=== PATIENT | male | born 1970 | race Caucasian/White ===

== ENCOUNTER 2021-04-25 09:15 | Inpatient (IN) | payer BC ==
--- NOTE | 2021-04-25 09:44 | ED ---
General Adult HPI - General Chief complaint: Shortness of Breath Stated complaint: MONICA Time Seen by Provider: 04/25/21 09:17 Source: patient, EMS, RN notes reviewed Mode of arrival: EMS Limitations: no limitations - History of Present Illness Initial comments: Patient is a pleasant 51-year-old male presenting to the emergency Department with difficulty in breathing. Onset of symptoms was this morning. Symptoms are similar to symptoms patient had prior to needing dialysis. Patient does do home dialysis. Patient states usually misses dialysis around once per week. Last dialysis was yesterday. Patient has had some leg swelling over the past day or 2. No calf pain. Patient does admit to having lower back surgery just around 5 or 6 weeks ago. No cough. No fever. - Related Data Allergies Allergy/AdvReac Type Severity Reaction Status Date / Time No Known Allergies Allergy Verified 04/25/21 09:32 Review of Systems ROS Statement: Those systems with pertinent positive or pertinent negative responses have been documented in the HPI. ROS Other: All systems not noted in ROS Statement are negative. Constitutional: Denies: fever Eyes: Denies: eye pain ENT: Denies: ear pain Respiratory: Reports: as per HPI, dyspnea. Denies: cough Cardiovascular: Reports: edema. Denies: chest pain Endocrine: Denies: fatigue Gastrointestinal: Denies: abdominal pain Genitourinary: Denies: dysuria Musculoskeletal: Denies: back pain Skin: Denies: rash Neurological: Denies: weakness Past Medical History Past Medical History: Diabetes Mellitus, Dialysis, Hypertension Additional Past Medical History / Comment(s): 5x weekly dialysis at home History of Any Multi-Drug Resistant Organisms: None Reported Past Surgical History: Back Surgery Additional Past Surgical History / Comment(s): Shoulder surgery x2 Past Psychological History: No Psychological Hx Reported Smoking Status: Never smoker Past Alcohol Use History: None Reported Past Drug Use History: Marijuana General Exam Limitations: no limitations General appearance: alert, in no apparent distress Head exam: Present: normocephalic Eye exam: Present: normal appearance Neck exam: Present: normal inspection Respiratory exam: Present: rales (Bilateral bases) Cardiovascular Exam: Present: regular rate, normal rhythm GI/Abdominal exam: Present: soft. Absent: tenderness Extremities exam: Present: pedal edema. Absent: calf tenderness Neurological exam: Present: alert Psychiatric exam: Present: normal affect, normal mood Skin exam: Present: normal color Course Vital Signs 04/25/21 04/25/21 09:29 09:40 Temperature 98.4 F Pulse Rate 85 Respiratory 18 Rate Blood Pressure 169/79 O2 Sat by Pulse 90 L 93 L Oximetry EKG Findings - EKG Comments: EKG Findings:: Normal sinus rhythm with a rate of 82. IA 164. QRS 104. QT 412. QTC 41. Normal axis. Q waves V1 and V2. Nonspecific T waves. Medical Decision Making - Medical Decision Making Patient reevaluated and resting comfortably in bed. Patient and family updated on results and plan. Case was also detail with Dr. Paul, covering hospital call, who will admit. He did evaluate patient in the emergency department. - Lab Data Result diagrams: 04/25/21 09:40 04/25/21 09:40 Lab Results 04/25/21 04/25/21 04/25/21 Range/Units 09:40 09:40 09:40 WBC 14.7 H (3.8-10.6) k/uL RBC 3.42 L (4.30-5.90) m/uL Hgb 11.0 L (13.0-17.5) gm/dL Hct 33.6 L (39.0-53.0) % MCV 98.3 (80.0-100.0) fL MCH 32.3 (25.0-35.0) pg MCHC 32.9 (31.0-37.0) g/dL RDW 14.5 (11.5-15.5) % Plt Count 208 (150-450) k/uL MPV 9.8 Neutrophils % 92 % Lymphocytes % 3 % Monocytes % 4 % Eosinophils % 1 % Basophils % 0 % Neutrophils # 13.6 H (1.3-7.7) k/uL Lymphocytes # 0.4 L (1.0-4.8) k/uL Monocytes # 0.5 (0-1.0) k/uL Eosinophils # 0.1 (0-0.7) k/uL Basophils # 0.0 (0-0.2) k/uL PT 10.2 (9.0-12.0) sec INR 0.9 (<1.2) APTT 22.9 (22.0-30.0) sec D-Dimer 1.80 H (<0.60) mg/L FEU Sodium 133 L (137-145) mmol/L Potassium 4.7 (3.5-5.1) mmol/L Chloride 97 L (98-107) mmol/L Carbon Dioxide 26 (22-30) mmol/L Anion Gap 10 mmol/L BUN 54 H (9-20) mg/dL Creatinine 5.32 H (0.66-1.25) mg/dL Est GFR (CKD-EPI)AfAm 13 (>60 ml/min/1.73 sqM) Est GFR (CKD-EPI)NonAf 11 (>60 ml/min/1.73 sqM) Glucose 269 H (74-99) mg/dL Plasma Lactic Acid Caleb (0.7-2.0) mmol/L Calcium 9.7 (8.4-10.2) mg/dL Total Bilirubin 1.1 (0.2-1.3) mg/dL AST 66 H (17-59) U/L ALT 98 H (4-49) U/L Alkaline Phosphatase 554 H (38-126) U/L NT-Pro-B Natriuret Pep pg/mL Total Protein 6.7 (6.3-8.2) g/dL Albumin 3.7 (3.5-5.0) g/dL 04/25/21 04/25/21 Range/Units 09:40 09:40 WBC (3.8-10.6) k/uL RBC (4.30-5.90) m/uL Hgb (13.0-17.5) gm/dL Hct (39.0-53.0) % MCV (80.0-100.0) fL MCH (25.0-35.0) pg MCHC (31.0-37.0) g/dL RDW (11.5-15.5) % Plt Count (150-450) k/uL MPV Neutrophils % % Lymphocytes % % Monocytes % % Eosinophils % % Basophils % % Neutrophils # (1.3-7.7) k/uL Lymphocytes # (1.0-4.8) k/uL Monocytes # (0-1.0) k/uL Eosinophils # (0-0.7) k/uL Basophils # (0-0.2) k/uL PT (9.0-12.0) sec INR (<1.2) APTT (22.0-30.0) sec D-Dimer (<0.60) mg/L FEU Sodium (137-145) mmol/L Potassium (3.5-5.1) mmol/L Chloride (98-107) mmol/L Carbon Dioxide (22-30) mmol/L Anion Gap mmol/L BUN (9-20) mg/dL Creatinine (0.66-1.25) mg/dL Est GFR (CKD-EPI)AfAm (>60 ml/min/1.73 sqM) Est GFR (CKD-EPI)NonAf (>60 ml/min/1.73 sqM) Glucose (74-99) mg/dL Plasma Lactic Acid Caleb 1.3 (0.7-2.0) mmol/L Calcium (8.4-10.2) mg/dL Total Bilirubin (0.2-1.3) mg/dL AST (17-59) U/L ALT (4-49) U/L Alkaline Phosphatase (38-126) U/L NT-Pro-B Natriuret Pep 60895 pg/mL Total Protein (6.3-8.2) g/dL Albumin (3.5-5.0) g/dL - Radiology Data Radiology results: image reviewed (Chest x-ray reveals right lower lobe infiltrate. copd) Disposition Clinical Impression: Pulmonary edema Disposition: ADMITTED IP TO THIS HOSP Is patient prescribed a controlled substance at d/c from ED?: No Referrals: Darin Camara NPC [Primary Care Provider] - 1-2 days Decision Time: 11:08
[2021-04-25 09:53] LABS: Basophils % (A) 0 %; Eosinophils # (A) 0.1 k/uL (0-0.7); Eosinophils % (A) 1 %; HCT 33.6 % (39.0-53.0); Lymphocytes # (A) 0.4 k/uL (1.0-4.8); Lymphocytes % (A) 3 %; MCH 32.3 pg (25.0-35.0); MCHC 32.9 g/dL (31.0-37.0); MCV 98.3 fL (80.0-100.0); Mean Platelet Volume 9.8; Monocytes # (A) 0.5 k/uL (0-1.0); Monocytes % (A) 4 %; Neutrophils # (A) 13.6 k/uL (1.3-7.7); Neutrophils % (A) 92 %; Platelet Count 208 k/uL (150-450); RBC 3.42 m/uL (4.30-5.90); RDW 14.5 % (11.5-15.5); WBC 14.7 k/uL (3.8-10.6)
--- NOTE | 2021-04-25 09:58 | XR ---
EXAMINATION TYPE: XR chest 2V DATE OF EXAM: 04/25/2021 COMPARISON: NONE TECHNIQUE: PA and lateral views submitted. HISTORY: Difficulty in breathing FINDINGS: Patchy right lower lobe infiltrate. Heart size mildly prominent. Lesion. Diffuse osteopenia. No pneum othorax or pleural effusion. Degenerative change of the spine. IMPRESSION: 1. Patchy right lower lobe infiltrate. 2 COPD.
[2021-04-25 10:05] LABS: Calcium 9.7 mg/dL (8.4-10.2); Total Bilirubin 1.1 mg/dL (0.2-1.3)
[2021-04-25 10:11] LABS: INR 0.9 (<1.2); Partial Thromboplastin Time 22.9 sec (22.0-30.0); Prothrombin Time 10.2 sec (9.0-12.0)
[2021-04-25 10:39] LABS: Albumin 3.7 g/dL (3.5-5.0); Potassium 4.7 mmol/L (3.5-5.1); Total Protein 6.7 g/dL (6.3-8.2)
[2021-04-25] MEDS ORDERED: traMADol 50 MG TAB PO STA (11:08)
[2021-04-25] MEDS ORDERED: FUROSEMIDE 10 MG/ML 4 ML VIAL IV STA (11:10)
[2021-04-25] MEDS: CYCLOBENZAPRINE 10 MG TAB PO PRN (11:18)
--- NOTE | 2021-04-25 12:24 | P.HPIM ---
History of Present Illness Patient is presently 51-year-old male came in with compensative shortness of breath which has been going on for last couple days and the weight gain of 8 pounds and bilateral pedal edema. Patient is found to have some pulmonary edema on the chest x-ray. Patient does hemodialysis at home by himself on as-needed basis. Patient barely makes any urine. Patient removed about 2.5 L yesterday in spite of which she still gain 6 pounds patient doesn't appear to be competent with his dietary recommendations. Patient denied any fever chills cough. Patient has mildly elevated liver enzymes and mildly elevated troponins serum creatinine is 5.5. Patient had a recent back surgery because of which patient cannot stay on bed or chair for long periods of time which is limiting his hemodialysis. Patient denied any dysuria. She is presently on 4 L of oxygen doesn't use any oxygen usually at home. REVIEW OF SYSTEMS: CONSTITUTIONAL: No fever, no malaise, no fatigue. HEENT: No recent visual problems or hearing problems. Denied any sore throat. CARDIOVASCULAR: No chest pain no palpitations, no syncope. PULMONARY: no hemoptysis. GASTROINTESTINAL: No diarrhea, no nausea, no vomiting, no abdominal pain. NEUROLOGICAL: No headaches, no weakness, no numbness. HEMATOLOGICAL: Denies any bleeding or petechiae. GENITOURINARY: Denies any burning micturition, frequency, or urgency. MUSCULOSKELETAL/RHEUMATOLOGICAL: Denies any joint pain, swelling, or any muscle pain. ENDOCRINE: Denies any polyuria or polydipsia. The rest of the 14-point review of systems is negative. PHYSICAL EXAMINATION: GENERAL: The patient is alert and oriented x3, not in any acute distress. Well developed, well nourished. HEENT: Pupils are round and equally reacting to light. EOMI. No scleral icterus. No conjunctival pallor. Normocephalic, atraumatic. No pharyngeal erythema. No thyromegaly. CARDIOVASCULAR: S1 and S2 present. No murmurs, rubs, or gallops. PULMONARY: Chest is clear to auscultation, no wheezing or crackles. ABDOMEN: Soft, nontender, nondistended, normoactive bowel sounds. No palpable organomegaly. MUSCULOSKELETAL: No joint swelling or deformity. EXTREMITIES: No cyanosis, clubbing, bilateral pitting pedal edema 2+ NEUROLOGICAL: Gross neurological examination did not reveal any focal deficits. SKIN: No rashes. Assessment and plan Shortness of Breath Secondary to Pulmonary Edema from End-Stage Disease and Volume Overload from End-Stage Renal Disease. Patient does urinate a bit patient was started on high-dose Lasix and nephrology will be consulted patient may need hemodialysis today and tomorrow. -Acute hypoxic respiratory failure secondary to assessment #1 -Chronic back pain with a recent back surgery patient will be resumed on home regimen. -Diabetes mellitus unknown with whether it's type II-type I with diabetic nephropathy and end-stage renal disease hemodialysis dependent -Hypertension DVT prophylaxis: Subcutaneous heparin Past Medical History Past Medical History: Diabetes Mellitus, Dialysis, Hypertension Additional Past Medical History / Comment(s): 5x weekly dialysis at home History of Any Multi-Drug Resistant Organisms: None Reported Past Surgical History: Back Surgery Additional Past Surgical History / Comment(s): Shoulder surgery x2 Past Psychological History: No Psychological Hx Reported Smoking Status: Never smoker Past Alcohol Use History: None Reported Past Drug Use History: Marijuana Medications and Allergies Home Medications Medication Instructions Recorded Confirmed Type Ascorbic Acid [Vitamin C] 1,000 mg PO DAILY 04/25/21 04/25/21 History Aspirin EC [Ecotrin Low Dose] 81 mg PO DAILY 04/25/21 04/25/21 History Citalopram Hydrobromide [CeleXA] 20 mg PO DAILY 04/25/21 04/25/21 History Cyclobenzaprine [Flexeril] 10 mg PO TID PRN 04/25/21 04/25/21 History Furosemide [Lasix] 40 mg PO DAILY 04/25/21 04/25/21 History Insulin Aspart (For Pump) [NovoLOG 0.01 unit SQ-PUMP CONTINUOUS 04/25/21 04/25/21 History (For Pump)] Labetalol [Trandate] 200 mg PO TID 04/25/21 04/25/21 History NIFEdipine [NIFEdipine ER 30 mg PO HS 04/25/21 04/25/21 History (Osmotic)] NIFEdipine [NIFEdipine ER 60 mg PO BID 04/25/21 04/25/21 History (Osmotic)] Omeprazole 40 mg PO DAILY 04/25/21 04/25/21 History Pramipexole Di-HCl [Mirapex] 0.5 mg PO HS 04/25/21 04/25/21 History Renaplex-D 1 tab PO DAILY 04/25/21 04/25/21 History Velphoro Chew 500mg 1 tab PO QID 04/25/21 04/25/21 History calcitrioL [Rocaltrol] 0.25 mcg PO PRO 04/25/21 04/25/21 History traMADol HCL 50 mg PO Q8H PRN 04/25/21 04/25/21 History Allergies Allergy/AdvReac Type Severity Reaction Status Date / Time No Known Allergies Allergy Verified 04/25/21 11:17 Physical Exam Vitals: Vital Signs Temp Pulse Resp BP Pulse Ox 04/25/21 11:30 79 94 L 04/25/21 11:25 79 20 142/89 95 04/25/21 11:00 80 94 L 04/25/21 10:30 80 151/99 99 04/25/21 10:00 80 163/79 93 L 04/25/21 09:40 93 L 04/25/21 09:30 81 168/81 92 L 04/25/21 09:29 98.4 F 85 18 169/79 90 L 04/25/21 09:26 78 169/79 85 L Intake and Output 04/24/21 04/25/21 04/25/21 22:59 06:59 14:59 Other: Weight 84.6 kg Results CBC & Chem 7: 04/25/21 09:40 04/25/21 09:40 Labs: Abnormal Lab Results - Last 24 Hours (Table) 04/25/21 04/25/21 04/25/21 Range/Units 09:40 09:40 09:40 WBC 14.7 H (3.8-10.6) k/uL RBC 3.42 L (4.30-5.90) m/uL Hgb 11.0 L (13.0-17.5) gm/dL Hct 33.6 L (39.0-53.0) % Neutrophils # 13.6 H (1.3-7.7) k/uL Lymphocytes # 0.4 L (1.0-4.8) k/uL D-Dimer 1.80 H (<0.60) mg/L FEU Sodium 133 L (137-145) mmol/L Chloride 97 L (98-107) mmol/L BUN 54 H (9-20) mg/dL Creatinine 5.32 H (0.66-1.25) mg/dL Glucose 269 H (74-99) mg/dL AST 66 H (17-59) U/L ALT 98 H (4-49) U/L Alkaline Phosphatase 554 H (38-126) U/L Troponin I (0.000-0.034) ng/mL 04/25/21 Range/Units 09:40 WBC (3.8-10.6) k/uL RBC (4.30-5.90) m/uL Hgb (13.0-17.5) gm/dL Hct (39.0-53.0) % Neutrophils # (1.3-7.7) k/uL Lymphocytes # (1.0-4.8) k/uL D-Dimer (<0.60) mg/L FEU Sodium (137-145) mmol/L Chloride (98-107) mmol/L BUN (9-20) mg/dL Creatinine (0.66-1.25) mg/dL Glucose (74-99) mg/dL AST (17-59) U/L ALT (4-49) U/L Alkaline Phosphatase (38-126) U/L Troponin I 0.037 H* (0.000-0.034) ng/mL
[2021-04-25] MEDS ORDERED: Insulin Aspart (For Pump) 100 UNIT/ML VIAL SQ-PUMP SCH (13:00)
--- NOTE | 2021-04-25 13:01 | US ---
EXAMINATION TYPE: US venous doppler duplex LE DATE OF EXAM: 04/25/2021 12:33 PM COMPARISON: NONE CLINICAL HISTORY: swelling. Bilateral leg swelling SIDE PERFORMED: Bilateral TECHNIQUE: The lower extremity deep venous system is examined utilizing real time linear array sonog michela with graded compression, doppler sonography and color-flow sonography. VESSELS IMAGED: Common Femoral Vein Deep Femoral Vein Greater Saphenous Vein * Femoral Vein Popliteal Vein Small Saphenous Vein * Proximal Calf Veins (* superficial vessels) Right Leg: Negative for DVT, Probable Selby's Cyst right pop fossa= 5.5 x 1.2 x 2.6 cm Left Leg: Negative for DVT, Probable Selby's cyst left fossa= 5.6 x 0.8 x 1.8 cm IMPRESSION: 1. Grayscale, color doppler, spectral doppler imaging performed of the deep veins of the lower extrem ities. There is normal flow, compressibility, vascular waveforms. 2. Bilateral Selby cysts.
[2021-04-25] MEDS: HYDROcodone/APAP 7.5-325MG 1 EACH TAB PO PRN ×2 (13:45→20:01)
[2021-04-25] MEDS: SEVELAMER 800 MG TAB PO SCH ×3 (13:52→21:10)
[2021-04-25] MEDS: HYDROmorphone 0.5 MG/0.5 ML SYRINGE IVP PRN (16:16)
[2021-04-25] MEDS ORDERED: INSPUCOR MISCELLANE PRN (17:41)
[2021-04-25] MEDS: LABETALOL 200 MG TAB PO SCH ×2 (18:30→22:31)
[2021-04-25] MEDS: traMADol 50 MG TAB PO PRN (18:37)
--- NOTE | 2021-04-25 18:46 | NM ---
EXAMINATION TYPE: NM pul vent and perfuse DATE OF EXAM: 04/25/2021 COMPARISON: NONE HISTORY: TECHNIQUE: Utilizing inhalation of 59.8 mCi Tc 99m DTPA aerosol and intravenous injection of 4.8 mCi of Tc 99m MAA, ventilation and perfusion images are acquired post injection in multiple projections. FINDINGS: Perfusion and ventilation images are within normal limits. There is no evidence of segmental or any s ignificant subsegmental perfusion defect.. IMPRESSION: There is very low probability of pulmonary embolism.
[2021-04-25 20:27] LABS: Glucose,Whole Blood 105 mg/dL (75-99)
[2021-04-25] MEDS ORDERED: traMADol 50 MG TAB PO SCH (21:00)
[2021-04-25] MEDS: NIFEdipine XL 30 MG TAB.ER.24 PO SCH (21:10)
[2021-04-25] MEDS: FUROSEMIDE 10 MG/ML 10 ML VIAL IV SCH (21:10)
[2021-04-25] MEDS: PRAMIPEXOLE 0.25 MG TAB PO SCH (21:10)
[2021-04-26 01:48] LABS: Glucose,Whole Blood 155 mg/dL (75-99)
[2021-04-26] MEDS: HYDROmorphone 0.5 MG/0.5 ML SYRINGE IVP PRN ×2 (06:06→15:53)
[2021-04-26 06:41] LABS: HCT 30.7 % (39.0-53.0); HGB 9.8 gm/dL (13.0-17.5); MCH 31.3 pg (25.0-35.0); MCHC 31.9 g/dL (31.0-37.0); MCV 97.8 fL (80.0-100.0); Mean Platelet Volume 9.7; Platelet Count 233 k/uL (150-450); RBC 3.14 m/uL (4.30-5.90); RDW 14.4 % (11.5-15.5); WBC 17.1 k/uL (3.8-10.6)
[2021-04-26 07:29] LABS: Glucose,Whole Blood 105 mg/dL (75-99)
[2021-04-26] MEDS: SEVELAMER 800 MG TAB PO SCH ×4 (08:08→21:00)
[2021-04-26] MEDS: ASPIRIN 81 MG PO SCH (08:08)
[2021-04-26] MEDS: ASCORBIC ACID 500 MG TAB PO SCH (08:08)
[2021-04-26] MEDS: FOLIC ACID-VIT B COMPLEX-VIT C 1 CAP PO SCH (08:08)
[2021-04-26] MEDS: LABETALOL 200 MG TAB PO SCH ×3 (08:08→21:00)
[2021-04-26] MEDS: PANTOPRAZOLE 40 MG TABLET PO SCH (08:08)
[2021-04-26] MEDS: FUROSEMIDE 10 MG/ML 10 ML VIAL IV SCH ×2 (08:08→21:00)
[2021-04-26] MEDS: CITALOPRAM HYDROBROMIDE 20 MG TAB PO SCH (08:08)
[2021-04-26] MEDS: HYDROcodone/APAP 7.5-325MG 1 EACH TAB PO PRN (08:36)
[2021-04-26] MEDS ORDERED: VANCOMYCIN IV PER PHARMACY 1 EACH MISC MISCELLANE PRN (09:00)
--- NOTE | 2021-04-26 09:03 | P.NPCON ---
History of Present Illness - Reason for Consult end stage renal disease - History of Present Illness Reason for consultation: End-stage renal disease History of present illness: Patient is a 51-year-old male seen in renal consultation for end-stage renal disease. Patient follows with a rock singer out of town. He does home hemodialysis 5 times a week but states he's been doing it about 3-4 times a week last couple of weeks. He has a left upper extremity AV fistula. Etiology is diabetic kidney disease. States he was diagnosed with diabetes at the age of 11. Patient presented to the hospital due to worsening shortness of breath. He also complains of lower extremity edema. Patient states his last hemodialysis was on Friday. He does make urine. He is currently on IV Lasix. He is currently on 4 L is cannula. Blood pressure stable. He denies any significant cough. White count is on the higher side. No vomiting or diarrhea. VQ scan revealed low evidence of PE. No evidence of DVT on venous Doppler. Chest x-ray suggestive of right lower lobe infiltrate. Vital signs are stable. General: The patient appeared well nourished and normally developed. HEENT: Head exam is unremarkable. LUNGS: Breath sounds decreased. HEART: Rate and Rhythm are regular. ABDOMEN: Soft, no distention. EXTREMITITES: No edema. Past Medical History Past Medical History: Diabetes Mellitus, Dialysis, Hypertension Additional Past Medical History / Comment(s): 5x weekly dialysis at home History of Any Multi-Drug Resistant Organisms: None Reported Past Surgical History: Back Surgery Additional Past Surgical History / Comment(s): Shoulder surgery x2 wisdom teeth removed Past Anesthesia/Blood Transfusion Reactions: No Reported Reaction Past Psychological History: No Psychological Hx Reported Smoking Status: Never smoker Past Alcohol Use History: None Reported Past Drug Use History: Marijuana Medications and Allergies Home Medications Medication Instructions Recorded Confirmed Type Ascorbic Acid [Vitamin C] 1,000 mg PO DAILY 04/25/21 04/25/21 History Aspirin EC [Ecotrin Low Dose] 81 mg PO DAILY 04/25/21 04/25/21 History Citalopram Hydrobromide [CeleXA] 20 mg PO DAILY 04/25/21 04/25/21 History Cyclobenzaprine [Flexeril] 10 mg PO TID PRN 04/25/21 04/25/21 History Furosemide [Lasix] 40 mg PO DAILY 04/25/21 04/25/21 History Insulin Aspart (For Pump) [NovoLOG 0.01 unit SQ-PUMP CONTINUOUS 04/25/21 04/25/21 History (For Pump)] Labetalol [Trandate] 200 mg PO TID 04/25/21 04/25/21 History NIFEdipine [NIFEdipine ER 30 mg PO HS 04/25/21 04/25/21 History (Osmotic)] NIFEdipine [NIFEdipine ER 60 mg PO BID 04/25/21 04/25/21 History (Osmotic)] Omeprazole 40 mg PO DAILY 04/25/21 04/25/21 History Pramipexole Di-HCl [Mirapex] 0.5 mg PO HS 04/25/21 04/25/21 History Renaplex-D 1 tab PO DAILY 04/25/21 04/25/21 History Velphoro Chew 500mg 1 tab PO QID 04/25/21 04/25/21 History calcitrioL [Rocaltrol] 0.25 mcg PO PRO 04/25/21 04/25/21 History traMADol HCL 50 mg PO Q8H PRN 04/25/21 04/25/21 History Allergies Allergy/AdvReac Type Severity Reaction Status Date / Time No Known Allergies Allergy Verified 04/25/21 11:17 Physical Exam Vitals: Vital Signs Temp Pulse Pulse Resp BP BP Pulse Ox 04/26/21 05:22 99.5 F 84 16 144/68 92 L 04/26/21 02:08 98.3 F 04/26/21 02:06 24 04/26/21 02:01 188/69 100 04/26/21 01:58 129 H 40 H 187/91 97 04/25/21 22:31 91 169/73 04/25/21 19:57 98.7 F 83 18 162/72 92 L 04/25/21 15:14 97.6 F 78 20 139/73 96 04/25/21 14:48 85 20 155/84 96 04/25/21 13:49 84 20 158/88 95 04/25/21 12:36 95 20 155/76 93 L 04/25/21 11:30 79 94 L 04/25/21 11:25 79 20 142/89 95 04/25/21 11:00 80 94 L 04/25/21 10:30 80 151/99 99 04/25/21 10:00 80 163/79 93 L 04/25/21 09:40 93 L 04/25/21 09:30 81 168/81 92 L 04/25/21 09:29 98.4 F 85 18 169/79 90 L 04/25/21 09:26 78 169/79 85 L Intake and Output 04/25/21 04/26/21 04/26/21 22:59 06:59 14:59 Intake Total 10 Balance 10 Intake: IV 10 saline flush 10 Other: Voiding Method Toilet Weight 83 kg Results - Lab Results Most recent lab results Calcium 9.7 mg/dL (8.4-10.2) 04/25/21 09:40 04/26/21 06:27 04/25/21 09:40 Assessment and Plan Plan: Assessment: 1. End-stage renal disease maintained on home hemodialysis via left upper extremity AV fistula. 2. Dyspnea secondary to volume overload. Concern for pneumonia as well. 3. Diabetes mellitus. 4. Hypertension with chronic kidney disease. 5. Chronic kidney disease mineral bone disease. 6. Gram-positive bacteremia. Plan: Hemodialysis today and again tomorrow. Maintain IV Lasix. Add IV vancomycin. Dose to be adjusted for renal function. Defer further antibiotic therapy to primary team. Check phosphorus level. Thank you for the consultation. I will continue to follow the patient with you during his hospital stay.
[2021-04-26 10:55] LABS: African American GFR (CKD) 10.2 (60.0-200.0); Albumin 3.6 g/dL (3.80-4.90); Albumin/Globulin Ratio 1.33 (1.60-3.17); Anion Gap 13.9 mmol/L (4.00-12.00); BUN/Creat Ratio 9.7 Ratio (12.00-20.00); Calcium 9.6 mg/dL (8.7-10.3); Carbon Dioxide 26.1 mmol/L (21.6-31.8); Globulin 2.7 g/dL (1.6-3.3); Non-African American GFR(CKD) 8.8 (60.0-200.0); Potassium 4.1 mmol/L (3.5-5.5); Total Protein 6.3 g/dL (6.2-8.2)
[2021-04-26] MEDS ORDERED: VANCOMYCIN 1,500 MG in SODIUM CHLORIDE 0.9% 250 ML IVPB ONE (11:00)
[2021-04-26] MEDS ORDERED: INSULIN PUMP BASAL RATES 1 EACH MISC MISCELLANE PRN (12:02)
[2021-04-26] MEDS ORDERED: INSULIN ASPART (NovoLOG) 100 UNIT/ML VIAL SQ PRN (12:02)
[2021-04-26] MEDS ORDERED: INSULIN PUMP TARGET GLUCOSE 1 EACH MISC MISCELLANE PRN (12:02)
[2021-04-26] MEDS ORDERED: INSULIN PUMP ACTIVE INSULIN 1 EACH MISC MISCELLANE PRN (12:02)
[2021-04-26 12:06] LABS: Glucose,Whole Blood 171 mg/dL (75-99)
--- NOTE | 2021-04-26 13:28 | CT ---
EXAMINATION TYPE: CT lumbar spine w con DATE OF EXAM: 04/26/2021 COMPARISON: HISTORY: Low back pain, history of recent surgery February 2021. CT DLP: 1026 mGycm CONTRAST: CT scan of the lumbar is performed with IV Contrast, patient injected with 100ml mL of Isovue 300. Jimmie sanchez is scheduled for dialysis following CT exam. TECHNIQUE: CT of the lumbar spine is performed on a spiral scan at 3 mm thick sections. Reconstructed images are performed in the coronal and sagittal planes. FINDINGS: T12-L1: No focal disc herniation or significant disc bulge is evident. No spinal canal stenosis or neural foraminal stenosis is present. L1-L2: No focal disc herniation or significant disc bulge is evident. No spinal canal stenosis or n eural foraminal stenosis is present L2-L3: No focal disc herniation or significant disc bulge is evident. No spinal canal stenosis or n eural foraminal stenosis is present L3-L4: A based disc bulge is moderate anterior thecal sac flattening. No AP spinal canal stenosis is present. Neural foramen are patent. L4-L5: There appears to be some mild enhancement within the left paracentral canal displacing the the elmo sac towards the right at the L4-5 level. This appears to extend through the left foramen. The bor ders are indistinct. This may in some extension towards the left L5 level. This would have moderate a nterior thecal sac compression and left lateral recess stenosis. Correlate with radicular symptoms. E pidural abscess should be considered. L5-S1: No focal disc herniation or significant disc bulge is evident. No spinal canal stenosis or n eural foraminal stenosis is present Vertebral alignment appears normal. IMPRESSION: 1. Ill-defined area of increased density within the left paracentral region at the L4-5 disc level ex tending into the left foramen and to the left paracentral region posterior to L5. Epidural abscess sh ould be considered. Report was called to Shana, the patient's nurse by Dr. Pérez by telephone at the time of interpretation. Report was called to by Dr. Pérez by telephone at 1326 hours 04/26/2021
[2021-04-26 14:35] LABS: Hemoglobin A1C 7.6 % (4.0-6.0)
[2021-04-26] MEDS: INSULIN PUMP MEAL BOLUS 1 UNIT MISC MISCELLANE SCH ×3 (15:50→23:51)
--- NOTE | 2021-04-26 15:58 | P.PN ---
Progress Note - Text Progress Note Date: 04/26/21 Reviewed Images and case. Pt is 51 yo male with hx of recent back surgery of which no Op noted available to review. Pt has elevated inflammatorie markers, elevated WBC and a CT of his lumbar spine suspicious for L4-5 disc space air as well as epidural mass possible epidural abscess. Given the pts hx, multiple medical comorbid conditions and septic like picture this is a possibility. Pt needs stat MRI of C, T, L spine w/wo contrast to evaluate for surgical considerations. Cont with medical treatment, blood cultures and abx. Will evaluate pt and make further recommendations upon image completion. Appreciate ID and medicine management.
[2021-04-26 17:22] LABS: Glucose,Whole Blood 188 mg/dL (75-99)
[2021-04-26 20:49] LABS: Glucose,Whole Blood 202 mg/dL (75-99)
[2021-04-26] MEDS: NIFEdipine XL 30 MG TAB.ER.24 PO SCH (20:59)
[2021-04-26] MEDS: PRAMIPEXOLE 0.25 MG TAB PO SCH (21:00)
[2021-04-26] MEDS: traMADol 50 MG TAB PO PRN (21:05)
[2021-04-27] MEDS: HYDROmorphone 0.5 MG/0.5 ML SYRINGE IVP PRN ×2 (02:07→16:26)
--- NOTE | 2021-04-27 03:05 | P.PN ---
Subjective Progress Note Date: 04/26/21 Patient is presently 51-year-old male came in with compensative shortness of breath which has been going on for last couple days and the weight gain of 8 pounds and bilateral pedal edema. Patient is found to have some pulmonary edema on the chest x-ray. Patient does hemodialysis at home by himself on as-needed basis. Patient barely makes any urine. Patient removed about 2.5 L yesterday in spite of which she still gain 6 pounds patient doesn't appear to be competent with his dietary recommendations. Patient denied any fever chills cough. Patient has mildly elevated liver enzymes and mildly elevated troponins serum creatinine is 5.5. Patient had a recent back surgery because of which patient cannot stay on bed or chair for long periods of time which is limiting his hemodialysis. Patient denied any dysuria. She is presently on 4 L of oxygen doesn't use any oxygen usually at home. 04/26/2021 Patient is seen in follow up this morning and infectious disease along with nephrology and orthopedics following. Patient had positive blood cultures noted and was started on vancomycin. Patient continues with pain of the lower back. Recent surgical site of the lower back LS showing some minimal irritation on the bottom of the incision with no obvious drainage or redness noted. Patient does have tenderness noted in that area. CT of the LS ordered and showing increased density of the left paracentral region of the L4-5 area suggestive of epidural abscess. bilateral venous doppler of lower extremity negative of DVT likely bilateral bakers cysts. Patient continues to have shortness of breath requiring 5 L of 02 via NC. Orthopedics requesting MRI of the area to confirm abscess and will need nephrology clearance given ESRD. WBC increased today at 17.1. Review of systems: Constitutional: No reports of fatigue, fever, or chills Cardiovascular: No reports of chest pain or palpitations Respiratory: reports of shortness of breath GI: No reports of nausea, vomiting, or diarrhea : No reports of dysuria or retention Neurovascular: Reports generalized weakness, chronic lower back pain and mild tenderness at the recent LS surgical site All medications have been reviewed PHYSICAL EXAMINATION: GENERAL: The patient is alert and oriented x3, not in any acute distress. Well developed, well nourished. HEENT: Pupils are round and equally reacting to light. EOMI. No scleral icterus. No conjunctival pallor. Normocephalic, atraumatic. No pharyngeal erythema. No thyromegaly. CARDIOVASCULAR: S1 and S2 present. No murmurs, rubs, or gallops. PULMONARY: Chest is clear to auscultation, no wheezing or crackles. ABDOMEN: Soft, nontender, nondistended, normoactive bowel sounds. No palpable organomegaly. MUSCULOSKELETAL: No joint swelling or deformity. EXTREMITIES: No cyanosis, clubbing, bilateral pitting pedal edema 2+ NEUROLOGICAL: Gross neurological examination did not reveal any focal deficits. SKIN: No rashes. LS surgical site showing healing and approximation with no surrounding redness or swelling noted. tender on palpation Assessment and plan: -Shortness of Breath Secondary to Pulmonary Edema from End-Stage Disease and Volume Overload from End-Stage Renal Disease. Patient does urinate a bit patient was started on high-dose Lasix and nephrology following and continuing on daily dialysis -Acute hypoxic respiratory failure secondary to assessment #1, continues to be on 5 liters via NC -Positive blood cultures noted and will consult infectious disease. Patient started on IV vancomycin and will follow with repeat blood cultures. -Possible epidural abscess as noted on CT of the L4-5 left paracentral region, ortho consulted and requesting MRI will need nephro clearance -mild leukocytosis possibly secondary to possible epidural abscess, WBC 17.1. started on Vanco, infectious disease following -bilateral bakers cyst noted on doppler of the popliteals, negative for DVT -Chronic back pain with a recent back surgery patient will be resumed on home regimen. -Diabetes mellitus unknown with whether it's type II-type I with diabetic nephropathy and end-stage renal disease hemodialysis dependent, HgBA1c is 7.6 -Hypertension -DVT prophylaxis: Subcutaneous heparin Plan: Continue current medications and continue with IV vanco and infectious disease following. Possible epidural abscess noted on CT and ortho consulted and requesting MRI and will need nephro clearance given ESRD. Patient is receiving daily dialysis. Patient continues to be short of breath with 5L via NC and will continue with IV lasix and wean FI02 as tolerated. Family at the bedside and treatment plan discussed with infectious disease. Will repeat am labs and continue to monitor closely. Objective - Vital Signs Vital signs: Vital Signs Temp 99.5 F 04/26/21 05:22 Pulse 84 04/26/21 05:22 Resp 16 04/26/21 05:22 BP 144/68 04/26/21 05:22 Pulse Ox 92 L 04/26/21 05:22 Intake & Output 04/25/21 04/26/21 04/26/21 18:59 06:59 18:59 Intake Total 10 Balance 10 Weight 84.6 kg 83 kg Intake: IV 10 saline flush 10 Other: Voiding Method Toilet - Labs CBC & Chem 7: 04/26/21 06:27 04/26/21 06:27 Labs: Abnormal Lab Results - Last 24 Hours (Table) 04/25/21 04/25/21 04/25/21 Range/Units 09:40 09:40 09:40 WBC 14.7 H (3.8-10.6) k/uL RBC 3.42 L (4.30-5.90) m/uL Hgb 11.0 L (13.0-17.5) gm/dL Hct 33.6 L (39.0-53.0) % Neutrophils # 13.6 H (1.3-7.7) k/uL Lymphocytes # 0.4 L (1.0-4.8) k/uL D-Dimer 1.80 H (<0.60) mg/L FEU Sodium 133 L (137-145) mmol/L Chloride 97 L (98-107) mmol/L BUN 54 H (9-20) mg/dL Creatinine 5.32 H (0.66-1.25) mg/dL Glucose 269 H (74-99) mg/dL POC Glucose (mg/dL) (75-99) mg/dL AST 66 H (17-59) U/L ALT 98 H (4-49) U/L Alkaline Phosphatase 554 H (38-126) U/L Troponin I (0.000-0.034) ng/mL Procalcitonin (0.02-0.09) ng/mL 04/25/21 04/25/21 04/25/21 Range/Units 09:40 10:17 20:25 WBC (3.8-10.6) k/uL RBC (4.30-5.90) m/uL Hgb (13.0-17.5) gm/dL Hct (39.0-53.0) % Neutrophils # (1.3-7.7) k/uL Lymphocytes # (1.0-4.8) k/uL D-Dimer (<0.60) mg/L FEU Sodium (137-145) mmol/L Chloride (98-107) mmol/L BUN (9-20) mg/dL Creatinine (0.66-1.25) mg/dL Glucose (74-99) mg/dL POC Glucose (mg/dL) 105 H (75-99) mg/dL AST (17-59) U/L ALT (4-49) U/L Alkaline Phosphatase (38-126) U/L Troponin I 0.037 H* (0.000-0.034) ng/mL Procalcitonin 1.26 H (0.02-0.09) ng/mL 04/26/21 04/26/21 04/26/21 Range/Units 01:45 06:27 07:26 WBC 17.1 H (3.8-10.6) k/uL RBC 3.14 L (4.30-5.90) m/uL Hgb 9.8 L (13.0-17.5) gm/dL Hct 30.7 L (39.0-53.0) % Neutrophils # (1.3-7.7) k/uL Lymphocytes # (1.0-4.8) k/uL D-Dimer (<0.60) mg/L FEU Sodium (137-145) mmol/L Chloride (98-107) mmol/L BUN (9-20) mg/dL Creatinine (0.66-1.25) mg/dL Glucose (74-99) mg/dL POC Glucose (mg/dL) 155 H 105 H (75-99) mg/dL AST (17-59) U/L ALT (4-49) U/L Alkaline Phosphatase (38-126) U/L Troponin I (0.000-0.034) ng/mL Procalcitonin (0.02-0.09) ng/mL Microbiology - Last 24 Hours (Table) 04/25/21 10:17 Blood Culture Gram Stain - Preliminary Blood 04/25/21 10:17 Blood Culture - Final Blood
[2021-04-27 05:54] LABS: Basophils % (A) 0 %; Eosinophils % (A) 0 %; HCT 29.5 % (39.0-53.0); HGB 9.6 gm/dL (13.0-17.5); Lymphocytes # (A) 0.6 k/uL (1.0-4.8); Lymphocytes % (A) 5 %; MCH 31.9 pg (25.0-35.0); MCHC 32.6 g/dL (31.0-37.0); MCV 97.7 fL (80.0-100.0); Mean Platelet Volume 9.9; Monocytes # (A) 0.7 k/uL (0-1.0); Monocytes % (A) 6 %; Neutrophils # (A) 11.3 k/uL (1.3-7.7); Neutrophils % (A) 87 %; Platelet Count 244 k/uL (150-450); RBC 3.02 m/uL (4.30-5.90); RDW 14.8 % (11.5-15.5); WBC 12.9 k/uL (3.8-10.6)
[2021-04-27] MEDS: HYDROcodone/APAP 7.5-325MG 1 EACH TAB PO PRN (06:45)
[2021-04-27] MEDS ORDERED: VANCOMYCIN 1,500 MG in SODIUM CHLORIDE 0.9% 250 ML IVPB ONE (07:00)
--- NOTE | 2021-04-27 07:23 | P.CONS ---
History of Present Illness - Reason for Consult Consult date: 04/26/21 gram positive bacteremia Requesting physician: Melba Bhagat - Chief Complaint shortness of breath x 1 day - History of Present Illness Patient is a 51-year-old male with a past medical history significant for diabetes mellitus end-stage renal disease on hemodialysis through left arm AV fistula patient recently did have a lumbar spine surgery done for herniated disc with the patient is describing as scrabing of his disc no hardware has been installed patient presented to to the ER yesterday morning for evaluation of difficulty in breathing patient symptoms started suddenly the morning of presentation to the hospital patient home with dialysis and usually misses dialysis once per week however he did not exercise yesterday patient was complaining of shortness of breath even at rest patient denies having any chest pain did have very minimal cough no sputum production no nausea no vomiting no abdominal pain no diarrhea patient complaining of pain to the lower back area to more frequently came to throbbing intensity is about 6-7 radiation to the left leg with the symptoms the patient has been evaluated by the ER physician on arrival to the ER the patient was afebrile patient did have white count of 14 point 7 repeat is up to 17.1 with a left shift liver exams are mildly elevated blood cultures 1.26 patient did have a chest x-ray patchy right lower lobe infiltrate and COPD venous Doppler negative for DVT pulmonary perfusion imaging low probability of PE patient did have a blood culture drawn on the 4 multiple sets and this has been coming back positivegram-positive cocci that has prompted this infectious disease consultation vancomycin has been added. Review of Systems Positive point has been mentioned in HPI rest of the systems are negative Past Medical History Past Medical History: Diabetes Mellitus, Dialysis, Hypertension Additional Past Medical History / Comment(s): 5x weekly dialysis at home History of Any Multi-Drug Resistant Organisms: None Reported Past Surgical History: Back Surgery Additional Past Surgical History / Comment(s): Shoulder surgery x2 wisdom teeth removed Past Anesthesia/Blood Transfusion Reactions: No Reported Reaction Past Psychological History: No Psychological Hx Reported Smoking Status: Never smoker Past Alcohol Use History: None Reported Past Drug Use History: Marijuana Medications and Allergies Home Medications Medication Instructions Recorded Confirmed Type Ascorbic Acid [Vitamin C] 1,000 mg PO DAILY 04/25/21 04/25/21 History Aspirin EC [Ecotrin Low Dose] 81 mg PO DAILY 04/25/21 04/25/21 History Citalopram Hydrobromide [CeleXA] 20 mg PO DAILY 04/25/21 04/25/21 History Cyclobenzaprine [Flexeril] 10 mg PO TID PRN 04/25/21 04/25/21 History Furosemide [Lasix] 40 mg PO DAILY 04/25/21 04/25/21 History Insulin Aspart (For Pump) [NovoLOG 0.01 unit SQ-PUMP CONTINUOUS 04/25/21 04/25/21 History (For Pump)] Labetalol [Trandate] 200 mg PO TID 04/25/21 04/25/21 History NIFEdipine [NIFEdipine ER 30 mg PO HS 04/25/21 04/25/21 History (Osmotic)] NIFEdipine [NIFEdipine ER 60 mg PO BID 04/25/21 04/25/21 History (Osmotic)] Omeprazole 40 mg PO DAILY 04/25/21 04/25/21 History Pramipexole Di-HCl [Mirapex] 0.5 mg PO HS 04/25/21 04/25/21 History Renaplex-D 1 tab PO DAILY 04/25/21 04/25/21 History Velphoro Chew 500mg 1 tab PO QID 04/25/21 04/25/21 History calcitrioL [Rocaltrol] 0.25 mcg PO PRO 04/25/21 04/25/21 History traMADol HCL 50 mg PO Q8H PRN 04/25/21 04/25/21 History Allergies Allergy/AdvReac Type Severity Reaction Status Date / Time No Known Allergies Allergy Verified 04/25/21 11:17 Physical Exam Vitals: Vital Signs Temp Pulse Pulse Resp BP BP Pulse Ox 04/26/21 12:05 98.8 F 71 18 143/62 94 L 04/26/21 05:22 99.5 F 84 16 144/68 92 L 04/26/21 02:08 98.3 F 04/26/21 02:06 24 04/26/21 02:01 188/69 100 04/26/21 01:58 129 H 40 H 187/91 97 04/25/21 22:31 91 169/73 04/25/21 19:57 98.7 F 83 18 162/72 92 L 04/25/21 15:14 97.6 F 78 20 139/73 96 04/25/21 14:48 85 20 155/84 96 Intake and Output 04/25/21 04/26/21 04/26/21 22:59 06:59 14:59 Intake Total 10 600 Balance 10 600 Intake: IV 10 saline flush 10 Oral 600 Other: Voiding Method Toilet Toilet Urinal Weight 83 kg GENERAL DESCRIPTION: Middle-aged male lying in bed, no distress. No tachypnea or accessory muscle of respiration use. HEENT: Shows Pallor , no scleral icterus. Oral mucous membrane is dry. NECK: Trachea central, no thyromegaly. LUNGS: Unlabored breathing. Clear to auscultation anteriorly. No wheeze or crackle. HEART: S1, S2, regular rate and rhythm. ABDOMEN: Soft, no tenderness , guarding or rigidity EXTREMITIES: No edema of feet. SKIN: No rash, no masses palpable. SPINE : Lumbar incision is currently healed minimal swelling no significant redness or drainage was noticed NEUROLOGICAL: The patient is awake, alert, oriented x3, mood and affect normal. Results CBC & Chem 7: 04/27/21 05:35 04/26/21 06:27 Labs: Abnormal Lab Results - Last 24 Hours (Table) 04/25/21 04/25/21 04/26/21 Range/Units 10:17 20:25 01:45 WBC (3.8-10.6) k/uL RBC (4.30-5.90) m/uL Hgb (13.0-17.5) gm/dL Hct (39.0-53.0) % Chloride (96-109) mmol/L Anion Gap (4.00-12.00) mmol/L BUN (9.0-27.0) mg/dL Creatinine (0.6-1.5) mg/dL Est GFR (CKD-EPI)AfAm (60.0-200.0) Est GFR (CKD-EPI)NonAf (60.0-200.0) BUN/Creatinine Ratio (12.00-20.00) Ratio Glucose (70-110) mg/dL POC Glucose (mg/dL) 105 H 155 H (75-99) mg/dL AST (14-35) U/L ALT (10-49) U/L Alkaline Phosphatase (41-126) U/L Albumin (3.80-4.90) g/dL Albumin/Globulin Ratio (1.60-3.17) g/dL Procalcitonin 1.26 H (0.02-0.09) ng/mL 04/26/21 04/26/21 04/26/21 Range/Units 06:27 06:27 07:26 WBC 17.1 H (3.8-10.6) k/uL RBC 3.14 L (4.30-5.90) m/uL Hgb 9.8 L (13.0-17.5) gm/dL Hct 30.7 L (39.0-53.0) % Chloride 95 L (96-109) mmol/L Anion Gap 13.90 H (4.00-12.00) mmol/L BUN 64.0 H (9.0-27.0) mg/dL Creatinine 6.6 H (0.6-1.5) mg/dL Est GFR (CKD-EPI)AfAm 10.2 L (60.0-200.0) Est GFR (CKD-EPI)NonAf 8.8 L (60.0-200.0) BUN/Creatinine Ratio 9.70 L (12.00-20.00) Ratio Glucose 146 H (70-110) mg/dL POC Glucose (mg/dL) 105 H (75-99) mg/dL AST 37 H (14-35) U/L ALT 77 H (10-49) U/L Alkaline Phosphatase 594 H (41-126) U/L Albumin 3.60 L (3.80-4.90) g/dL Albumin/Globulin Ratio 1.33 L (1.60-3.17) g/dL Procalcitonin (0.02-0.09) ng/mL 04/26/21 Range/Units 12:04 WBC (3.8-10.6) k/uL RBC (4.30-5.90) m/uL Hgb (13.0-17.5) gm/dL Hct (39.0-53.0) % Chloride (96-109) mmol/L Anion Gap (4.00-12.00) mmol/L BUN (9.0-27.0) mg/dL Creatinine (0.6-1.5) mg/dL Est GFR (CKD-EPI)AfAm (60.0-200.0) Est GFR (CKD-EPI)NonAf (60.0-200.0) BUN/Creatinine Ratio (12.00-20.00) Ratio Glucose (70-110) mg/dL POC Glucose (mg/dL) 171 H (75-99) mg/dL AST (14-35) U/L ALT (10-49) U/L Alkaline Phosphatase (41-126) U/L Albumin (3.80-4.90) g/dL Albumin/Globulin Ratio (1.60-3.17) g/dL Procalcitonin (0.02-0.09) ng/mL Microbiology - Last 24 Hours (Table) 04/25/21 10:17 Blood Culture - Preliminary Blood No Growth after 24 hours 04/25/21 10:17 Blood Culture Gram Stain - Preliminary Blood 04/25/21 10:17 Blood Culture - Final Blood Assessment and Plan Assessment: patient with gram-positive bacteremia in this patient who recently did have a lumbar spine surgery has been complaining of pain to the lumbar spine area patient currently do not have any other obvious focus for this bacteremia with concern for possible lumbar surgical site infection as the patient occasionally behaving as pneumonia no evidence of cellulitis at the part of the body (1) Gram-positive bacteremia Current Visit: Yes Status: Acute Code(s): R78.81 - BACTEREMIA SNOMED Code(s): 776103568535 Plan: 1-we will obtain a CT of the lumbosacral spine with contrast once collected by nephrology ideally would have obtained MRI however because of his renal failure we will start with a CT of the lumbosacral spine 2-vancomycin pharmacy to dose her with a target trough of 15 3-blood cultures will be repeated to document clearance of bacteremia we will follow on clinical condition and cultures to further adjust medication if needed Thank you for this consultation we will follow the patient along with you
[2021-04-27] MEDS: FUROSEMIDE 10 MG/ML 10 ML VIAL IV SCH ×2 (07:32→20:56)
[2021-04-27 07:33] LABS: Glucose,Whole Blood 152 mg/dL (75-99)
[2021-04-27] MEDS: ASPIRIN 81 MG PO SCH (07:33)
[2021-04-27] MEDS: ASCORBIC ACID 500 MG TAB PO SCH (07:33)
[2021-04-27] MEDS: CITALOPRAM HYDROBROMIDE 20 MG TAB PO SCH (07:33)
[2021-04-27] MEDS: PANTOPRAZOLE 40 MG TABLET PO SCH (07:33)
[2021-04-27] MEDS: SEVELAMER 800 MG TAB PO SCH ×4 (07:33→20:57)
[2021-04-27] MEDS: LABETALOL 200 MG TAB PO SCH ×3 (07:33→20:57)
[2021-04-27] MEDS: INSULIN PUMP MEAL BOLUS 1 UNIT MISC MISCELLANE SCH ×4 (07:40→21:04)
[2021-04-27] MEDS: FOLIC ACID-VIT B COMPLEX-VIT C 1 CAP PO SCH (08:31)
[2021-04-27] MEDS ORDERED: LORazepam 2 MG/ML INJ IV PRN (09:20)
[2021-04-27 10:44] LABS: Hepatitis B Surface AB- Quant <3.5 mIU/mL; Hepatitis B Surface Antibody Non-Reactive (Non-Reactive); Hepatitis B Surface Antigen Non-Reactive (Non-Reactive)
--- NOTE | 2021-04-27 10:55 | P.PN ---
Subjective Patient is seen in follow-up for end-stage renal disease. He is maintained on home hemodialysis. No chest pain or shortness of breath. Concern for epidural abscess on CT findings. Scheduled for MRI with contrast today. Vital signs are stable. General: The patient appeared well nourished and normally developed. HEENT: Head exam is unremarkable. Neck is without jugular venous distension. LUNGS: Breath sounds decreased. HEART: Rate and Rhythm are regular. ABDOMEN: Soft, no distention. EXTREMITITES: 1+ edema. Objective - Vital Signs Vital signs: Vital Signs Temp 98.7 F 04/27/21 04:30 Pulse 89 04/27/21 04:30 Resp 18 04/27/21 04:30 BP 177/72 04/27/21 04:30 Pulse Ox 91 L 04/27/21 04:30 Intake & Output 04/26/21 04/27/21 04/27/21 18:59 06:59 18:59 Intake Total 1690 0 Output Total 3450 100 100 Balance -1760 -100 -100 Weight 81 kg Intake: Intake, IV Titration 250 Amount Vancomycin 1,500 mg In 250 Sodium Chloride 0.9% 250 ml @ 125 mls/hr IVPB ONCE ONE Rx#:[id number] Oral 1440 0 Output: Urine 450 100 100 Other 3000 Other: Voiding Method Toilet Toilet Toilet Urinal Urinal Urinal # Voids 1 1 - Labs CBC & Chem 7: 04/27/21 05:35 04/26/21 06:27 Labs: Abnormal Lab Results - Last 24 Hours (Table) 04/26/21 04/26/21 04/26/21 Range/Units 06:27 06:27 12:04 WBC (3.8-10.6) k/uL RBC (4.30-5.90) m/uL Hgb (13.0-17.5) gm/dL Hct (39.0-53.0) % Neutrophils # (1.3-7.7) k/uL Lymphocytes # (1.0-4.8) k/uL ESR (0-15) mm/hr Chloride 95 L (96-109) mmol/L Anion Gap 13.90 H (4.00-12.00) mmol/L BUN 64.0 H (9.0-27.0) mg/dL Creatinine 6.6 H (0.6-1.5) mg/dL Est GFR (CKD-EPI)AfAm 10.2 L (60.0-200.0) Est GFR (CKD-EPI)NonAf 8.8 L (60.0-200.0) BUN/Creatinine Ratio 9.70 L (12.00-20.00) Ratio Glucose 146 H (70-110) mg/dL POC Glucose (mg/dL) 171 H (75-99) mg/dL Hemoglobin A1c 7.6 H (4.0-6.0) % AST 37 H (14-35) U/L ALT 77 H (10-49) U/L Alkaline Phosphatase 594 H (41-126) U/L C-Reactive Protein (<1.0) mg/dL Albumin 3.60 L (3.80-4.90) g/dL Albumin/Globulin Ratio 1.33 L (1.60-3.17) g/dL 04/26/21 04/26/21 04/27/21 Range/Units 17:18 20:46 05:35 WBC 12.9 H (3.8-10.6) k/uL RBC 3.02 L (4.30-5.90) m/uL Hgb 9.6 L (13.0-17.5) gm/dL Hct 29.5 L (39.0-53.0) % Neutrophils # 11.3 H (1.3-7.7) k/uL Lymphocytes # 0.6 L (1.0-4.8) k/uL ESR (0-15) mm/hr Chloride (96-109) mmol/L Anion Gap (4.00-12.00) mmol/L BUN (9.0-27.0) mg/dL Creatinine (0.6-1.5) mg/dL Est GFR (CKD-EPI)AfAm (60.0-200.0) Est GFR (CKD-EPI)NonAf (60.0-200.0) BUN/Creatinine Ratio (12.00-20.00) Ratio Glucose (70-110) mg/dL POC Glucose (mg/dL) 188 H 202 H (75-99) mg/dL Hemoglobin A1c (4.0-6.0) % AST (14-35) U/L ALT (10-49) U/L Alkaline Phosphatase (41-126) U/L C-Reactive Protein (<1.0) mg/dL Albumin (3.80-4.90) g/dL Albumin/Globulin Ratio (1.60-3.17) g/dL 04/27/21 04/27/21 04/27/21 Range/Units 07:29 07:48 07:48 WBC (3.8-10.6) k/uL RBC (4.30-5.90) m/uL Hgb (13.0-17.5) gm/dL Hct (39.0-53.0) % Neutrophils # (1.3-7.7) k/uL Lymphocytes # (1.0-4.8) k/uL ESR 96 H (0-15) mm/hr Chloride (96-109) mmol/L Anion Gap (4.00-12.00) mmol/L BUN (9.0-27.0) mg/dL Creatinine (0.6-1.5) mg/dL Est GFR (CKD-EPI)AfAm (60.0-200.0) Est GFR (CKD-EPI)NonAf (60.0-200.0) BUN/Creatinine Ratio (12.00-20.00) Ratio Glucose (70-110) mg/dL POC Glucose (mg/dL) 152 H (75-99) mg/dL Hemoglobin A1c (4.0-6.0) % AST (14-35) U/L ALT (10-49) U/L Alkaline Phosphatase (41-126) U/L C-Reactive Protein 22.7 H (<1.0) mg/dL Albumin (3.80-4.90) g/dL Albumin/Globulin Ratio (1.60-3.17) g/dL Microbiology - Last 24 Hours (Table) 04/25/21 10:17 Blood Culture Gram Stain - Preliminary Blood 04/25/21 10:17 Blood Culture - Final Blood 04/25/21 10:17 Blood Culture Gram Stain - Preliminary Blood Blood Culture - Preliminary Staphylococcus epidermidis 04/25/21 10:17 Blood Culture - Final Blood Assessment and Plan Plan: Assessment: 1. End-stage renal disease maintained on home hemodialysis via left upper extremity AV fistula. 2. Dyspnea secondary to volume overload. Concern for pneumonia as well. 3. Diabetes mellitus. 4. Hypertension with chronic kidney disease. 5. Chronic kidney disease mineral bone disease. 6. Gram-positive bacteremia. One set of blood culture positive for staph epi. Concern for epidural abscess. Infectious disease following. 7. Anemia of chronic kidney disease. Plan: Patient will be undergoing MRI with contrast today. Discussed with the patient the risk of developing NSF which can be quite serious although chances are very low. Case was also discussed with orthopedic surgery. Contrast with MRI is necessary due to concern for epidural abscess. He will undergo hemodialysis right after the MRI and again tomorrow and the day after. Monitor vancomycin levels. Target level near 15. Dose to be adjusted for renal function. Phosphorus level normal. Add Aranesp.
[2021-04-27] MEDS ORDERED: DARBEPOETIN ALFA 40 MCG/0.4 ML SYRINGE SQ SCH (11:00)
[2021-04-27 12:43] LABS: Glucose,Whole Blood 133 mg/dL (75-99)
[2021-04-27] MEDS: traMADol 50 MG TAB PO PRN (12:59)
--- NOTE | 2021-04-27 13:18 | P.CNOR ---
History of Present Illness - [facility] Consult date: 04/27/21 Consult reason: low back pain History of present illness: 51-year-old male presented to the emergency department with complaints of shortness of breath as well as low back pain and weakness in his lower extremities. Patient states that he had a surgery out of [place] on his back about 6 weeks ago. After surgery he was doing fairly well for about a week and then he started to have some increasing symptoms in his low back and his legs. About a week ago his mother states that he complained of severe back pain and pain down his left lower extremity as well as weakness and difficulty with ambulation. He presented to the emergency Department with shortness of breath as well as fever. The patient patient was found at this time to be bacteremic as well as having low back pain. His incision healed well and there is been no drainage from the incision however he continues to have back pain and issues. He denies any perineal numbness or tingling denies any bowel or bladder issues at this time. Patient is currently end-stage renal disease on hemodialysis secondary to diabetes. Review of Systems 14 points review of systems completed and as stated in HPI, all other systems reviewed are negative. Past Medical History Past Medical History: Diabetes Mellitus, Dialysis, Hypertension Additional Past Medical History / Comment(s): 5x weekly dialysis at home History of Any Multi-Drug Resistant Organisms: None Reported Past Surgical History: Back Surgery Additional Past Surgical History / Comment(s): Shoulder surgery x2 wisdom teeth removed Past Anesthesia/Blood Transfusion Reactions: No Reported Reaction Past Psychological History: No Psychological Hx Reported Smoking Status: Never smoker Past Alcohol Use History: None Reported Past Drug Use History: Marijuana Medications and Allergies Home Medications Medication Instructions Recorded Confirmed Type Ascorbic Acid [Vitamin C] 1,000 mg PO DAILY 04/25/21 04/25/21 History Aspirin EC [Ecotrin Low Dose] 81 mg PO DAILY 04/25/21 04/25/21 History Citalopram Hydrobromide [CeleXA] 20 mg PO DAILY 04/25/21 04/25/21 History Cyclobenzaprine [Flexeril] 10 mg PO TID PRN 04/25/21 04/25/21 History Furosemide [Lasix] 40 mg PO DAILY 04/25/21 04/25/21 History Insulin Aspart (For Pump) [NovoLOG 0.01 unit SQ-PUMP CONTINUOUS 04/25/21 04/25/21 History (For Pump)] Labetalol [Trandate] 200 mg PO TID 04/25/21 04/25/21 History NIFEdipine [NIFEdipine ER 30 mg PO HS 04/25/21 04/25/21 History (Osmotic)] NIFEdipine [NIFEdipine ER 60 mg PO BID 04/25/21 04/25/21 History (Osmotic)] Omeprazole 40 mg PO DAILY 04/25/21 04/25/21 History Pramipexole Di-HCl [Mirapex] 0.5 mg PO HS 04/25/21 04/25/21 History Renaplex-D 1 tab PO DAILY 04/25/21 04/25/21 History Velphoro Chew 500mg 1 tab PO QID 04/25/21 04/25/21 History calcitrioL [Rocaltrol] 0.25 mcg PO PRO 04/25/21 04/25/21 History traMADol HCL 50 mg PO Q8H PRN 04/25/21 04/25/21 History Allergies Allergy/AdvReac Type Severity Reaction Status Date / Time No Known Allergies Allergy Verified 04/25/21 11:17 Physical Examination Osteopathic Statement: *. No significant issues noted on an osteopathic structural exam other than those noted in the History and Physical/Consult. PHYSICAL EXAMINATION: Vitals: Stable at this time General: Awake, alert, appropriate for age, in no acute distress. HEENT: No unusual neck masses around region of lateral neck triangle, thyroid, supraclavicular groove. Extremities: Skin warm and dry without no acute lesions, coloration, temperature, skin intact, no tenderness or erythema. Integument: Hairy patches: Absent Dorsal skin dimples: Absent Cafe au lait spots: Absent Surgical incisions: Posterior midline lumbar incision well-healed E Jj ecchymosis or edema Palpation: Please see Pain drawing on Intake sheet for further detail. (Tenderness = T, Nontender = NT, Swelling = S, Ecchymosis = E) Findings on Midline and paraspinal palpation and percussion: Cervical: NT Thoracic: NT Lumbar: NT Sacral: NT Special findings: No tenderness to palpation of the back no fluctuance POSTURAL and MUSCULO-SKELETAL EVALUATION: Neck ROM: [Unrestricted in six directions] Lumbar ROM: [Unrestricted in six directions] Shoulder ROM: Symmetric in abduction, ER/IR Hip ROM: Symmetric in abduction, adduction, ER/IR Knee ROM: Symmetric and intact in Flexion / extension Hands: Normal appearing structure L and R Feet: Normal appearing structure L and R VASCULAR STATUS : Wrist Pulses: [2/4 bilateral radial and ulnar] Pedal Pulses: [2/4 bilateral DP and PT] Color: [Normal] Edema: [None] NEUROLOGIC EXAMINATION: Mental Status: Awake and alert, fully oriented, with normal attention, concentration and memory, and fluent, appropriate speech. Cranial Nerves: I: Olfactory not tested. II: Visual acuity normal, no visual field deficit noted with confrontation. III,IV: Normal pupillary reflexes & intact extraocular movements without nystagmus. V,: Intact symmetrical facial sensation. VII: Intact symmetrical facial motor movement VIII: Hearing intact. IX,X: Intact gag, swallow, & normal voice. XI: Sternocleidomastoid, trapezius function intact. XII: Tongue midline with normal movements. Special Tests: L'hermitte's Sign: Absent Spurling'Sign: Absent Bilateral Cubital percussion test: Absent Bilateral Ree-Tinel sign - Carpal region: Absent Bilateral Straight Leg Raising: Absent Bilateral Motor Exam (0-5/5, N/T) STRENGTH UPPER EXTREMITY Shoulder Abd (Not part of MILLY Motor score): RIGHT [5] LEFT [5] Elbow Flexors: RIGHT [5] LEFT [5] Elbow Extensor: RIGHT [5] LEFT [5] Wrrist Dorsiflexors: RIGHT [5] LEFT [5] Finger Abductor: RIGHT [5] LEFT [5] Jack Spinner: RIGHT [5] LEFT [5] LOWER EXTREMITY Hip Flexor (Not part of MILLY Motor Score): RIGHT 3 LEFT 4 Knee Flexor: RIGHT 4 LEFT 4 Knee Extensor: RIGHT 4. LEFT 3 Ankle Dorsiflexion: RIGHT 4+ LEFT 4 Ankle Plantarflexion: RIGHT 4+ LEFT 4- EHL: RIGHT [5] LEFT 4+ FHL: RIGHT [5] LEFT [5] Patient does exhibit more weakness on the left-hand side the right-hand side I lateral legs are somewhat weak however this is limited in exam at this time secondary to the patient's hemodialysis REFLEXES Biecp: RIGHT [2] LEFT [2] Tricep: RIGHT [2] LEFT [2] Brachioradialis: RIGHT [2] LEFT [2] Patellar: RIGHT [2] LEFT [2] Achilles: RIGHT [2] LEFT [2] Pathological Reflexes Correa's: RIGHT [Absent] LEFT [Absent] Babinski: RIGHT [Absent] LEFT [Absent] Clonus: RIGHT [None] LEFT [None] SENSORY Joint Position: [Intact bilaterally] Vibration [Intact bilaterally] Pain and LT sense [Intact C5-T1 and L2-S1] Dermatomal deficit [None] Gait and Functional Evaluation: Ambulatory aids: None Hand and finger dexterity intact bilaterally[]. Disdiadochokinesis examination negative[] bilaterally. Results MRI lumbar spine is reviewed. Postsurgical changes are noted at the L4 5 level. There is suspicion for enhancing lesion within the L4 5 left-handed epidural space for epidural abscess. This query versus a continued extruded disc fragment. There is laminotomy defect on the left-hand side at L4 5 which is noted. There is grade 1 spondylolisthesis L4 and L5 noted. - Labs Labs: Abnormal Lab Results - Last 24 Hours (Table) 04/26/21 04/26/21 04/26/21 Range/Units 06:27 17:18 20:46 WBC (3.8-10.6) k/uL RBC (4.30-5.90) m/uL Hgb (13.0-17.5) gm/dL Hct (39.0-53.0) % Neutrophils # (1.3-7.7) k/uL Lymphocytes # (1.0-4.8) k/uL ESR (0-15) mm/hr POC Glucose (mg/dL) 188 H 202 H (75-99) mg/dL Hemoglobin A1c 7.6 H (4.0-6.0) % C-Reactive Protein (<1.0) mg/dL 04/27/21 04/27/21 04/27/21 Range/Units 05:35 07:29 07:48 WBC 12.9 H (3.8-10.6) k/uL RBC 3.02 L (4.30-5.90) m/uL Hgb 9.6 L (13.0-17.5) gm/dL Hct 29.5 L (39.0-53.0) % Neutrophils # 11.3 H (1.3-7.7) k/uL Lymphocytes # 0.6 L (1.0-4.8) k/uL ESR 96 H (0-15) mm/hr POC Glucose (mg/dL) 152 H (75-99) mg/dL Hemoglobin A1c (4.0-6.0) % C-Reactive Protein (<1.0) mg/dL 04/27/21 04/27/21 Range/Units 07:48 12:41 WBC (3.8-10.6) k/uL RBC (4.30-5.90) m/uL Hgb (13.0-17.5) gm/dL Hct (39.0-53.0) % Neutrophils # (1.3-7.7) k/uL Lymphocytes # (1.0-4.8) k/uL ESR (0-15) mm/hr POC Glucose (mg/dL) 133 H (75-99) mg/dL Hemoglobin A1c (4.0-6.0) % C-Reactive Protein 22.7 H (<1.0) mg/dL Microbiology - Last 24 Hours (Table) 04/25/21 10:17 Blood Culture Gram Stain - Preliminary Blood 04/25/21 10:17 Blood Culture - Final Blood 04/25/21 10:17 Blood Culture Gram Stain - Preliminary Blood Blood Culture - Preliminary Staphylococcus epidermidis H & H 04/25/21 04/26/21 04/27/21 Range/Units 09:40 06:27 05:35 Hgb 11.0 L 9.8 L 9.6 L (13.0-17.5) gm/dL Hct 33.6 L 30.7 L 29.5 L (39.0-53.0) % Coagulation 04/25/21 Range/Units 09:40 INR 0.9 (<1.2) Result Diagrams: 04/27/21 05:35 04/26/21 06:27 Assessment and Plan Assessment: 51-year-old male status post L4 5 decompression left-sided laminotomy with discectomy Possible epidural abscess osteo-discitis L4-L5 Plan: -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 -Activity: Ambulate QID, OOB all meals, up and about, limit lifting bending twisting to less than 5 lbs. Use walker or cane if needed for stability. -Daily PT/OT, increase ambulation strength and balance. -Pain control: [Adequate at this time] -Meds: [reviewed] -GI ppx: senna, Miralax -DVT PPX: Hold anticoagulation -Hygiene: Daily showers -Encourage IS 10x/hr -Dispo: [Pending] -Nothing by mouth after midnight -Consent review Spine Surgery Risk Review Victorino Palacio is a 51 yo male presenting for evaluation of low back pain, LLE pain and weakness s/p L4-5 decompression. It was my pleasure to have seen and examined Victorino Palacio. In our visit today we have had a chance to go over subjective complaints, physical examination findings and treatments including the natural course history without intervention and various interventional options. The patients imaging demonstrates post surgical changes L4-5 with possible epidural abscess, osteodiscitis. On physical exam, Victorino Palacio demonstrates weakness in LLE, low back pain s/p L4-5 decompression. I have explained to the patient that as their condition progresses it will cause further neurological deficits and eventual paralysis. Based on the patients imaging, physical exam, and the rapid progression and disabling nature of their symptoms, at this time I recommend surgery in the form or a: Decompression L4-5 with possible fusion and antibiotic cement placement. I discussed the risk and benefits of this procedure at length with [Patient Name]. The patient [significant other] agreed to considered pursuing the procedure abovementioned. Prior to surgery, she should follow up with her PCP (Cardio, ID, IM etc) for clearance. Questions were invited and answered, and the patient wishes to proceed as outlined below. Currently, I am recommendin. Decompression L4-5 decompression with possible fusion 2. Follow up with PCP for surgical clearance 3. Review of surgical risks and benefits as well as an educational packet on the proposed surgical procedure. Risks: All surgical procedures come with inherent risks, including those related to positioning, anesthesia, intraoperative findings, and postoperative complications. It is important to understand that surgery does not come with any guarantee of a successful outcome as complications and adverse events are always possible. The patient was given a handout in office today discussing the surgical procedure and risks associated with the intervention, both of which were discussed with the patient. These risks include but are not limited to the following: * Experiencing same, different or even worse symptoms in back, neck, arms, or legs compared to before surgery. * Requiring further surgery or other forms of treatment presently or at some time in the future at same or other levels of the intended spine surgery. * On an extreme but fortunately relatively rare basis severe complication such as blindness, stroke, heart attack, temporary and/or permanent nerve injury, paralysis, coma, or may occur, sometimes without known explanation. * Surgical complications may include but are not limited to risk of infection, fluid accumulation in the surgical dissection site, including a seroma or hematoma, that requires additional surgery, wound drainage, bleeding , new numbness or weakness, vision changes/loss, spinal fluid leakage, non- healing and/or infected incision, headaches, difficulty or inability to swallow, hoarseness, hemopneumothorax, pneumothorax, impotence, retrograde ejaculation, vaginal dryness; injury to nerves, spinal cord, blood vessels, ly mphatics or other vital organs (i.e., bowel injury, injury to the great vessels); heterotopic bone formation; complications related to the hardware such as screws, rods, cages including misplaced hardware, device failure, instrumentation at the wrong spine level, hardware fracture/breakage, or hardw are loosening; vertebral failure of the spinal column above or below the newly placed hardware; retained surgical instrumentations or devices and the need for further surgery. * Medical risks of the planned spine surgery include but are not limited to generalized Infections to the whole body or local areas outside of the surgical site (sepsis), heart attack, bleeding, anaphylaxis, meningitis, seizure, epilepsy, hearing loss, burn amaya, laceration of the head or other areas of the body, bruising, hypersensitivity of the skin, bladder over distension; allergic reaction; shoulder injury related to positioning; fat, blood and air clots to other areas of the body like heart, lungs, brain; failure of internal organs such as lungs, kidneys, liver and excessive bleeding. If blood transfusions are necessary, note that transfusions may cause intolerance reactions such as anaphylaxis or other complex reactions. * Despite best efforts, the results of spine surgery might not heal in terms of bone, soft tissues such as skin, fascia, ligaments, and joints. Additionally, in order to achieve best possible results, spine surgery may be carried out beyond the initially planned levels and involve decompression, fusion including insertion of hardware at levels other than the original intended area of surgical interest change some portions of the procedure in order to ensure the best possible outcomes. * With spine surgery and spinal fusion, there are different off label uses of instrumentation (devices, implants and hardware) as well as biological substances (bone morphogenic proteins, demineralized bone matrix) as well as using extra bone from allograft sources (i.e. cadaver bone) or autograft (iliac crest bone, ribs, or the spine itself). The patient has been given information about these practices and their inherent risks and benefits. * [facility] is an educational center that serves as a training facility for neurosurgical and orthopedic spine residents and fellows. Residents are physicians who are completing their surgical intensive training following medical school. They assist in the operating room with direct supervision of the attending surgeons. [place] are surgeons who have completed their training and eligible for board certification. They have opted for an elective year of more specialized training in their field. They assist in the operating room under the supervision of the attending surgeons. Physician assistants are medically trained surgical providers who function in the outpatient, inpatient, and operating room setting under the direct supervision of the attending surgeon. * [facility] has multiple operating rooms with single and overlapping rooms running daily. They currently function under the required guidelines as produced by the [facility] Finance Committee with regards to the overlapping rooms and will continue to comply with changes to this policy as they occur. The requirements include and are complied with as follows: (1) the critical portions of the overlapping rooms will not occur at the same time, (2) the attending physician will be physically present during the critical portions of the procedure and immediately available during the entire case, and (3) a back-up attending is designated should the primary attending not be immediately available. The patient has had a chance to review all the listed information, has been given print outs detailing this information, and has had all his/her questions answered to their satisfaction. It was my pleasure to have seen and examined Victorino Palacio. In our visit today we have had a chance to go over my understanding of our patient's current condition, the natural course history without intervention and various interventional options. Questions were invited and answered, and the patient wishes to proceed as outlined above. I have seen and examined the patient for 25 minutes and we have spent more than 50% of the time in repeat and detailed counseling about the patient's condition, its natural course history with out and as much as can be predicted with surgery and re-review of various surgical treatment options. In conclusion, Victorino palacio and His parents requested we proceed with the above suggested surgery and are willing to accept risks and limitations of the sugges evelin surgery as nature of the disease process and our best attempts at treatment for the condition. Thank you again for allowing us to be part of your patient's care. Please don't hesitate to contact me if you have any further questions. Signed and authenticated by: Sebas Jeong [facility] [address], [place] [address] [place] [id number] Time with Patient: Greater than 30
--- NOTE | 2021-04-27 13:36 | MR ---
EXAMINATION TYPE: MR lumbar spine wo/w con DATE OF EXAM: 04/27/2021 COMPARISON: CT 04/26/2021 HISTORY: Epidural abscess, prior surgery CONTRAST: 8 mL intravenous Gadavist. TECHNIQUE: Multiplanar, multisequence images of the lumbar spine were acquired on a 3.0 Henny magnet. FINDINGS: L5-S1: No significant disc bulge or disc herniation. No spinal canal stenosis. No foraminal stenosi s. L4-L5: There is mild disc space narrowing. There appears to be a large disc herniation extending from the disc space extending beyond the endplates of L4 and L5. The largest portion is in the posterior L5 vertebral level in the left paracentral region. Effacement and compression of the left L5 nerve ro ot is present. Correlate with radicular symptoms. The enhancement pattern appears compatible with dis c herniation with peripheral enhancement. Findings however could reflect epidural enhancement. The co mmunication with the disc space without disc level enhancement suggests this is less likely. L3-L4: No significant disc bulge or disc herniation. No spinal canal stenosis. No foraminal stenosi s. Mild facet hypertrophy is present. L2-L3: No significant disc bulge or disc herniation. No spinal canal stenosis. No foraminal stenosi s. L1-L2: No significant disc bulge or disc herniation. No spinal canal stenosis. No foraminal stenosi s. T12-L1: No significant disc bulge or disc herniation. No spinal canal stenosis. No foraminal stenos is. No abnormal enhancement. Expected enhancement at the postsurgical hemilaminectomy and surrounding the suspected disc herniation is present. IMPRESSION: 1. Findings suggestive for large disc herniation L4-5 with significant thecal sac compression and ner ve root impingement on the left. Correlate with patient's symptoms. 2. Enhancement pattern appears more suggestive for disc herniation than epidural abscess.
--- NOTE | 2021-04-27 16:36 | PN ---
PROGRESS NOTE DATE OF SERVICE: 04/27/2021 REASON FOR FOLLOW UP: Back pain and bacteremia. INTERVAL HISTORY: Patient is afebrile. The patient is breathing comfortably. Still having significant pain to the lower back area with some radiation to the left hip. No chest pain. Breathing has improved. No abdominal pain. No diarrhea. PHYSICAL EXAMINATION: Blood pressure 148/80 with a pulse of 78, temperature 98.2. He is 91% on 5 L nasal cannula. General description is a middle-aged male lying in bed in no distress. Respiratory system: Unlabored breathing, clear to auscultation anteriorly. Heart S1, S2. Regular rate and rhythm. Abdomen: Soft. No tenderness. LABS: Blood culture with Staph epi. Hemoglobin is 9.4, white count 12.9. MRI of the lumbar spine has been suggestive of large disk herniation L4-5 as well as abscess. DIAGNOSTIC IMPRESSION AND PLAN: Patient with Staph epi bacteremia significant abdominal and low back pain concerning for epidural abscess. Patient is covered with vancomycin. Spine surgery is on the case and continue supportive care. MMODL / IJN: [id number] /
[2021-04-27 17:03] LABS: Glucose,Whole Blood 123 mg/dL (75-99)
[2021-04-27 20:18] LABS: Glucose,Whole Blood 207 mg/dL (75-99)
[2021-04-27] MEDS: PRAMIPEXOLE 0.25 MG TAB PO SCH (20:57)
[2021-04-28] MEDS: HYDROmorphone 0.5 MG/0.5 ML SYRINGE IVP PRN ×3 (02:30→20:30)
--- NOTE | 2021-04-28 02:58 | P.PN ---
Subjective Progress Note Date: 04/27/21 Patient is presently 51-year-old male came in with compensative shortness of breath which has been going on for last couple days and the weight gain of 8 pounds and bilateral pedal edema. Patient is found to have some pulmonary edema on the chest x-ray. Patient does hemodialysis at home by himself on as-needed basis. Patient barely makes any urine. Patient removed about 2.5 L yesterday in spite of which she still gain 6 pounds patient doesn't appear to be competent with his dietary recommendations. Patient denied any fever chills cough. Patient has mildly elevated liver enzymes and mildly elevated troponins serum creatinine is 5.5. Patient had a recent back surgery because of which patient cannot stay on bed or chair for long periods of time which is limiting his hemodialysis. Patient denied any dysuria. She is presently on 4 L of oxygen doesn't use any oxygen usually at home. 04/26/2021 Patient is seen in follow up this morning and infectious disease along with nephrology and orthopedics following. Patient had positive blood cultures noted and was started on vancomycin. Patient continues with pain of the lower back. Recent surgical site of the lower back LS showing some minimal irritation on the bottom of the incision with no obvious drainage or redness noted. Patient does have tenderness noted in that area. CT of the LS ordered and showing increased density of the left paracentral region of the L4-5 area suggestive of epidural abscess. bilateral venous doppler of lower extremity negative of DVT likely bilateral bakers cysts. Patient continues to have shortness of breath requiring 5 L of 02 via NC. Orthopedics requesting MRI of the area to confirm abscess and will need nephrology clearance given ESRD. WBC increased today at 17.1. 04/27/2021 Patient is seen and evaluated in follow up this morning with generalized pain of the back. Orthopedics following and have ordered MRI for today to further assess for possible epidural abscess. INfectious disease also following and patient is continued on vancomycin. WBC down to 12.9 and patient is afebrile. Patient continues with shortness of breath and will continue high dose IV lasix with nephrology following and patient to receive dialysis today. Review of systems: Constitutional: reports of fatigue, no reports of fever, or chills Cardiovascular: No reports of chest pain or palpitations Respiratory: reports continued shortness of breath GI: No reports of nausea, vomiting, or diarrhea : No reports of dysuria or retention Neurovascular: Reports generalized weakness, chronic lower back pain and mild tenderness at the recent LS surgical site All medications have been reviewed PHYSICAL EXAMINATION: GENERAL: The patient is alert and oriented x3, not in any acute distress. Well developed, well nourished. HEENT: Pupils are round and equally reacting to light. EOMI. No scleral icterus. No conjunctival pallor. Normocephalic, atraumatic. No pharyngeal erythema. No thyromegaly. CARDIOVASCULAR: S1 and S2 present. No murmurs, rubs, or gallops. PULMONARY: Chest is clear to auscultation, no wheezing or crackles. ABDOMEN: Soft, nontender, nondistended, normoactive bowel sounds. No palpable organomegaly. MUSCULOSKELETAL: No joint swelling or deformity. EXTREMITIES: No cyanosis, clubbing, bilateral pitting pedal edema 2+ NEUROLOGICAL: Gross neurological examination did not reveal any focal deficits. SKIN: No rashes. LS surgical site showing healing and approximation with no surrounding redness or swelling noted. tender on palpation Assessment and plan: -Shortness of Breath Secondary to Pulmonary Edema from End-Stage Disease and Volume Overload from End-Stage Renal Disease. Continue daily dialysis and IV lasix -Acute hypoxic respiratory failure secondary to assessment #1, continues to be on 5 liters via NC, wean as tolerated. -Positive blood cultures noted staph epi which is likely contamination and awaiting repeat cultures. -Possible epidural abscess as noted on CT of the L4-5 left paracentral region, although suspicion is low, ortho following and MRI ordered -mild leukocytosis possibly secondary to possible epidural abscess, WBC 17.1. started on Vanco, infectious disease following -bilateral bakers cyst noted on doppler of the popliteals, negative for DVT -Chronic back pain with a recent back surgery patient continue on home regimen. -Diabetes mellitus unknown with whether it's type II-type I with diabetic nephropathy and end-stage renal disease hemodialysis dependent, HgBA1c is 7.6 -Hypertension -DVT prophylaxis: Subcutaneous heparin Plan: Continue current medications and initial cultures showing staph epi and vancomycin being discontinued and infectious disease following. MRI of the LS spine showed large disc herniation of the L4-5 with significant compression of the thecal sac and nerve root impingement of the left with the appearance more consistent with disc herniation rather than epidural abscess. Patient is receiving daily dialysis. Patient continues to be short of breath with 5L via NC and will continue with IV lasix and wean FI02 as tolerated. Orthopedics planning on surgical intervention in the am and will await report. Will discuss with infectious disease of treatment plan. Objective - Vital Signs Vital signs: Vital Signs Temp 99.6 F 04/27/21 19:30 Pulse 88 04/27/21 19:30 Resp 18 04/27/21 19:30 BP 164/73 04/27/21 19:30 Pulse Ox 95 04/27/21 19:30 Intake & Output 04/27/21 04/27/21 04/28/21 06:59 18:59 06:59 Intake Total 0 250 Output Total 100 5600 Balance -100 -5350 Weight 81 kg Intake: Intake, IV Titration 250 Amount Vancomycin 1,500 mg In 250 Sodium Chloride 0.9% 250 ml @ 125 mls/hr IVPB ONCE ONE Rx#:[id number] Oral 0 Output: Urine 100 100 Hemodialysis 5500 Other: Voiding Method Toilet Toilet Toilet Urinal Urinal Urinal # Voids 1 1 - Labs CBC & Chem 7: 04/27/21 05:35 04/26/21 06:27 Labs: Abnormal Lab Results - Last 24 Hours (Table) 04/27/21 04/27/21 04/27/21 Range/Units 05:35 07:29 07:48 WBC 12.9 H (3.8-10.6) k/uL RBC 3.02 L (4.30-5.90) m/uL Hgb 9.6 L (13.0-17.5) gm/dL Hct 29.5 L (39.0-53.0) % Neutrophils # 11.3 H (1.3-7.7) k/uL Lymphocytes # 0.6 L (1.0-4.8) k/uL ESR 96 H (0-15) mm/hr POC Glucose (mg/dL) 152 H (75-99) mg/dL C-Reactive Protein (<1.0) mg/dL 04/27/21 04/27/21 04/27/21 Range/Units 07:48 12:41 17:02 WBC (3.8-10.6) k/uL RBC (4.30-5.90) m/uL Hgb (13.0-17.5) gm/dL Hct (39.0-53.0) % Neutrophils # (1.3-7.7) k/uL Lymphocytes # (1.0-4.8) k/uL ESR (0-15) mm/hr POC Glucose (mg/dL) 133 H 123 H (75-99) mg/dL C-Reactive Protein 22.7 H (<1.0) mg/dL 04/27/21 Range/Units 20:17 WBC (3.8-10.6) k/uL RBC (4.30-5.90) m/uL Hgb (13.0-17.5) gm/dL Hct (39.0-53.0) % Neutrophils # (1.3-7.7) k/uL Lymphocytes # (1.0-4.8) k/uL ESR (0-15) mm/hr POC Glucose (mg/dL) 207 H (75-99) mg/dL C-Reactive Protein (<1.0) mg/dL Microbiology - Last 24 Hours (Table) 04/25/21 10:17 Blood Culture Gram Stain - Preliminary Blood Blood Culture - Preliminary Coagulase Negative Staph
[2021-04-28] MEDS: HYDROcodone/APAP 7.5-325MG 1 EACH TAB PO PRN ×2 (05:09→17:37)
[2021-04-28 07:05] LABS: Basophils # (A) 0.1 k/uL (0-0.2); Basophils % (A) 0 %; Eosinophils % (A) 0 %; HCT 28.2 % (39.0-53.0); HGB 9.2 gm/dL (13.0-17.5); Lymphocytes # (A) 0.7 k/uL (1.0-4.8); Lymphocytes % (A) 6 %; MCH 31.9 pg (25.0-35.0); MCHC 32.5 g/dL (31.0-37.0); MCV 98.2 fL (80.0-100.0); Mean Platelet Volume 9.6; Monocytes # (A) 0.7 k/uL (0-1.0); Monocytes % (A) 6 %; Neutrophils # (A) 9.5 k/uL (1.3-7.7); Neutrophils % (A) 84 %; Platelet Count 244 k/uL (150-450); RBC 2.87 m/uL (4.30-5.90); RDW 14.7 % (11.5-15.5); WBC 11.3 k/uL (3.8-10.6)
[2021-04-28 07:06] LABS: Glucose,Whole Blood 251 mg/dL (75-99)
[2021-04-28 07:19] LABS: African American GFR (CKD) 14 (>60 ml/min/1.73 sqM); Anion Gap 11 mmol/L; Blood Urea Nitrogen 44 mg/dL (9-20); Calcium 9.5 mg/dL (8.4-10.2); Carbon Dioxide 22 mmol/L (22-30); Chloride 97 mmol/L (98-107); Glucose 271 mg/dL (74-99); Non-African American GFR(CKD) 12 (>60 ml/min/1.73 sqM); Sodium 130 mmol/L (137-145)
--- NOTE | 2021-04-28 08:49 | P.PN ---
Progress Note - Text Progress Note Date: 04/28/21 Pt s/e in pre operative area he is still having pain in his legs, weakness in his RLE and now his LLE. He is c/o of some groin pain as well which is new. He states fevers overnight. Denies any bowel or bladder issues at this time but states he abdomen feels distended. Denies any other symptoms at this time. Mother and SO are at bedside. We went through risks and benefits once again and they were willing to proceed. Site was marked. Consent was confirmed and signed. Anesthesia evaluated the pt and deemed him fit for surgery.
[2021-04-28] MEDS ORDERED: ceFAZolin 1,000 MG VIAL ONE (08:58)
[2021-04-28] MEDS ORDERED: MIDAZOLAM 2 MG/2 ML VIAL ONE (08:58)
[2021-04-28] MEDS ORDERED: LACTATED RINGERS 1,000 ML IV ONE (08:58)
[2021-04-28] MEDS ORDERED: INSULIN REGULAR 100 UNIT/ML VIAL (IV) IV ONE (08:58)
[2021-04-28] MEDS ORDERED: SUCCINYLCHOLINE CHLORIDE 100 MG/5 ML SYR IV ONE (08:58)
[2021-04-28] MEDS ORDERED: ROCURONIUM 10 MG/ML (5 ML VIAL) IV ONE (08:58)
[2021-04-28] MEDS ORDERED: SODIUM CHLORIDE 0.9% 100 ML BAG ONE (08:58)
[2021-04-28] MEDS ORDERED: LIDOCAINE 1% INJ 10MG/ML (20 ML MDV) ONE (08:58)
[2021-04-28] MEDS ORDERED: fentaNYL (PF) 50 MCG/ML 2 ML AMP ONE (08:58)
[2021-04-28] MEDS ORDERED: HYDROmorphone (PF) 1 MG/ML ONE (08:58)
[2021-04-28] MEDS ORDERED: PROPOFOL 10 MG/ML 20 ML VIAL IV ONE (08:58)
[2021-04-28] MEDS ORDERED: VANCOMYCIN 1,500 MG in SODIUM CHLORIDE 0.9% 250 ML IVPB ONE ×2 (09:00→23:00)
[2021-04-28 09:54] LABS: Glucose,Whole Blood 242 mg/dL (75-99)
[2021-04-28] MEDS ORDERED: GELATIN SPONGE,ABSORB (LARGE) 1 EACH SPONGE MISCELLANE ONE (10:12)
[2021-04-28] MEDS ORDERED: THROMBIN (BOVINE) 5,000 UNIT VIAL MISCELLANE ONE (10:12)
[2021-04-28] MEDS ORDERED: ceFAZolin 3,000 MG in SODIUM CHLORIDE 0.9% IRRIGATIO 3,000 ML IRRIGATION ONE ×4 (11:30)
[2021-04-28 11:41] LABS: Glucose,Whole Blood 274 mg/dL (75-99)
[2021-04-28] MEDS ORDERED: VANCOMYCIN 1,000 MG VIAL MISCELLANE ONE ×2 (12:18→13:14)
[2021-04-28] MEDS ORDERED: TOBRAMYCIN SULFATE 1.2 GM VIAL MISCELLANE ONE (12:18)
--- NOTE | 2021-04-28 13:13 | P.PN ---
Subjective Patient is presently 51-year-old male came in with compensative shortness of breath which has been going on for last couple days and the weight gain of 8 pounds and bilateral pedal edema. Patient is found to have some pulmonary edema on the chest x-ray. Patient does hemodialysis at home by himself on as-needed basis. Patient barely makes any urine. Patient removed about 2.5 L yesterday in spite of which she still gain 6 pounds patient doesn't appear to be competent with his dietary recommendations. Patient denied any fever chills cough. Patient has mildly elevated liver enzymes and mildly elevated troponins serum creatinine is 5.5. Patient had a recent back surgery because of which patient cannot stay on bed or chair for long periods of time which is limiting his hemodialysis. Patient denied any dysuria. She is presently on 4 L of oxygen doesn't use any oxygen usually at home. 04/26/2021 Patient is seen in follow up this morning and infectious disease along with nephrology and orthopedics following. Patient had positive blood cultures noted and was started on vancomycin. Patient continues with pain of the lower back. Recent surgical site of the lower back LS showing some minimal irritation on the bottom of the incision with no obvious drainage or redness noted. Patient does have tenderness noted in that area. CT of the LS ordered and showing increased density of the left paracentral region of the L4-5 area suggestive of epidural abscess. bilateral venous doppler of lower extremity negative of DVT likely bilateral bakers cysts. Patient continues to have shortness of breath requiring 5 L of 02 via NC. Orthopedics requesting MRI of the area to confirm abscess and will need nephrology clearance given ESRD. WBC increased today at 17.1. 04/27/2021 Patient is seen and evaluated in follow up this morning with generalized pain of the back. Orthopedics following and have ordered MRI for today to further assess for possible epidural abscess. INfectious disease also following and patient is continued on vancomycin. WBC down to 12.9 and patient is afebrile. Patient continues with shortness of breath and will continue high dose IV lasix with nephrology following and patient to receive dialysis today. 04/28/2021 Patient is a underwent surgical intervention for possible discitis versus epidural abscess. Patient is being continued on antibiotics patient did undergo hemodialysis yesterday and there is some improvement in his volume overload. Constitutional: Denied any fatigue denied any fever. Cardio vascular: denied any chest pain, palpitations Gastrointestinal denied any nausea vomiting Pulmonary: Denied any shortness of breath cough Neurologic denied any new focal deficits All inpatient medications were reviewed and appropriate changes in these medications as dictated in the interval history and assessment and plan. PHYSICAL EXAMINATION: GENERAL: The patient is alert and oriented x3, not in any acute distress. Well developed, well nourished. HEENT: Pupils are round and equally reacting to light. EOMI. No scleral icterus. No conjunctival pallor. Normocephalic, atraumatic. No pharyngeal erythema. No thyromegaly. CARDIOVASCULAR: S1 and S2 present. No murmurs, rubs, or gallops. PULMONARY: Chest is clear to auscultation, no wheezing or crackles. ABDOMEN: Soft, nontender, nondistended, normoactive bowel sounds. No palpable organomegaly. MUSCULOSKELETAL: No joint swelling or deformity. EXTREMITIES: No cyanosis, clubbing, bilateral pitting pedal edema 2+ NEUROLOGICAL: Gross neurological examination did not reveal any focal deficits. SKIN: No rashes. LS surgical site showing healing and approximation with no surrounding redness or swelling noted. tender on palpation Assessment and plan: -Shortness of Breath Secondary to Pulmonary Edema from End-Stage Disease and Volume Overload from End-Stage Renal Disease. Continue daily dialysis and IV lasix -Acute hypoxic respiratory failure secondary to assessment #1, continues to be on 5 liters via NC, wean as tolerated. -Positive blood cultures noted staph epi which is likely contamination and awaiting repeat cultures. -Possible epidural abscess as noted on CT of the L4-5 left paracentral region, although suspicion is low, patient is undergoing surgical intervention -mild leukocytosis possibly secondary to possible epidural abscess, WBC 17.1. started on Vanco, infectious disease following -bilateral bakers cyst noted on doppler of the popliteals, negative for DVT -Chronic back pain with a recent back surgery patient continue on home regimen. -Diabetes mellitus unknown with whether it's type II-type I with diabetic n ephropathy and end-stage renal disease hemodialysis dependent, HgBA1c is 7.6 -Hypertension -DVT prophylaxis: Subcutaneous heparin Plan: Continue current medications and initial cultures showing staph epi and vancomycin being discontinued and infectious disease following. MRI of the LS spine showed large disc herniation of the L4-5 with significant compression of the thecal sac and nerve root impingement of the left with the appearance more consistent with disc herniation rather than epidural abscess. Patient is receiving daily dialysis. Patient continues to be short of breath with 5L via NC and will continue with IV lasix and wean FI02 as tolerated. Objective - Vital Signs Vital signs: Vital Signs Temp 98.4 F 04/28/21 04:29 Pulse 84 04/28/21 04:29 Resp 18 04/28/21 04:29 BP 166/71 04/28/21 04:29 Pulse Ox 92 L 04/28/21 04:29 Intake & Output 04/27/21 04/28/21 04/28/21 18:59 06:59 18:59 Intake Total 250 540 2 Output Total 5600 Balance -5350 540 2 Weight 76.5 kg Intake: IV 2 Intake, IV Titration 250 Amount Vancomycin 1,500 mg In 250 Sodium Chloride 0.9% 250 ml @ 125 mls/hr IVPB ONCE ONE Rx#:[id number] Oral 540 Output: Urine 100 Hemodialysis 5500 Other: Voiding Method Toilet Toilet Urinal Urinal # Voids 1 3 - Labs CBC & Chem 7: 04/28/21 06:30 04/28/21 06:30 Labs: Abnormal Lab Results - Last 24 Hours (Table) 04/27/21 04/27/21 04/28/21 Range/Units 17:02 20:17 06:30 WBC 11.3 H (3.8-10.6) k/uL RBC 2.87 L (4.30-5.90) m/uL Hgb 9.2 L (13.0-17.5) gm/dL Hct 28.2 L (39.0-53.0) % Neutrophils # 9.5 H (1.3-7.7) k/uL Lymphocytes # 0.7 L (1.0-4.8) k/uL Sodium (137-145) mmol/L Chloride (98-107) mmol/L BUN (9-20) mg/dL Creatinine (0.66-1.25) mg/dL Glucose (74-99) mg/dL POC Glucose (mg/dL) 123 H 207 H (75-99) mg/dL 04/28/21 04/28/21 04/28/21 Range/Units 06:30 07:04 09:52 WBC (3.8-10.6) k/uL RBC (4.30-5.90) m/uL Hgb (13.0-17.5) gm/dL Hct (39.0-53.0) % Neutrophils # (1.3-7.7) k/uL Lymphocytes # (1.0-4.8) k/uL Sodium 130 L (137-145) mmol/L Chloride 97 L (98-107) mmol/L BUN 44 H (9-20) mg/dL Creatinine 5.01 H (0.66-1.25) mg/dL Glucose 271 H (74-99) mg/dL POC Glucose (mg/dL) 251 H 242 H (75-99) mg/dL 04/28/21 Range/Units 11:38 WBC (3.8-10.6) k/uL RBC (4.30-5.90) m/uL Hgb (13.0-17.5) gm/dL Hct (39.0-53.0) % Neutrophils # (1.3-7.7) k/uL Lymphocytes # (1.0-4.8) k/uL Sodium (137-145) mmol/L Chloride (98-107) mmol/L BUN (9-20) mg/dL Creatinine (0.66-1.25) mg/dL Glucose (74-99) mg/dL POC Glucose (mg/dL) 274 H (75-99) mg/dL Microbiology - Last 24 Hours (Table) 04/25/21 10:17 Blood Culture Gram Stain - Final Blood Blood Culture - Final Staphylococcus epidermidis 04/25/21 10:17 Blood Culture Gram Stain - Final Blood Blood Culture - Final Staphylococcus epidermidis 04/27/21 07:48 Blood Culture - Preliminary Blood No Growth after 24 hours
[2021-04-28 13:18] LABS: Glucose,Whole Blood 288 mg/dL (75-99)
[2021-04-28 14:07] LABS: Glucose,Whole Blood 231 mg/dL (75-99)
[2021-04-28] MEDS: PANTOPRAZOLE 40 MG TABLET PO SCH (14:30)
[2021-04-28] MEDS: LABETALOL 200 MG TAB PO SCH ×3 (14:30→22:11)
[2021-04-28] MEDS ORDERED: HYDROmorphone 0.5 MG/0.5 ML SYRINGE IVP PRN (14:40)
--- NOTE | 2021-04-28 14:40 | P.PN ---
Progress Note - Text Progress Note Date: 04/28/21 Brief Post op Note Pre OP: S/p L4-5 decompression with epidural phlegmon/abscess and osteodiscitis with LE weakness Post op: Same Procedure: Decompression and evacuation of L4-5 phlegmon L4-5 fusion Anesthesia: GETA Implant: Shannon EBL: 300 Fluids: 1300 Urine: 50 Complications: None Dispo: Stable to PACU Transfer to floor when awake and stable. No brace needed for ambulation Primary medical and nephro management Record drain output Post op non contract CT scan
[2021-04-28] MEDS ORDERED: HYDROmorphone 0.5 MG/0.5 ML SYRINGE IVP ONE ×2 (14:42→15:11)
--- NOTE | 2021-04-28 15:39 | XR ---
EXAMINATION TYPE: XR lumbar spine 2 or 3V DATE OF EXAM: 04/28/2021 COMPARISON: NONE HISTORY: Lumbar surgery TECHNIQUE: 9 views FINDINGS: A series of 9 fluoroscopic images were obtained show placement of rods and screws fusing po steriorly the lumbar spine at L4-5. There is disc prosthesis at L4-5. IMPRESSION: No complicating process seen.
[2021-04-28 17:10] LABS: Glucose,Whole Blood 135 mg/dL (75-99)
--- NOTE | 2021-04-28 17:20 | PN ---
PROGRESS NOTE DATE OF SERVICE: 04/28/2021. REASON FOR FOLLOWUP: Lumbar paraspinal abscess and bacteremia. INTERVAL HISTORY: Patient is afebrile. The patient was taken to the OR this morning. This patient is status post extensive lumbar surgery. Operative report is currently pending. The patient was sleepy in postop period and could not provide any history. No vomiting or diarrhea has been reported by the nursing staff. PHYSICAL EXAMINATION: Blood pressure 134/85, pulse of 70. Temperature 97.4. He is 98% on room air. General description is a middle-aged male lying in bed in no distress. Respiratory system: Unlabored breathing, clear to auscultation anteriorly. Heart S1, S2. Regular rate and rhythm. Abdomen: Soft, no tenderness. LABS: Repeat blood culture currently positive with gram-positive cocci. DIAGNOSTIC IMPRESSION AND PLAN: Patient with Staph epidermidis bacteremia secondary to lumbar paraspinal abscess status post drainage, waiting for the official operative report as well as the OR cultures. Continue vancomycin. Pharmacy to dose thru dialysis and monitor clinical course closely. MMODL / IJN: [id number] /
[2021-04-28 20:24] LABS: Glucose,Whole Blood 155 mg/dL (75-99)
[2021-04-28] MEDS: INSULIN PUMP MEAL BOLUS 1 UNIT MISC MISCELLANE SCH ×4 (20:34→22:19)
[2021-04-28] MEDS: ASPIRIN 81 MG PO SCH (20:35)
[2021-04-28] MEDS: FUROSEMIDE 10 MG/ML 10 ML VIAL IV SCH ×2 (21:47→22:09)
[2021-04-28] MEDS: SEVELAMER 800 MG TAB PO SCH ×2 (21:47→22:10)
[2021-04-28] MEDS: ACETAMINOPHEN TAB 500 MG TAB PO SCH ×2 (21:48→22:07)
[2021-04-28] MEDS: ASCORBIC ACID 500 MG TAB PO SCH (22:06)
[2021-04-28] MEDS: FOLIC ACID-VIT B COMPLEX-VIT C 1 CAP PO SCH (22:08)
[2021-04-28] MEDS: CITALOPRAM HYDROBROMIDE 20 MG TAB PO SCH (22:08)
[2021-04-28] MEDS: NIFEdipine XL 30 MG TAB.ER.24 PO SCH (22:10)
[2021-04-28] MEDS: PRAMIPEXOLE 0.25 MG TAB PO SCH (22:11)
[2021-04-28 22:19] LABS: Glucose,Whole Blood 233 mg/dL (75-99)
[2021-04-29] MEDS: HYDROmorphone 0.5 MG/0.5 ML SYRINGE IVP PRN ×3 (00:05→14:44)
[2021-04-29] MEDS: traMADol 50 MG TAB PO PRN ×2 (02:32→10:44)
[2021-04-29] MEDS: ACETAMINOPHEN TAB 500 MG TAB PO SCH ×2 (03:42→08:32)
[2021-04-29 04:45] LABS: Basophils % (A) 0 %; Eosinophils # (A) 0.1 k/uL (0-0.7); Eosinophils % (A) 1 %; HCT 26.8 % (39.0-53.0); HGB 8.9 gm/dL (13.0-17.5); Lymphocytes # (A) 0.6 k/uL (1.0-4.8); Lymphocytes % (A) 6 %; MCH 32.9 pg (25.0-35.0); MCHC 33.3 g/dL (31.0-37.0); MCV 98.7 fL (80.0-100.0); Mean Platelet Volume 9.2; Monocytes # (A) 0.7 k/uL (0-1.0); Monocytes % (A) 7 %; Neutrophils # (A) 9.4 k/uL (1.3-7.7); Neutrophils % (A) 84 %; Platelet Count 269 k/uL (150-450); RBC 2.72 m/uL (4.30-5.90); RDW 14.8 % (11.5-15.5); WBC 11.2 k/uL (3.8-10.6)
[2021-04-29 04:51] LABS: African American GFR (CKD) 19 (>60 ml/min/1.73 sqM); Anion Gap 12 mmol/L; Blood Urea Nitrogen 38 mg/dL (9-20); Calcium 8.8 mg/dL (8.4-10.2); Carbon Dioxide 21 mmol/L (22-30); Chloride 97 mmol/L (98-107); Glucose 235 mg/dL (74-99); Non-African American GFR(CKD) 16 (>60 ml/min/1.73 sqM); Potassium 3.8 mmol/L (3.5-5.1); Sodium 130 mmol/L (137-145)
[2021-04-29 04:56] LABS: Vancomycin,Random 28.7 ug/mL
[2021-04-29 07:04] LABS: Glucose,Whole Blood 245 mg/dL (75-99)
[2021-04-29] MEDS: CITALOPRAM HYDROBROMIDE 20 MG TAB PO SCH (08:32)
[2021-04-29] MEDS: FOLIC ACID-VIT B COMPLEX-VIT C 1 CAP PO SCH (08:32)
[2021-04-29] MEDS: PANTOPRAZOLE 40 MG TABLET PO SCH (08:32)
[2021-04-29] MEDS: INSULIN PUMP MEAL BOLUS 1 UNIT MISC MISCELLANE SCH ×4 (08:33→21:12)
[2021-04-29] MEDS: SEVELAMER 800 MG TAB PO SCH ×4 (08:33→21:14)
[2021-04-29] MEDS: ASCORBIC ACID 500 MG TAB PO SCH (08:33)
[2021-04-29] MEDS: ASPIRIN 81 MG PO SCH (08:33)
--- NOTE | 2021-04-29 09:57 | FL ---
Fluoroscopy INDICATION: Pain FINDINGS: Fluoroscopy time: 1 minute 56 seconds. Images obtained: 0. IMPRESSIONS: 1. Documentation of fluoroscopy.
[2021-04-29 11:17] LABS: Glucose,Whole Blood 167 mg/dL (75-99)
--- NOTE | 2021-04-29 11:49 | PN ---
PROGRESS NOTE Patient is seen for followup for end-stage renal disease. He is currently seen on dialysis. The patient is tolerating his treatment well. He had gadolinium Gadavist and therefore he is receiving extra treatments. The patient is status post surgery for an epidural abscess yesterday. PHYSICAL EXAMINATION: On examination today, blood pressure 176/67, heart rate 83 per minute. He is afebrile. Examination of the heart S1, S2. Examination of the lungs, decreased breath sounds at bases. Abdomen is soft, nontender. Examination of lower extremities shows no significant edema. BEE BREEDER exam grossly intact. LAB: Show sodium 130, potassium 3.8, BUN 38, creatinine 4.0, hemoglobin 8.9 g/dL. ASSESSMENT: 1. End-stage renal disease, on hemodialysis currently receiving extra treatments as patient has had gadolinium given the risk of NSF. 2. Volume overload, currently improved. 3. Gram positive bacteremia with epidural abscess, status post surgery, maintained on antibiotics. Blood cultures on 04/25/2021 grew Staph epidermidis. 4. Chronic kidney disease, mineral bone disorder. 5. Anemia of chronic disease. PLAN: Can discontinue Baldwin catheter if okay with surgery. We will plan for dialysis again tomorrow. Continue antibiotics as per ID. MMODL / IJN: [id number] /
--- NOTE | 2021-04-29 11:52 | P.PN ---
Subjective Progress Note Date: 04/29/21 Principal diagnosis: L4-5 epidural abscess with osteodiscitis Patient seen and examined this morning he is doing very well is sitting up in bed right now getting dialysis. He states his legs feel much better he is able to move them he is able to stand up even today and go to the bathroom on his own. He denies any perineal numbness or tingling he denies any bowel or bladder issues other than his chronic baseline issues with kidney problems. He denies any genital numbness or tingling. No fevers chills shocks of breath or chest pain overnight states that his incision tejeda a little but feels pretty good. His current pain medications are working for him. Objective - Vital Signs Vital signs: Vital Signs Temp 99.0 F 04/29/21 11:46 Pulse 83 04/29/21 11:46 Resp 18 04/29/21 11:46 BP 176/85 04/29/21 11:46 Pulse Ox 99 04/29/21 11:46 Intake & Output 04/28/21 04/29/21 04/29/21 18:59 06:59 18:59 Intake Total 802 Output Total 350 3060 Balance 452 -3060 Weight 81 kg Intake: IV 802 Output: Drainage 160 Lower Back 160 Urine 50 400 Hemodialysis 2500 Estimated Blood Loss 300 Other: Voiding Method Indwelling Catheter Indwelling Catheter - Exam Patient is alert and oriented 3 appears well-nourished well-hydrated is in no acute distress. They does not appear septic. On exam the patient has no tenderness to palpation of her thoracic or lumbar spine. There is no edema or ballottement sign. Lower extremities with 4+ out of 5 strength in all major muscle groups and improving Upper extremities show 5/5 strength in all major muscle groups. There is FROM that is painless of the b/l UE and LE in all major joints. They are intact to light touch sensation in L2 to S1 nerve distribution. As well as C5 to T1 Patient has palpable dorsalis pedis was posterior tibial pulses. Compartments are soft and compressible. Patient shows a negative Homans, Correa's, negative Babinski's negative clonus bilaterally. negative straight leg raise bilaterally. No tensioning signs. Cranial nerves II through XII are grossly intact. Overall alignment is well-maintained in the sagittal coronal planes. Incision is clean and dry dressings are clean and dry at this time Drain is in place 160 mL out since surgery. - Labs CBC & Chem 7: 04/29/21 03:37 04/29/21 03:37 Labs: Abnormal Lab Results - Last 24 Hours (Table) 04/28/21 04/28/21 04/28/21 Range/Units 13:16 14:02 17:08 WBC (3.8-10.6) k/uL RBC (4.30-5.90) m/uL Hgb (13.0-17.5) gm/dL Hct (39.0-53.0) % Neutrophils # (1.3-7.7) k/uL Lymphocytes # (1.0-4.8) k/uL Sodium (137-145) mmol/L Chloride (98-107) mmol/L Carbon Dioxide (22-30) mmol/L BUN (9-20) mg/dL Creatinine (0.66-1.25) mg/dL Glucose (74-99) mg/dL POC Glucose (mg/dL) 288 H 231 H 135 H (75-99) mg/dL 04/28/21 04/28/21 04/29/21 Range/Units 20:23 22:17 03:37 WBC (3.8-10.6) k/uL RBC (4.30-5.90) m/uL Hgb (13.0-17.5) gm/dL Hct (39.0-53.0) % Neutrophils # (1.3-7.7) k/uL Lymphocytes # (1.0-4.8) k/uL Sodium 130 L (137-145) mmol/L Chloride 97 L (98-107) mmol/L Carbon Dioxide 21 L (22-30) mmol/L BUN 38 H (9-20) mg/dL Creatinine 4.03 H (0.66-1.25) mg/dL Glucose 235 H (74-99) mg/dL POC Glucose (mg/dL) 155 H 233 H (75-99) mg/dL 04/29/21 04/29/21 04/29/21 Range/Units 03:37 07:03 11:15 WBC 11.2 H (3.8-10.6) k/uL RBC 2.72 L (4.30-5.90) m/uL Hgb 8.9 L (13.0-17.5) gm/dL Hct 26.8 L (39.0-53.0) % Neutrophils # 9.4 H (1.3-7.7) k/uL Lymphocytes # 0.6 L (1.0-4.8) k/uL Sodium (137-145) mmol/L Chloride (98-107) mmol/L Carbon Dioxide (22-30) mmol/L BUN (9-20) mg/dL Creatinine (0.66-1.25) mg/dL Glucose (74-99) mg/dL POC Glucose (mg/dL) 245 H 167 H (75-99) mg/dL Microbiology - Last 24 Hours (Table) 04/28/21 13:20 Gram Stain - Preliminary Back Wound Culture - Preliminary 04/28/21 13:20 Gram Stain - Preliminary Back Tissue Culture - Preliminary 04/28/21 13:20 Gram Stain - Preliminary Back Wound Culture - Preliminary 04/28/21 13:20 Gram Stain - Preliminary Back Wound Culture - Preliminary 04/28/21 13:20 Gram Stain - Preliminary Back Tissue Culture - Preliminary 04/28/21 13:20 Gram Stain - Preliminary Back Wound Culture - Preliminary 04/28/21 13:20 Gram Stain - Preliminary Back Wound Culture - Preliminary 04/28/21 13:20 Fungal Culture - Preliminary Back 04/28/21 13:20 Anaerobic Culture - Preliminary Back 04/28/21 13:20 Fungal Culture - Preliminary Back 04/28/21 13:20 Anaerobic Culture - Preliminary Back 04/28/21 13:20 Anaerobic Culture - Preliminary Back 04/28/21 13:20 Fungal Culture - Preliminary Back 04/28/21 13:20 Fungal Culture - Preliminary Back 04/28/21 13:20 Fungal Culture - Preliminary Back 04/28/21 13:20 Acid Fast Bacilli Culture - Preliminary Back 04/28/21 13:20 Fungal Culture - Preliminary Back 04/28/21 13:20 Anaerobic Culture - Preliminary Back 04/28/21 13:20 Anaerobic Culture - Preliminary Back 04/28/21 13:20 Acid Fast Bacilli Culture - Preliminary Back 04/28/21 13:20 Fungal Culture - Preliminary Back 04/28/21 13:20 Anaerobic Culture - Preliminary Back 04/28/21 13:20 Anaerobic Culture - Preliminary Back 04/27/21 07:48 Blood Culture - Final Blood 04/27/21 13:13 Blood Culture Gram Stain - Preliminary Blood 04/27/21 13:13 Blood Culture - Final Blood 04/25/21 10:17 Blood Culture Gram Stain - Final Blood Blood Culture - Final Staphylococcus epidermidis 04/25/21 10:17 Blood Culture Gram Stain - Final Blood Blood Culture - Final Staphylococcus epidermidis Assessment and Plan Assessment: 51-year-old male status post L4 5 decompression left-sided laminotomy with discectomy Possible epidural abscess osteo-discitis L4-L5 Postoperative day 1 L3 to S1 decompression with L4 5 posterior lateral interbody fusion and antibiotic cement placement Plan: -Appreciate office [employer] consultant and team management. -Activity: Ambulate QID, OOB all meals, up and about, limit lifting bending twisting to less than 5 lbs. Use walker or cane if needed for stability. -Daily PT/OT, increase ambulation strength and balance. -No braces needed for up and about -Pain control: Adequate at this time -Meds: reviewed -GI ppx: senna, Miralax -DC sesay when up and about, bedside commode if needed -DVT PPX: OK to restart Heparin tonight -Hygiene: Shower today. Maintain dressing clean and dry. Meticulous cleaning after BMs away from incision site -Drains: Maintain for now. Record output -Encourage IS 10x/hr -Dispo: Pending
[2021-04-29] MEDS: FUROSEMIDE 10 MG/ML 10 ML VIAL IV SCH (12:24)
[2021-04-29] MEDS: LABETALOL 200 MG TAB PO SCH ×3 (12:31→21:14)
[2021-04-29] MEDS: HYDROcodone/APAP 10-325MG 1 EACH TAB PO PRN ×2 (12:40→17:43)
[2021-04-29] MEDS ORDERED: ACETAMINOPHEN TAB 500 MG TAB PO SCH (13:00)
--- NOTE | 2021-04-29 13:44 | P.PN ---
Subjective Progress Note Date: 04/29/21 Patient is presently 51-year-old male came in with compensative shortness of breath which has been going on for last couple days and the weight gain of 8 pounds and bilateral pedal edema. Patient is found to have some pulmonary edema on the chest x-ray. Patient does hemodialysis at home by himself on as-needed basis. Patient barely makes any urine. Patient removed about 2.5 L yesterday in spite of which she still gain 6 pounds patient doesn't appear to be competent with his dietary recommendations. Patient denied any fever chills cough. Patient has mildly elevated liver enzymes and mildly elevated troponins serum creatinine is 5.5. Patient had a recent back surgery because of which patient cannot stay on bed or chair for long periods of time which is limiting his hemodialysis. Patient denied any dysuria. She is presently on 4 L of oxygen doesn't use any oxygen usually at home. 04/26/2021 Patient is seen in follow up this morning and infectious disease along with nephrology and orthopedics following. Patient had positive blood cultures noted and was started on vancomycin. Patient continues with pain of the lower back. Recent surgical site of the lower back LS showing some minimal irritation on the bottom of the incision with no obvious drainage or redness noted. Patient does have tenderness noted in that area. CT of the LS ordered and showing increased density of the left paracentral region of the L4-5 area suggestive of epidural abscess. bilateral venous doppler of lower extremity negative of DVT likely bilateral bakers cysts. Patient continues to have shortness of breath requiring 5 L of 02 via NC. Orthopedics requesting MRI of the area to confirm abscess and will need nephrology clearance given ESRD. WBC increased today at 17.1. 04/27/2021 Patient is seen and evaluated in follow up this morning with generalized pain of the back. Orthopedics following and have ordered MRI for today to further assess for possible epidural abscess. INfectious disease also following and patient is continued on vancomycin. WBC down to 12.9 and patient is afebrile. Patient continues with shortness of breath and will continue high dose IV lasix with nephrology following and patient to receive dialysis today. 04/28/2021 Patient is a underwent surgical intervention for possible discitis versus epidural abscess. Patient is being continued on antibiotics patient did undergo hemodialysis yesterday and there is some improvement in his volume overload. 04/29/2021 Bed comfortably, swelling to his legs has improved. Complaining of some constipation, likely related to opioid analgesics he is receiving. He was started on oxycodone however he does have underlying end-stage renal disease. No fever. Constitutional: Denied any fatigue denied any fever. Cardio vascular: denied any chest pain, palpitations Gastrointestinal constipation Pulmonary: Denied any shortness of breath cough Neurologic denied any new focal deficits All inpatient medications were reviewed and appropriate changes in these medications as dictated in the interval history and assessment and plan. PHYSICAL EXAMINATION: GENERAL: The patient is alert and oriented x3, not in any acute distress. Well developed, well nourished. HEENT: Pupils are round and equally reacting to light. EOMI. No scleral icterus. No conjunctival pallor. Normocephalic, atraumatic. No pharyngeal erythema. No thyromegaly. CARDIOVASCULAR: S1 and S2 present. No murmurs, rubs, or gallops. PULMONARY: Chest is clear to auscultation, no wheezing or crackles. ABDOMEN: Soft, nontender, nondistended, normoactive bowel sounds. No palpable organomegaly. MUSCULOSKELETAL: No joint swelling or deformity. EXTREMITIES: No cyanosis, clubbing, no edema NEUROLOGICAL: Gross neurological examination did not reveal any focal deficits. SKIN: No rashes. LS surgical site showing healing and approximation with no surrounding redness or swelling noted. tender on palpation Assessment and plan: -Shortness of Breath Secondary to Pulmonary Edema from End-Stage Disease and Volume Overload from End-Stage Renal Disease. volume status improved, continue dialysis per nephrology Continue daily dialysis and IV lasix -Acute hypoxic respiratory failure secondary to assessment #1, he is improved currently in room airly contamination and awaiting repeat cultures. -Possible epidural abscess as noted on CT of the L4-5 left paracentral region, although suspicion is low, patient is undergoing surgical intervention -mild leukocytosis possibly secondary to possible epidural abscess, WBC 17.1. started on Vanco, infectious disease following -bilateral bakers cyst noted on doppler of the popliteals, negative for DVT -Chronic back pain with a recent back surgery patient continue on home regimen. -Diabetes mellitus unknown with whether it's type II-type I with diabetic nephropathy and end-stage renal disease hemodialysis dependent, HgBA1c is 7.6 -Hypertension -DVT prophylaxis: resume subcutaneous heparin this evening per orthopedics Blood cultures gram-negative negative staph species, patient is continued on e antimicrobial therapy with vancomycin. Status post antibiotic spacer placement . hemodialysis per nephrology. We'll avoid oxycodone due to his kidney function, he is on Tylenol 1000 4 times a day which we'll decrease to 650 4 times a day to avoid Tylenol overdose and restart [place]. Started on bowel regimen Senokot twice daily, MiraLAX as needed. Objective - Vital Signs Vital signs: Vital Signs Temp 98.5 F 04/29/21 12:38 Pulse 85 04/29/21 12:38 Resp 18 04/29/21 11:46 BP 171/84 04/29/21 12:38 Pulse Ox 99 04/29/21 11:46 Intake & Output 04/28/21 04/29/21 04/29/21 18:59 06:59 18:59 Intake Total 802 300 Output Total 350 3060 2420 Balance 452 -3060 -2120 Weight 81 kg Intake: IV 802 Hemodialysis 300 Output: Drainage 160 120 Lower Back 160 120 Urine 50 400 Hemodialysis 2500 2300 Estimated Blood Loss 300 Other: Voiding Method Indwelling Catheter Indwelling Catheter - Labs CBC & Chem 7: 04/29/21 03:37 04/29/21 03:37 Labs: Abnormal Lab Results - Last 24 Hours (Table) 04/28/21 04/28/21 04/28/21 Range/Units 14:02 17:08 20:23 WBC (3.8-10.6) k/uL RBC (4.30-5.90) m/uL Hgb (13.0-17.5) gm/dL Hct (39.0-53.0) % Neutrophils # (1.3-7.7) k/uL Lymphocytes # (1.0-4.8) k/uL Sodium (137-145) mmol/L Chloride (98-107) mmol/L Carbon Dioxide (22-30) mmol/L BUN (9-20) mg/dL Creatinine (0.66-1.25) mg/dL Glucose (74-99) mg/dL POC Glucose (mg/dL) 231 H 135 H 155 H (75-99) mg/dL 04/28/21 04/29/21 04/29/21 Range/Units 22:17 03:37 03:37 WBC 11.2 H (3.8-10.6) k/uL RBC 2.72 L (4.30-5.90) m/uL Hgb 8.9 L (13.0-17.5) gm/dL Hct 26.8 L (39.0-53.0) % Neutrophils # 9.4 H (1.3-7.7) k/uL Lymphocytes # 0.6 L (1.0-4.8) k/uL Sodium 130 L (137-145) mmol/L Chloride 97 L (98-107) mmol/L Carbon Dioxide 21 L (22-30) mmol/L BUN 38 H (9-20) mg/dL Creatinine 4.03 H (0.66-1.25) mg/dL Glucose 235 H (74-99) mg/dL POC Glucose (mg/dL) 233 H (75-99) mg/dL 04/29/21 04/29/21 Range/Units 07:03 11:15 WBC (3.8-10.6) k/uL RBC (4.30-5.90) m/uL Hgb (13.0-17.5) gm/dL Hct (39.0-53.0) % Neutrophils # (1.3-7.7) k/uL Lymphocytes # (1.0-4.8) k/uL Sodium (137-145) mmol/L Chloride (98-107) mmol/L Carbon Dioxide (22-30) mmol/L BUN (9-20) mg/dL Creatinine (0.66-1.25) mg/dL Glucose (74-99) mg/dL POC Glucose (mg/dL) 245 H 167 H (75-99) mg/dL Microbiology - Last 24 Hours (Table) 04/27/21 07:48 Blood Culture Gram Stain - Preliminary Blood Blood Culture - Preliminary Coagulase Negative Staph 04/27/21 13:13 Blood Culture Gram Stain - Preliminary Blood Blood Culture - Preliminary Coagulase Negative Staph 04/28/21 13:20 Gram Stain - Preliminary Back Wound Culture - Preliminary 04/28/21 13:20 Gram Stain - Preliminary Back Tissue Culture - Preliminary 04/28/21 13:20 Gram Stain - Preliminary Back Wound Culture - Preliminary 04/28/21 13:20 Gram Stain - Preliminary Back Wound Culture - Preliminary 04/28/21 13:20 Gram Stain - Preliminary Back Tissue Culture - Preliminary 04/28/21 13:20 Gram Stain - Preliminary Back Wound Culture - Preliminary 04/28/21 13:20 Gram Stain - Preliminary Back Wound Culture - Preliminary 04/28/21 13:20 Fungal Culture - Preliminary Back 04/28/21 13:20 Anaerobic Culture - Preliminary Back 04/28/21 13:20 Fungal Culture - Preliminary Back 04/28/21 13:20 Anaerobic Culture - Preliminary Back 04/28/21 13:20 Anaerobic Culture - Preliminary Back 04/28/21 13:20 Fungal Culture - Preliminary Back 04/28/21 13:20 Fungal Culture - Preliminary Back 04/28/21 13:20 Fungal Culture - Preliminary Back 04/28/21 13:20 Acid Fast Bacilli Culture - Preliminary Back 04/28/21 13:20 Fungal Culture - Preliminary Back 04/28/21 13:20 Anaerobic Culture - Preliminary Back 04/28/21 13:20 Anaerobic Culture - Preliminary Back 04/28/21 13:20 Acid Fast Bacilli Culture - Preliminary Back 04/28/21 13:20 Fungal Culture - Preliminary Back 04/28/21 13:20 Anaerobic Culture - Preliminary Back 04/28/21 13:20 Anaerobic Culture - Preliminary Back 04/27/21 07:48 Blood Culture - Final Blood 04/27/21 13:13 Blood Culture - Final Blood 04/25/21 10:17 Blood Culture Gram Stain - Final Blood Blood Culture - Final Staphylococcus epidermidis 04/25/21 10:17 Blood Culture Gram Stain - Final Blood Blood Culture - Final Staphylococcus epidermidis
[2021-04-29] MEDS: ACETAMINOPHEN TAB 325 MG TAB PO SCH ×2 (14:44→21:11)
[2021-04-29 17:27] LABS: Glucose,Whole Blood 264 mg/dL (75-99)
--- NOTE | 2021-04-29 18:25 | CT ---
EXAMINATION TYPE: CT lumbar spine wo con DATE OF EXAM: 04/29/2021 COMPARISON: 04/26/2021 HISTORY: Post Op Fusion. CT DLP: 1288 mGycm Automated exposure control for dose reduction was used. Images obtained from the level of T12-S2 vertebra with no contrast. The lumbar vertebra have normal alignment. There is disc prosthesis at L4-5. There is posterior fusio n surgery with rods and screws at L4-5. There is laminectomy at L4-5. I see no bony destructive proce ss. There is no lumbar paraspinal mass. There is no compression fracture. Disc spaces are fairly norm al. There are posterior air bubbles consistent with recent surgery. There is subcutaneous density ove r the lumbar spine related to recent surgery. There is drainage catheter noted at the posterior fusio n surgery site. IMPRESSION: Recent surgery. No complicating process seen.
[2021-04-29 20:17] LABS: Glucose,Whole Blood 297 mg/dL (75-99)
[2021-04-29] MEDS ORDERED: SENNOSIDES 8.6 MG TAB PO PRN (21:00)
[2021-04-29] MEDS: HEPARIN SODIUM,PORCINE/PF 5,000 UNIT/0.5 ML SYRINGE SQ SCH (21:12)
[2021-04-29] MEDS: NIFEdipine XL 30 MG TAB.ER.24 PO SCH (21:13)
[2021-04-29] MEDS: PRAMIPEXOLE 0.25 MG TAB PO SCH (21:14)
[2021-04-29] MEDS: CYCLOBENZAPRINE 10 MG TAB PO PRN (21:14)
[2021-04-30] MEDS: HYDROmorphone 0.5 MG/0.5 ML SYRINGE IVP PRN ×3 (00:22→12:10)
[2021-04-30] MEDS: ACETAMINOPHEN TAB 325 MG TAB PO SCH ×4 (05:44→20:44)
--- NOTE | 2021-04-30 06:37 | PN ---
PROGRESS NOTE DATE OF SERVICE: 04/29/2021 REASON FOR FOLLOWUP: Staph epi bacteremia lumbar paraspinal abscess. INTERVAL HISTORY: The patient is afebrile. The patient is breathing comfortably. The patient denies having any chest pain. No shortness of breath or cough. Pain to the lumbosacral spine region is currently controlled. No vomiting or diarrhea. PHYSICAL EXAMINATION: Blood pressure 138/71 with a pulse of 75, temperature 98. He is 96% on room air. General description is a middle-aged male lying in bed in no distress. Respiratory system: Unlabored breathing. Clear to auscultation anteriorly. Heart S1, S2. Regular rate and rhythm. Lumbosacral incision is currently dressed. No obvious drainage on the dressing. LABS: Hemoglobin is 8.9, white count 11.2, BUN of 38, creatinine 4.03. DIAGNOSTIC IMPRESSION AND PLAN: Patient with Staph epi bacteremia secondary to lumbosacral spine abscess and osteo diskitis. Blood cultures will be repeated in the a.m. to document clearance of the bacteremia. He will need vancomycin at least 6 weeks thru dialysis and afterwards prolonged oral antibiotic as the patient did have hardware placed in infected environment. Questions and concerns were answered. MMODL / IJN: [id number] /
[2021-04-30 07:07] LABS: Glucose,Whole Blood 114 mg/dL (75-99)
[2021-04-30] MEDS: ASCORBIC ACID 500 MG TAB PO SCH (07:28)
[2021-04-30] MEDS: traMADol 50 MG TAB PO PRN ×2 (07:28→21:58)
[2021-04-30] MEDS: SEVELAMER 800 MG TAB PO SCH ×4 (07:28→20:45)
[2021-04-30] MEDS: LABETALOL 200 MG TAB PO SCH ×3 (07:28→20:57)
[2021-04-30] MEDS: PANTOPRAZOLE 40 MG TABLET PO SCH (07:28)
[2021-04-30] MEDS: FOLIC ACID-VIT B COMPLEX-VIT C 1 CAP PO SCH (07:29)
[2021-04-30] MEDS: CITALOPRAM HYDROBROMIDE 20 MG TAB PO SCH (07:29)
[2021-04-30] MEDS: ASPIRIN 81 MG PO SCH (07:29)
[2021-04-30] MEDS: HEPARIN SODIUM,PORCINE/PF 5,000 UNIT/0.5 ML SYRINGE SQ SCH ×2 (07:30→20:45)
[2021-04-30] MEDS: INSULIN PUMP MEAL BOLUS 1 UNIT MISC MISCELLANE SCH ×4 (07:30→20:48)
[2021-04-30 07:35] LABS: HCT 27.8 % (39.0-53.0); MCH 31.7 pg (25.0-35.0); MCHC 32.5 g/dL (31.0-37.0); MCV 97.6 fL (80.0-100.0); Mean Platelet Volume 9.6; Platelet Count 324 k/uL (150-450); RBC 2.85 m/uL (4.30-5.90); RDW 14.3 % (11.5-15.5); WBC 13.1 k/uL (3.8-10.6)
[2021-04-30 08:10] LABS: Vancomycin,Random 17.5 ug/mL
[2021-04-30 08:23] LABS: C Reactive Protein 25.2 mg/dL (<1.0)
[2021-04-30 08:41] LABS: Erythrocyte Sedimentation Rate 110 mm/hr (0-15)
[2021-04-30] MEDS ORDERED: VANCOMYCIN 1,500 MG in SODIUM CHLORIDE 0.9% 250 ML IVPB ONE (10:00)
--- NOTE | 2021-04-30 10:42 | OP ---
OPERATIVE REPORT DATE OF SERVICE: 04/28/2021 PREOPERATIVE DIAGNOSES: 1. Status post L4-5 hemilaminotomy, decompression and diskectomy with epidural abscess formation. 2. 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 3. Lower extremity weakness. 4. Left lower extremity radiculopathy. POSTOPERATIVE DIAGNOSES: Same. PROCEDURES PERFORMED: 1. Incision and drainage of lumbar spine with irrigation and debridement of lumbar epidural abscess and osteo diskitis using the following: A skin knife used to incise the skin. Curette, archana, and rongeur is used to debride skin soft tissue and diseased bone. 2. L4-L5 intradiscal osteotomy (3 column osteotomy). 3. L4-L5 posterior lateral interbody fusion. 4. L4-L5 with placement of antibiotic cement spacer. 5. L3 to S1 bilateral laminectomy, decompression with L4-L5 complete laminectomy, facetectomy, and foraminotomy. IMPLANTS: Shannon Parkman screws with static [place] cage along with antibiotic impregnated cement spacer. Allograft for fusion, Vesuvius and BIO4. ANESTHESIA: GETA. SURGEON: Dr. Lozano. ESTIMATED BLOOD LOSS: 350. IV FLUIDS: 1200. URINE OUTPUT: 50. PATHOLOGY: Two superficial cultures, two deep cultures, two intradiscal cultures, as well as tissue sent. CONDITION: Stable. DISPOSITION: PACU. INDICATIONS FOR PROCEDURE: This is a 51-year-old male with a complex medical history including end-stage renal disease on hemodialysis, pulmonary edema, as well as diabetes type 2, which is poorly controlled. The patient about 6 weeks ago in [place] had a L4-5 decompression and diskectomy performed. He initially did very well after surgery and was feeling much better. Before surgery, he had a lot of left lower extremity pain and radiculopathy due to his large disk herniation and this was essentially relieved by the surgery. He was healing very well until about a week ago when he started noticing some severe increase in his back pain and his left lower extremity became very weak again. He presented to the hospital and then to us complaining of shortness of breath, fevers and chills, as well as lower extremity weakness. The patient was seen and evaluated by the medical team, Nephrology team as well as Infectious Disease. He was found to have Staph epidermidis bacteremia, low back pain and possible epidural abscess. The patient was evaluated by Orthopedics. He obtained MRIs on a stat basis, which showed a possible epidural abscess versus reherniation of disk in the area. He also showed increased uptake within the L4-5 disk space, concerning for possible osteomyelitis, diskitis formation. The patient also exhibited some increasing weakness and severe lower extremity pain, as well as groin pain and starting of perineal symptoms. After discussion with the patient and his family at length about the findings, we decided that it was in his best interest to revisit the surgical bed and to redecompress the patient versus decompression and fusion depending on the presence of infection or not. We discussed the risks and benefits of surgery at length, which are outlined the risk review. We discussed the risks of bleeding, infection, damage to surrounding tissue, risk of reoperation, risk of anesthesia up to including . He is willing to assume these risks and all the risks of surgery. The patient was immediately boarded for surgery. The patient was seen preoperatively and all preoperative protocols followed. The patient was seen by Department of Anesthesia, deemed fit for surgery. He did undergo hemodialysis the day before, and he will undergo it after surgery. He is on a 4-5 times a week hemodialysis regimen at this time. The patient's site was marked and consent was confirmed. The patient was willing to proceed with the procedure. He was on antibiotics from the floor and these were continued. DESCRIPTION OF THE PROCEDURE: The patient was then transferred to the operative suite by the department of anesthesia. General endotracheal intubation was performed. Once the patient was confirmed to be ventilating and stable, we were able to transfer the patient prone to a [facility] frame table. The patient's arms were placed up and out in the 90/90 position and we took special care to pad all bony prominences including the wrists, elbows, axilla, chest, genitals, hips, thighs, knees, and ankles. A Baldwin catheter was placed prior to this for I and O measurements, however the patient does not make a lot of urine secondary to his end-stage renal disease. The patient once in a prone position we confirmed of ventilatory efforts, as well as the lines and everything was appropriate at this time. We then proceeded with BIO marking the patient. X- ray was used to BIO igor the L4-5 region of the patient and plan for a midline posterior incision. Once this was completed, 10 10s were placed to outline the area and this was cleaned with alcohol. A briefing was performed. All parties in agreement and ready to proceed. The patient's lumbar spine was then prepped and draped in normal sterile fashion. Time-out was performed and all parties in agreement with the procedure to be performed. A skin incision was then made over the previously BIO marked area. The previous skin incision was starting to dehisce down distally and this was excised using a 15 blade. Dissection was then taken down with electrocautery and meticulous hemostasis was performed with this. We then took this down to the lumbar fascia, which was identified. There was a lot of scarring in this area secondary to the patient's recent surgery. We were able to identify normal fascia above and below the scarred area, which allowed us to make an incision. We then performed a fasciotomy midline over the spinous processes of L3 through S1. We then took the dissection subperiosteally down over the lamina of L4-5 and S1, as well as the bottom of L3 for visualization purposes. We then carefully and meticulously cleaned out the scar from the patient's left- sided hemilaminotomy that was performed at L4-L5. Upon doing this, a large amount of purulence was noted to be released from the scarred area in the epidural space, as well as the facet joint on the left-hand side. This was cultured. We did send some tissue from this area as well. Using a 2-0 up-biting curette, we carefully cleaned the scar off the area and inspected the area. We then inspected deep to this and there was purulence noted within the epidural space and also within the disk space at L4 and L5. It was at this point that we decided due to the epidural abscess and likely diskitis that was present to perform a fusion of this area, which was grossly unstable and the purulence coming from the essentially the evacuated disk space. We then proceeded with placement of screws. This was done under AP and lateral fluoroscopy. We placed Jamshidi's within the pedicles of L4 bilaterally followed by wires. We then placed screws over these wires in AP and lateral fluoroscopy and confirmed to be in good position. We then turned our attention to the L5 screws and placed them in a similar way. Once they were placed, AP and lateral fluoroscopy confirmed good position. We then tested the screws with neuro monitoring and all screws tested above 20 milliamps. We then proceeded with decompression. A laminectomy decompression was performed from the bottom half of L3 to the top half of S1. This allowed for effective decompression from the L3-4 disk space to the L5-S1 disk space. This provided a wide decompression of this area. There was purulence noted within the epidural space just above the L4 lamina between L3 and L4 and this is why we took a portion of L3 as well. Bilateral laminectomy with complete facetectomy and foraminotomy was performed at L4-L5, while a bilateral laminectomy, partial medial facetectomy and foraminotomy were performed at L5- S1 to maintain stability at this level. The L4-L5 region however was grossly unstable secondary to the infection and this is why we performed this here. Once this was completed, we carefully accessed the disk space at L4-L5. We performed intradiscal osteotomy bilaterally at L4-L5, which allowed for decompression in this area. A large disk osteophyte complex was removed from posteriorly, which was causing fairly severe compression of the thecal sac between L4 and L5 at the back of the body of L5. This was removed entirely. The disk was then completely removed in this area. On the right- hand side, we then accessed and shaved that to a size of a 10 shaver under lateral fluoroscopy. This gave us a good bite in this area. We then placed a static [place] cage on this side at L4-5 under lateral fluoroscopy and it was in good position. We turned our attention the left hand side where again we kept the screening scar off of this area and noted more purulence within the superior epidural space and this was cultured as well. We then shaved the left-hand side and performed intradiscal osteotomy on this side as well to allow for correction in this area and removal of large bone. We then shaved this area to remove any disk and purulent material. We then placed antibiotic cement spacer in this area for antibiotic bleaching purposes, as well as the interbody spacer. Bone graft was placed anterior to both of these cages prior to the placement and BIO4 was placed into the [place] cage before its placement. Before we placed either of these cages, we actually irrigated out the disk space as well. This was done with 6 L of antibiotic irrigation followed by a liter of normal sterile saline. This allowed for irrigation and debridement in this area as well. After the cage placement and confirmation of good position, we then placed rods at L4- L5, and these were locked down and final tightened. We then placed a crosslink in this area as well. We inspected the dura and there was no tears or leaks. We then copiously irrigated the wound with another 6 L of sterile saline solution for irrigation of the wound. We then placed Surgicel over the dura. We placed in the posterior lateral gutters a mixture of BIO4 and Vesuvius allograft after decortication of the TPs of L4 and L5 bilaterally. This was then impacted into place. We then placed Stimulan and antibiotic beads deep within the wound along with vancomycin powder within the wound. We placed a drain deep to the fascia. We then proceeded with fascial closure, lumbosacral fascia was closed first with #1 Vicryl followed by a running unidirectional Stratafix. We then placed 0 PDS in the deep subcu tissue followed by 2-0 Vicryl in the superficial subcutaneous tissue, followed by 2-0 nylon in the skin. The wound edges approximated very well. We then cleaned the wound with alcohol and dressed it sterilely with Optifoam dressing. The drain was hooked up and there was good suction noted. This case took the 100% longer than was expected secondary to the patient's previous surgery, exuberant scarring, purulence, his complicated medical history including end- stage renal disease on hemodialysis, as well as diabetes and his propensity for bleeding. The patient was then transferred back to his hospital bed very carefully. The drain continued to hold suction. He was then extubated and transferred to the postoperative care unit by the Department of Anesthesia having tolerated the procedure very well with no complications. MMJOSEL / SOHAN: [id number] / MTDD
[2021-04-30 11:33] LABS: Glucose,Whole Blood 244 mg/dL (75-99)
[2021-04-30 12:19] LABS: African American GFR (CKD) 16.6 (60.0-200.0); Anion Gap 12.9 mmol/L (4.00-12.00); BUN/Creat Ratio 8.41 Ratio (12.00-20.00); Calcium 8.8 mg/dL (8.7-10.3); Carbon Dioxide 25.1 mmol/L (21.6-31.8); Non-African American GFR(CKD) 14.4 (60.0-200.0); Potassium 3.1 mmol/L (3.5-5.5)
--- NOTE | 2021-04-30 12:55 | P.PN ---
Subjective Progress Note Date: 04/30/21 Principal diagnosis: Status post L3-S1 decompression, L4-L5 posterior lateral with interbody fusion, irrigation and debridement of epidural abscess and osteo-discitis L4-L5 Patient is examined bedside, he is resting his hospital chair. Patient is feeling a lot better he states the last day or so. He was up ambulating with a walker. Patient is having no issues urinating at this time, he is passing gas. He denies any perineal I gentleman numbness and tingling at this time. He states he feels the strength in the leg is improving daily. Objective - Vital Signs Vital signs: Vital Signs Temp 98.7 F 04/30/21 11:29 Pulse 71 04/30/21 11:29 Resp 16 04/30/21 11:29 BP 131/58 04/30/21 11:29 Pulse Ox 99 04/30/21 11:29 Intake & Output 04/29/21 04/30/21 04/30/21 18:59 06:59 18:59 Intake Total 300 10 Output Total 2420 600 Balance -2120 10 -600 Weight 80 kg Intake: IV 10 saline flush 10 Hemodialysis 300 Output: Drainage 120 200 Lower Back 120 200 Urine 400 Hemodialysis 2300 Other: Voiding Method Toilet Toilet Urinal Urinal # Voids 3 - Exam Gen: AOx3, NAD VSS stable at this time Integument: Postoperative bandages in good position and condition of the lumbar spine region, the drain site is clean and dry at this time. There is minimal drainage noted in the drain at this time, overnight there was noted 120 mL. Palpation: Mild tenderness with palpation in the midline and paraspinal region of the lumbar spine ROM: Range of motion in all major muscle groups bilateral upper and lower extremities intact Sensory Exam: Senory exam to light touch is intact C5-T1 Senosry exam to light touch is intact L2-S1 Motor: 5 out of 5 strength is appreciated in the bilateral upper extremities with shoulder abduction, forward elevation, elbow flexion, elbow extension, wrist extension, wrist flexion, finger intrinsics 4-5 strength is appreciated in the bilateral lower extremities with hip flexion, knee extension, knee flexion, plantar flexion, dorsiflexion, EHL, FHL Reflexes: 2/4 in all UE and LE Negative Grupo's bilaterally, negative Babinski bilaterally negative clonus bilaterally - Labs CBC & Chem 7: 04/30/21 07:20 04/30/21 07:20 Labs: Abnormal Lab Results - Last 24 Hours (Table) 04/29/21 04/29/21 04/30/21 Range/Units 17:26 20:16 07:06 WBC (3.8-10.6) k/uL RBC (4.30-5.90) m/uL Hgb (13.0-17.5) gm/dL Hct (39.0-53.0) % ESR (0-15) mm/hr Sodium (135-145) mmol/L Potassium (3.5-5.5) mmol/L Anion Gap (4.00-12.00) mmol/L BUN (9.0-27.0) mg/dL Creatinine (0.6-1.5) mg/dL Est GFR (CKD-EPI)AfAm (60.0-200.0) Est GFR (CKD-EPI)NonAf (60.0-200.0) BUN/Creatinine Ratio (12.00-20.00) Ratio POC Glucose (mg/dL) 264 H 297 H 114 H (75-99) mg/dL C-Reactive Protein (<1.0) mg/dL 04/30/21 04/30/21 04/30/21 Range/Units 07:20 07:20 07:20 WBC 13.1 H (3.8-10.6) k/uL RBC 2.85 L (4.30-5.90) m/uL Hgb 9.0 L (13.0-17.5) gm/dL Hct 27.8 L (39.0-53.0) % ESR 110 H (0-15) mm/hr Sodium 134 L (135-145) mmol/L Potassium 3.1 L (3.5-5.5) mmol/L Anion Gap 12.90 H (4.00-12.00) mmol/L BUN 37.0 H (9.0-27.0) mg/dL Creatinine 4.4 H (0.6-1.5) mg/dL Est GFR (CKD-EPI)AfAm 16.6 L (60.0-200.0) Est GFR (CKD-EPI)NonAf 14.4 L (60.0-200.0) BUN/Creatinine Ratio 8.41 L (12.00-20.00) Ratio POC Glucose (mg/dL) (75-99) mg/dL C-Reactive Protein 25.2 H (<1.0) mg/dL 04/30/21 Range/Units 11:32 WBC (3.8-10.6) k/uL RBC (4.30-5.90) m/uL Hgb (13.0-17.5) gm/dL Hct (39.0-53.0) % ESR (0-15) mm/hr Sodium (135-145) mmol/L Potassium (3.5-5.5) mmol/L Anion Gap (4.00-12.00) mmol/L BUN (9.0-27.0) mg/dL Creatinine (0.6-1.5) mg/dL Est GFR (CKD-EPI)AfAm (60.0-200.0) Est GFR (CKD-EPI)NonAf (60.0-200.0) BUN/Creatinine Ratio (12.00-20.00) Ratio POC Glucose (mg/dL) 244 H (75-99) mg/dL C-Reactive Protein (<1.0) mg/dL Microbiology - Last 24 Hours (Table) 04/27/21 07:48 Blood Culture Gram Stain - Final Blood Blood Culture - Final Staphylococcus epidermidis 04/27/21 13:13 Blood Culture Gram Stain - Final Blood Blood Culture - Final Staphylococcus epidermidis 04/28/21 13:20 Acid Fast Bacilli Smear - Final Back Acid Fast Bacilli Culture - Preliminary 04/28/21 13:20 Acid Fast Bacilli Smear - Final Back Acid Fast Bacilli Culture - Preliminary 04/28/21 13:20 Gram Stain - Preliminary Back Wound Culture - Preliminary Coagulase Negative Staph 04/28/21 13:20 Gram Stain - Preliminary Back Wound Culture - Preliminary Coagulase Negative Staph 04/28/21 13:20 Gram Stain - Preliminary Back Wound Culture - Preliminary Coagulase Negative Staph 04/28/21 13:20 Gram Stain - Preliminary Back Tissue Culture - Preliminary Coagulase Negative Staph 04/28/21 13:20 Gram Stain - Preliminary Back Tissue Culture - Preliminary Coagulase Negative Staph Assessment and Plan Assessment: Postop day #2 status post L3-S1 decompression, L4-L5 posterior lateral interbody fusion, irrigation and debridement L4-L5 epidural abscess and osteo- discitis Plan: Pain control, continue with current medication regimen DVT prophylaxis, continue subcu heparin as needed Continue work with physical therapy, recommend use of walker or cane with ambulation Wound care: Depending on output from drain, we'll likely remove tomorrow and change on postoperative dressings Encourage incentive spirometer Other emergency medical tech and recommendations Awaiting final culture and sensitivity, this will help with outpatient antibiotic choice Further recommendations to follow Time with Patient: Less than 30
--- NOTE | 2021-04-30 14:45 | P.PN ---
Subjective Progress Note Date: 04/30/21 Patient is presently 51-year-old male came in with compensative shortness of breath which has been going on for last couple days and the weight gain of 8 pounds and bilateral pedal edema. Patient is found to have some pulmonary edema on the chest x-ray. Patient does hemodialysis at home by himself on as-needed basis. Patient barely makes any urine. Patient removed about 2.5 L yesterday in spite of which she still gain 6 pounds patient doesn't appear to be competent with his dietary recommendations. Patient denied any fever chills cough. Patient has mildly elevated liver enzymes and mildly elevated troponins serum creatinine is 5.5. Patient had a recent back surgery because of which patient c annot stay on bed or chair for long periods of time which is limiting his hemodialysis. Patient denied any dysuria. She is presently on 4 L of oxygen doesn't use any oxygen usually at home. 04/26/2021 Patient is seen in follow up this morning and infectious disease along with nephrology and orthopedics following. Patient had positive blood cultures noted and was started on vancomycin. Patient continues with pain of the lower back. Recent surgical site of the lower back LS showing some minimal irritation on the bottom of the incision with no obvious drainage or redness noted. Patient does have tenderness noted in that area. CT of the LS ordered and showing increased density of the left paracentral region of the L4-5 area suggestive of epidural abscess. bilateral venous doppler of lower extremity negative of DVT likely bilateral bakers cysts. Patient continues to have shortness of breath requiring 5 L of 02 via NC. Orthopedics requesting MRI of the area to confirm abscess and will need nephrology clearance given ESRD. WBC increased today at 17.1. 04/27/2021 Patient is seen and evaluated in follow up this morning with generalized pain of the back. Orthopedics following and have ordered MRI for today to further assess for possible epidural abscess. INfectious disease also following and patient is continued on vancomycin. WBC down to 12.9 and patient is afebrile. Patient continues with shortness of breath and will continue high dose IV lasix with nephrology following and patient to receive dialysis today. 04/28/2021 Patient is a underwent surgical intervention for possible discitis versus epidural abscess. Patient is being continued on antibiotics patient did undergo hemodialysis yesterday and there is some improvement in his volume overload. 04/29/2021 Bed comfortably, swelling to his legs has improved. Complaining of some constipation, likely related to opioid analgesics he is receiving. He was started on oxycodone however he does have underlying end-stage renal disease. No fever. 04/30/2021 Patient is evaluated at the bedside today he is sitting up in his chair, patient denies chest pain, cough, shortness of breath. Patient is post op day #2 L3-S1 decompression, L4-L5 fusion, irrigation and debridement of epidural abscess. Plan is to remove drain tomorrow and dressing changes via orthopedic surgery. Patient states that he is having some constipation, likely related to opioid analgesics. Senna has been ordered when necessary. Patient had received [id number] hemodialysis over the weekend, patient states that today he does not wish to have HD today. He states that it causes him a lot of pain and discomfort when he is lying in the bed. Patient was ordered to have hemodialysis today from nephrology, due to the medication he had received from surgical services. Patient's laboratory reveals a white count of 13.1, hemoglobin of 9. Patient's potassium today is 3.1, will be replaced per protocol. Creatinine today is 4.4, which is increased from yesterday which was 4.03. Patient will continue on IV antibiotics in the form of IV Vanco, and will require antibiotics for 6 weeks post discharge, the finalize cultures from the debridement of epidural abscess are pending. Patient had repeat blood cultures taken today. Vital signs are stable today, patient states that he has urinated without difficulty, patient denies any further needs. ROS: Constitutional: Denied any fatigue denied any fever. Cardio vascular: denied any chest pain, palpitations Gastrointestinal constipation Pulmonary: Denied any shortness of breath cough Neurologic denied any new focal deficits All inpatient medications were reviewed and appropriate changes in these medications as dictated in the interval history and assessment and plan. PHYSICAL EXAMINATION: GENERAL: The patient is alert and oriented x3, not in any acute distress. Well developed, well nourished. HEENT: Pupils are round and equally reacting to light. EOMI. No scleral icterus. No conjunctival pallor. Normocephalic, atraumatic. No pharyngeal erythema. No thyromegaly. CARDIOVASCULAR: S1 and S2 present. No murmurs, rubs, or gallops. PULMONARY: Chest is clear to auscultation, no wheezing or crackles. ABDOMEN: Soft, nontender, nondistended, normoactive bowel sounds. No palpable organomegaly. MUSCULOSKELETAL: No joint swelling or deformity. EXTREMITIES: No cyanosis, clubbing, no edema NEUROLOGICAL: Gross neurological examination did not reveal any focal deficits. SKIN: No rashes. LS surgical site showing healing and approximation with no surrounding redness or swelling noted. tender on palpation Assessment and plan: -Shortness of Breath Secondary to Pulmonary Edema from End-Stage Disease and Volume Overload from End-Stage Renal Disease. volume status improved, continue dialysis per nephrology Continue dialysis recommendations via nephrology, patient Lasix on hold -Acute hypoxic respiratory failure secondary to assessment #1, he is improved currently in room airly contamination and awaiting repeat cultures. -Possible epidural abscess as noted on CT of the L4-5 left paracentral region, postoperative day #2 surgical intervention, drain in place, IV antibiotics, cultures pending -mild leukocytosis possibly secondary to possible epidural abscess, WBC 13.1, IV antibiotics, ID following -bilateral bakers cyst noted on doppler of the popliteals, negative for DVT -Chronic back pain with a recent back surgery patient continue on home regimen. -Diabetes mellitus unknown with whether it's type II-type I with diabetic nephropathy and end-stage renal disease hemodialysis dependent, HgBA1c is 7.6 -Hypertension, continue medications -Hypokalemia related to diuresis with IV Lasix, supplemented, will recheck in the morning, Lasix on hold -DVT prophylaxis: Subcu heparin GI prophylaxis Protonix Blood cultures gram-negative negative staph species, patient is continued on e antimicrobial therapy with vancomycin. Status post antibiotic spacer placement . hemodialysis per nephrology. We'll avoid oxycodone due to his kidney function, he is on Tylenol 1000 4 times a day which we'll decrease to 650 4 times a day to avoid Tylenol overdose and restart [place]. Patient is postop day #2 surgical intervention, plan is to possibly remove the drain tomorrow, cul tures pending. Repeat blood cultures were taken today. Started on bowel regimen Senokot twice daily, MiraLAX as needed. Potassium has been replaced today, recheck in the morning. Objective - Vital Signs Vital signs: Vital Signs Temp 98.7 F 04/30/21 11:29 Pulse 71 08/09/21 11:29 Resp 16 04/30/21 11:29 BP 131/58 04/30/21 11:29 Pulse Ox 99 04/30/21 11:29 Intake & Output 04/29/21 04/30/21 04/30/21 18:59 06:59 18:59 Intake Total 300 10 Output Total 2420 3600 Balance -2120 10 -3600 Weight 80 kg Intake: IV 10 saline flush 10 Hemodialysis 300 Output: Drainage 120 200 Lower Back 120 200 Urine 400 Hemodialysis 2300 3000 Other: Voiding Method Toilet Toilet Urinal Urinal # Voids 3 - Labs CBC & Chem 7: 04/30/21 07:20 04/30/21 07:20 Labs: Abnormal Lab Results - Last 24 Hours (Table) 04/29/21 04/29/21 04/30/21 Range/Units 17:26 20:16 07:06 WBC (3.8-10.6) k/uL RBC (4.30-5.90) m/uL Hgb (13.0-17.5) gm/dL Hct (39.0-53.0) % ESR (0-15) mm/hr Sodium (135-145) mmol/L Potassium (3.5-5.5) mmol/L Anion Gap (4.00-12.00) mmol/L BUN (9.0-27.0) mg/dL Creatinine (0.6-1.5) mg/dL Est GFR (CKD-EPI)AfAm (60.0-200.0) Est GFR (CKD-EPI)NonAf (60.0-200.0) BUN/Creatinine Ratio (12.00-20.00) Ratio POC Glucose (mg/dL) 264 H 297 H 114 H (75-99) mg/dL C-Reactive Protein (<1.0) mg/dL 04/30/21 04/30/21 04/30/21 Range/Units 07:20 07:20 07:20 WBC 13.1 H (3.8-10.6) k/uL RBC 2.85 L (4.30-5.90) m/uL Hgb 9.0 L (13.0-17.5) gm/dL Hct 27.8 L (39.0-53.0) % ESR 110 H (0-15) mm/hr Sodium 134 L (135-145) mmol/L Potassium 3.1 L (3.5-5.5) mmol/L Anion Gap 12.90 H (4.00-12.00) mmol/L BUN 37.0 H (9.0-27.0) mg/dL Creatinine 4.4 H (0.6-1.5) mg/dL Est GFR (CKD-EPI)AfAm 16.6 L (60.0-200.0) Est GFR (CKD-EPI)NonAf 14.4 L (60.0-200.0) BUN/Creatinine Ratio 8.41 L (12.00-20.00) Ratio POC Glucose (mg/dL) (75-99) mg/dL C-Reactive Protein 25.2 H (<1.0) mg/dL 04/30/21 Range/Units 11:32 WBC (3.8-10.6) k/uL RBC (4.30-5.90) m/uL Hgb (13.0-17.5) gm/dL Hct (39.0-53.0) % ESR (0-15) mm/hr Sodium (135-145) mmol/L Potassium (3.5-5.5) mmol/L Anion Gap (4.00-12.00) mmol/L BUN (9.0-27.0) mg/dL Creatinine (0.6-1.5) mg/dL Est GFR (CKD-EPI)AfAm (60.0-200.0) Est GFR (CKD-EPI)NonAf (60.0-200.0) BUN/Creatinine Ratio (12.00-20.00) Ratio POC Glucose (mg/dL) 244 H (75-99) mg/dL C-Reactive Protein (<1.0) mg/dL Microbiology - Last 24 Hours (Table) 04/27/21 07:48 Blood Culture Gram Stain - Final Blood Blood Culture - Final Staphylococcus epidermidis 04/27/21 13:13 Blood Culture Gram Stain - Final Blood Blood Culture - Final Staphylococcus epidermidis 04/28/21 13:20 Acid Fast Bacilli Smear - Final Back Acid Fast Bacilli Culture - Preliminary 04/28/21 13:20 Acid Fast Bacilli Smear - Final Back Acid Fast Bacilli Culture - Preliminary 04/28/21 13:20 Gram Stain - Preliminary Back Wound Culture - Preliminary Coagulase Negative Staph 04/28/21 13:20 Gram Stain - Preliminary Back Wound Culture - Preliminary Coagulase Negative Staph 04/28/21 13:20 Gram Stain - Preliminary Back Wound Culture - Preliminary Coagulase Negative Staph 04/28/21 13:20 Gram Stain - Preliminary Back Tissue Culture - Preliminary Coagulase Negative Staph 04/28/21 13:20 Gram Stain - Preliminary Back Tissue Culture - Preliminary Coagulase Negative Staph Assessment and Plan Time with Patient: Greater than 30
--- NOTE | 2021-04-30 15:32 | PN ---
PROGRESS NOTE Patient is seen for followup for end-stage renal disease. The patient has had almost daily treatments initially for volume overload and then over the weekend as he was post MRI with gadolinium. The patient was going to be made Friday, Friday, Friday, Friday schedule. However, he is refusing/is reluctant to have treatment today. He has been dialyzed almost daily. The patient has had 4 consecutive treatments thus far. Volume status has improved and I have advised him that we could wait till tomorrow since there is no acute indication for dialysis today, especially given the fact that he has had 3 treatments post gadolinium administration. PHYSICAL EXAMINATION: On examination today, blood pressure is 131/58, heart rate 71 per minute. He is afebrile. Examination of the heart S1, S2. Examination of the lungs, bilateral breath sounds are heard. Abdomen is soft, nontender. Examination of lower extremities shows no significant edema. OYSTER GRADER exam grossly intact. LAB: Show sodium 134, potassium 3.1, BUN of 37, creatinine 4.4. ASSESSMENT: 1. End-stage renal disease, maintained on home hemodialysis prior to admission, currently being dialyzed daily since April 27 mostly secondary to volume overload as well as gadolinium administration for MRI. The patient has had 3 treatments post gadolinium. He could skip a treatment today and we will plan for treatment tomorrow. 2. Volume overload currently improved. 3. Hypokalemia, we will replace. 4. Gram-positive bacteremia with epidural abscess, status post I and D of lumbar spine and irrigation and debridement of lumbar epidural abscess and bilateral laminectomy at L3-S1. Currently maintained on antibiotics. Blood cultures remain negative. The patient has had Staphylococcal epidermidis bacteremia on initial admission. 5. Chronic kidney disease, mineral bone disorder. PLAN: Hemodialysis in a.m. Continue antibiotics as per ID. Replace potassium. MMODL / IJN: [id number] /
[2021-04-30] MEDS: POTASSIUM CHLORIDE ER 20 MEQ TAB.ER PO SCH ×2 (15:56→17:42)
[2021-04-30 17:21] LABS: Glucose,Whole Blood 196 mg/dL (75-99)
[2021-04-30] MEDS: HYDROcodone/APAP 10-325MG 1 EACH TAB PO PRN (17:42)
[2021-04-30 19:52] LABS: Glucose,Whole Blood 241 mg/dL (75-99)
[2021-04-30] MEDS: NIFEdipine XL 30 MG TAB.ER.24 PO SCH (20:55)
[2021-04-30] MEDS: PRAMIPEXOLE 0.25 MG TAB PO SCH (20:56)
[2021-05-01] MEDS: HYDROmorphone 0.5 MG/0.5 ML SYRINGE IVP PRN ×2 (01:11→05:33)
[2021-05-01] MEDS: ACETAMINOPHEN TAB 325 MG TAB PO SCH ×3 (04:07→17:00)
[2021-05-01 06:17] VITALS: BP 159/73; PULSE 77; RESP 20; TEMP 98.7
[2021-05-01 06:38] LABS: Glucose,Whole Blood 101 mg/dL (75-99)
--- NOTE | 2021-05-01 08:31 | PN ---
PROGRESS NOTE DATE OF SERVICE: 04/30/2021 REASON FOR FOLLOWUP: Staph epi, lumbosacral spine abscess with secondary bacteremia. INTERVAL HISTORY: Patient is afebrile. The patient is breathing comfortably. Overall pain and discomfort to the back area is slightly decreased. Denies having any chest pain, shortness of breath or cough. No abdominal pain. No diarrhea. PHYSICAL EXAMINATION: Blood pressure is 116/69, pulse of 59, temperature is 99.1. He is 100% on room air. General description is a middle-aged male lying in bed in no distress. Respiratory system: Unlabored breathing clear to auscultation anteriorly. Heart: S1, S2. Regular rate and rhythm. Abdomen soft, no tenderness. LAB: Hemoglobin is 9, white count 13.9, BUN of 37, creatinine 4.4. DIAGNOSTIC IMPRESSION AND PLAN: Patient with Staph epi bacteremia, source lumbar paraspinal abscess status post drainage concerning for osteo diskitis. Patient is covered with vancomycin to continue thru the dialysis for a total of 6 weeks and followed by prolonged oral antibiotics. Questions and concerns were answered. MMODL / IJN: [id number] / KENAN
[2021-05-01] MEDS: INSULIN PUMP MEAL BOLUS 1 UNIT MISC MISCELLANE SCH ×3 (08:53→18:16)
[2021-05-01] MEDS: PANTOPRAZOLE 40 MG TABLET PO SCH (08:53)
[2021-05-01] MEDS: SEVELAMER 800 MG TAB PO SCH ×3 (08:53→18:17)
[2021-05-01] MEDS: ASCORBIC ACID 500 MG TAB PO SCH (08:54)
[2021-05-01] MEDS: CITALOPRAM HYDROBROMIDE 20 MG TAB PO SCH (08:55)
[2021-05-01] MEDS: ASPIRIN 81 MG PO SCH (08:55)
[2021-05-01] MEDS: HYDROcodone/APAP 10-325MG 1 EACH TAB PO PRN ×2 (08:56→17:03)
[2021-05-01] MEDS: FOLIC ACID-VIT B COMPLEX-VIT C 1 CAP PO SCH (08:57)
--- NOTE | 2021-05-01 09:37 | P.PN ---
Subjective Progress Note Date: 05/01/21 Principal diagnosis: Status post L3-S1 decompression, L4-L5 posterior lateral with interbody fusion, irrigation and debridement of epidural abscess and osteo-discitis L4-L5 Patient is examined bedside, he is resting his hospital chair. Patient is feeling a lot better he states the last day or so. He was up ambulating with a walker. Patient is having no issues urinating at this time, he did have a bowel movement. He states he feels the strength in the leg is improving daily. Objective - Vital Signs Vital signs: Vital Signs Temp 98.7 F 05/01/21 04:45 Pulse 77 05/01/21 04:45 Resp 20 05/01/21 04:45 BP 159/73 05/01/21 04:45 Pulse Ox 100 04/30/21 19:59 Intake & Output 04/30/21 05/01/21 05/01/21 18:59 06:59 18:59 Intake Total 0 Output Total 3600 Balance -3600 0 Weight 79.1 kg Intake: Oral 0 Output: Drainage 200 Lower Back 200 Urine 400 Hemodialysis 3000 Other: Voiding Method Toilet Toilet Urinal Urinal # Voids 3 2 # Bowel Movements 0 - Exam Gen: AOx3, NAD VSS stable at this time Integument: Postoperative bandages were removed at bedside, such as mowing position and condition Palpation: Mild tenderness with palpation in the midline and paraspinal region of the lumbar spine ROM: Range of motion in all major muscle groups bilateral upper and lower extremities intact Sensory Exam: Senory exam to light touch is intact C5-T1 Senosry exam to light touch is intact L2-S1 Motor: 5 out of 5 strength is appreciated in the bilateral upper extremities with shoulder abduction, forward elevation, elbow flexion, elbow extension, wrist extension, wrist flexion, finger intrinsics 4-5 strength is appreciated in the bilateral lower extremities with hip flexion, knee extension, knee flexion, plantar flexion, dorsiflexion, EHL, FHL Reflexes: 2/4 in all UE and LE Negative Grupo's bilaterally, negative Babinski bilaterally negative clonus bilaterally - Labs CBC & Chem 7: 04/30/21 07:20 04/30/21 07:20 Labs: Abnormal Lab Results - Last 24 Hours (Table) 04/30/21 04/30/21 04/30/21 Range/Units 07:20 11:32 17:20 Sodium 134 L (135-145) mmol/L Potassium 3.1 L (3.5-5.5) mmol/L Anion Gap 12.90 H (4.00-12.00) mmol/L BUN 37.0 H (9.0-27.0) mg/dL Creatinine 4.4 H (0.6-1.5) mg/dL Est GFR (CKD-EPI)AfAm 16.6 L (60.0-200.0) Est GFR (CKD-EPI)NonAf 14.4 L (60.0-200.0) BUN/Creatinine Ratio 8.41 L (12.00-20.00) Ratio POC Glucose (mg/dL) 244 H 196 H (75-99) mg/dL 04/30/21 05/01/21 Range/Units 19:50 06:28 Sodium (135-145) mmol/L Potassium (3.5-5.5) mmol/L Anion Gap (4.00-12.00) mmol/L BUN (9.0-27.0) mg/dL Creatinine (0.6-1.5) mg/dL Est GFR (CKD-EPI)AfAm (60.0-200.0) Est GFR (CKD-EPI)NonAf (60.0-200.0) BUN/Creatinine Ratio (12.00-20.00) Ratio POC Glucose (mg/dL) 241 H 101 H (75-99) mg/dL Microbiology - Last 24 Hours (Table) 04/30/21 07:20 Blood Culture - Preliminary Blood No Growth after 24 hours 04/28/21 13:20 Anaerobic Culture - Preliminary Back 04/28/21 13:20 Anaerobic Culture - Preliminary Back 04/28/21 13:20 Anaerobic Culture - Preliminary Back 04/28/21 13:20 Anaerobic Culture - Preliminary Back 04/28/21 13:20 Anaerobic Culture - Preliminary Back 04/28/21 13:20 Anaerobic Culture - Preliminary Back 04/28/21 13:20 Anaerobic Culture - Preliminary Back 04/28/21 13:20 Gram Stain - Final Back Wound Culture - Final Staphylococcus epidermidis 04/28/21 13:20 Gram Stain - Final Back Wound Culture - Preliminary Staphylococcus epidermidis 04/28/21 13:20 Gram Stain - Final Back Wound Culture - Final Staphylococcus epidermidis 04/28/21 13:20 Gram Stain - Final Back Wound Culture - Final Staphylococcus epidermidis 04/28/21 13:20 Gram Stain - Final Back Wound Culture - Final 04/28/21 13:20 Gram Stain - Final Back Tissue Culture - Final Staphylococcus epidermidis 04/28/21 13:20 Gram Stain - Final Back Tissue Culture - Final Staphylococcus epidermidis 04/27/21 07:48 Blood Culture Gram Stain - Final Blood Blood Culture - Final Staphylococcus epidermidis 04/27/21 13:13 Blood Culture Gram Stain - Final Blood Blood Culture - Final Staphylococcus epidermidis Assessment and Plan Assessment: Postop day #3 status post L3-S1 decompression, L4-L5 posterior lateral interbody fusion, irrigation and debridement L4-L5 epidural abscess and osteo- discitis Plan: Pain control, continue with current medication regimen DVT prophylaxis, continue subcu heparin as needed Continue work with physical therapy, recommend use of walker or cane with ambulation Drain was removed today bedside, the incision was redressed Encourage incentive spirometer Other chief medical physicist and recommendations An orthopedic standpoint patient stable for discharge to home. Awaiting final recommendations from other medical specialists with regards to IV antibiotics along with home care nursing Time with Patient: Less than 30
[2021-05-01] MEDS: LABETALOL 200 MG TAB PO SCH ×2 (11:50→17:01)
[2021-05-01 11:52] LABS: Glucose,Whole Blood 203 mg/dL (75-99)
[2021-05-01] MEDS: HEPARIN SODIUM,PORCINE/PF 5,000 UNIT/0.5 ML SYRINGE SQ SCH (12:41)
[2021-05-01 13:12] LABS: African American GFR (CKD) 11.2 (60.0-200.0); Anion Gap 14.4 mmol/L (4.00-12.00); BUN/Creat Ratio 9.34 Ratio (12.00-20.00); Calcium 9.6 mg/dL (8.7-10.3); Carbon Dioxide 24.6 mmol/L (21.6-31.8); Non-African American GFR(CKD) 9.7 (60.0-200.0); Potassium 3.3 mmol/L (3.5-5.5)
[2021-05-01 13:40] VITALS: BMI 25.0
[2021-05-01] MEDS ORDERED: Potassium Replacement Protocol 1 EACH MISC MISCELLANE PRN (15:46)
[2021-05-01] MEDS: POTASSIUM CHLORIDE ER 20 MEQ TAB.ER PO SCH ×2 (17:01→18:16)
--- NOTE | 2021-05-01 19:28 | PN ---
PROGRESS NOTE Patient is seen on hemodialysis. He is currently tolerating his treatment well. We are planning for about 2.3 L of ultrafiltration. EXAMINATION: Today blood pressure was 159/73, heart rate 77 per minute. Patient is afebrile. Examination of the heart S1, S2. Examination shows edema 1+ bilaterally in the lower extremities. WAGE CONCILIATOR exam grossly intact. LAB: Show sodium 134, potassium 3.3, BUN 57, serum creatinine 6.1. ASSESSMENT: 1. End-stage renal disease, on hemodialysis, currently maintained on a Friday, , Friday schedule. The patient was on home hemodialysis prior to admission. He will be maintained I believe on a Friday, , Friday schedule post discharge. 2. Volume overload, currently improved. 3. Gram-positive bacteremia with epidural abscess. Blood cultures growing Staph epi status post I and D of lumbar spine and irrigation and debridement of lumbar epidural abscess with bilateral laminectomy at L3 and S1. 4. Chronic kidney disease mineral bone disorder. PLAN: Goal UF 2 to 2-1/2 L as tolerated today. The patient the can receive antibiotics as outpatient on dialysis. MMODL / IJN: [id number] /
--- NOTE | 2021-05-01 21:24 | P.PN ---
Progress Note - Text Progress Note Date: 05/01/21 REASON FOR FOLLOWUP: Staph epi, lumbosacral spine abscess with secondary bacteremia. INTERVAL HISTORY: Patient remains to be afebrile. The patient is breathing comfortably. pain and discomfort to the back area has decreased. The Pt denies having any chest pain, shortness of breath or cough. No abdominal pain. No diarrhea. PHYSICAL EXAMINATION: Blood pressure is 110/60, pulse of 69, temperature is 99.1. He is 100% on room air. General description is a middle-aged male lying in bed in no distress. Respiratory system: Unlabored breathing clear to auscultation anteriorly. Heart: S1, S2. Regular rate and rhythm. Abdomen soft, no tenderness. LAB: reviewed DIAGNOSTIC IMPRESSION AND PLAN: Patient with Staph epi bacteremia, source lumbar paraspinal abscess status post drainage concerning for osteodiscitis. Patient is covered with vancomycin to continue through dialysis for a total of 6 weeks and followed by prolonged oral antibiotics. plan is to keep inpatient till follow up cultures are finalized.
== END 2021-05-01 18:42 | disposition home or self-care (01) | DRG 856 ==
LOC: EC 09:15 → 5NMEDONC 11:09
PROVIDERS: ADMIT Internal Medicine; ATTEND Internal Medicine
PROC: 5A1D70Z Performance of Urinary Filtration, Intermittent, Less than 6 Hours Per Day (ICD-10-PCS; 2021-04-26)
PROC: 0SG00K1 Fusion of Lumbar Vertebral Joint with Nonautologous Tissue Substitute, Posterior Approach, Posterior Column, Open Approach (ICD-10-PCS; principal; 2021-04-30)
PROC: 0SH008Z Insertion of Spacer into Lumbar Vertebral Joint, Open Approach (ICD-10-PCS; principal; 2021-04-30)
PROC: 0QB00ZZ Excision of Lumbar Vertebra, Open Approach (ICD-10-PCS; principal; 2021-04-30)
PROC: 0SG00AJ Fusion of Lumbar Vertebral Joint with Interbody Fusion Device, Posterior Approach, Anterior Column, Open Approach (ICD-10-PCS; principal; 2021-04-30)
PROC: 01NB0ZZ Release Lumbar Nerve, Open Approach (ICD-10-PCS; principal; 2021-04-30)
DX: T81.43XA Infection following a procedure, organ and space surgical site, initial encounter (principal); J96.01 Acute respiratory failure with hypoxia; N18.6 End stage renal disease; G06.1 Intraspinal abscess and granuloma; J18.9 Pneumonia, unspecified organism; I12.0 Hypertensive chronic kidney disease with stage 5 chronic kidney disease or end stage renal disease; M46.26 Osteomyelitis of vertebra, lumbar region; E87.1 Hypo-osmolality and hyponatremia; R78.81 Bacteremia; J44.0 Chronic obstructive pulmonary disease with (acute) lower respiratory infection; E10.22 Type 1 diabetes mellitus with diabetic chronic kidney disease; E11.69 Type 2 diabetes mellitus with other specified complication; D63.1 Anemia in chronic kidney disease; E83.9 Disorder of mineral metabolism, unspecified; Z79.4 Long term (current) use of insulin; Z99.2 Dependence on renal dialysis; Z20.822 Contact with and (suspected) exposure to COVID-19; E87.70 Fluid overload, unspecified; M46.46 Discitis, unspecified, lumbar region; B95.7 Other staphylococcus as the cause of diseases classified elsewhere; K59.03 Drug induced constipation; T40.2X5A Adverse effect of other opioids, initial encounter; M54.16 Radiculopathy, lumbar region; E87.6 Hypokalemia; M71.22 Synovial cyst of popliteal space [Baker], left knee; M71.21 Synovial cyst of popliteal space [Baker], right knee; G89.29 Other chronic pain; Z79.82 Long term (current) use of aspirin; Z79.899 Other long term (current) drug therapy; Z96.41 Presence of insulin pump (external) (internal)
CPT/HCPCS: 36415; 71046; 72100; 72131; 72132; 72158; 78582; 80048; 80053; 80202; 83036; 83605; 83880; 84100; 84145; 84484; 85025; 85027; 85379; 85610; 85652; 85730; 86140; 86706; 87040; 87070; 87075; 87077; 87102; 87116; 87186; 87205; 87206; 87340; 87449; 87635; 90935; 93005; 93970; 94760; 99285

== ENCOUNTER 2021-05-09 16:04 | Inpatient (IN) | payer BC ==
[2021-05-09 17:38] LABS: Basophils # (A) 0.1 k/uL (0-0.2); Basophils % (A) 1 %; Eosinophils % (A) 0 %; HCT 24.3 % (39.0-53.0); HGB 8.1 gm/dL (13.0-17.5); Lymphocytes # (A) 0.6 k/uL (1.0-4.8); Lymphocytes % (A) 4 %; MCH 32.5 pg (25.0-35.0); MCHC 33.3 g/dL (31.0-37.0); MCV 97.6 fL (80.0-100.0); Macrocytosis Slight; Mean Platelet Volume 9.6; Monocytes # (A) 0.7 k/uL (0-1.0); Monocytes % (A) 4 %; Neutrophils # (A) 15.2 k/uL (1.3-7.7); Neutrophils % (A) 90 %; Platelet Count 443 k/uL (150-450); RBC 2.49 m/uL (4.30-5.90); RDW 15.7 % (11.5-15.5); WBC 16.9 k/uL (3.8-10.6)
[2021-05-09 17:48] LABS: INR 1.1 (<1.2); Partial Thromboplastin Time 26.2 sec (22.0-30.0); Prothrombin Time 11.9 sec (9.0-12.0)
[2021-05-09 17:50] LABS: Albumin 3.1 g/dL (3.5-5.0); Calcium 9.3 mg/dL (8.4-10.2); Magnesium 1.9 mg/dL (1.6-2.3); Potassium 5.9 mmol/L (3.5-5.1); Total Protein 5.8 g/dL (6.3-8.2)
[2021-05-09 17:55] LABS: Lactic Acid, Venous 2.6 mmol/L (0.7-2.0)
[2021-05-09] MEDS ORDERED: IOPAMIDOL CONTRAST (ORAL USE) VIAL PO PRN (19:01)
[2021-05-09] MEDS ORDERED: VANCOMYCIN IV PER PHARMACY 1 EACH MISC MISCELLANE PRN (19:02)
--- NOTE | 2021-05-09 19:03 | ED ---
General Adult HPI - General Chief complaint: Recheck/Abnormal Lab/Rx Stated complaint: anemia Time Seen by Provider: 05/09/21 16:05 Source: patient, EMS, RN notes reviewed, old records reviewed Mode of arrival: EMS Limitations: no limitations - History of Present Illness Initial comments: This is a 51-year-old male who presents emergency department with past medical history significant for diabetes and dialysis which was done yesterday. Patient was at [facility] and transferred to us. Patient also had a laminectomy in February and then the surgery approximately 2 weeks ago because of infection and had the area cleaned out according to the the patient was somewhat altered in the hospital but was intermittently altered at home and ever since Friday his symptoms seemed to worsen she thought it was related to the Flexeril but today they followed up with the primary medical care doctor. He did some lab work and it showed that his hemoglobin was 6.7 and his LFTs were all elevated. Patient is computed tomography scan and I was told was negative patient received 1 unit of blood prior to arrival. Patient does complain of some pain occasionally going into his testicles. - Related Data Home Medications Medication Instructions Recorded Confirmed Ascorbic Acid [Vitamin C] 1,000 mg PO DAILY 04/25/21 04/25/21 Aspirin EC [Ecotrin Low Dose] 81 mg PO DAILY 04/25/21 04/25/21 Citalopram Hydrobromide [CeleXA] 20 mg PO DAILY 04/25/21 04/25/21 Cyclobenzaprine [Flexeril] 10 mg PO TID PRN 04/25/21 04/25/21 Furosemide [Lasix] 40 mg PO DAILY 04/25/21 04/25/21 Insulin Aspart (For Pump) [NovoLOG 0.01 unit SQ-PUMP CONTINUOUS 04/25/21 04/25/21 (For Pump)] Labetalol [Trandate] 200 mg PO TID 04/25/21 04/25/21 NIFEdipine [NIFEdipine ER 30 mg PO HS 04/25/21 04/25/21 (Osmotic)] NIFEdipine [NIFEdipine ER 60 mg PO BID 04/25/21 04/25/21 (Osmotic)] Omeprazole 40 mg PO DAILY 04/25/21 04/25/21 Pramipexole Di-HCl [Mirapex] 0.5 mg PO HS 04/25/21 04/25/21 Renaplex-D 1 tab PO DAILY 04/25/21 04/25/21 Velphoro Chew 500mg 1 tab PO QID 04/25/21 04/25/21 calcitrioL [Rocaltrol] 0.25 mcg PO PRO 04/25/21 04/25/21 traMADol HCL 50 mg PO Q8H PRN 04/25/21 04/25/21 Previous Rx's Medication Instructions Recorded HYDROcodone/APAP 10-325MG [[place] 1 tab PO Q6HR PRN #28 tab 05/01/21 10-325] Potassium Chloride ER [K-Dur 20] 20 meq PO BID 2 Days #4 tab 05/01/21 Sennosides/Docusate Sodium [Senna 1 each PO DAILY PRN #21 capsule 05/01/21 Plus 8.6-50 mg Softgel] Allergies Allergy/AdvReac Type Severity Reaction Status Date / Time No Known Allergies Allergy Verified 05/09/21 16:05 Review of Systems ROS Statement: Those systems with pertinent positive or pertinent negative responses have been documented in the HPI. ROS Other: All systems not noted in ROS Statement are negative. Past Medical History Past Medical History: Diabetes Mellitus, Dialysis, Hypertension Additional Past Medical History / Comment(s): 5x weekly dialysis at home History of Any Multi-Drug Resistant Organisms: None Reported Past Surgical History: Back Surgery Additional Past Surgical History / Comment(s): Shoulder surgery x2 wisdom teeth removed Past Anesthesia/Blood Transfusion Reactions: No Reported Reaction Past Psychological History: No Psychological Hx Reported Smoking Status: Never smoker Past Alcohol Use History: None Reported Past Drug Use History: Marijuana General Exam - General Exam Comments Initial Comments: GENERAL: Patient is well-developed and well-nourished. Patient is nontoxic and well- hydrated and is in mild distress. ENT: Neck is soft and supple. No significant lymphadenopathy is noted. Oropharynx is clear. Moist mucous membranes. Neck has full range of motion without eliciting any pain. EYES: The sclera were anicteric and conjunctiva were pink and moist. Extraocular movements were intact and pupils were equal round and reactive to light. Eyelids were unremarkable. PULMONARY: Unlabored respirations. Good breath sounds bilaterally. No audible rales rhonchi or wheezing was noted. CARDIOVASCULAR: There is a regular rate and rhythm without any murmurs gallops or rubs. GENITALIA: Genitalia exam there is no tenderness to the testicle shows no areas of redness or swelling is no lesions. ABDOMEN: Soft and nontender with normal bowel sounds. SKIN: Skin is clear with no lesions or rashes and otherwise unremarkable. NEUROLOGIC: Patient is alert and oriented x3 but says things that do not make sense. Cranial nerves II through XII are grossly intact. Motor and sensory are also intact. Normal speech, volume and content. Symmetrical smile. MUSCULOSKELETAL: Normal extremities with adequate strength and full range of motion. LYMPHATICS: No significant lymphadenopathy is noted PSYCHIATRIC: Difficult to assess because he is altered mentally Limitations: no limitations Course Vital Signs 05/09/21 05/09/21 05/09/21 16:05 19:03 20:07 Temperature 98.9 F Pulse Rate 60 63 62 Respiratory 16 16 20 Rate Blood Pressure 113/67 121/72 120/78 O2 Sat by Pulse 100 97 96 Oximetry Procedures - [place] Protocol (Time Out) Nurse: Claudine Camara Medical Decision Making - Lab Data Result diagrams: 05/09/21 17:24 05/09/21 17:24 Lab Results 05/09/21 05/09/21 05/09/21 Range/Units 17:24 17:24 17:24 WBC 16.9 H (3.8-10.6) k/uL RBC 2.49 L (4.30-5.90) m/uL Hgb 8.1 L (13.0-17.5) gm/dL Hct 24.3 L (39.0-53.0) % MCV 97.6 (80.0-100.0) fL MCH 32.5 (25.0-35.0) pg MCHC 33.3 (31.0-37.0) g/dL RDW 15.7 H (11.5-15.5) % Plt Count 443 (150-450) k/uL MPV 9.6 Neutrophils % 90 % Lymphocytes % 4 % Monocytes % 4 % Eosinophils % 0 % Basophils % 1 % Neutrophils # 15.2 H (1.3-7.7) k/uL Lymphocytes # 0.6 L (1.0-4.8) k/uL Monocytes # 0.7 (0-1.0) k/uL Eosinophils # 0.0 (0-0.7) k/uL Basophils # 0.1 (0-0.2) k/uL Macrocytosis Slight PT 11.9 (9.0-12.0) sec INR 1.1 (<1.2) APTT 26.2 (22.0-30.0) sec Sodium 128 L (137-145) mmol/L Potassium 5.9 H (3.5-5.1) mmol/L Chloride 91 L (98-107) mmol/L Carbon Dioxide 22 (22-30) mmol/L Anion Gap 15 mmol/L BUN 46 H (9-20) mg/dL Creatinine 5.59 H (0.66-1.25) mg/dL Est GFR (CKD-EPI)AfAm 12 (>60 ml/min/1.73 sqM) Est GFR (CKD-EPI)NonAf 11 (>60 ml/min/1.73 sqM) Glucose 141 H (74-99) mg/dL Lactic Ac Sepsis Rflx Plasma Lactic Acid Caleb (0.7-2.0) mmol/L Calcium 9.3 (8.4-10.2) mg/dL Magnesium 1.9 (1.6-2.3) mg/dL Total Bilirubin 5.0 H (0.2-1.3) mg/dL AST 737 H (17-59) U/L ALT 288 H (4-49) U/L Alkaline Phosphatase 1446 H (38-126) U/L Ammonia (<30) umol/L Total Protein 5.8 L (6.3-8.2) g/dL Albumin 3.1 L (3.5-5.0) g/dL 05/09/21 05/09/21 Range/Units 17:24 17:55 WBC (3.8-10.6) k/uL RBC (4.30-5.90) m/uL Hgb (13.0-17.5) gm/dL Hct (39.0-53.0) % MCV (80.0-100.0) fL MCH (25.0-35.0) pg MCHC (31.0-37.0) g/dL RDW (11.5-15.5) % Plt Count (150-450) k/uL MPV Neutrophils % % Lymphocytes % % Monocytes % % Eosinophils % % Basophils % % Neutrophils # (1.3-7.7) k/uL Lymphocytes # (1.0-4.8) k/uL Monocytes # (0-1.0) k/uL Eosinophils # (0-0.7) k/uL Basophils # (0-0.2) k/uL Macrocytosis PT (9.0-12.0) sec INR (<1.2) APTT (22.0-30.0) sec Sodium (137-145) mmol/L Potassium (3.5-5.1) mmol/L Chloride (98-107) mmol/L Carbon Dioxide (22-30) mmol/L Anion Gap mmol/L BUN (9-20) mg/dL Creatinine (0.66-1.25) mg/dL Est GFR (CKD-EPI)AfAm (>60 ml/min/1.73 sqM) Est GFR (CKD-EPI)NonAf (>60 ml/min/1.73 sqM) Glucose (74-99) mg/dL Lactic Ac Sepsis Rflx Y Plasma Lactic Acid Caleb 2.6 H* (0.7-2.0) mmol/L Calcium (8.4-10.2) mg/dL Magnesium (1.6-2.3) mg/dL Total Bilirubin (0.2-1.3) mg/dL AST (17-59) U/L ALT (4-49) U/L Alkaline Phosphatase (38-126) U/L Ammonia 30 H (<30) umol/L Total Protein (6.3-8.2) g/dL Albumin (3.5-5.0) g/dL Disposition Clinical Impression: Altered mental status, Hyperkalemia, Hepatic encephalopathy, Elevated liver enzymes, Anemia, Chronic kidney failure Disposition: ADMITTED IP TO THIS [facility] Referrals: Emory Jacob MD [Primary Care Provider] - 1-2 days Time of Disposition: 20:49
[2021-05-09] MEDS: PANTOPRAZOLE 40 MG/10 ML VIAL IVP SCH (19:41)
[2021-05-09] MEDS: HEPARIN SODIUM,PORCINE/PF 5,000 UNIT/0.5 ML SYRINGE SQ SCH (20:06)
--- NOTE | 2021-05-09 20:56 | US ---
EXAMINATION TYPE: US gallbladder DATE OF EXAM: 05/09/2021 COMPARISON: NONE CLINICAL HISTORY: Elevated liver enzymes. Elevated liver enzymes. EXAM MEASUREMENTS: Liver Length: 20.4 cm Gallbladder Wall: 0.4 cm CBD: 0.29 cm Right Kidney: 9.5 x 4.2 x 3.6 cm Limited due to gas and patient movement. Pancreas: Limited visibility. Liver: Appears enlarged and to have an increased echogenicity. Gallbladder: Internal echoes seen. Wall appears to be thickened. Heterogeneous, complex area seen ad jacent to the gallbladder measuring 3.5 x 2.9 x 2.5 cm. Evidence for sonographic Neville's sign: No CBD: Appears wnl. Right Kidney: No hydronephrosis or masses seen. Free fluid seen in the RUQ: 2.1 x 1.0 x 2.5 cm. IMPRESSION: There is small amount of free fluid. Thickened gallbladder wall suggestive of acute cholecystitis. Ga llbladder wall measures 4 mm. No dilated ducts. There are probably some small gallstones.
--- NOTE | 2021-05-09 21:10 | HP ---
HISTORY AND PHYSICAL DATE OF SERVICE: 05/09/2021 CHIEF COMPLAINTS: Multiple complex medical issues, including change in mental status, history of severe testicular pain, jaundice as well as back pain. HISTORY OF PRESENT ILLNESS: This 51-year-old gentleman with a past medical history of multiple medical problems, including diabetes mellitus, history of chronic renal failure, on hemodialysis, hypertension, had weekly dialysis at home. The patient was recently admitted to hospital with multiple complex medical issues. The patient had fluid overload initially, but subsequently patient was found to have an epidural abscess with Staph epi, which was treated with a surgical evacuation by Dr. Lozano. Subsequently patient also was treated with broad-spectrum IV antibiotics in the form of IV vancomycin. The patient was also found to have elevated LFTs during that time. Patient was started on vancomycin and was discharged home, but at home the patient was found to be progressively confused, weak and tired and found to be more jaundiced, and the patient's took the patient to [facility] and he was admitted for further evaluation and treatment. Currently the patient has multiple lab abnormalities, including WBC 16.3, hemoglobin is 8.1, sodium 128, potassium 5.9, creatinine 5.59. Plasma lactic acid is 2.6. Bilirubin is 5 and AST 737, ALT is 288, alkaline phosphatase 1446. The patient is being admitted for further evaluation and treatment. The patient also complains of some low back pain. The patient also had PVCs on the EKG. The patient also is complaining of some ear nodules on the right ear which is on and off at this time, according to the patient. There is no history of any fever, rigors or chills. No history of headache, loss of consciousness, seizures. PAST MEDICAL HISTORY: History of recent epidural abscess, Staph epi, as mentioned earlier, chronic renal failure, on hemodialysis, history of diabetes mellitus, type 2, history of hypertension, history of back surgery, DJD. MEDICATIONS: Home medications are reviewed and include Ultram, Rocaltrol, _Mirapex, K-Dur, omeprazole, and Trandate, insulin pump, [place] 5 to 10 mg, Lasix, Flexeril, Celexa, Ecotrin, vitamin C. ALLERGIES: NONE. FAMILY HISTORY: No history of heart disease or strokes in the family. SOCIAL HISTORY: History of smoking. History of THC. REVIEW OF SYSTEMS: ENT: No diminished hearing. No diminished vision. CARDIOVASCULAR SYSTEM: No angina, palpitations. RESPIRATORY SYSTEM: As mentioned earlier. GI: As mentioned earlier. : As mentioned earlier. NERVOUS SYSTEM: As mentioned earlier. ALLERGY/IMMUNOLOGY: No asthma or hay fever. MUSCULOSKELETAL: As mentioned earlier. HEMATOLOGY/ONCOLOGY: No history of anemia. ENDOCRINE: As mentioned earlier. CONSTITUTIONAL: As mentioned earlier. DERMATOLOGY: Negative. RHEUMATOLOGY: Negative. PSYCHIATRY: As mentioned earlier. PHYSICAL EXAMINATION: Patient alert and oriented x2. Pulse 60, blood pressure 113/60, respirations 16, temperature 98.9, pulse ox 100% on room air. HEENT: Conjunctivae icteric. Oral mucosa icteric. NECK: No jugular venous distention. No carotid bruit. No lymph node enlargement. Small nodule felt in the pinna of the right ear. CARDIOVASCULAR: S1, S2 muffled. Ejection systolic murmur. RESPIRATION: Breath sounds diminished at the bases. A few scattered rhonchi. ABDOMEN: Soft, obese. Minimal diffuse tenderness in the lower part of the abdomen. Minimal testicular tenderness also present. LEGS: Bilateral leg edema. NERVOUS SYSTEM: Higher functions as mentioned earlier. Moves all 4 limbs. Mild diffuse weakness. LYMPHATICS: No lymph node palpable in neck, axillae or groin. SKIN: No ulcer, rash, bleeding. JOINTS: No active deforming arthropathy. LABS: Labs at this time show WBC 16.2, hemoglobin 4.1, sodium 128, potassium 5.9, creatinine 5.56 and plasma lactic is 2.6. ASSESSMENT: 1. Possible acute sepsis of undetermined etiology. Rule out recurrent Staph epi sepsis. 2. History of recent Staph epidermidis sepsis secondary to spinal epidural abscess, status post drainage. 3. Chronic renal failure with chronic kidney disease, on hemodialysis. 4. Change in mental status, acute metabolic encephalopathy, multifactorial. 5. Elevated bilirubin; acute hepatitis. 6. Elevated lactic acid secondary to sepsis. 7. Increased white count. 8. Anemia, normocytic and secondary to renal disease. 9. Hyponatremia. 10.Hyperkalemia. 11.Elevated random glucose. 12.Elevated total bilirubin, AST, ALT, alkaline phosphatase. 13.Elevated ammonia. 14.History of diabetes mellitus, type 2. 15.Hypertension. 16.History of back surgery and degenerative joint disease. 17.FULL CODE. 18.History of THC. RECOMMENDATIONS AND DISCUSSION: In this 51-year-old gentleman who presented with multiple complex medical issues, we will monitor the patient closely, continue the current medications, continue symptomatic treatment. Continue with the broad-spectrum IV antibiotics. Infectious disease evaluation. I would also consult Orthopedic Surgery. Otherwise, repeat labs will be ordered. The exact etiology of hepatitis is unknown at this time. I would recommend a CT scan of the abdomen and pelvis because of the continued abdominal pain and also will consult Gastroenterology. The confusion can be multifactorial. CT brain will be ordered. The patient's ammonia is also slightly elevated. Overall prognosis is extremely guarded because of multiple complex medical problems. Avoid hepatotoxic medication at this time. Further recommendations to follow. A copy of this dictation is being forwarded to Dr. Darin Camara, who is the primary physician. STEF / DANI: [id number] / MTDD
--- NOTE | 2021-05-09 21:46 | CT ---
EXAMINATION TYPE: CT abdomen pelvis wo con DATE OF EXAM: 05/09/2021 COMPARISON: Today HISTORY: abd pain, jaundace CT DLP: 629 mGycm Automated exposure control for dose reduction was used. Images obtained from the diaphragm to the floor the pelvis with oral contrast only. There is small right pleural effusion. There is some mild atelectasis and infiltrate right posterior lung base. Heart size is normal. There is no pericardial effusion. The stomach is intact. Liver and spleen are intact. The bile ducts are not dilated. Liver is enlarged and measures 24 cm. Spleen is intact. There is no evidence of pancreatic mass. Gallbladder is intact . There is no adrenal mass. Kidneys have normal size. There is no hydronephrosis. There is no retroperi toneal adenopathy. Bladder distends smoothly. There is no inguinal hernia. There is no free fluid in the pelvis. The small bowel is not dilated. There is no sign of a bowel obstruction. There is no mese nteric edema. There is no ascites or free air. There is coronary artery calcification. There is metal artifact from posterior fusion surgery at L4-5. Lumbar vertebra have normal alignment. There is no compression fracture. The bony pelvis is intact. Hip joints are intact. Some mild subcut aneous edema around the abdomen. Appendix is not seen. There is no sign of thickened appendix. IMPRESSION: There is hepatomegaly. Small right pleural effusion with pleural reaction at the lung bases. This is increased compared to exam earlier today. No dilated ducts. Mild subcutaneous edema around the abdomen.
--- NOTE | 2021-05-09 21:50 | CT ---
EXAMINATION TYPE: CT brain wo con DATE OF EXAM: 05/09/2021 COMPARISON: HISTORY: jaundace CT DLP: 1106.4 mGycm Automated exposure control for dose reduction was used. Images of the brain obtained without contrast. Ventricles have normal size. There is no mass effect nor midline shift. There is no sign of intracran ial hemorrhage. Calvarium is intact. Skull base is intact. There is normal aeration of the mastoid si nuses. IMPRESSION: Negative unenhanced head CT scan.
[2021-05-09 21:52] LABS: Glucose,Whole Blood 172 mg/dL (75-99)
[2021-05-09] MEDS ORDERED: VANCOMYCIN 1,500 MG in SODIUM CHLORIDE 0.9% 250 ML IVPB ONE (23:00)
[2021-05-09] MEDS: SODIUM CHLORIDE 0.9% 1,000 ML IV SCH (23:24)
[2021-05-09 23:40] LABS: Allen Test Performed? Yes
[2021-05-09 23:59] LABS: HCT 31.2 % (39.0-53.0); Hypochromasia Moderate; MCH 31.7 pg (25.0-35.0); MCHC 31.4 g/dL (31.0-37.0); Macrocytosis Slight; Mean Platelet Volume 9.8; Platelet Count 389 k/uL (150-450); RBC 3.09 m/uL (4.30-5.90)
[2021-05-10 00:03] LABS: HGB 9.8 gm/dL (13.0-17.5)
[2021-05-10 00:27] LABS: Albumin 3.8 g/dL (3.5-5.0); Calcium 9.6 mg/dL (8.4-10.2); Total Bilirubin 7.1 mg/dL (0.2-1.3); Total Protein 6.9 g/dL (6.3-8.2)
[2021-05-10 00:40] LABS: Band Neutrophils % 4 %; Metamyelocytes % 3 %; Myelocytes % 2 %; Neutrophils % (M) 81 %; Nucleated Red Blood Cells 0 /100 WBC (0-0); Total Cells Counted 200
[2021-05-10 00:41] LABS: Anisocytosis (M) Present; Poikilocytosis (M) Present; Polychromasia Present; Target Cells Present; Toxic Granulation Present
[2021-05-10 00:48] LABS: Potassium 7.8 mmol/L (3.5-5.1)
[2021-05-10] MEDS: DOPamine DRIP 800 MG in WATER FOR INJECTION 1 250ML.BAG IV SCH ×2 (01:12→23:51)
[2021-05-10] MEDS ORDERED: DEXTROSE 50% SYRINGE 50 ML IVP STA (01:14)
[2021-05-10] MEDS ORDERED: INSULIN REGULAR 100 UNIT/ML VIAL (IV) IV ONE (01:18)
[2021-05-10] MEDS ORDERED: CALCIUM GLUCONATE 1 GM in SODIUM CHLORIDE 0.9% 100 ML IVPB ONE (01:21)
[2021-05-10 02:09] LABS: Glucose,Whole Blood 190 mg/dL (75-99)
[2021-05-10 02:37] LABS: Calcium 9.3 mg/dL (8.4-10.2)
[2021-05-10 03:10] LABS: Anisocytosis Slight; Basophils # (A) 0.1 k/uL (0-0.2); Basophils % (A) 0 %; Eosinophils % (A) 0 %; HCT 26.1 % (39.0-53.0); Hypochromasia Slight; Lymphocytes # (A) 1.2 k/uL (1.0-4.8); Lymphocytes % (A) 6 %; MCH 31.4 pg (25.0-35.0); MCHC 31.1 g/dL (31.0-37.0); MCV 100.8 fL (80.0-100.0); Macrocytosis Slight; Mean Platelet Volume 9.5; Monocytes # (A) 0.9 k/uL (0-1.0); Monocytes % (A) 4 %; Neutrophils # (A) 19.6 k/uL (1.3-7.7); Neutrophils % (A) 88 %; Platelet Count 460 k/uL (150-450); RBC 2.59 m/uL (4.30-5.90); RDW 16.4 % (11.5-15.5); WBC 22.2 k/uL (3.8-10.6)
[2021-05-10 03:15] LABS: HGB 8.1 gm/dL (13.0-17.5)
[2021-05-10 03:34] LABS: Albumin 3.2 g/dL (3.5-5.0); Calcium 10.2 mg/dL (8.4-10.2); Potassium 5.1 mmol/L (3.5-5.1); Total Bilirubin 6.7 mg/dL (0.2-1.3); Total Protein 5.9 g/dL (6.3-8.2)
[2021-05-10 03:43] LABS: Potassium 7.5 mmol/L (3.5-5.1)
[2021-05-10] MEDS ORDERED: NALOXONE 0.4 MG/ML 1 ML VIAL IV PRN (05:32)
[2021-05-10 05:51] LABS: Anisocytosis Slight; Basophils # (A) 0.1 k/uL (0-0.2); Basophils % (A) 0 %; Eosinophils % (A) 0 %; HCT 25.9 % (39.0-53.0); HGB 8.3 gm/dL (13.0-17.5); Hypochromasia Slight; Lymphocytes # (A) 0.9 k/uL (1.0-4.8); Lymphocytes % (A) 4 %; MCHC 32.1 g/dL (31.0-37.0); MCV 99.7 fL (80.0-100.0); Macrocytosis Slight; Mean Platelet Volume 9.7; Monocytes # (A) 0.9 k/uL (0-1.0); Monocytes % (A) 4 %; Neutrophils % (A) 90 %; Platelet Count 416 k/uL (150-450); Poikilocytosis Slight; RBC 2.59 m/uL (4.30-5.90); RDW 16.4 % (11.5-15.5)
[2021-05-10 06:15] LABS: Albumin 3.2 g/dL (3.5-5.0); Calcium 7.4 mg/dL (8.4-10.2); Magnesium 1.9 mg/dL (1.6-2.3); Potassium 3.5 mmol/L (3.5-5.1); Total Bilirubin 6.3 mg/dL (0.2-1.3); Total Protein 6.2 g/dL (6.3-8.2)
[2021-05-10 07:08] LABS: ABG HCO3 20 mmol/L (21-25); ABG PCO2 28 mmHg (35-45); ABG PH 7.46 (7.35-7.45); ABG PO2 >400 mmHg (83-108)
[2021-05-10 07:09] LABS: ABG Base Excess -4.1 mmol/L; ABG TCO2 20 mmol/L (19-24)
[2021-05-10 07:12] LABS: Glucose,Whole Blood 207 mg/dL (75-99)
--- NOTE | 2021-05-10 08:21 | XR ---
EXAMINATION TYPE: XR chest 1V portable DATE OF EXAM: 05/10/2021 COMPARISON: 04/25/2021 HISTORY: Difficulty breathing TECHNIQUE: Single frontal view of the chest is obtained. FINDINGS: There is no focal air space opacity, pleural effusion, or pneumothorax seen. The cardiac silhouette size is within normal limits. The osseous structures are intact. The heart is enlarged. Vascular stent overlying the left lung apex. No overt failure. IMPRESSION: Cardiomegaly
--- NOTE | 2021-05-10 10:10 | P.CNOR ---
History of Present Illness - [facility] Consult date: 05/10/21 Consult reason: low back pain History of present illness: 51 yo male presented to ED three days ago due to mental status change. He was found to have elevated LFTs, inflammatory markers and to be septic. 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 He had been doing well from this. He states about a week ago he pulled himself up with his arms and felt a sharp pain in his back. He has had pain in his back since, but no other symptoms. He states he is unsure when he became sick and does not remember coming to the hospital right now. He states no leg pain, no weakness, no perineal numbness/tingling at this time. He states no drainage from his wound and that it seems to be healing well. Denies any other symptoms at this time. He answers questions appropriately, however does appear ill and has some difficulty. He did roll around in bed under his own power during exam. Review of Systems 14 points review of systems completed and as stated in HPI, all other systems reviewed are negative. Past Medical History Past Medical History: Diabetes Mellitus, Dialysis, Hypertension Additional Past Medical History / Comment(s): 5x weekly dialysis at home History of Any Multi-Drug Resistant Organisms: None Reported Past Surgical History: Back Surgery Additional Past Surgical History / Comment(s): Shoulder surgery x2 wisdom teeth removed Past Anesthesia/Blood Transfusion Reactions: No Reported Reaction Past Psychological History: No Psychological Hx Reported Smoking Status: Never smoker Past Alcohol Use History: None Reported Past Drug Use History: Marijuana Medications and Allergies Home Medications Medication Instructions Recorded Confirmed Type Ascorbic Acid [Vitamin C] 1,000 mg PO DAILY 04/25/21 05/09/21 History Aspirin EC [Ecotrin Low Dose] 81 mg PO DAILY 04/25/21 05/09/21 History Citalopram Hydrobromide [CeleXA] 20 mg PO DAILY 04/25/21 05/09/21 History Cyclobenzaprine [Flexeril] 10 mg PO TID PRN 04/25/21 05/09/21 History Furosemide [Lasix] 40 mg PO DAILY 04/25/21 05/09/21 History Insulin Aspart (For Pump) [NovoLOG 0.01 unit SQ-PUMP CONTINUOUS 04/25/21 05/09/21 History (For Pump)] Labetalol [Trandate] 200 mg PO TID 04/25/21 05/09/21 History NIFEdipine [NIFEdipine ER 30 mg PO HS 04/25/21 05/09/21 History (Osmotic)] NIFEdipine [NIFEdipine ER 60 mg PO BID 04/25/21 05/09/21 History (Osmotic)] Omeprazole 40 mg PO DAILY 04/25/21 05/09/21 History Pramipexole Di-HCl [Mirapex] 0.5 mg PO HS 04/25/21 05/09/21 History Renaplex-D 1 tab PO DAILY 04/25/21 05/09/21 History Velphoro Chew 500mg 1 tab PO QID 04/25/21 05/09/21 History calcitrioL [Rocaltrol] 0.25 mcg PO PRO 04/25/21 05/09/21 History traMADol HCL 50 mg PO Q8H PRN 04/25/21 05/09/21 History HYDROcodone/APAP 10-325MG [[place] 1 tab PO Q6HR PRN #28 tab 05/01/21 05/09/21 Rx 10-325] Potassium Chloride ER [K-Dur 20] 20 meq PO BID 2 Days #4 tab 05/01/21 05/09/21 Rx Sennosides/Docusate Sodium [Senna 1 cap PO DAILY PRN 05/09/21 05/09/21 History Plus 8.6-50 mg Softgel] Allergies Allergy/AdvReac Type Severity Reaction Status Date / Time No Known Allergies Allergy Verified 05/09/21 21:57 Physical Examination Osteopathic Statement: *. No significant issues noted on an osteopathic structural exam other than those noted in the History and Physical/Consult. PHYSICAL EXAMINATION: Vitals: Stable at this time General: Awake, alert, appropriate for age, in no acute distress. HEENT: No unusual neck masses around region of lateral neck triangle, thyroid, supraclavicular groove. Extremities: Skin warm and dry without no acute lesions, coloration, temperature, skin intact, no tenderness or erythema. Integument: Hairy patches: Absent Dorsal skin dimples: Absent Cafe au lait spots: Absent Surgical incisions: Posterior midline lumbar incision well-healed E Jj ecchymosis or edema Palpation: Please see Pain drawing on Intake sheet for further detail. (Tenderness = T, Nontender = NT, Swelling = S, Ecchymosis = E) Findings on Midline and paraspinal palpation and percussion: Cervical: NT Thoracic: NT Lumbar: NT Sacral: NT Special findings: Mild TTP around incision. Incision is healing well. No EEE. No drainage or purulence. Lower portion of incision has some healing exudate, but no signs of infection at this time. POSTURAL and MUSCULO-SKELETAL EVALUATION: Neck ROM: [Unrestricted in six directions] Lumbar ROM: [Unrestricted in six directions] Shoulder ROM: Symmetric in abduction, ER/IR Hip ROM: Symmetric in abduction, adduction, ER/IR Knee ROM: Symmetric and intact in Flexion / extension Hands: Normal appearing structure L and R Feet: Normal appearing structure L and R VASCULAR STATUS : Wrist Pulses: [2/4 bilateral radial and ulnar] Pedal Pulses: [2/4 bilateral DP and PT] Color: [Normal] Edema: [None] NEUROLOGIC EXAMINATION: Mental Status: Awake and alert, fully oriented, with normal attention, concentration and memory, and fluent, appropriate speech. Cranial Nerves: I: Olfactory not tested. II: Visual acuity normal, no visual field deficit noted with confrontation. III,IV: Normal pupillary reflexes & intact extraocular movements without nystagmus. V,: Intact symmetrical facial sensation. VII: Intact symmetrical facial motor movement VIII: Hearing intact. IX,X: Intact gag, swallow, & normal voice. XI: Sternocleidomastoid, trapezius function intact. XII: Tongue midline with normal movements. Special Tests: L'hermitte's Sign: Absent Spurling'Sign: Absent Bilateral Cubital percussion test: Absent Bilateral Ree-Tinel sign - Carpal region: Absent Bilateral Straight Leg Raising: Absent Bilateral Motor Exam (0-5/5, N/T) STRENGTH UPPER EXTREMITY Shoulder Abd (Not part of MILLY Motor score): RIGHT [5] LEFT [5] Elbow Flexors: RIGHT [5] LEFT [5] Elbow Extensor: RIGHT [5] LEFT [5] Wrrist Dorsiflexors: RIGHT [5] LEFT [5] Finger Abductor: RIGHT [5] LEFT [5] Folder Seamer: RIGHT [5] LEFT [5] LOWER EXTREMITY Hip Flexor (Not part of MILLY Motor Score): RIGHT 4+ LEFT 4+ Knee Flexor: RIGHT 4+ LEFT 4+ Knee Extensor: RIGHT 4+. LEFT 4+ Ankle Dorsiflexion: RIGHT 4+ LEFT 4+ Ankle Plantarflexion: RIGHT 4+ LEFT 4+ EHL: RIGHT [5] LEFT 4+ FHL: RIGHT [5] LEFT [5] No focal deficits today. He has good movement and strength and has improved from previous exams. REFLEXES Biecp: RIGHT [2] LEFT [2] Tricep: RIGHT [2] LEFT [2] Brachioradialis: RIGHT [2] LEFT [2] Patellar: RIGHT [2] LEFT [2] Achilles: RIGHT [2] LEFT [2] Pathological Reflexes Correa's: RIGHT [Absent] LEFT [Absent] Babinski: RIGHT [Absent] LEFT [Absent] Clonus: RIGHT [None] LEFT [None] SENSORY Joint Position: [Intact bilaterally] Vibration [Intact bilaterally] Pain and LT sense [Intact C5-T1 and L2-S1] Dermatomal deficit [None] Gait and Functional Evaluation: Ambulatory aids: None Hand and finger dexterity intact bilaterally[]. Disdiadochokinesis examination negative[] bilaterally. Results awaiting imaging - Labs Labs: Abnormal Lab Results - Last 24 Hours (Table) 05/09/21 05/09/21 05/09/21 Range/Units 17:24 17:24 17:24 WBC 16.9 H (3.8-10.6) k/uL RBC 2.49 L (4.30-5.90) m/uL Hgb 8.1 L (13.0-17.5) gm/dL Hct 24.3 L (39.0-53.0) % MCV (80.0-100.0) fL RDW 15.7 H (11.5-15.5) % Plt Count (150-450) k/uL Neutrophils # 15.2 H (1.3-7.7) k/uL Neutrophils # (Manual) (1.3-7.7) k/uL Lymphocytes # 0.6 L (1.0-4.8) k/uL Metamyelocytes # (Man) (0) k/uL Myelocytes # (Manual) (0) k/uL ABG pH (7.35-7.45) ABG pCO2 (35-45) mmHg ABG pO2 (83-108) mmHg ABG HCO3 (21-25) mmol/L ABG O2 Saturation (94-97) % ABG Lactic Acid (0.5-1.6) mmol/L Sodium 128 L (137-145) mmol/L Potassium 5.9 H (3.5-5.1) mmol/L Chloride 91 L (98-107) mmol/L Carbon Dioxide (22-30) mmol/L BUN 46 H (9-20) mg/dL Creatinine 5.59 H (0.66-1.25) mg/dL Glucose 141 H (74-99) mg/dL POC Glucose (mg/dL) (75-99) mg/dL Plasma Lactic Acid Caleb 2.6 H* (0.7-2.0) mmol/L Calcium (8.4-10.2) mg/dL Total Bilirubin 5.0 H (0.2-1.3) mg/dL AST 737 H (17-59) U/L ALT 288 H (4-49) U/L Alkaline Phosphatase 1446 H (38-126) U/L Ammonia 30 H (<30) umol/L Total Protein 5.8 L (6.3-8.2) g/dL Albumin 3.1 L (3.5-5.0) g/dL 05/09/21 05/09/21 05/09/21 Range/Units 21:25 21:51 23:22 WBC 20.0 H (3.8-10.6) k/uL RBC 3.09 L (4.30-5.90) m/uL Hgb 9.8 L D (13.0-17.5) gm/dL Hct 31.2 L (39.0-53.0) % MCV 101.0 H (80.0-100.0) fL RDW 16.0 H (11.5-15.5) % Plt Count (150-450) k/uL Neutrophils # (1.3-7.7) k/uL Neutrophils # (Manual) 17.00 H (1.3-7.7) k/uL Lymphocytes # (1.0-4.8) k/uL Metamyelocytes # (Man) 0.60 H (0) k/uL Myelocytes # (Manual) 0.40 H (0) k/uL ABG pH (7.35-7.45) ABG pCO2 (35-45) mmHg ABG pO2 (83-108) mmHg ABG HCO3 (21-25) mmol/L ABG O2 Saturation (94-97) % ABG Lactic Acid (0.5-1.6) mmol/L Sodium (137-145) mmol/L Potassium (3.5-5.1) mmol/L Chloride (98-107) mmol/L Carbon Dioxide (22-30) mmol/L BUN (9-20) mg/dL Creatinine (0.66-1.25) mg/dL Glucose (74-99) mg/dL POC Glucose (mg/dL) 172 H (75-99) mg/dL Plasma Lactic Acid Caleb 4.0 H* (0.7-2.0) mmol/L Calcium (8.4-10.2) mg/dL Total Bilirubin (0.2-1.3) mg/dL AST (17-59) U/L ALT (4-49) U/L Alkaline Phosphatase (38-126) U/L Ammonia (<30) umol/L Total Protein (6.3-8.2) g/dL Albumin (3.5-5.0) g/dL 05/09/21 05/09/21 05/10/21 Range/Units 23:22 23:38 01:34 WBC (3.8-10.6) k/uL RBC (4.30-5.90) m/uL Hgb (13.0-17.5) gm/dL Hct (39.0-53.0) % MCV (80.0-100.0) fL RDW (11.5-15.5) % Plt Count (150-450) k/uL Neutrophils # (1.3-7.7) k/uL Neutrophils # (Manual) (1.3-7.7) k/uL Lymphocytes # (1.0-4.8) k/uL Metamyelocytes # (Man) (0) k/uL Myelocytes # (Manual) (0) k/uL ABG pH 7.46 H (7.35-7.45) ABG pCO2 28 L (35-45) mmHg ABG pO2 >400 H (83-108) mmHg ABG HCO3 20 L (21-25) mmol/L ABG O2 Saturation 100.0 H (94-97) % ABG Lactic Acid (0.5-1.6) mmol/L Sodium 130 L 126 L (137-145) mmol/L Potassium 7.8 H* 7.5 H* (3.5-5.1) mmol/L Chloride 89 L 88 L (98-107) mmol/L Carbon Dioxide 17 L 14 L (22-30) mmol/L BUN 51 H 52 H (9-20) mg/dL Creatinine 6.38 H 6.53 H (0.66-1.25) mg/dL Glucose 119 H 210 H (74-99) mg/dL POC Glucose (mg/dL) (75-99) mg/dL Plasma Lactic Acid Caleb (0.7-2.0) mmol/L Calcium (8.4-10.2) mg/dL Total Bilirubin 7.1 H (0.2-1.3) mg/dL AST 2452 H (17-59) U/L ALT 906 H (4-49) U/L Alkaline Phosphatase 1578 H (38-126) U/L Ammonia (<30) umol/L Total Protein (6.3-8.2) g/dL Albumin (3.5-5.0) g/dL 05/10/21 05/10/21 05/10/21 Range/Units 01:34 02:08 02:34 WBC 22.2 H (3.8-10.6) k/uL RBC 2.59 L (4.30-5.90) m/uL Hgb 8.1 L D (13.0-17.5) gm/dL Hct 26.1 L (39.0-53.0) % MCV 100.8 H (80.0-100.0) fL RDW 16.4 H (11.5-15.5) % Plt Count 460 H (150-450) k/uL Neutrophils # 19.6 H (1.3-7.7) k/uL Neutrophils # (Manual) (1.3-7.7) k/uL Lymphocytes # (1.0-4.8) k/uL Metamyelocytes # (Man) (0) k/uL Myelocytes # (Manual) (0) k/uL ABG pH (7.35-7.45) ABG pCO2 (35-45) mmHg ABG pO2 (83-108) mmHg ABG HCO3 (21-25) mmol/L ABG O2 Saturation (94-97) % ABG Lactic Acid (0.5-1.6) mmol/L Sodium (137-145) mmol/L Potassium (3.5-5.1) mmol/L Chloride (98-107) mmol/L Carbon Dioxide (22-30) mmol/L BUN (9-20) mg/dL Creatinine (0.66-1.25) mg/dL Glucose (74-99) mg/dL POC Glucose (mg/dL) 190 H (75-99) mg/dL Plasma Lactic Acid Caleb 11.2 H* (0.7-2.0) mmol/L Calcium (8.4-10.2) mg/dL Total Bilirubin (0.2-1.3) mg/dL AST (17-59) U/L ALT (4-49) U/L Alkaline Phosphatase (38-126) U/L Ammonia (<30) umol/L Total Protein (6.3-8.2) g/dL Albumin (3.5-5.0) g/dL 05/10/21 05/10/21 05/10/21 Range/Units 02:34 02:34 05:26 WBC (3.8-10.6) k/uL RBC (4.30-5.90) m/uL Hgb (13.0-17.5) gm/dL Hct (39.0-53.0) % MCV (80.0-100.0) fL RDW (11.5-15.5) % Plt Count (150-450) k/uL Neutrophils # (1.3-7.7) k/uL Neutrophils # (Manual) (1.3-7.7) k/uL Lymphocytes # (1.0-4.8) k/uL Metamyelocytes # (Man) (0) k/uL Myelocytes # (Manual) (0) k/uL ABG pH (7.35-7.45) ABG pCO2 (35-45) mmHg ABG pO2 (83-108) mmHg ABG HCO3 (21-25) mmol/L ABG O2 Saturation (94-97) % ABG Lactic Acid 8.3 H* (0.5-1.6) mmol/L Sodium 129 L 136 L (137-145) mmol/L Potassium (3.5-5.1) mmol/L Chloride 89 L 94 L (98-107) mmol/L Carbon Dioxide 19 L (22-30) mmol/L BUN 48 H 23 H (9-20) mg/dL Creatinine 5.81 H 2.72 H (0.66-1.25) mg/dL Glucose 162 H 149 H (74-99) mg/dL POC Glucose (mg/dL) (75-99) mg/dL Plasma Lactic Acid Caleb (0.7-2.0) mmol/L Calcium 7.4 L (8.4-10.2) mg/dL Total Bilirubin 6.7 H 6.3 H (0.2-1.3) mg/dL AST 2851 H 5651 H (17-59) U/L ALT 1042 H 2107 H (4-49) U/L Alkaline Phosphatase 1484 H 1550 H (38-126) U/L Ammonia (<30) umol/L Total Protein 5.9 L 6.2 L (6.3-8.2) g/dL Albumin 3.2 L 3.2 L (3.5-5.0) g/dL 05/10/21 05/10/21 05/10/21 Range/Units 05:26 05:26 06:06 WBC 21.0 H (3.8-10.6) k/uL RBC 2.59 L (4.30-5.90) m/uL Hgb 8.3 L (13.0-17.5) gm/dL Hct 25.9 L (39.0-53.0) % MCV (80.0-100.0) fL RDW 16.4 H (11.5-15.5) % Plt Count (150-450) k/uL Neutrophils # 19.0 H (1.3-7.7) k/uL Neutrophils # (Manual) (1.3-7.7) k/uL Lymphocytes # 0.9 L (1.0-4.8) k/uL Metamyelocytes # (Man) (0) k/uL Myelocytes # (Manual) (0) k/uL ABG pH (7.35-7.45) ABG pCO2 (35-45) mmHg ABG pO2 (83-108) mmHg ABG HCO3 (21-25) mmol/L ABG O2 Saturation (94-97) % ABG Lactic Acid 1.7 H (0.5-1.6) mmol/L Sodium (137-145) mmol/L Potassium (3.5-5.1) mmol/L Chloride (98-107) mmol/L Carbon Dioxide (22-30) mmol/L BUN (9-20) mg/dL Creatinine (0.66-1.25) mg/dL Glucose (74-99) mg/dL POC Glucose (mg/dL) (75-99) mg/dL Plasma Lactic Acid Caleb 2.1 H* (0.7-2.0) mmol/L Calcium (8.4-10.2) mg/dL Total Bilirubin (0.2-1.3) mg/dL AST (17-59) U/L ALT (4-49) U/L Alkaline Phosphatase (38-126) U/L Ammonia (<30) umol/L Total Protein (6.3-8.2) g/dL Albumin (3.5-5.0) g/dL 05/10/21 Range/Units 07:11 WBC (3.8-10.6) k/uL RBC (4.30-5.90) m/uL Hgb (13.0-17.5) gm/dL Hct (39.0-53.0) % MCV (80.0-100.0) fL RDW (11.5-15.5) % Plt Count (150-450) k/uL Neutrophils # (1.3-7.7) k/uL Neutrophils # (Manual) (1.3-7.7) k/uL Lymphocytes # (1.0-4.8) k/uL Metamyelocytes # (Man) (0) k/uL Myelocytes # (Manual) (0) k/uL ABG pH (7.35-7.45) ABG pCO2 (35-45) mmHg ABG pO2 (83-108) mmHg ABG HCO3 (21-25) mmol/L ABG O2 Saturation (94-97) % ABG Lactic Acid (0.5-1.6) mmol/L Sodium (137-145) mmol/L Potassium (3.5-5.1) mmol/L Chloride (98-107) mmol/L Carbon Dioxide (22-30) mmol/L BUN (9-20) mg/dL Creatinine (0.66-1.25) mg/dL Glucose (74-99) mg/dL POC Glucose (mg/dL) 207 H (75-99) mg/dL Plasma Lactic Acid Caleb (0.7-2.0) mmol/L Calcium (8.4-10.2) mg/dL Total Bilirubin (0.2-1.3) mg/dL AST (17-59) U/L ALT (4-49) U/L Alkaline Phosphatase (38-126) U/L Ammonia (<30) umol/L Total Protein (6.3-8.2) g/dL Albumin (3.5-5.0) g/dL H & H 05/09/21 05/09/21 05/10/21 Range/Units 17:24 23:22 02:34 Hgb 8.1 L 9.8 L D 8.1 L D (13.0-17.5) gm/dL Hct 24.3 L 31.2 L 26.1 L (39.0-53.0) % 05/10/21 Range/Units 05:26 Hgb 8.3 L (13.0-17.5) gm/dL Hct 25.9 L (39.0-53.0) % Coagulation 05/09/21 Range/Units 17:24 INR 1.1 (<1.2) Result Diagrams: 05/10/21 05:26 05/10/21 05:26 Assessment and Plan Assessment: 51 yo male s/p L4-5 osteodiscitis and epidural phlegmon evacuation with fusion and abx spacer placement with hx of staph epi infection SIRS with sepsis ESRD Diabetes Complex medical patient Plan: -Appreciate eligibility consultant and team management. -Activity: Ambulate QID, OOB all meals, up and about, limit lifting bending twisting to less than 5 lbs. Use walker or cane if needed for stability. -Daily PT/OT, increase ambulation strength and balance. -Pain control: [Adequate at this time] -Meds: [reviewed] -GI ppx: senna, Miralax -DC sesay when up and about, bedside commode if needed -DVT PPX: Mechanical at this time -Hygiene: Daily showers, maintain incision free of bodily fluids or fecal matter -Xrays ordered of L spine -Encourage IS 10x/hr -Dispo: [Pending] Time with Patient: Greater than 30
[2021-05-10] MEDS: MULTIVITAMINS, THERA 1 EACH TAB PO SCH (10:11)
[2021-05-10] MEDS: traMADol 50 MG TAB PO PRN ×2 (10:11→19:55)
[2021-05-10] MEDS: SODIUM CHLORIDE 0.9% 1,000 ML IV SCH ×2 (10:12→14:50)
[2021-05-10] MEDS: HEPARIN SODIUM,PORCINE/PF 5,000 UNIT/0.5 ML SYRINGE SQ SCH ×2 (10:12→19:56)
[2021-05-10] MEDS: PANTOPRAZOLE 40 MG/10 ML VIAL IVP SCH (10:12)
[2021-05-10] MEDS: FOLIC ACID 1 MG TAB PO SCH (10:13)
[2021-05-10] MEDS: THIAMINE 100 MG TAB PO SCH (10:13)
[2021-05-10] MEDS: PIPERACILLIN-TAZOBACTAM 3.375 GM in SODIUM CHLORIDE 0.9% 100 ML IVPB SCH ×2 (10:18→19:57)
--- NOTE | 2021-05-10 11:40 | P.CRDCN ---
History of Present Illness Consult date: 05/10/21 History of present illness: HISTORY OF PRESENT ILLNESS: This is a 51-year-old male with a past medical history significant for chronic kidney disease on hemodialysis, diabetes, and hypertension. Patient does not follow with a patient relations coordinator. We have been asked to see the patient in consultation for bradycardia. Patient recently underwent a lumbar laminectomy and decompression and incision and drainage of lumbar spine with irrigation of debridement of lumbar epidural abscess. Patient was brought to the hospital secondary to altered mental status. Patient was found to be hyperkalemic with potassium of 7.8. Patient was bradycardic overnight with a heart rate in the 20s and 30s. He was started on IV dopamine. Most recent potassium 3.5. Patient's heart rate is currently in the 70s. Patient examined at the bedside. Patient denies chest pain or pressure. He denies shortness breath. He denies dizziness or lightheadedness. Patient states he underwent hemodialysis earlier this morning.Laboratory data: WBC 21.0. Hemoglobin 8.3. Platelet count 416. Lactic acid 8.3. Repeat 1.7. Sodium 136. Potassium 3.5. BUN 23. Creatinine 2.72. Bilirubin 6.3. AST 5651. ALT 2107. Current home cardiac medications include nifedipine 60 mg twice a day and 30 mg at night, labetalol 200 mg 3 times a day, Lasix 40 mg daily, and aspirin 81 mg daily REVIEW OF SYSTEMS: At the time of my exam: CONSTITUTIONAL: Denies fever or chills. HEENT: Denies blurred vision, vision changes, or eye pain. Denies hemoptysis CARDIOVASCULAR: Denies chest pain. Denies orthopnea. Denies PND. Denies palpitations RESPIRATORY: Denies shortness of breath. GASTROINTESTINAL: Denies abdominal pain. Denies nausea or vomiting. HEMATOLOGIC: Denies bleeding disorders. GENITOURINARY: Denies any blood in urine. SKIN: Denies pruitis. Denies rash. PHYSICAL EXAM: VITAL SIGNS: Reviewed. GENERAL: Well-developed in no acute distress. HEENT: Head is normocephalic. Pupils are equal, round. Sclerae anicteric. Mucous membranes of the mouth are moist. Neck supple. No JVD or thyromegaly LUNGS: Respirations even and unlabored. Lungs essentially clear to auscultation bilaterally. HEART: Regular rate and rhythm. S1 and S2 heard. ABDOMEN: Soft. Nondistended. Nontender. EXTREMITIES: No clubbing or cyanosis. Peripheral pulses intact. No lower extremity edema NEUROLOGIC: Awake and alert. Oriented x 3. ASSESSMENT: Bradycardia, secondary to significant hyperkalemia Hyperkalemia Leukocytosis Lactic acidosis Chronic kidney disease, on hemodialysis Transaminitis Hypertension Diabetes mellitus Recent history of lumbar laminectomy and decompression and incision and drainage of lumbar spine with irrigation of debridement of lumbar epidural abscess PLAN: Obtain 2D echo to assess cardiac structure and function Discontinue IV dopamine Continue telemetry monitoring Further recommendations pending patient course Nurse practitioner note has been reviewed by physician. Signing provider agrees with the documented findings, assessment, and plan of care. Past Medical History Past Medical History: Diabetes Mellitus, Dialysis, Hypertension Additional Past Medical History / Comment(s): 5x weekly dialysis at home History of Any Multi-Drug Resistant Organisms: None Reported Past Surgical History: Back Surgery Additional Past Surgical History / Comment(s): Shoulder surgery x2 wisdom teeth removed Past Anesthesia/Blood Transfusion Reactions: No Reported Reaction Past Psychological History: No Psychological Hx Reported Smoking Status: Never smoker Past Alcohol Use History: None Reported Past Drug Use History: Marijuana Medications and Allergies Home Medications Medication Instructions Recorded Confirmed Type Ascorbic Acid [Vitamin C] 1,000 mg PO DAILY 04/25/21 05/09/21 History Aspirin EC [Ecotrin Low Dose] 81 mg PO DAILY 04/25/21 05/09/21 History Citalopram Hydrobromide [CeleXA] 20 mg PO DAILY 04/25/21 05/09/21 History Cyclobenzaprine [Flexeril] 10 mg PO TID PRN 04/25/21 05/09/21 History Furosemide [Lasix] 40 mg PO DAILY 04/25/21 05/09/21 History Insulin Aspart (For Pump) [NovoLOG 0.01 unit SQ-PUMP CONTINUOUS 04/25/21 05/09/21 History (For Pump)] Labetalol [Trandate] 200 mg PO TID 04/25/21 05/09/21 History NIFEdipine [NIFEdipine ER 30 mg PO HS 04/25/21 05/09/21 History (Osmotic)] NIFEdipine [NIFEdipine ER 60 mg PO BID 04/25/21 05/09/21 History (Osmotic)] Omeprazole 40 mg PO DAILY 04/25/21 05/09/21 History Pramipexole Di-HCl [Mirapex] 0.5 mg PO HS 04/25/21 05/09/21 History Renaplex-D 1 tab PO DAILY 04/25/21 05/09/21 History Velphoro Chew 500mg 1 tab PO QID 04/25/21 05/09/21 History calcitrioL [Rocaltrol] 0.25 mcg PO PRO 04/25/21 05/09/21 History traMADol HCL 50 mg PO Q8H PRN 04/25/21 05/09/21 History HYDROcodone/APAP 10-325MG [[place] 1 tab PO Q6HR PRN #28 tab 05/01/21 05/09/21 Rx 10-325] Potassium Chloride ER [K-Dur 20] 20 meq PO BID 2 Days #4 tab 05/01/21 05/09/21 Rx Sennosides/Docusate Sodium [Senna 1 cap PO DAILY PRN 05/09/21 05/09/21 History Plus 8.6-50 mg Softgel] Allergies Allergy/AdvReac Type Severity Reaction Status Date / Time No Known Allergies Allergy Verified 05/09/21 21:57 Physical Exam Vitals: Vital Signs Temp Pulse Pulse Resp BP BP Pulse Ox 05/10/21 10:00 71 18 125/55 97 05/10/21 09:00 76 10 L 111/52 98 05/10/21 08:00 98.6 F 72 14 127/58 97 05/10/21 07:32 96.9 F L 61 18 113/63 05/10/21 07:00 74 22 120/55 98 05/10/21 06:00 65 18 113/63 98 05/10/21 05:00 68 21 128/64 100 05/10/21 04:00 98.9 F 66 22 116/55 100 05/10/21 03:00 69 28 H 116/48 99 05/10/21 01:45 37 L 30 H 99/47 99 05/10/21 01:30 29 L 20 96/46 99 05/10/21 01:00 21 L 32 H 91/34 98 05/10/21 00:27 27 L 33 H 93/43 99 05/10/21 00:00 33 L 38 H 97/62 98 05/09/21 23:30 53 L 38 H 113/54 98 05/09/21 23:00 41 L 20 84 L 05/09/21 22:55 45 L 28 H 90 L 05/09/21 22:00 55 L 20 114/55 95 05/09/21 20:07 62 20 120/78 96 05/09/21 19:03 63 16 121/72 97 05/09/21 16:05 98.9 F 60 16 113/67 100 Intake and Output 05/09/21 05/10/21 05/10/21 22:59 06:59 14:59 Intake Total 39.541 Output Total 85 3010 Balance -45.459 -3010 Intake: Intake, IV Titration 39.541 Amount DOPamine DRIP 800 mg In 39.541 Water For Injection 1 250ml.bag @ 5 MCG/KG/MIN 7.442 mls/hr IV .Q24H [facility] Rx#:[id number] Output: Urine 85 10 Hemodialysis 3000 Other: Voiding Method Indwelling Catheter Weight 79.379 kg Results 05/10/21 05:26 05/10/21 05:26 Cardiac Enzymes 05/09/21 05/09/21 05/10/21 Range/Units 17:24 23:22 02:34 AST 737 H 2452 H 2851 H (17-59) U/L 05/10/21 Range/Units 05:26 AST 5651 H (17-59) U/L Coagulation 05/09/21 Range/Units 17:24 PT 11.9 (9.0-12.0) sec APTT 26.2 (22.0-30.0) sec CBC 05/09/21 05/09/21 05/10/21 Range/Units 17:24 23:22 02:34 WBC 16.9 H 20.0 H 22.2 H (3.8-10.6) k/uL RBC 2.49 L 3.09 L 2.59 L (4.30-5.90) m/uL Hgb 8.1 L 9.8 L D 8.1 L D (13.0-17.5) gm/dL Hct 24.3 L 31.2 L 26.1 L (39.0-53.0) % Plt Count 443 389 460 H (150-450) k/uL 05/10/21 Range/Units 05:26 WBC 21.0 H (3.8-10.6) k/uL RBC 2.59 L (4.30-5.90) m/uL Hgb 8.3 L (13.0-17.5) gm/dL Hct 25.9 L (39.0-53.0) % Plt Count 416 (150-450) k/uL Comprehensive Metabolic Panel 05/09/21 05/09/21 05/10/21 Range/Units 17:24 23:22 01:34 Sodium 128 L 130 L 126 L (137-145) mmol/L Potassium 5.9 H 7.8 H* 7.5 H* (3.5-5.1) mmol/L Chloride 91 L 89 L 88 L (98-107) mmol/L Carbon Dioxide 22 17 L 14 L (22-30) mmol/L BUN 46 H 51 H 52 H (9-20) mg/dL Creatinine 5.59 H 6.38 H 6.53 H (0.66-1.25) mg/dL Glucose 141 H 119 H 210 H (74-99) mg/dL Calcium 9.3 9.6 9.3 (8.4-10.2) mg/dL AST 737 H 2452 H (17-59) U/L ALT 288 H 906 H (4-49) U/L Alkaline Phosphatase 1446 H 1578 H (38-126) U/L Total Protein 5.8 L 6.9 (6.3-8.2) g/dL Albumin 3.1 L 3.8 (3.5-5.0) g/dL 05/10/21 05/10/21 Range/Units 02:34 05:26 Sodium 129 L 136 L (137-145) mmol/L Potassium 5.1 3.5 (3.5-5.1) mmol/L Chloride 89 L 94 L (98-107) mmol/L Carbon Dioxide 19 L 28 (22-30) mmol/L BUN 48 H 23 H (9-20) mg/dL Creatinine 5.81 H 2.72 H (0.66-1.25) mg/dL Glucose 162 H 149 H (74-99) mg/dL Calcium 10.2 7.4 L (8.4-10.2) mg/dL AST 2851 H 5651 H (17-59) U/L ALT 1042 H 2107 H (4-49) U/L Alkaline Phosphatase 1484 H 1550 H (38-126) U/L Total Protein 5.9 L 6.2 L (6.3-8.2) g/dL Albumin 3.2 L 3.2 L (3.5-5.0) g/dL Current Medications Generic Name Dose Route Start Last Admin Trade Name Freq PRN Reason Stop Dose Admin Folic Acid 1 mg 05/10/21 12:00 05/10/21 10:13 Folic Acid 1 Mg Tab PO 1 mg DAILY@1200 EDENILSON Administration Heparin Sodium (Porcine) 5,000 unit 05/09/21 21:00 05/10/21 10:12 Heparin Sodium,Porcine/Pf 5,000 Unit/0.5 Ml Syringe SQ 5,000 unit Q12HR EDENILSON Administration Hydromorphone HCl 0.5 mg 05/09/21 19:02 Hydromorphone 0.5 Mg/0.5 Ml Syringe IVP Q6HR PRN Severe Pain Sodium Chloride 1,000 mls @ 50 mls/hr 05/09/21 23:00 05/10/21 10:12 Saline 0.9% IV 50 mls/hr .Q20H EDENILSON Administration Dopamine HCl/Dextrose 800 mg/ 250 mls @ 7.442 mls/hr 05/10/21 01:00 05/10/21 04:37 IV Solution IV 2.5 mcg/kg/min .Q24H EDENILSON 3.721 mls/hr Titration Protocol 5 MCG/KG/MIN Piperacillin Sod/Tazobactam 100 mls @ 25 mls/hr 05/10/21 09:45 05/10/21 10:18 Sod 3.375 gm/ Sodium Chloride IVPB 25 mls/hr Q12HR EDENILSON Administration Insulin Aspart 0 unit 05/10/21 12:30 Insulin Aspart (Novolog) 100 Unit/Ml Vial SQ ACHS EDENILSON Protocol Iopamidol 30 ml 05/09/21 19:01 Iopamidol Contrast (Oral Use) Vial PO 05/10/21 19:[address] Scan Miscellaneous Information 1 each 05/09/21 19:02 Vancomycin Iv Per Pharmacy 1 Each Misc MISCELLANE DIRECTED PRN Per Protocol Protocol Multivitamins 1 each 05/10/21 12:00 05/10/21 10:11 Multivitamins, Thera 1 Each Tab PO 1 each DAILY@1200 EDENILSON Administration Naloxone HCl 0.2 mg 05/10/21 05:32 Naloxone 0.4 Mg/Ml 1 Ml Vial IV Q2M PRN Opioid Reversal Pantoprazole Sodium 40 mg 05/09/21 19:15 05/10/21 10:12 Pantoprazole 40 Mg/10 Ml Vial IVP 40 mg DAILY EDENILSON Administration Pramipexole Dihydrochloride 0.5 mg 05/10/21 09:45 Pramipexole 0.5 Mg Tab PO BID EDENILSON Thiamine HCl 100 mg 05/10/21 12:00 05/10/21 10:13 Thiamine 100 Mg Tab PO 100 mg DAILY@1200 EDENILSON Administration Tramadol HCl 50 mg 05/10/21 09:39 05/10/21 10:11 Tramadol 50 Mg Tab PO 50 mg TID PRN Administration Pain Intake and Output 05/09/21 05/10/21 05/10/21 22:59 06:59 14:59 Intake Total 39.541 Output Total 85 3010 Balance -45.459 -3010 Intake: Intake, IV Titration 39.541 Amount DOPamine DRIP 800 mg In 39.541 Water For Injection 1 250ml.bag @ 5 MCG/KG/MIN 7.442 mls/hr IV .Q24H [facility] Rx#:[id number] Output: Urine 85 10 Hemodialysis 3000 Other: Voiding Method Indwelling Catheter Weight 79.379 kg 05/10/21 05:26 05/10/21 05:26
[2021-05-10 11:47] LABS: Acetaminophen <10.0 ug/mL; Amylase 30 U/L (30-110); Lipase 27 U/L (23-300)
[2021-05-10 11:56] LABS: Glucose,Whole Blood 312 mg/dL (75-99)
--- NOTE | 2021-05-10 12:00 | ECHOF ---
Referral Reason:LV function MEASUREMENTS -------- HEIGHT: 182.9 cm WEIGHT: 79.4 kg BP: RVIDd: 3.2 cm (< 3.3) IVSd: 1.1 cm (0.6 - 1.1) LVIDd: 5.3 cm (3.9 - 5.3) LVPWd: 1.3 cm (0.6 - 1.1) IVSs: 1.5 cm LVIDs: 3.5 cm LVPWs: 1.7 cm LA Diam: 4.2 cm (2.7 - 3.8) LAESV Index (A-L): 44.10 ml/m Ao Diam: 3.1 cm (2.0 - 3.7) AV Cusp: 2.0 cm (1.5 - 2.6) LA Diam: 4.5 cm (2.7 - 3.8) MV EXCURSION: 21.518 mm (> 18.000) MV EF SLOPE: 78 mm/s (70 - 150) EPSS: 0.9 cm MV E Stef: 1.30 m/s MV DecT: 195 ms MV A Stef: 0.88 m/s MV E/A Ratio: 1.47 RAP: 5.00 mmHg RVSP: 38.19 mmHg FINDINGS -------- Sinus rhythm. This was a technically good study. LV size, wall thickness and systolic function are normal, with an EF greater than 55%. The left jerilyn tricular size is normal. The right ventricle is normal in size. LA is severely dilated >40 ml/m2 The right atrial size is normal. The aortic valve is trileaflet, and appears structurally normal. No aortic stenosis or regurgitation. The mitral valve is normal. Moderate mitral annular calcification present. Mild mitral regurgitat ion is present. Mild tricuspid regurgitation present. There is mild pulmonary hypertension. The right ventricular systolic pressure, as measured by Doppler, is 38.19mmHg. There is no pulmonic regurgitation present. The aortic root size is normal. There is no pericardial effusion. CONCLUSIONS -------- 1. LV size, wall thickness and systolic function are normal, with an EF greater than 55%. 2. The left ventricular size is normal. 3. The right ventricle is normal in size. 4. LA is severely dilated >40 ml/m2 5. The right atrial size is normal. 6. The aortic valve is trileaflet, and appears structurally normal. No aortic stenosis or regurgitati on. 7. Mild mitral regurgitation is present. 8. Mild tricuspid regurgitation present. 9. There is mild pulmonary hypertension. 10. The right ventricular systolic pressure, as measured by Doppler, is 38.19mmHg. 11. There is no pulmonic regurgitation present. 12. The aortic root size is normal. 13. There is no pericardial effusion. DROP TESTER: Rani Dozier RDCS
[2021-05-10] MEDS: INSULIN ASPART (NovoLOG) 100 UNIT/ML VIAL SQ SCH (12:41)
[2021-05-10] MEDS: PRAMIPEXOLE 0.5 MG TAB PO SCH ×2 (12:42→19:56)
[2021-05-10] MEDS: HYDROmorphone 0.5 MG/0.5 ML SYRINGE IVP PRN ×2 (12:48→22:29)
--- NOTE | 2021-05-10 14:09 | P.CNPUL ---
History of Present Illness Consult date: 05/10/21 Chief complaint: Altered mental status History of present illness: 51-year-old male patient came into the emergency department yesterday because of an altered mental status.. The patient has multiple medical problems and comorbidities. The patient type 1 diabetes mellitus and the patient has been on dialysis for the past 1 year undergoing dialysis 3 times a week Friday and Friday. Noted the patient was having complications of back pain and he has undergone previous laminectomy back in February 2021. The patient had subsequent L4-L5 posterior discitis along with an epidural abscess formation for which underwent a decompression laminectomy and antibiotic spacer placement on 05/08/2021. Surgery was done by Dr. Schmitt's an and there were no complications. Postop, the patient was maintained on vancomycin under the cultures were obtained from the abscesses were consistent with staph epidermidis. He was getting vancomycin through dialysis. The patient comes into the hospital yesterday because of an altered mental status, and the same time was found to be hyperkalemic with a potassium level of 7.8. He was bradycardic overnight with a heart rate in the mid 30s and 40s was started on dopamine. He was borderline hypotensive in addition. His lactic acid level was at 8.3. He had evidence of liver dysfunction and his AST and ALT were on the rise. His hemoglobin was 6.7 and the patient was given a unit of packed RBC. The patient had a white cell count of 21. The vancomycin level random was 13.2. As such, emergent dialysis was initiated and the patient subsequently had repeat electrodes that showed improvement in the potassium level and the potassium level dropped from 7.8 to 3.5 with subsequent improvement in his overall hemodynamics and the patient was taken off dopamine. His heart rate currently is in the mid 70s, sinus. Creatinine is down to 2.7. Lactic acid level is down to 2.6. He has developed liver dysfunction/shock liver with a AST of 5651 and ALT of 2107. Bilirubin was as high as 7.1 dropped down to 6.3. Amylase and lipase were within normal limits. Mother the patient was taking N orco and Ultram for chronic back pain and his Tylenol level came back negative. No history of any previous chronic hepatitis C and also alcoholism. Mental status completely back to normal for now. Surgical wound site was inspected by Dr. Lozano and based on his evaluation, no signs of any surgical wound infection at this point in time. . CAT scan of the abdomen and pelvis shows some slight have organomegaly and there was no evidence of any acute intra- abdominal abnormalities. There was a small right-sided pleural effusion. Ultrasound the gallbladder showed some gallbladder wall thickening. No Neville signs. No dilatation of the common bile duct. CAT scan of the head was negative for any acute abnormalities per her chest x-ray was clear. Echocardiogram was also completed and the patient is a normal ejection fraction of 55%. There was evidence of mild pulmonary hypertension with a PA pressure of 38.1. Amylase severely dilated. RV is normal size. No other significant georgie vular abnormalities. No evidence of a pericardial effusion. Review of Systems Constitutional: Reports fatigue, Reports lethargy, Reports poor appetite, Reports weakness Eyes: denies as per HPI, denies blurred vision, denies bulging eye, denies decreased vision, denies diplopia, denies discharge, denies dry eye, denies irritation, denies itching, denies pain, denies photophobia, denies loss of peripheral vision, denies loss of vision, denies tunnel vision/blind spots Ears: deny: decreased hearing, ear discharge, earache, tinnitus Ears, nose, mouth and throat: Reports as per HPI Breasts: absent: as per HPI, gynecomastia Cardiovascular: Reports decreased exercise tolerance Respiratory: Reports as per HPI Gastrointestinal: Reports as per HPI Genitourinary: Reports as per HPI (Anesthesia lesion on hemodialysis) Musculoskeletal: Reports as per HPI (Chronic back pain) Musculoskeletal: absent: ankle pain, ankle stiffness, ankle swelling Integumentary: Reports as per HPI Neurological: Reports gait dysfunction, Reports motor disturbance Psychiatric: Reports as per HPI Endocrine: Reports as per HPI Hematologic/Lymphatic: Reports as per HPI Allergic/Immunologic: Reports as per HPI Past Medical History Past Medical History: Diabetes Mellitus, Dialysis, Hypertension, Renal Disease Additional Past Medical History / Comment(s): 5x weekly dialysis at home, history of chronic back pain with previous history of posterior discitis or level of L4-L5 with epidural abscess formation with staph epidermidis and the patient is post decompression and antibiotic spacer placement, type 1 diabetes mellitus, end-stage renal disease on hemodialysis, restless leg syndrome, hypertension History of Any Multi-Drug Resistant Organisms: None Reported Past Surgical History: Back Surgery Additional Past Surgical History / Comment(s): Shoulder surgery x2 wisdom teeth removed Past Anesthesia/Blood Transfusion Reactions: No Reported Reaction Past Psychological History: No Psychological Hx Reported Smoking Status: Never smoker Past Alcohol Use History: None Reported Past Drug Use History: Marijuana Medications and Allergies Home Medications Medication Instructions Recorded Confirmed Type Ascorbic Acid [Vitamin C] 1,000 mg PO DAILY 04/25/21 05/09/21 History Aspirin EC [Ecotrin Low Dose] 81 mg PO DAILY 04/25/21 05/09/21 History Citalopram Hydrobromide [CeleXA] 20 mg PO DAILY 04/25/21 05/09/21 History Cyclobenzaprine [Flexeril] 10 mg PO TID PRN 04/25/21 05/09/21 History Furosemide [Lasix] 40 mg PO DAILY 04/25/21 05/09/21 History Insulin Aspart (For Pump) [NovoLOG 0.01 unit SQ-PUMP CONTINUOUS 04/25/21 05/09/21 History (For Pump)] Labetalol [Trandate] 200 mg PO TID 04/25/21 05/09/21 History NIFEdipine [NIFEdipine ER 30 mg PO HS 04/25/21 05/09/21 History (Osmotic)] NIFEdipine [NIFEdipine ER 60 mg PO BID 04/25/21 05/09/21 History (Osmotic)] Omeprazole 40 mg PO DAILY 04/25/21 05/09/21 History Pramipexole Di-HCl [Mirapex] 0.5 mg PO HS 04/25/21 05/09/21 History Renaplex-D 1 tab PO DAILY 04/25/21 05/09/21 History Velphoro Chew 500mg 1 tab PO QID 04/25/21 05/09/21 History calcitrioL [Rocaltrol] 0.25 mcg PO PRO 04/25/21 05/09/21 History traMADol HCL 50 mg PO Q8H PRN 04/25/21 05/09/21 History HYDROcodone/APAP 10-325MG [[place] 1 tab PO Q6HR PRN #28 tab 05/01/21 05/09/21 Rx 10-325] Potassium Chloride ER [K-Dur 20] 20 meq PO BID 2 Days #4 tab 05/01/21 05/09/21 Rx Sennosides/Docusate Sodium [Senna 1 cap PO DAILY PRN 05/09/21 05/09/21 History Plus 8.6-50 mg Softgel] Allergies Allergy/AdvReac Type Severity Reaction Status Date / Time No Known Allergies Allergy Verified 05/09/21 21:57 Physical Exam Vitals: Vital Signs Temp Pulse Pulse Resp BP BP Pulse Ox 05/10/21 10:00 71 18 125/55 97 05/10/21 09:00 76 10 L 111/52 98 05/10/21 08:00 98.6 F 72 14 127/58 97 05/10/21 07:32 96.9 F L 61 18 113/63 05/10/21 07:00 74 22 120/55 98 05/10/21 06:00 65 18 113/63 98 05/10/21 05:00 68 21 128/64 100 05/10/21 04:00 98.9 F 66 22 116/55 100 05/10/21 03:00 69 28 H 116/48 99 05/10/21 01:45 37 L 30 H 99/47 99 05/10/21 01:30 29 L 20 96/46 99 05/10/21 01:00 21 L 32 H 91/34 98 05/10/21 00:27 27 L 33 H 93/43 99 05/10/21 00:00 33 L 38 H 97/62 98 05/09/21 23:30 53 L 38 H 113/54 98 05/09/21 23:00 41 L 20 84 L 05/09/21 22:55 45 L 28 H 90 L 05/09/21 22:00 55 L 20 114/55 95 05/09/21 20:07 62 20 120/78 96 05/09/21 19:03 63 16 121/72 97 05/09/21 16:05 98.9 F 60 16 113/67 100 Intake and Output 05/09/21 05/10/21 05/10/21 22:59 06:59 14:59 Intake Total 39.541 Output Total 85 3010 Balance -45.459 -3010 Intake: Intake, IV Titration 39.541 Amount DOPamine DRIP 800 mg In 39.541 Water For Injection 1 250ml.bag @ 5 MCG/KG/MIN 7.442 mls/hr IV .Q24H [facility] Rx#:[id number] Output: Urine 85 10 Hemodialysis 3000 Other: Voiding Method Indwelling Catheter Weight 79.379 kg Gen. appearance the patient is calm and comfortable likely distress Head exam was generally normal. There was no scleral icterus or corneal arcus. Mucous membranes were moist. Neck was supple and without jugular venous distension, thyromegaly, or carotid bruits. Carotids were easily palpable bilaterally. There was no adenopathy. Lungs were clear to auscultation and percussion, and with normal diaphragmatic excursion. No wheezes or rales were noted. Cardiac exam revealed the PMI to be normally situated and sized. The rhythm was regular and no extrasystoles were noted during several minutes of auscultation. The first and second heart sounds were normal and physiologic splitting of the second heart sound was noted. There were no murmurs, rubs, clicks, or gallops. Abdominal exam revealed normal bowel sounds. The abdomen was soft, non-tender, and without masses, organomegaly, or appreciable enlargement of the abdominal aorta. Extremities revealed diminished pulses and there is no cyanosis or clubbing Skin surgical wound site over the back area dry clean and intact Neurologic and muscular skeletal examination please refer to Dr. Lozano evaluation. Results - Laboratory Findings CBC and BMP: 05/10/21 05:26 05/10/21 05:26 ABG ABG pH 7.46 (7.35-7.45) H 05/09/21 23:38 ABG pCO2 28 mmHg (35-45) L 05/09/21 23:38 ABG pO2 >400 mmHg (83-108) H 05/09/21 23:38 ABG O2 Saturation 100.0 % (94-97) H 05/09/21 23:38 PT/INR, D-dimer PT 11.9 sec (9.0-12.0) 05/09/21 17:24 INR 1.1 (<1.2) 05/09/21 17:24 Abnormal lab findings: Abnormal Labs 05/09/21 05/09/21 05/09/21 17:24 17:24 17:24 WBC 16.9 H RBC 2.49 L Hgb 8.1 L Hct 24.3 L MCV RDW 15.7 H Plt Count Neutrophils # 15.2 H Neutrophils # (Manual) Lymphocytes # 0.6 L Metamyelocytes # (Man) Myelocytes # (Manual) ABG pH ABG pCO2 ABG pO2 ABG HCO3 ABG O2 Saturation ABG Lactic Acid Sodium 128 L Potassium 5.9 H Chloride 91 L Carbon Dioxide BUN 46 H Creatinine 5.59 H Glucose 141 H POC Glucose (mg/dL) Plasma Lactic Acid Caleb 2.6 H* Calcium Total Bilirubin 5.0 H AST 737 H ALT 288 H Alkaline Phosphatase 1446 H Ammonia 30 H Total Protein 5.8 L Albumin 3.1 L 05/09/21 05/09/21 05/09/21 21:25 21:51 23:22 WBC 20.0 H RBC 3.09 L Hgb 9.8 L D Hct 31.2 L MCV 101.0 H RDW 16.0 H Plt Count Neutrophils # Neutrophils # (Manual) 17.00 H Lymphocytes # Metamyelocytes # (Man) 0.60 H Myelocytes # (Manual) 0.40 H ABG pH ABG pCO2 ABG pO2 ABG HCO3 ABG O2 Saturation ABG Lactic Acid Sodium Potassium Chloride Carbon Dioxide BUN Creatinine Glucose POC Glucose (mg/dL) 172 H Plasma Lactic Acid Caleb 4.0 H* Calcium Total Bilirubin AST ALT Alkaline Phosphatase Ammonia Total Protein Albumin 05/09/21 05/09/21 05/10/21 23:22 23:38 01:34 WBC RBC Hgb Hct MCV RDW Plt Count Neutrophils # Neutrophils # (Manual) Lymphocytes # Metamyelocytes # (Man) Myelocytes # (Manual) ABG pH 7.46 H ABG pCO2 28 L ABG pO2 >400 H ABG HCO3 20 L ABG O2 Saturation 100.0 H ABG Lactic Acid Sodium 130 L 126 L Potassium 7.8 H* 7.5 H* Chloride 89 L 88 L Carbon Dioxide 17 L 14 L BUN 51 H 52 H Creatinine 6.38 H 6.53 H Glucose 119 H 210 H POC Glucose (mg/dL) Plasma Lactic Acid Caleb Calcium Total Bilirubin 7.1 H AST 2452 H ALT 906 H Alkaline Phosphatase 1578 H Ammonia Total Protein Albumin 05/10/21 05/10/21 05/10/21 01:34 02:08 02:34 WBC 22.2 H RBC 2.59 L Hgb 8.1 L D Hct 26.1 L MCV 100.8 H RDW 16.4 H Plt Count 460 H Neutrophils # 19.6 H Neutrophils # (Manual) Lymphocytes # Metamyelocytes # (Man) Myelocytes # (Manual) ABG pH ABG pCO2 ABG pO2 ABG HCO3 ABG O2 Saturation ABG Lactic Acid Sodium Potassium Chloride Carbon Dioxide BUN Creatinine Glucose POC Glucose (mg/dL) 190 H Plasma Lactic Acid Caleb 11.2 H* Calcium Total Bilirubin AST ALT Alkaline Phosphatase Ammonia Total Protein Albumin 05/10/21 05/10/21 05/10/21 02:34 02:34 05:26 WBC RBC Hgb Hct MCV RDW Plt Count Neutrophils # Neutrophils # (Manual) Lymphocytes # Metamyelocytes # (Man) Myelocytes # (Manual) ABG pH ABG pCO2 ABG pO2 ABG HCO3 ABG O2 Saturation ABG Lactic Acid 8.3 H* Sodium 129 L 136 L Potassium Chloride 89 L 94 L Carbon Dioxide 19 L BUN 48 H 23 H Creatinine 5.81 H 2.72 H Glucose 162 H 149 H POC Glucose (mg/dL) Plasma Lactic Acid Caleb Calcium 7.4 L Total Bilirubin 6.7 H 6.3 H AST 2851 H 5651 H ALT 1042 H 2107 H Alkaline Phosphatase 1484 H 1550 H Ammonia Total Protein 5.9 L 6.2 L Albumin 3.2 L 3.2 L 05/10/21 05/10/21 05/10/21 05:26 05:26 06:06 WBC 21.0 H RBC 2.59 L Hgb 8.3 L Hct 25.9 L MCV RDW 16.4 H Plt Count Neutrophils # 19.0 H Neutrophils # (Manual) Lymphocytes # 0.9 L Metamyelocytes # (Man) Myelocytes # (Manual) ABG pH ABG pCO2 ABG pO2 ABG HCO3 ABG O2 Saturation ABG Lactic Acid 1.7 H Sodium Potassium Chloride Carbon Dioxide BUN Creatinine Glucose POC Glucose (mg/dL) Plasma Lactic Acid Caleb 2.1 H* Calcium Total Bilirubin AST ALT Alkaline Phosphatase Ammonia Total Protein Albumin 05/10/21 05/10/21 05/10/21 07:11 10:24 11:54 WBC RBC Hgb Hct MCV RDW Plt Count Neutrophils # Neutrophils # (Manual) Lymphocytes # Metamyelocytes # (Man) Myelocytes # (Manual) ABG pH ABG pCO2 ABG pO2 ABG HCO3 ABG O2 Saturation ABG Lactic Acid Sodium Potassium Chloride Carbon Dioxide BUN Creatinine Glucose POC Glucose (mg/dL) 207 H 312 H Plasma Lactic Acid Caleb 2.6 H* Calcium Total Bilirubin AST ALT Alkaline Phosphatase Ammonia Total Protein Albumin Assessment and Plan Plan: 1 altered mental status, likely secondary to metabolic derangements with a possibility of an underlying sepsis. Currently under investigation, and a CAT scan of the brain was negative and the patient underwent hemodialysis yesterday and the patient had improvement in the mental status change in the currently is back to his baseline. 2 acute hyperkalemia, recovered 3 acute lactic acidosis, improved 4 End stage renal disease and currently on hemodialysis 5 L4-L5 posterior discitis with epidural abscess status post decompression laminectomy and antibiotic spacer placement. The patient was infected with staph epidermidis and the patient was receiving vancomycin on outpatient basis with Atrovent the vancomycin level of 13 6 diabetes mellitus type 1 7 diabetic peripheral neuropathy and restless leg syndrome 8 hypertension 9 acute abnormal elevation of the liver function tests, consider shock liver. T he patient has elevation of the AST, ALT and alkaline phosphatase. Gallbladder wall is thickened. Nevertheless, there is no Neville signs 10 bradycardia secondary to hyperkalemia, recovered Plan Obtain blood cultures Obtain GI consultation regarding the gallbladder findings Cover the patient on IV Zosyn in combination with vancomycin Nephrology Consultation Spine surgery consultation to evaluate the surgical wound The patient is on insulin pump on outpatient basis. For now, the patient will be started and sized scale insulin coverage and will monitor the blood sugars Discontinue dopamine Tramadol for pain control Increase the Mirapex to 0.5 mg by mouth twice daily regarding restless leg Dilaudid for pain control We'll continue to follow.
--- NOTE | 2021-05-10 15:01 | P.PN ---
Progress Note - Text Progress Note Date: 05/10/21 Presenting complaint: Tired Interval history: I took over the care of this patient at about 10 AM today. 51-year-old patient who follows with Dr. Emory Jacob. Patient was recently discharged from the hospital on May 01. 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 Tissue cultures that showed staph epidermidis. Diagnosis epidural abscess/ostiodiscitis. Patient was discharged on 6 weeks of vancomycin to be given with hemodialysis. Patient had surgery done at [facility] about 6 weeks prior to the last admission. On April 28 patient underwent I&D of the lumbar spine epidural abscess., By Dr. Lozano, from orthopedics. Patient now presented to the hospital with altered mental status found to have increased LFTs, hemoglobin 6.7,. He was given 1 unit of blood at [facility] in and out of the unit care. May 10: Patient moved to the ICU past midnight. Potassium at 7.5. Emergent hemodialysis was carried out in the night. 3.5 L were removed. Patient also was initially bradycardic in the ER heart rate is back up in the 60s now. Patient has been on insulin pump. Blood cultures are coming back positive for gram negatives bacilli. Patient has left arm fistula. Sitting up in bed. Feeling tired. Blood cultures from yesterday growing gram-positive cocci Review of systems: Was done for constitutional, cardiovascular, GI, pulmonary. relevant finding as above Active Medications Folic Acid (Folic Acid 1 Mg Tab) 1 mg PO DAILY@1200 [facility] Last Admin: 05/10/21 10:13 Dose: 1 mg Documented by: Heparin Sodium (Porcine) (Heparin Sodium,Porcine/Pf 5,000 Unit/0.5 Ml Syringe) 5,000 unit SQ Q12HR [facility] Last Admin: 05/10/21 10:12 Dose: 5,000 unit Documented by: Hydromorphone HCl (Hydromorphone 0.5 Mg/0.5 Ml Syringe) 0.5 mg IVP Q6HR PRN PRN Reason: Severe Pain Last Admin: 05/10/21 12:48 Dose: 0.5 mg Documented by: Sodium Chloride (Saline 0.9%) 1,000 mls @ 50 mls/hr IV .Q20H [facility] Last Admin: 05/10/21 10:12 Dose: 50 mls/hr Documented by: Dopamine HCl/Dextrose 800 mg/ (IV Solution) 250 mls @ 7.442 mls/hr IV .Q24H [facility], [facility]; Protocol Last Titration: 05/10/21 04:37 Dose: 2.5 mcg/kg/min, 3.721 mls/hr Documented by: Piperacillin Sod/Tazobactam (Sod 3.375 gm/ Sodium Chloride) 100 mls @ 25 mls/hr IVPB Q12HR [facility] Last Admin: 05/10/21 10:18 Dose: 25 mls/hr Documented by: Insulin Aspart (Insulin Aspart (Novolog) 100 Unit/Ml Vial) 0 unit SQ ACHS [facility]; Protocol Last Admin: 05/10/21 12:41 Dose: 5 unit Documented by: Iopamidol (Iopamidol Contrast (Oral Use) Vial) 30 ml PO Q60M PRN PRN Reason: CT Scan Stop: 05/10/21 19:02 Miscellaneous Information (Vancomycin Iv Per Pharmacy 1 Each Misc) 1 each MISCELLANE DIRECTED PRN; Protocol PRN Reason: Per Protocol Multivitamins (Multivitamins, Thera 1 Each Tab) 1 each PO DAILY@1200 [facility] Last Admin: 05/10/21 10:11 Dose: 1 each Documented by: Naloxone HCl (Naloxone 0.4 Mg/Ml 1 Ml Vial) 0.2 mg IV Q2M PRN PRN Reason: Opioid Reversal Pantoprazole Sodium (Pantoprazole 40 Mg/10 Ml Vial) 40 mg IVP DAILY [facility] Last Admin: 05/10/21 10:12 Dose: 40 mg Documented by: Pramipexole Dihydrochloride (Pramipexole 0.5 Mg Tab) 0.5 mg PO BID [facility] Last Admin: 05/10/21 12:42 Dose: 0.5 mg Documented by: Thiamine HCl (Thiamine 100 Mg Tab) 100 mg PO DAILY@1200 [facility] Last Admin: 05/10/21 10:13 Dose: 100 mg Documented by: Tramadol HCl (Tramadol 50 Mg Tab) 50 mg PO TID PRN PRN Reason: Pain Last Admin: 05/10/21 10:11 Dose: 50 mg Documented by: On examination: VITAL SIGNS: [98.6, 76, 12, 111/52, 98% room air] GENERAL APPEARANCE: Average build. Sitting up in bed, awake. Left upper extremity fistula HEENT: Normal external appearance of nose and ear. Oral cavity normal EYES: Pupils equal. Conjunctiva normal. NECK: JVD not raised. Mass not palpable. RESPIRATORY: Respiratory effort normal. Lungs clear to auscultation. CARDIOVASCULAR: First and second sounds normal. No edema. ABDOMEN: Soft. Liver and spleen not palpable. No tenderness. No mass palpable. PSYCHIATRY: Alert and oriented x3. Mood and affect normal. INVESTIGATIONS, reviewed in the clinical context: WBC 21 hemoglobin 8.3 platelets 416 potassium 3.5 BN 23 creatinine 2.7 to AST 5651 ALT 10/23/[address] abdomen and pelvis without contrast: Hepatomegaly. Ultrasound gallbladder: Thickened gallbladder wall/4 mm Assessment and plan: -Acute metabolic encephalopathy. Decrease in sodium from underlying sepsis and from uremic encephalopathy Dong hemodialysis -Severe hyperkalemia from renal failure Better with hemodialysis -End-stage kidney disease on hemodialysis Follow with nephrology. Was hemodialyzed today. -Recent epidural abscess at L4-L5 with ostial discitis. Surgical intervention on April [address] Lozano. Cultures positive for staph epidermidis. For 6 weeks of IV vancomycin -Sepsis with blood cultures positive for gram-positive cocci, suspect source to be L4-L5 Continue with IV vancomycin. Follow with surgery and orthopedics. -Hyponatremia Follow BMP -Metabolic acidosis from renal failure Follow bicarb -Normocytic anemia multifactorial. Including contribution from renal failure Follow H&H -Acute severe ischemic hepatitis from sepsis: Worsening IV antibiotics. Follow hemodynamics. GI consulted -Abnormal gallbladder thickened wall on ultrasound with question about acute cholecystitis [employer] Gen. surgery. IV Zosyn -Hypertension with kidney disease Currently hypotension. Antihypertensives are held. -Restless leg syndrome Mirapex 0.5 mg daily at bedtime Patient's ICU. On telemetry. Been followed by consumer affairs manager, nephrology, ID, orthopedics, GI, general surgery. Care was discussed with the patient. Continue with IV Zosyn, vancomycin. Follow labs closely.
[2021-05-10 15:02] LABS: Hepatitis A Antibody IgM Non-Reactive (Non-Reactive); Hepatitis B Core IgM Non-Reactive (Non-Reactive); Hepatitis B Surface Antigen Non-Reactive (Non-Reactive); Hepatitis C IgG Antibody Non-Reactive (Non-Reactive)
--- NOTE | 2021-05-10 15:37 | P.CONS ---
History of Present Illness - Reason for Consult Consult date: 05/10/21 Hepatitis Requesting physician: Jose Clark - Chief Complaint Altered mental status, elevated LFTs, testicular pain - History of Present Illness This is a 51-year-old white male with a past medical history of type 1 diabetes mellitus, end-stage renal disease on hemodialysis, hypertension, and recent back surgery. The patient had back surgery a couple weeks ago in [place] he was then recently admitted to this hospital and was found to have an epidural abscess with staph infection treated with a surgical evacuation by Dr. Lozano. He was started on IV vancomycin and discharged home with IV vancomycin. Patient is unsure if he was on any other antibiotics. He denies any other new medications. He was noted to have elevation in his LFTs. He denies any previous history of liver disease, but does state that he recalls that one time a friend telling him he did look jaundiced. Patient admits to a history of alcohol use where he drank daily for at least 5 years, 32-40 ounces of beer a day and sometimes more. He complains of abdominal pain, denies any nausea or vomiting. Has a good appetite. On presentation he had evidence of leukocytosis, total bilirubin was 7.1, alkaline phosphatase 1578, AST 2452, ALT 906. Repeat labs today showed WBC 21, hemoglobin 8.3, hematocrit 25, platelet count 416,000, total bilirubin 6.3, alkaline phosphatase 1550, AST 5651, ALT 2107. Acute Hepatitis panel negative. Acetaminophen level was less than 10. He had an ultrasound of the abdomen that shows small amount of free fluid. Thickened gallbladder wall suggestive of acute cholecystitis. Gallbladder wall measures 4 mm. No dilated ducts. There are probably some small gallstones. He also went to CT of the abdomen that showed hepatomegaly. Small right pleural effusion with pleural reaction at the lung bases. This is increased compared to exam earlier today. No dilated ducts. Mild subcutaneous edema around the abdomen. He has been afebrile, continues to have abdominal pain and back pain. He is currently on IV Zosyn and IV vancomycin. Review of Systems REVIEW OF SYSTEMS: CARDIOPULMONARY: No chest pain or shortness of breath. Gastrointestinal: Diffuse abdominal pain. No nausea or vomiting. No he matemesis, coffee-ground emesis. No rectal bleeding, or melena. GENITOURINARY: No dysuria or hematuria. MUSCULOSKELETAL: Reports normal range of motion., Back pain. SKIN: No rashes. No jaundice. ENDOCRINE: No chills, fevers. No excessive weight gain or loss. No polydipsia or polyuria. PSYCHIATRIC: Unremarkable. NEUROLOGY: No change in mental status. Denies dizziness, headache. Back pain. ENT: Vision unremarkable. CONSTITUTIONAL: No recent weight loss. No fever, chills, night sweats. Past Medical History Past Medical History: Diabetes Mellitus, Dialysis, Hypertension Additional Past Medical History / Comment(s): 5x weekly dialysis at home History of Any Multi-Drug Resistant Organisms: None Reported Past Surgical History: Back Surgery Additional Past Surgical History / Comment(s): Shoulder surgery x2 wisdom teeth removed Past Anesthesia/Blood Transfusion Reactions: No Reported Reaction Past Psychological History: No Psychological Hx Reported Smoking Status: Never smoker Past Alcohol Use History: None Reported Past Drug Use History: Marijuana Medications and Allergies Home Medications Medication Instructions Recorded Confirmed Type Ascorbic Acid [Vitamin C] 1,000 mg PO DAILY 04/25/21 05/09/21 History Aspirin EC [Ecotrin Low Dose] 81 mg PO DAILY 04/25/21 05/09/21 History Citalopram Hydrobromide [CeleXA] 20 mg PO DAILY 04/25/21 05/09/21 History Cyclobenzaprine [Flexeril] 10 mg PO TID PRN 04/25/21 05/09/21 History Furosemide [Lasix] 40 mg PO DAILY 04/25/21 05/09/21 History Insulin Aspart (For Pump) [NovoLOG 0.01 unit SQ-PUMP CONTINUOUS 04/25/21 05/09/21 History (For Pump)] Labetalol [Trandate] 200 mg PO TID 04/25/21 05/09/21 History NIFEdipine [NIFEdipine ER 30 mg PO HS 04/25/21 05/09/21 History (Osmotic)] NIFEdipine [NIFEdipine ER 60 mg PO BID 04/25/21 05/09/21 History (Osmotic)] Omeprazole 40 mg PO DAILY 04/25/21 05/09/21 History Pramipexole Di-HCl [Mirapex] 0.5 mg PO HS 04/25/21 05/09/21 History Renaplex-D 1 tab PO DAILY 04/25/21 05/09/21 History Velphoro Chew 500mg 1 tab PO QID 04/25/21 05/09/21 History calcitrioL [Rocaltrol] 0.25 mcg PO PRO 04/25/21 05/09/21 History traMADol HCL 50 mg PO Q8H PRN 04/25/21 05/09/21 History HYDROcodone/APAP 10-325MG [[place] 1 tab PO Q6HR PRN #28 tab 05/01/21 05/09/21 Rx 10-325] Potassium Chloride ER [K-Dur 20] 20 meq PO BID 2 Days #4 tab 05/01/21 05/09/21 Rx Sennosides/Docusate Sodium [Senna 1 cap PO DAILY PRN 05/09/21 05/09/21 History Plus 8.6-50 mg Softgel] Allergies Allergy/AdvReac Type Severity Reaction Status Date / Time No Known Allergies Allergy Verified 05/09/21 21:57 Physical Exam Vitals: Vital Signs Temp Pulse Pulse Resp BP BP Pulse Ox 05/10/21 07:32 96.9 F L 61 18 113/63 05/10/21 07:00 74 22 120/55 98 05/10/21 06:00 65 18 113/63 98 05/10/21 05:00 68 21 128/64 100 05/10/21 04:00 98.9 F 66 22 116/55 100 05/10/21 03:00 69 28 H 116/48 99 05/10/21 01:45 37 L 30 H 99/47 99 05/10/21 01:30 29 L 20 96/46 99 05/10/21 01:00 21 L 32 H 91/34 98 05/10/21 00:27 27 L 33 H 93/43 99 05/10/21 00:00 33 L 38 H 97/62 98 05/09/21 23:30 53 L 38 H 113/54 98 05/09/21 23:00 41 L 20 84 L 05/09/21 22:55 45 L 28 H 90 L 05/09/21 22:00 55 L 20 114/55 95 05/09/21 20:07 62 20 120/78 96 05/09/21 19:03 63 16 121/72 97 05/09/21 16:05 98.9 F 60 16 113/67 100 Intake and Output 05/09/21 05/10/21 05/10/21 22:59 06:59 14:59 Intake Total 39.541 Output Total 85 3010 Balance -45.459 -3010 Intake: Intake, IV Titration 39.541 Amount DOPamine DRIP 800 mg In 39.541 Water For Injection 1 250ml.bag @ 5 MCG/KG/MIN 7.442 mls/hr IV .Q24H ED[facility] Rx#:[id number] Output: Urine 85 10 Hemodialysis 3000 Other: Voiding Method Indwelling Catheter Weight 79.379 kg General appearance: The patient is alert, oriented, appears in no acute distre ss. HET: Head is normocephalic and atraumatic. Conjunctiva pink. Sclera anicteric. Neck: Supple without lymphadenopathy. Trachea midline. Heart: S1 S2. Regular rate and rhythm. Lungs: Clear to auscultation. Abdomen: Soft, diffuse tenderness, nondistended with bowel sounds. No guarding or rigidity. Skin: No rashes. Jaundice. Extremities: Normal skin color and turgor. No pedal edema. Neurological: No focal deficits. Alert and oriented 3.. Results CBC & Chem 7: 05/10/21 05:26 05/10/21 05:26 Labs: Abnormal Lab Results - Last 24 Hours (Table) 05/09/21 05/09/21 05/09/21 Range/Units 17:24 17:24 17:24 WBC 16.9 H (3.8-10.6) k/uL RBC 2.49 L (4.30-5.90) m/uL Hgb 8.1 L (13.0-17.5) gm/dL Hct 24.3 L (39.0-53.0) % MCV (80.0-100.0) fL RDW 15.7 H (11.5-15.5) % Plt Count (150-450) k/uL Neutrophils # 15.2 H (1.3-7.7) k/uL Neutrophils # (Manual) (1.3-7.7) k/uL Lymphocytes # 0.6 L (1.0-4.8) k/uL Metamyelocytes # (Man) (0) k/uL Myelocytes # (Manual) (0) k/uL ABG pH (7.35-7.45) ABG pCO2 (35-45) mmHg ABG pO2 (83-108) mmHg ABG HCO3 (21-25) mmol/L ABG O2 Saturation (94-97) % ABG Lactic Acid (0.5-1.6) mmol/L Sodium 128 L (137-145) mmol/L Potassium 5.9 H (3.5-5.1) mmol/L Chloride 91 L (98-107) mmol/L Carbon Dioxide (22-30) mmol/L BUN 46 H (9-20) mg/dL Creatinine 5.59 H (0.66-1.25) mg/dL Glucose 141 H (74-99) mg/dL POC Glucose (mg/dL) (75-99) mg/dL Plasma Lactic Acid Caleb 2.6 H* (0.7-2.0) mmol/L Calcium (8.4-10.2) mg/dL Total Bilirubin 5.0 H (0.2-1.3) mg/dL AST 737 H (17-59) U/L ALT 288 H (4-49) U/L Alkaline Phosphatase 1446 H (38-126) U/L Ammonia 30 H (<30) umol/L Total Protein 5.8 L (6.3-8.2) g/dL Albumin 3.1 L (3.5-5.0) g/dL 05/09/21 05/09/21 05/09/21 Range/Units 21:25 21:51 23:22 WBC 20.0 H (3.8-10.6) k/uL RBC 3.09 L (4.30-5.90) m/uL Hgb 9.8 L D (13.0-17.5) gm/dL Hct 31.2 L (39.0-53.0) % MCV 101.0 H (80.0-100.0) fL RDW 16.0 H (11.5-15.5) % Plt Count (150-450) k/uL Neutrophils # (1.3-7.7) k/uL Neutrophils # (Manual) 17.00 H (1.3-7.7) k/uL Lymphocytes # (1.0-4.8) k/uL Metamyelocytes # (Man) 0.60 H (0) k/uL Myelocytes # (Manual) 0.40 H (0) k/uL ABG pH (7.35-7.45) ABG pCO2 (35-45) mmHg ABG pO2 (83-108) mmHg ABG HCO3 (21-25) mmol/L ABG O2 Saturation (94-97) % ABG Lactic Acid (0.5-1.6) mmol/L Sodium (137-145) mmol/L Potassium (3.5-5.1) mmol/L Chloride (98-107) mmol/L Carbon Dioxide (22-30) mmol/L BUN (9-20) mg/dL Creatinine (0.66-1.25) mg/dL Glucose (74-99) mg/dL POC Glucose (mg/dL) 172 H (75-99) mg/dL Plasma Lactic Acid Caleb 4.0 H* (0.7-2.0) mmol/L Calcium (8.4-10.2) mg/dL Total Bilirubin (0.2-1.3) mg/dL AST (17-59) U/L ALT (4-49) U/L Alkaline Phosphatase (38-126) U/L Ammonia (<30) umol/L Total Protein (6.3-8.2) g/dL Albumin (3.5-5.0) g/dL 05/09/21 05/09/21 05/10/21 Range/Units 23:22 23:38 01:34 WBC (3.8-10.6) k/uL RBC (4.30-5.90) m/uL Hgb (13.0-17.5) gm/dL Hct (39.0-53.0) % MCV (80.0-100.0) fL RDW (11.5-15.5) % Plt Count (150-450) k/uL Neutrophils # (1.3-7.7) k/uL Neutrophils # (Manual) (1.3-7.7) k/uL Lymphocytes # (1.0-4.8) k/uL Metamyelocytes # (Man) (0) k/uL Myelocytes # (Manual) (0) k/uL ABG pH 7.46 H (7.35-7.45) ABG pCO2 28 L (35-45) mmHg ABG pO2 >400 H (83-108) mmHg ABG HCO3 20 L (21-25) mmol/L ABG O2 Saturation 100.0 H (94-97) % ABG Lactic Acid (0.5-1.6) mmol/L Sodium 130 L 126 L (137-145) mmol/L Potassium 7.8 H* 7.5 H* (3.5-5.1) mmol/L Chloride 89 L 88 L (98-107) mmol/L Carbon Dioxide 17 L 14 L (22-30) mmol/L BUN 51 H 52 H (9-20) mg/dL Creatinine 6.38 H 6.53 H (0.66-1.25) mg/dL Glucose 119 H 210 H (74-99) mg/dL POC Glucose (mg/dL) (75-99) mg/dL Plasma Lactic Acid Caleb (0.7-2.0) mmol/L Calcium (8.4-10.2) mg/dL Total Bilirubin 7.1 H (0.2-1.3) mg/dL AST 2452 H (17-59) U/L ALT 906 H (4-49) U/L Alkaline Phosphatase 1578 H (38-126) U/L Ammonia (<30) umol/L Total Protein (6.3-8.2) g/dL Albumin (3.5-5.0) g/dL 05/10/21 05/10/21 05/10/21 Range/Units 01:34 02:08 02:34 WBC 22.2 H (3.8-10.6) k/uL RBC 2.59 L (4.30-5.90) m/uL Hgb 8.1 L D (13.0-17.5) gm/dL Hct 26.1 L (39.0-53.0) % MCV 100.8 H (80.0-100.0) fL RDW 16.4 H (11.5-15.5) % Plt Count 460 H (150-450) k/uL Neutrophils # 19.6 H (1.3-7.7) k/uL Neutrophils # (Manual) (1.3-7.7) k/uL Lymphocytes # (1.0-4.8) k/uL Metamyelocytes # (Man) (0) k/uL Myelocytes # (Manual) (0) k/uL ABG pH (7.35-7.45) ABG pCO2 (35-45) mmHg ABG pO2 (83-108) mmHg ABG HCO3 (21-25) mmol/L ABG O2 Saturation (94-97) % ABG Lactic Acid (0.5-1.6) mmol/L Sodium (137-145) mmol/L Potassium (3.5-5.1) mmol/L Chloride (98-107) mmol/L Carbon Dioxide (22-30) mmol/L BUN (9-20) mg/dL Creatinine (0.66-1.25) mg/dL Glucose (74-99) mg/dL POC Glucose (mg/dL) 190 H (75-99) mg/dL Plasma Lactic Acid Caleb 11.2 H* (0.7-2.0) mmol/L Calcium (8.4-10.2) mg/dL Total Bilirubin (0.2-1.3) mg/dL AST (17-59) U/L ALT (4-49) U/L Alkaline Phosphatase (38-126) U/L Ammonia (<30) umol/L Total Protein (6.3-8.2) g/dL Albumin (3.5-5.0) g/dL 05/10/21 05/10/21 05/10/21 Range/Units 02:34 02:34 05:26 WBC (3.8-10.6) k/uL RBC (4.30-5.90) m/uL Hgb (13.0-17.5) gm/dL Hct (39.0-53.0) % MCV (80.0-100.0) fL RDW (11.5-15.5) % Plt Count (150-450) k/uL Neutrophils # (1.3-7.7) k/uL Neutrophils # (Manual) (1.3-7.7) k/uL Lymphocytes # (1.0-4.8) k/uL Metamyelocytes # (Man) (0) k/uL Myelocytes # (Manual) (0) k/uL ABG pH (7.35-7.45) ABG pCO2 (35-45) mmHg ABG pO2 (83-108) mmHg ABG HCO3 (21-25) mmol/L ABG O2 Saturation (94-97) % ABG Lactic Acid 8.3 H* (0.5-1.6) mmol/L Sodium 129 L 136 L (137-145) mmol/L Potassium (3.5-5.1) mmol/L Chloride 89 L 94 L (98-107) mmol/L Carbon Dioxide 19 L (22-30) mmol/L BUN 48 H 23 H (9-20) mg/dL Creatinine 5.81 H 2.72 H (0.66-1.25) mg/dL Glucose 162 H 149 H (74-99) mg/dL POC Glucose (mg/dL) (75-99) mg/dL Plasma Lactic Acid Caleb (0.7-2.0) mmol/L Calcium 7.4 L (8.4-10.2) mg/dL Total Bilirubin 6.7 H 6.3 H (0.2-1.3) mg/dL AST 2851 H 5651 H (17-59) U/L ALT 1042 H 2107 H (4-49) U/L Alkaline Phosphatase 1484 H 1550 H (38-126) U/L Ammonia (<30) umol/L Total Protein 5.9 L 6.2 L (6.3-8.2) g/dL Albumin 3.2 L 3.2 L (3.5-5.0) g/dL 05/10/21 05/10/21 05/10/21 Range/Units 05:26 05:26 06:06 WBC 21.0 H (3.8-10.6) k/uL RBC 2.59 L (4.30-5.90) m/uL Hgb 8.3 L (13.0-17.5) gm/dL Hct 25.9 L (39.0-53.0) % MCV (80.0-100.0) fL RDW 16.4 H (11.5-15.5) % Plt Count (150-450) k/uL Neutrophils # 19.0 H (1.3-7.7) k/uL Neutrophils # (Manual) (1.3-7.7) k/uL Lymphocytes # 0.9 L (1.0-4.8) k/uL Metamyelocytes # (Man) (0) k/uL Myelocytes # (Manual) (0) k/uL ABG pH (7.35-7.45) ABG pCO2 (35-45) mmHg ABG pO2 (83-108) mmHg ABG HCO3 (21-25) mmol/L ABG O2 Saturation (94-97) % ABG Lactic Acid 1.7 H (0.5-1.6) mmol/L Sodium (137-145) mmol/L Potassium (3.5-5.1) mmol/L Chloride (98-107) mmol/L Carbon Dioxide (22-30) mmol/L BUN (9-20) mg/dL Creatinine (0.66-1.25) mg/dL Glucose (74-99) mg/dL POC Glucose (mg/dL) (75-99) mg/dL Plasma Lactic Acid Caleb 2.1 H* (0.7-2.0) mmol/L Calcium (8.4-10.2) mg/dL Total Bilirubin (0.2-1.3) mg/dL AST (17-59) U/L ALT (4-49) U/L Alkaline Phosphatase (38-126) U/L Ammonia (<30) umol/L Total Protein (6.3-8.2) g/dL Albumin (3.5-5.0) g/dL 05/10/21 Range/Units 07:11 WBC (3.8-10.6) k/uL RBC (4.30-5.90) m/uL Hgb (13.0-17.5) gm/dL Hct (39.0-53.0) % MCV (80.0-100.0) fL RDW (11.5-15.5) % Plt Count (150-450) k/uL Neutrophils # (1.3-7.7) k/uL Neutrophils # (Manual) (1.3-7.7) k/uL Lymphocytes # (1.0-4.8) k/uL Metamyelocytes # (Man) (0) k/uL Myelocytes # (Manual) (0) k/uL ABG pH (7.35-7.45) ABG pCO2 (35-45) mmHg ABG pO2 (83-108) mmHg ABG HCO3 (21-25) mmol/L ABG O2 Saturation (94-97) % ABG Lactic Acid (0.5-1.6) mmol/L Sodium (137-145) mmol/L Potassium (3.5-5.1) mmol/L Chloride (98-107) mmol/L Carbon Dioxide (22-30) mmol/L BUN (9-20) mg/dL Creatinine (0.66-1.25) mg/dL Glucose (74-99) mg/dL POC Glucose (mg/dL) 207 H (75-99) mg/dL Plasma Lactic Acid Caleb (0.7-2.0) mmol/L Calcium (8.4-10.2) mg/dL Total Bilirubin (0.2-1.3) mg/dL AST (17-59) U/L ALT (4-49) U/L Alkaline Phosphatase (38-126) U/L Ammonia (<30) umol/L Total Protein (6.3-8.2) g/dL Albumin (3.5-5.0) g/dL Comments: Ultrasound of the abdomen that shows small amount of free fluid. Thickened gallbladder wall suggestive of acute cholecystitis. Gallbladder wall measures 4 mm. No dilated ducts. There are probably some small gallstones. CT of the abdomen that showed hepatomegaly. Small right pleural effusion with pleural reaction at the lung bases. This is increased compared to exam earlier today. No dilated ducts. Mild subcutaneous edema around the abdomen. Assessment and Plan (1) Acute hepatitis Narrative/Plan: 51-year-old male who recently underwent back surgery in [place] who was recently hot hospitalized here for an epidural abscess staph infection and underwent surgical evacuation by Dr. Lozano. He has a past medical history including type 1 diabetes mellitus, hypertension, chronic renal failure on hemodialysis, chronic anemia and chronic back pain. He presented to [facility] with altered mental status according to his , and outpatient blood work that showed anemia and elevation in his LFTs. He was sent to [facility] for further evaluation. During his previous hospitalization he was started on IV vancomycin and discharged home with that. Patient is unsure if he's started any other new antibiotics. Patient was found to have significant increase in his LFTs. He denies any previous history of known liver disease. He does admit to heavy alcohol use in the past and states he was a daily beer drinker. He denies any previous history of hepatitis. On admission he was found to have leukocytosis, significant elevation in his LFTs with a total bilirubin of 7.1, alkaline phosphatase 1578, AST 2452, ALT 906. He denies any history of statin use. We'll order full liver serology. CT of the abdomen showed hepatomegaly. Small right pleural effusion with pleural reaction at the lung bases. Increased compared to exam earlier today. No dilated ducts. Mild subcutaneous edema around the abdomen. Gallbladder ultrasound showed small amount of free fluid. Thickened gallbladder wall suggestive of acute cholecystitis. Gallbladder wall measures 4 mm. No dilated ducts. There are probably some small gallstones. Possible etiologies include shock liver from recent sepsis other possibilities include medication-induced hepatitis, possibly related to vancomycin with possible underlying liver disease related to history of significant alcohol use. Current Visit: Yes Status: Acute Code(s): B17.9 - ACUTE VIRAL HEPATITIS, UNSPECIFIED SNOMED Code(s): 85688956 (2) Anemia Current Visit: Yes Status: Acute Code(s): D64.9 - ANEMIA, UNSPECIFIED SNOMED Code(s): 524631966 (3) Chronic kidney failure Current Visit: Yes Status: Acute Code(s): N18.9 - CHRONIC KIDNEY DISEASE, UNSPECIFIED SNOMED Code(s): 62103683 (4) Elevated liver enzymes Current Visit: Yes Status: Acute Code(s): R74.8 - ABNORMAL LEVELS OF OTHER SERUM ENZYMES SNOMED Code(s): 971779298 (5) Altered mental status Current Visit: Yes Status: Acute Code(s): R41.82 - ALTERED MENTAL STATUS, UNSPECIFIED SNOMED Code(s): 778079529 Plan: 1. Continue symptomatic and supportive care 2. Repeat daily CMP 3. Repeat ammonia level in the morning 4. Full liver serology ordered 5. Avoid hepatotoxic medications, consider alternate antibiotic for vancomycin if possible 6. Diet as tolerated 7. Continue ICU management 8. CT of the abdomen and abdominal ultrasound reviewed Thank you for this consultation, we will continue to follow. Dr. Libby Vogt I agree with the dictator's note, documented as a scribe by Josey Campo.
[2021-05-10 17:52] LABS: Glucose,Whole Blood 473 mg/dL (75-99)
[2021-05-10] MEDS ORDERED: INSULIN REGULAR BOLUS (FROM DRIP BAG) IV PRN (18:10)
--- NOTE | 2021-05-10 18:36 | CONS ---
CONSULTATION REASON FOR CONSULT: End-stage renal disease. HISTORY OF PRESENT ILLNESS: Patient is a 51-year-old male with end-stage renal disease on hemodialysis on a Friday, , Friday schedule as outpatient. The patient was admitted to the hospital with complaints of increased weakness and back pain. Patient is status post recent back surgery with development of epidural abscess and I and D and further surgery recently. On 04/28/2021, patient had I and D of lumbar spine with irrigation and debridement of spinal epidural abscess and bilateral laminectomy at L3-S1. The patient was maintained on antibiotics prior to admission. While patient was in the ER he developed bradycardia with heart rate in the 20s and was noted to have an elevated potassium at 7.8 mEq/L. The patient was dialyzed at around 2:30 am. We had about 3 L of ultrafiltration. Patient tolerated his treatment fairly well. His liver enzymes are noted to be significantly elevated this admission with an increase in bilirubin as well. The patient did have a few low blood pressures with systolic 91-96 mmHg earlier on last night. His blood cultures from his previous admission had grown Staph epi as well as wound cultures. Repeat blood cultures had all been negative and they are currently negative thus far. PAST MEDICAL HISTORY: Significant for end-stage renal disease, spinal epidural abscess status post recent surgery, CKD mineral bone disorder, anemia of chronic disease, type 2 diabetes, hypertension. SOCIAL HISTORY: Negative for smoking, drug abuse or alcohol abuse. PAST SURGICAL HISTORY: Recent back surgery with I and D on 04/28/2021 for epidural abscess. MEDICATIONS: Medications at home prior to admission included nifedipine, insulin, Trandate, Lasix, Mirapex, RenaPlex, ( ), Calcitriol, tramadol, [place], Flexeril, aspirin, vitamin C, Celexa. REVIEW OF SYSTEMS: As per HPI. Other systems negative. ALLERGIES: NKDA. PHYSICAL EXAMINATION: Patient is comfortable, awake, alert, oriented x3, not in any acute distress. Blood pressure 125/55, heart rate 71 per minute. Patient is afebrile. Examination of the heart S1, S2. Examination of lungs, bilateral breath sounds are heard. Abdomen is soft, nontender. Examination of lower extremities shows 1+ edema mostly in the ankles. [employer] exam grossly intact. LAB: Show hemoglobin 8.3 g/dL, sodium 136, potassium 3.5, serum creatinine 2.72 after dialysis. AST 5651, ALT 2107, bilirubin 6.3, amylase 30, lipase 27. ASSESSMENT: 1. End-stage renal disease on hemodialysis on a Friday, , Friday schedule. 2. Severe hyperkalemia, currently improved post dialysis. Etiology, rule out underlying gastrointestinal bleed. 3. Lactic acidosis from hypotension. 4. Elevated liver enzymes, possibly related to hypotension and hypoperfusion. GI has been consulted. 5. Recent Staph epidermidis bacteremia with wound cultures also growing Staph epi from spinal epidural abscess status post I and D and laminectomy on 04/28/2021. 6. Hypertension. 7. Fluid overload, currently improved. PLAN: Hemodialysis in a.m. Repeat potassium tomorrow. Continue antibiotics. Discontinue IV fluids. Thank you for this consultation. Will continue to follow the patient with you during his hospitalization. MMJOSEL / IJN: [id number] /
[2021-05-10 18:47] LABS: Glucose,Whole Blood 506 mg/dL (75-99)
[2021-05-10] MEDS: INSULIN REGULAR 100 UNIT in SODIUM CHLORIDE 0.9% 100 ML IV SCH (18:54)
[2021-05-10 19:26] LABS: Glucose,Whole Blood 500 mg/dL (75-99)
[2021-05-10 20:12] LABS: Glucose,Whole Blood 467 mg/dL (75-99)
[2021-05-10] MEDS ORDERED: PRAMIPEXOLE 0.25 MG TAB PO SCH ×2 (21:00)
[2021-05-10 21:02] LABS: Glucose,Whole Blood 413 mg/dL (75-99)
[2021-05-10 22:01] LABS: Glucose,Whole Blood 344 mg/dL (75-99)
--- NOTE | 2021-05-10 22:13 | XR ---
PROCEDURE: XR lumbar spine 2 or 3V - 3V DATE AND TIME: 05/10/2021 5:43 PM CLINICAL INDICATION: PHH; post op pain TECHNIQUE: Department protocol COMPARISON: None FINDINGS: The orthopedic hardware is intact. No periprosthesis lucencies. There is no fracture or malalignment. The soft tissues are unremarkable. IMPRESSION: No acute radiographic process.
[2021-05-10 23:00] LABS: Glucose,Whole Blood 246 mg/dL (75-99)
[2021-05-11 00:07] LABS: Glucose,Whole Blood 167 mg/dL (75-99)
[2021-05-11 00:59] LABS: Glucose,Whole Blood 103 mg/dL (75-99)
[2021-05-11 01:59] LABS: Glucose,Whole Blood 105 mg/dL (75-99)
[2021-05-11 03:00] LABS: Glucose,Whole Blood 113 mg/dL (75-99)
[2021-05-11 04:09] LABS: Glucose,Whole Blood 154 mg/dL (75-99)
[2021-05-11 04:38] LABS: Anisocytosis Slight; Basophils # (A) 0.1 k/uL (0-0.2); Basophils % (A) 0 %; Eosinophils # (A) 0.3 k/uL (0-0.7); Eosinophils % (A) 1 %; HCT 25.6 % (39.0-53.0); HGB 8.4 gm/dL (13.0-17.5); Lymphocytes # (A) 1.4 k/uL (1.0-4.8); Lymphocytes % (A) 6 %; MCH 31.8 pg (25.0-35.0); MCHC 32.7 g/dL (31.0-37.0); MCV 97.2 fL (80.0-100.0); Macrocytosis Slight; Mean Platelet Volume 9.7; Monocytes # (A) 0.8 k/uL (0-1.0); Monocytes % (A) 3 %; Neutrophils % (A) 88 %; Platelet Count 480 k/uL (150-450); RBC 2.64 m/uL (4.30-5.90)
[2021-05-11 04:53] LABS: Albumin 2.8 g/dL (3.5-5.0); Calcium 8.7 mg/dL (8.4-10.2); Potassium 4.3 mmol/L (3.5-5.1); Total Protein 5.3 g/dL (6.3-8.2)
[2021-05-11 04:58] LABS: Vancomycin,Random 10.3 ug/mL
[2021-05-11 05:18] LABS: Glucose,Whole Blood 118 mg/dL (75-99)
[2021-05-11 06:12] LABS: Glucose,Whole Blood 128 mg/dL (75-99)
[2021-05-11 07:09] LABS: Glucose,Whole Blood 138 mg/dL (75-99)
[2021-05-11] MEDS: HYDROmorphone 0.5 MG/0.5 ML SYRINGE IVP PRN ×2 (07:11→18:59)
--- NOTE | 2021-05-11 07:44 | P.CONS ---
History of Present Illness - Reason for Consult Consult date: 05/10/21 sepsis Requesting physician: Jose Clark - Chief Complaint mental status changes x few days - History of Present Illness History of present illness : Patient is 51-year male with a past medical history significant for end-stage renal disease on hemodialysis patient was recently admitted this facility patient did have evidence of streptococcal bacteremia secondary to lumbar discitis and paraspinal abscess the patient is status post drainage of this abscess on 04/28/2021 patient with subsequent discharge and plan was for 6 weeks of IV vancomycin through the dialysis with the patient was receiving patient has not been brought to the hospital yesterday for evaluation of mental status changes patient also have a lab work done in the outpatient setting noticed a hemoglobin of 6.7 and his LFTs were significantly elevated patient did have CT abdomen pelvis done at the outside facility received a transfusion of blood and the patient subsequently transferred to [facility] ER CT was repeated here last night with evidence of hepatomegaly small pleural effusion no dilated duct ultrasound the gallbladder small amount of free fluid thickened gallbladder wall suggestive of acute cholecystitis, patient is currently treated with Zosyn and vancomycin infectious disease was consulted for further management. Patient complaining of some nausea but no vomiting he did have some vague abdominal pain but no worsening no diarrhea patient back pain is currently controlled and denies any weakness in the lower extremity Review of system: Positive point has been mentioned in HPI rest of the systems are negative Past medical history : Reviewed, documented below Past surgical history : Reviewed, documented below Social history: Reviewed, documented below Medications: Reviewed, as documented below GENERAL DESCRIPTION: Middle-aged male lying in bed, no distress. No tachypnea or accessory muscle of respiration use. HEENT: Shows Pallor , no scleral icterus. Oral mucous membrane is dry. NECK: Trachea central, no thyromegaly. LUNGS: Unlabored breathing. Clear to auscultation anteriorly. No wheeze or crackle. HEART: S1, S2, regular rate and rhythm. ABDOMEN: Soft, mild tenderness , guarding or rigidity EXTREMITIES: No edema of feet. SKIN: No rash, no masses palpable. NEUROLOGICAL: The patient is awake, alert, oriented x3, mood and affect normal. LABS AND RADIOLOGY: Reviewed results see below Assessment :1-patient presented to hospital with mental status changes in this patient who did have a significant elevated liver enzymes patient did have abnormal ultrasound of the gallbladder suspicious for cholecystitis could be the likely etiology and will benefit from general surgery evaluation 2-patient with recent lumbar paraspinal abscess and discitis status post drainage and laminectomy patient back pain is currently controlled Plan: 1-recommend general surgery evaluation for acute cholecystitis 2-vancomycin pharmacy to dose to continue for his lumbosacral discitis and bacteremia 3-Zosyn 3.375 g every 12hr to continue for acute cholecystitis We will follow on clinical condition and cultures to further adjust medication if needed Thank you for this consultation we will follow the patient along with you Past Medical History Past Medical History: Diabetes Mellitus, Dialysis, Hypertension Additional Past Medical History / Comment(s): 5x weekly dialysis at home History of Any Multi-Drug Resistant Organisms: None Reported Past Surgical History: Back Surgery Additional Past Surgical History / Comment(s): Shoulder surgery x2 wisdom teeth removed Past Anesthesia/Blood Transfusion Reactions: No Reported Reaction Past Psychological History: No Psychological Hx Reported Smoking Status: Never smoker Past Alcohol Use History: None Reported Past Drug Use History: Marijuana Medications and Allergies Home Medications Medication Instructions Recorded Confirmed Type Ascorbic Acid [Vitamin C] 1,000 mg PO DAILY 04/25/21 05/09/21 History Aspirin EC [Ecotrin Low Dose] 81 mg PO DAILY 04/25/21 05/09/21 History Citalopram Hydrobromide [CeleXA] 20 mg PO DAILY 04/25/21 05/09/21 History Cyclobenzaprine [Flexeril] 10 mg PO TID PRN 04/25/21 05/09/21 History Furosemide [Lasix] 40 mg PO DAILY 04/25/21 05/09/21 History Insulin Aspart (For Pump) [NovoLOG 0.01 unit SQ-PUMP CONTINUOUS 04/25/21 05/09/21 History (For Pump)] Labetalol [Trandate] 200 mg PO TID 04/25/21 05/09/21 History NIFEdipine [NIFEdipine ER 30 mg PO HS 04/25/21 05/09/21 History (Osmotic)] NIFEdipine [NIFEdipine ER 60 mg PO BID 04/25/21 05/09/21 History (Osmotic)] Omeprazole 40 mg PO DAILY 04/25/21 05/09/21 History Pramipexole Di-HCl [Mirapex] 0.5 mg PO HS 04/25/21 05/09/21 History Renaplex-D 1 tab PO DAILY 04/25/21 05/09/21 History Velphoro Chew 500mg 1 tab PO QID 04/25/21 05/09/21 History calcitrioL [Rocaltrol] 0.25 mcg PO PRO 04/25/21 05/09/21 History traMADol HCL 50 mg PO Q8H PRN 04/25/21 05/09/21 History HYDROcodone/APAP 10-325MG [Newell 1 tab PO Q6HR PRN #28 tab 05/01/21 05/09/21 Rx 10-325] Potassium Chloride ER [K-Dur 20] 20 meq PO BID 2 Days #4 tab 05/01/21 05/09/21 Rx Sennosides/Docusate Sodium [Senna 1 cap PO DAILY PRN 05/09/21 05/09/21 History Plus 8.6-50 mg Softgel] Allergies Allergy/AdvReac Type Severity Reaction Status Date / Time No Known Allergies Allergy Verified 05/09/21 21:57 Physical Exam Vitals: Vital Signs Temp Pulse Pulse Resp BP BP Pulse Ox 05/10/21 07:32 96.9 F L 61 18 113/63 05/10/21 07:00 74 22 120/55 98 05/10/21 06:00 65 18 113/63 98 05/10/21 05:00 68 21 128/64 100 05/10/21 04:00 98.9 F 66 22 116/55 100 05/10/21 03:00 69 28 H 116/48 99 05/10/21 01:45 37 L 30 H 99/47 99 05/10/21 01:30 29 L 20 96/46 99 05/10/21 01:00 21 L 32 H 91/34 98 05/10/21 00:27 27 L 33 H 93/43 99 05/10/21 00:00 33 L 38 H 97/62 98 05/09/21 23:30 53 L 38 H 113/54 98 05/09/21 23:00 41 L 20 84 L 05/09/21 22:55 45 L 28 H 90 L 05/09/21 22:00 55 L 20 114/55 95 05/09/21 20:07 62 20 120/78 96 05/09/21 19:03 63 16 121/72 97 05/09/21 16:05 98.9 F 60 16 113/67 100 Intake and Output 05/09/21 05/10/21 05/10/21 22:59 06:59 14:59 Intake Total 39.541 Output Total 85 3010 Balance -45.459 -3010 Intake: Intake, IV Titration 39.541 Amount DOPamine DRIP 800 mg In 39.541 Water For Injection 1 250ml.bag @ 5 MCG/KG/MIN 7.442 mls/hr IV .Q24H [facility] Rx#:[id number] Output: Urine 85 10 Hemodialysis 3000 Other: Voiding Method Indwelling Catheter Weight 79.379 kg Results CBC & Chem 7: 05/11/21 04:09 05/11/21 04:09 Labs: Abnormal Lab Results - Last 24 Hours (Table) 05/09/21 05/09/21 05/09/21 Range/Units 17:24 17:24 17:24 WBC 16.9 H (3.8-10.6) k/uL RBC 2.49 L (4.30-5.90) m/uL Hgb 8.1 L (13.0-17.5) gm/dL Hct 24.3 L (39.0-53.0) % MCV (80.0-100.0) fL RDW 15.7 H (11.5-15.5) % Plt Count (150-450) k/uL Neutrophils # 15.2 H (1.3-7.7) k/uL Neutrophils # (Manual) (1.3-7.7) k/uL Lymphocytes # 0.6 L (1.0-4.8) k/uL Metamyelocytes # (Man) (0) k/uL Myelocytes # (Manual) (0) k/uL ABG pH (7.35-7.45) ABG pCO2 (35-45) mmHg ABG pO2 (83-108) mmHg ABG HCO3 (21-25) mmol/L ABG O2 Saturation (94-97) % ABG Lactic Acid (0.5-1.6) mmol/L Sodium 128 L (137-145) mmol/L Potassium 5.9 H (3.5-5.1) mmol/L Chloride 91 L (98-107) mmol/L Carbon Dioxide (22-30) mmol/L BUN 46 H (9-20) mg/dL Creatinine 5.59 H (0.66-1.25) mg/dL Glucose 141 H (74-99) mg/dL POC Glucose (mg/dL) (75-99) mg/dL Plasma Lactic Acid Caleb 2.6 H* (0.7-2.0) mmol/L Calcium (8.4-10.2) mg/dL Total Bilirubin 5.0 H (0.2-1.3) mg/dL AST 737 H (17-59) U/L ALT 288 H (4-49) U/L Alkaline Phosphatase 1446 H (38-126) U/L Ammonia 30 H (<30) umol/L Total Protein 5.8 L (6.3-8.2) g/dL Albumin 3.1 L (3.5-5.0) g/dL 05/09/21 05/09/21 05/09/21 Range/Units 21:25 21:51 23:22 WBC 20.0 H (3.8-10.6) k/uL RBC 3.09 L (4.30-5.90) m/uL Hgb 9.8 L D (13.0-17.5) gm/dL Hct 31.2 L (39.0-53.0) % MCV 101.0 H (80.0-100.0) fL RDW 16.0 H (11.5-15.5) % Plt Count (150-450) k/uL Neutrophils # (1.3-7.7) k/uL Neutrophils # (Manual) 17.00 H (1.3-7.7) k/uL Lymphocytes # (1.0-4.8) k/uL Metamyelocytes # (Man) 0.60 H (0) k/uL Myelocytes # (Manual) 0.40 H (0) k/uL ABG pH (7.35-7.45) ABG pCO2 (35-45) mmHg ABG pO2 (83-108) mmHg ABG HCO3 (21-25) mmol/L ABG O2 Saturation (94-97) % ABG Lactic Acid (0.5-1.6) mmol/L Sodium (137-145) mmol/L Potassium (3.5-5.1) mmol/L Chloride (98-107) mmol/L Carbon Dioxide (22-30) mmol/L BUN (9-20) mg/dL Creatinine (0.66-1.25) mg/dL Glucose (74-99) mg/dL POC Glucose (mg/dL) 172 H (75-99) mg/dL Plasma Lactic Acid Caleb 4.0 H* (0.7-2.0) mmol/L Calcium (8.4-10.2) mg/dL Total Bilirubin (0.2-1.3) mg/dL AST (17-59) U/L ALT (4-49) U/L Alkaline Phosphatase (38-126) U/L Ammonia (<30) umol/L Total Protein (6.3-8.2) g/dL Albumin (3.5-5.0) g/dL 05/09/21 05/09/21 05/10/21 Range/Units 23:22 23:38 01:34 WBC (3.8-10.6) k/uL RBC (4.30-5.90) m/uL Hgb (13.0-17.5) gm/dL Hct (39.0-53.0) % MCV (80.0-100.0) fL RDW (11.5-15.5) % Plt Count (150-450) k/uL Neutrophils # (1.3-7.7) k/uL Neutrophils # (Manual) (1.3-7.7) k/uL Lymphocytes # (1.0-4.8) k/uL Metamyelocytes # (Man) (0) k/uL Myelocytes # (Manual) (0) k/uL ABG pH 7.46 H (7.35-7.45) ABG pCO2 28 L (35-45) mmHg ABG pO2 >400 H (83-108) mmHg ABG HCO3 20 L (21-25) mmol/L ABG O2 Saturation 100.0 H (94-97) % ABG Lactic Acid (0.5-1.6) mmol/L Sodium 130 L 126 L (137-145) mmol/L Potassium 7.8 H* 7.5 H* (3.5-5.1) mmol/L Chloride 89 L 88 L (98-107) mmol/L Carbon Dioxide 17 L 14 L (22-30) mmol/L BUN 51 H 52 H (9-20) mg/dL Creatinine 6.38 H 6.53 H (0.66-1.25) mg/dL Glucose 119 H 210 H (74-99) mg/dL POC Glucose (mg/dL) (75-99) mg/dL Plasma Lactic Acid Caleb (0.7-2.0) mmol/L Calcium (8.4-10.2) mg/dL Total Bilirubin 7.1 H (0.2-1.3) mg/dL AST 2452 H (17-59) U/L ALT 906 H (4-49) U/L Alkaline Phosphatase 1578 H (38-126) U/L Ammonia (<30) umol/L Total Protein (6.3-8.2) g/dL Albumin (3.5-5.0) g/dL 05/10/21 05/10/21 05/10/21 Range/Units 01:34 02:08 02:34 WBC 22.2 H (3.8-10.6) k/uL RBC 2.59 L (4.30-5.90) m/uL Hgb 8.1 L D (13.0-17.5) gm/dL Hct 26.1 L (39.0-53.0) % MCV 100.8 H (80.0-100.0) fL RDW 16.4 H (11.5-15.5) % Plt Count 460 H (150-450) k/uL Neutrophils # 19.6 H (1.3-7.7) k/uL Neutrophils # (Manual) (1.3-7.7) k/uL Lymphocytes # (1.0-4.8) k/uL Metamyelocytes # (Man) (0) k/uL Myelocytes # (Manual) (0) k/uL ABG pH (7.35-7.45) ABG pCO2 (35-45) mmHg ABG pO2 (83-108) mmHg ABG HCO3 (21-25) mmol/L ABG O2 Saturation (94-97) % ABG Lactic Acid (0.5-1.6) mmol/L Sodium (137-145) mmol/L Potassium (3.5-5.1) mmol/L Chloride (98-107) mmol/L Carbon Dioxide (22-30) mmol/L BUN (9-20) mg/dL Creatinine (0.66-1.25) mg/dL Glucose (74-99) mg/dL POC Glucose (mg/dL) 190 H (75-99) mg/dL Plasma Lactic Acid Caleb 11.2 H* (0.7-2.0) mmol/L Calcium (8.4-10.2) mg/dL Total Bilirubin (0.2-1.3) mg/dL AST (17-59) U/L ALT (4-49) U/L Alkaline Phosphatase (38-126) U/L Ammonia (<30) umol/L Total Protein (6.3-8.2) g/dL Albumin (3.5-5.0) g/dL 05/10/21 05/10/21 05/10/21 Range/Units 02:34 02:34 05:26 WBC (3.8-10.6) k/uL RBC (4.30-5.90) m/uL Hgb (13.0-17.5) gm/dL Hct (39.0-53.0) % MCV (80.0-100.0) fL RDW (11.5-15.5) % Plt Count (150-450) k/uL Neutrophils # (1.3-7.7) k/uL Neutrophils # (Manual) (1.3-7.7) k/uL Lymphocytes # (1.0-4.8) k/uL Metamyelocytes # (Man) (0) k/uL Myelocytes # (Manual) (0) k/uL ABG pH (7.35-7.45) ABG pCO2 (35-45) mmHg ABG pO2 (83-108) mmHg ABG HCO3 (21-25) mmol/L ABG O2 Saturation (94-97) % ABG Lactic Acid 8.3 H* (0.5-1.6) mmol/L Sodium 129 L 136 L (137-145) mmol/L Potassium (3.5-5.1) mmol/L Chloride 89 L 94 L (98-107) mmol/L Carbon Dioxide 19 L (22-30) mmol/L BUN 48 H 23 H (9-20) mg/dL Creatinine 5.81 H 2.72 H (0.66-1.25) mg/dL Glucose 162 H 149 H (74-99) mg/dL POC Glucose (mg/dL) (75-99) mg/dL Plasma Lactic Acid Caleb (0.7-2.0) mmol/L Calcium 7.4 L (8.4-10.2) mg/dL Total Bilirubin 6.7 H 6.3 H (0.2-1.3) mg/dL AST 2851 H 5651 H (17-59) U/L ALT 1042 H 2107 H (4-49) U/L Alkaline Phosphatase 1484 H 1550 H (38-126) U/L Ammonia (<30) umol/L Total Protein 5.9 L 6.2 L (6.3-8.2) g/dL Albumin 3.2 L 3.2 L (3.5-5.0) g/dL 05/10/21 05/10/21 05/10/21 Range/Units 05:26 05:26 06:06 WBC 21.0 H (3.8-10.6) k/uL RBC 2.59 L (4.30-5.90) m/uL Hgb 8.3 L (13.0-17.5) gm/dL Hct 25.9 L (39.0-53.0) % MCV (80.0-100.0) fL RDW 16.4 H (11.5-15.5) % Plt Count (150-450) k/uL Neutrophils # 19.0 H (1.3-7.7) k/uL Neutrophils # (Manual) (1.3-7.7) k/uL Lymphocytes # 0.9 L (1.0-4.8) k/uL Metamyelocytes # (Man) (0) k/uL Myelocytes # (Manual) (0) k/uL ABG pH (7.35-7.45) ABG pCO2 (35-45) mmHg ABG pO2 (83-108) mmHg ABG HCO3 (21-25) mmol/L ABG O2 Saturation (94-97) % ABG Lactic Acid 1.7 H (0.5-1.6) mmol/L Sodium (137-145) mmol/L Potassium (3.5-5.1) mmol/L Chloride (98-107) mmol/L Carbon Dioxide (22-30) mmol/L BUN (9-20) mg/dL Creatinine (0.66-1.25) mg/dL Glucose (74-99) mg/dL POC Glucose (mg/dL) (75-99) mg/dL Plasma Lactic Acid Caleb 2.1 H* (0.7-2.0) mmol/L Calcium (8.4-10.2) mg/dL Total Bilirubin (0.2-1.3) mg/dL AST (17-59) U/L ALT (4-49) U/L Alkaline Phosphatase (38-126) U/L Ammonia (<30) umol/L Total Protein (6.3-8.2) g/dL Albumin (3.5-5.0) g/dL 05/10/21 Range/Units 07:11 WBC (3.8-10.6) k/uL RBC (4.30-5.90) m/uL Hgb (13.0-17.5) gm/dL Hct (39.0-53.0) % MCV (80.0-100.0) fL RDW (11.5-15.5) % Plt Count (150-450) k/uL Neutrophils # (1.3-7.7) k/uL Neutrophils # (Manual) (1.3-7.7) k/uL Lymphocytes # (1.0-4.8) k/uL Metamyelocytes # (Man) (0) k/uL Myelocytes # (Manual) (0) k/uL ABG pH (7.35-7.45) ABG pCO2 (35-45) mmHg ABG pO2 (83-108) mmHg ABG HCO3 (21-25) mmol/L ABG O2 Saturation (94-97) % ABG Lactic Acid (0.5-1.6) mmol/L Sodium (137-145) mmol/L Potassium (3.5-5.1) mmol/L Chloride (98-107) mmol/L Carbon Dioxide (22-30) mmol/L BUN (9-20) mg/dL Creatinine (0.66-1.25) mg/dL Glucose (74-99) mg/dL POC Glucose (mg/dL) 207 H (75-99) mg/dL Plasma Lactic Acid Caleb (0.7-2.0) mmol/L Calcium (8.4-10.2) mg/dL Total Bilirubin (0.2-1.3) mg/dL AST (17-59) U/L ALT (4-49) U/L Alkaline Phosphatase (38-126) U/L Ammonia (<30) umol/L Total Protein (6.3-8.2) g/dL Albumin (3.5-5.0) g/dL
--- NOTE | 2021-05-11 08:22 | P.PN ---
Subjective Progress Note Date: 05/11/21 Pt s/e this AM. Clinically looking much better. He is up in his chair eating breakfast. States minimal pain today. We discussed at length the nature of his back pain as well as timing and symptoms. He states that he actually feels better today with regards to his back than he had been feeling at home, but that his legs feel somewhat weaker right now and he thinks just due to being sick and laying in bed. He states no new numbness/tingling. No perineal symptoms. He does c/o some pain around his belt line that feels as it did before his second surgery, but it is not severe and seems to come and go. Denies any bowel or bladder issues. No perianal sensation loss, no genital numbness. I spoke over the phone with his as well and she corroborated his story. He denies any fevers or chills overnight. Nursing at bedside today stated the same and that he had a pretty good night overall. Denies any TEE, N, V, vision changes, sob/cp at this time. I have reviewed the notes of consulting services and appreciate their input. Objective - Vital Signs Vital signs: Vital Signs Temp 98.0 F 05/11/21 04:00 Pulse 73 05/11/21 07:00 Resp 12 05/11/21 07:00 BP 150/90 05/11/21 07:00 Pulse Ox 97 05/11/21 07:00 Intake & Output 05/10/21 05/11/21 05/11/21 18:59 06:59 18:59 Intake Total 750 740.230 10 Output Total 3010 45 0 Balance -2260 695.230 10 Weight 81 kg Intake: IV 350 110 10 Sodium Chloride 0.9% 1, 350 110 10 000 ml @ 50 mls/hr IV . Q20H [facility] Rx#:[id number] Intake, IV Titration 130.230 Amount DOPamine DRIP 800 mg In 55.381 Water For Injection 1 250ml.bag @ 5 MCG/KG/MIN 7.442 mls/hr IV .Q24H [facility] Rx#:[id number] Insulin Regular 100 unit 74.849 In Sodium Chloride 0.9% 100 ml @ Per Protocol IV .Q0M [facility] Rx#:[id number] Oral 400 500 Output: Urine 10 45 0 Hemodialysis 3000 Other: Voiding Method Indwelling Catheter Indwelling Catheter - Exam HIs exam remains stable, He was able to stand at chair side today with walker (which he has been using at home). We performed one legged stances with aid of walker as well as in place knee to hip march and toe walks with good strength. Balance was somewhat an issue, but improving. PHYSICAL EXAMINATION: Vitals: Stable at this time General: Awake, alert, appropriate for age, in no acute distress. HEENT: No unusual neck masses around region of lateral neck triangle, thyroid, supraclavicular groove. Extremities: Skin warm and dry without no acute lesions, coloration, temperature, skin intact, no tenderness or erythema. Integument: Hairy patches: Absent Dorsal skin dimples: Absent Cafe au lait spots: Absent Surgical incisions: Posterior midline lumbar incision well-healed E Jj ecchymosis or edema Palpation: Please see Pain drawing on Intake sheet for further detail. (Tenderness = T, Nontender = NT, Swelling = S, Ecchymosis = E) Findings on Midline and paraspinal palpation and percussion: Cervical: NT Thoracic: NT Lumbar: mild paraspinal ttp Sacral: NT Special findings: Mild TTP around incision. Incision is healing well. No EEE. No purulence. Lower portion of incision when we pushed extremely hard had some minor serous out put but no purulence and no gross drainage despite efforts to force drainage. POSTURAL and MUSCULO-SKELETAL EVALUATION: Neck ROM: [Unrestricted in six directions] Lumbar ROM: [Unrestricted in six directions] Shoulder ROM: Symmetric in abduction, ER/IR Hip ROM: Symmetric in abduction, adduction, ER/IR Knee ROM: Symmetric and intact in Flexion / extension Hands: Normal appearing structure L and R Feet: Normal appearing structure L and R VASCULAR STATUS : Wrist Pulses: [2/4 bilateral radial and ulnar] Pedal Pulses: [2/4 bilateral DP and PT] Color: [Normal] Edema: [None] NEUROLOGIC EXAMINATION: Mental Status: Awake and alert, fully oriented, with normal attention, concentration and memory, and fluent, appropriate speech. Cranial Nerves: I: Olfactory not tested. II: Visual acuity normal, no visual field deficit noted with confrontation. III,IV: Normal pupillary reflexes & intact extraocular movements without nystagmus. V,: Intact symmetrical facial sensation. VII: Intact symmetrical facial motor movement VIII: Hearing intact. IX,X: Intact gag, swallow, & normal voice. XI: Sternocleidomastoid, trapezius function intact. XII: Tongue midline with normal movements. Special Tests: L'hermitte's Sign: Absent Spurling'Sign: Absent Bilateral Cubital percussion test: Absent Bilateral Ree-Tinel sign - Carpal region: Absent Bilateral Straight Leg Raising: Absent Bilateral Motor Exam (0-5/5, N/T) STRENGTH UPPER EXTREMITY Shoulder Abd (Not part of MILLY Motor score): RIGHT [5] LEFT [5] Elbow Flexors: RIGHT [5] LEFT [5] Elbow Extensor: RIGHT [5] LEFT [5] Wrrist Dorsiflexors: RIGHT [5] LEFT [5] Finger Abductor: RIGHT [5] LEFT [5] Electronics Hardware Design Engineer: RIGHT [5] LEFT [5] LOWER EXTREMITY Hip Flexor (Not part of MLILY Motor Score): RIGHT 4+ LEFT 4+ Knee Flexor: RIGHT 4+ LEFT 4+ Knee Extensor: RIGHT 4+. LEFT 4+ Ankle Dorsiflexion: RIGHT 4+ LEFT 4+ Ankle Plantarflexion: RIGHT 4+ LEFT 4+ EHL: RIGHT [5] LEFT 4+ FHL: RIGHT [5] LEFT [5] No focal deficits today. He has good movement and strength and has improved from previous exams. REFLEXES Biecp: RIGHT [2] LEFT [2] Tricep: RIGHT [2] LEFT [2] Brachioradialis: RIGHT [2] LEFT [2] Patellar: RIGHT [2] LEFT [2] Achilles: RIGHT [2] LEFT [2] Pathological Reflexes Correa's: RIGHT [Absent] LEFT [Absent] Babinski: RIGHT [Absent] LEFT [Absent] Clonus: RIGHT [None] LEFT [None] SENSORY Joint Position: [Intact bilaterally] Vibration [Intact bilaterally] Pain and LT sense [Intact C5-T1 and L2-S1] Dermatomal deficit [None] Gait and Functional Evaluation: Ambulatory aids: None Hand and finger dexterity intact bilaterally[]. Disdiadochokinesis examination negative[] bilaterally. - Labs CBC & Chem 7: 05/11/21 04:09 05/11/21 04:09 Labs: Abnormal Lab Results - Last 24 Hours (Table) 05/10/21 05/10/21 05/10/21 Range/Units 10:24 11:54 17:50 WBC (3.8-10.6) k/uL RBC (4.30-5.90) m/uL Hgb (13.0-17.5) gm/dL Hct (39.0-53.0) % RDW (11.5-15.5) % Plt Count (150-450) k/uL Neutrophils # (1.3-7.7) k/uL Sodium (137-145) mmol/L Chloride (98-107) mmol/L BUN (9-20) mg/dL Creatinine (0.66-1.25) mg/dL Glucose (74-99) mg/dL POC Glucose (mg/dL) 312 H 473 H (75-99) mg/dL Plasma Lactic Acid Caleb 2.6 H* (0.7-2.0) mmol/L Total Bilirubin (0.2-1.3) mg/dL AST (17-59) U/L ALT (4-49) U/L Alkaline Phosphatase (38-126) U/L Total Protein (6.3-8.2) g/dL Albumin (3.5-5.0) g/dL 05/10/21 05/10/21 05/10/21 Range/Units 18:45 19:13 20:10 WBC (3.8-10.6) k/uL RBC (4.30-5.90) m/uL Hgb (13.0-17.5) gm/dL Hct (39.0-53.0) % RDW (11.5-15.5) % Plt Count (150-450) k/uL Neutrophils # (1.3-7.7) k/uL Sodium (137-145) mmol/L Chloride (98-107) mmol/L BUN (9-20) mg/dL Creatinine (0.66-1.25) mg/dL Glucose (74-99) mg/dL POC Glucose (mg/dL) 506 H 500 H 467 H (75-99) mg/dL Plasma Lactic Acid Caleb (0.7-2.0) mmol/L Total Bilirubin (0.2-1.3) mg/dL AST (17-59) U/L ALT (4-49) U/L Alkaline Phosphatase (38-126) U/L Total Protein (6.3-8.2) g/dL Albumin (3.5-5.0) g/dL 05/10/21 05/10/21 05/10/21 Range/Units 21:00 21:59 22:59 WBC (3.8-10.6) k/uL RBC (4.30-5.90) m/uL Hgb (13.0-17.5) gm/dL Hct (39.0-53.0) % RDW (11.5-15.5) % Plt Count (150-450) k/uL Neutrophils # (1.3-7.7) k/uL Sodium (137-145) mmol/L Chloride (98-107) mmol/L BUN (9-20) mg/dL Creatinine (0.66-1.25) mg/dL Glucose (74-99) mg/dL POC Glucose (mg/dL) 413 H 344 H 246 H (75-99) mg/dL Plasma Lactic Acid Caleb (0.7-2.0) mmol/L Total Bilirubin (0.2-1.3) mg/dL AST (17-59) U/L ALT (4-49) U/L Alkaline Phosphatase (38-126) U/L Total Protein (6.3-8.2) g/dL Albumin (3.5-5.0) g/dL 05/11/21 05/11/21 05/11/21 Range/Units 00:05 00:58 01:58 WBC (3.8-10.6) k/uL RBC (4.30-5.90) m/uL Hgb (13.0-17.5) gm/dL Hct (39.0-53.0) % RDW (11.5-15.5) % Plt Count (150-450) k/uL Neutrophils # (1.3-7.7) k/uL Sodium (137-145) mmol/L Chloride (98-107) mmol/L BUN (9-20) mg/dL Creatinine (0.66-1.25) mg/dL Glucose (74-99) mg/dL POC Glucose (mg/dL) 167 H 103 H 105 H (75-99) mg/dL Plasma Lactic Acid Caleb (0.7-2.0) mmol/L Total Bilirubin (0.2-1.3) mg/dL AST (17-59) U/L ALT (4-49) U/L Alkaline Phosphatase (38-126) U/L Total Protein (6.3-8.2) g/dL Albumin (3.5-5.0) g/dL 05/11/21 05/11/21 05/11/21 Range/Units 02:59 04:07 04:09 WBC (3.8-10.6) k/uL RBC (4.30-5.90) m/uL Hgb (13.0-17.5) gm/dL Hct (39.0-53.0) % RDW (11.5-15.5) % Plt Count (150-450) k/uL Neutrophils # (1.3-7.7) k/uL Sodium 131 L (137-145) mmol/L Chloride 91 L (98-107) mmol/L BUN 58 H (9-20) mg/dL Creatinine 5.55 H (0.66-1.25) mg/dL Glucose 131 H (74-99) mg/dL POC Glucose (mg/dL) 113 H 154 H (75-99) mg/dL Plasma Lactic Acid Caleb (0.7-2.0) mmol/L Total Bilirubin 4.0 H (0.2-1.3) mg/dL AST 3676 H (17-59) U/L ALT 2203 H (4-49) U/L Alkaline Phosphatase 1305 H (38-126) U/L Total Protein 5.3 L (6.3-8.2) g/dL Albumin 2.8 L (3.5-5.0) g/dL 05/11/21 05/11/21 05/11/21 Range/Units 04:09 05:16 06:11 WBC 24.0 H (3.8-10.6) k/uL RBC 2.64 L (4.30-5.90) m/uL Hgb 8.4 L (13.0-17.5) gm/dL Hct 25.6 L (39.0-53.0) % RDW 16.0 H (11.5-15.5) % Plt Count 480 H (150-450) k/uL Neutrophils # 21.0 H (1.3-7.7) k/uL Sodium (137-145) mmol/L Chloride (98-107) mmol/L BUN (9-20) mg/dL Creatinine (0.66-1.25) mg/dL Glucose (74-99) mg/dL POC Glucose (mg/dL) 118 H 128 H (75-99) mg/dL Plasma Lactic Acid Caleb (0.7-2.0) mmol/L Total Bilirubin (0.2-1.3) mg/dL AST (17-59) U/L ALT (4-49) U/L Alkaline Phosphatase (38-126) U/L Total Protein (6.3-8.2) g/dL Albumin (3.5-5.0) g/dL 05/11/21 Range/Units 07:07 WBC (3.8-10.6) k/uL RBC (4.30-5.90) m/uL Hgb (13.0-17.5) gm/dL Hct (39.0-53.0) % RDW (11.5-15.5) % Plt Count (150-450) k/uL Neutrophils # (1.3-7.7) k/uL Sodium (137-145) mmol/L Chloride (98-107) mmol/L BUN (9-20) mg/dL Creatinine (0.66-1.25) mg/dL Glucose (74-99) mg/dL POC Glucose (mg/dL) 138 H (75-99) mg/dL Plasma Lactic Acid Caleb (0.7-2.0) mmol/L Total Bilirubin (0.2-1.3) mg/dL AST (17-59) U/L ALT (4-49) U/L Alkaline Phosphatase (38-126) U/L Total Protein (6.3-8.2) g/dL Albumin (3.5-5.0) g/dL Microbiology - Last 24 Hours (Table) 05/10/21 13:05 Blood Culture Gram Stain - Preliminary Blood Blood Culture - Preliminary Staphylococcus species 05/10/21 03:00 Urine Culture - Preliminary Urine,Clean Catch 05/09/21 19:05 Blood Culture - Final Blood Assessment and Plan Assessment: 51 yo male s/p 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 -Activity: Ambulate QID, OOB all meals, up and about, limit lifting bending twisting to less than 5 lbs. Use walker or cane if needed for stability. -Daily PT/OT, increase ambulation strength and balance. -Pain control: [Adequate at this time] -Meds: [reviewed] -GI ppx: senna, Miralax -DC sesay when up and about, bedside commode if needed -DVT PPX: Mechanical at this time -Hygiene: Daily showers, maintain incision free of bodily fluids or fecal matter -xrays and CT of abd and pelvis reviewed. all hardware in position, no interval changes. No fracture, screw migration or loosening noted. -MRI w/wo contrast of L spine ordered -Encourage IS 10x/hr -Dispo: [Pending] I spoke at length with the patient and his about his current condition. Clinically, he is looking much better than he has however we still have the issue of sepsis, LFTs, elevated WBC and infection markers to look at. While some of his scans showed possible acute Cholecystitis, he is not having any abdominal pain and his Neville's is neg. This could be a source, but more likely is that it is continued issues with his back. He could also be reacting poorly to Vancomycin that he has been on incombination with the tobramycin from the abx spacer as well as the vanco and tobra from the antibiotic beads placed deep in wound. I discussed with pt that ordering MRI 3 weeks out is going to show some sort of changes and possible fluid collections that are essentially undiscernible unless we incise and drain the area, but that if we do not scan we may be missing the cause of some of his problems. These are extremely confounded by his ESRD and chronic medical problems at this time. Clinically, the patient is appearing much better today. I discussed with him and his over the phone that we will continue to monitor him after the MRI as well and we will discuss further their wishes as well as our recommendations. We will await consultation by infectious disease and continue to collaborate with treatment team for best treatment options for the patient. He and his were very grateful for this and are on board with treatment plan. We will continue to monitor.
[2021-05-11 08:33] LABS: Glucose,Whole Blood 233 mg/dL (75-99)
--- NOTE | 2021-05-11 08:47 | XR ---
EXAMINATION TYPE: XR chest 1V portable DATE OF EXAM: 05/11/2021 COMPARISON: 05/10/2021 HISTORY: Shortness of breath TECHNIQUE: Single frontal view of the chest is obtained. FINDINGS: There is no focal air space opacity, pleural effusion, or pneumothorax seen. The cardiac silhouette size is within normal limits. The osseous structures are intact. Coarsened interstitium. Vascular stent overlying the left axilla and there is question cystic change involving the left ryan oid. IMPRESSION: Correlate for bronchitis or interstitial pneumonitis
[2021-05-11] MEDS ORDERED: VANCOMYCIN 1,500 MG in SODIUM CHLORIDE 0.9% 250 ML IVPB ONE (09:00)
[2021-05-11] MEDS: PRAMIPEXOLE 0.5 MG TAB PO SCH ×2 (09:37→21:43)
[2021-05-11] MEDS: HEPARIN SODIUM,PORCINE/PF 5,000 UNIT/0.5 ML SYRINGE SQ SCH ×2 (09:37→21:42)
[2021-05-11] MEDS: PANTOPRAZOLE 40 MG/10 ML VIAL IVP SCH (09:37)
[2021-05-11] MEDS: PIPERACILLIN-TAZOBACTAM 3.375 GM in SODIUM CHLORIDE 0.9% 100 ML IVPB SCH (09:38)
[2021-05-11 09:57] LABS: Alpha Fetoprotein, Tumor Mkr <2.5 ng/mL (0.0-7.9)
[2021-05-11] MEDS: INSULIN REGULAR 100 UNIT in SODIUM CHLORIDE 0.9% 100 ML IV SCH (10:06)
[2021-05-11 10:07] LABS: Glucose,Whole Blood 231 mg/dL (75-99)
[2021-05-11 11:06] LABS: % Iron Saturation 110.32 (15.00-50.00); Iron 171 ug/dL (65-175); Total Iron Binding Capacity 155 ug/dL (228-460)
[2021-05-11 11:15] LABS: Glucose,Whole Blood 157 mg/dL (75-99)
--- NOTE | 2021-05-11 11:17 | P.PN ---
Subjective Patient is resting comfortably in bed in the ICU Being dialyzed Heart rates have been in the normal range after normalization of potassium He presented with severe hyperkalemia and bradycardia on account of rate Denies any chest discomfort or undue shortness of breath On examination, blood pressure 150 3066. His mercury pulse rate in the 70s Breath sounds are reduced bilaterally but there are no rhonchi no crackles Heart sounds S1 and S2 are normal 2-D echo shows preserved LV systolic function EF greater than 55% Severely dilated left atrium normal RVSP Impression Chronic kidney disease Bradycardia secondary to severe hyperkalemia Elevated blood pressure readings Suggest Start amlodipine 2.5 mg by mouth daily Objective - Vital Signs Vital signs: Vital Signs Temp 97.7 F 05/11/21 08:00 Pulse 76 05/11/21 11:00 Resp 13 05/11/21 11:00 BP 153/66 05/11/21 11:00 Pulse Ox 91 L 05/11/21 11:00 Intake & Output 05/10/21 05/11/21 05/11/21 18:59 06:59 18:59 Intake Total 750 740.230 116.151 Output Total 3010 45 40 Balance -2260 695.230 76.151 Weight 81 kg Intake: IV 350 110 90 0.9 20 Sodium Chloride 0.9% 1, 350 110 70 000 ml @ 50 mls/hr IV . Q20H [facility] Rx#:[id number] Intake, IV Titration 130.230 26.151 Amount DOPamine DRIP 800 mg In 55.381 Water For Injection 1 250ml.bag @ 5 MCG/KG/MIN 7.442 mls/hr IV .Q24H [facility] Rx#:[id number] Insulin Regular 100 unit 74.849 26.151 In Sodium Chloride 0.9% 100 ml @ Per Protocol IV .Q0M [facility] Rx#:[id number] Oral 400 500 Output: Urine 10 45 40 Hemodialysis 3000 Other: Voiding Method Indwelling Catheter Indwelling Catheter - Labs CBC & Chem 7: 05/11/21 04:09 05/11/21 04:09 Labs: Abnormal Lab Results - Last 24 Hours (Table) 05/10/21 05/10/21 05/10/21 Range/Units 10:24 10:24 11:54 WBC (3.8-10.6) k/uL RBC (4.30-5.90) m/uL Hgb (13.0-17.5) gm/dL Hct (39.0-53.0) % RDW (11.5-15.5) % Plt Count (150-450) k/uL Neutrophils # (1.3-7.7) k/uL Sodium (137-145) mmol/L Chloride (98-107) mmol/L BUN (9-20) mg/dL Creatinine (0.66-1.25) mg/dL Glucose (74-99) mg/dL POC Glucose (mg/dL) 312 H (75-99) mg/dL Plasma Lactic Acid Caleb 2.6 H* (0.7-2.0) mmol/L TIBC 155 L (228-460) ug/dL % Saturation 110.32 H (15.00-50.00) Total Bilirubin (0.2-1.3) mg/dL AST (17-59) U/L ALT (4-49) U/L Alkaline Phosphatase (38-126) U/L Total Protein (6.3-8.2) g/dL Albumin (3.5-5.0) g/dL 05/10/21 05/10/21 05/10/21 Range/Units 17:50 18:45 19:13 WBC (3.8-10.6) k/uL RBC (4.30-5.90) m/uL Hgb (13.0-17.5) gm/dL Hct (39.0-53.0) % RDW (11.5-15.5) % Plt Count (150-450) k/uL Neutrophils # (1.3-7.7) k/uL Sodium (137-145) mmol/L Chloride (98-107) mmol/L BUN (9-20) mg/dL Creatinine (0.66-1.25) mg/dL Glucose (74-99) mg/dL POC Glucose (mg/dL) 473 H 506 H 500 H (75-99) mg/dL Plasma Lactic Acid Caleb (0.7-2.0) mmol/L TIBC (228-460) ug/dL % Saturation (15.00-50.00) Total Bilirubin (0.2-1.3) mg/dL AST (17-59) U/L ALT (4-49) U/L Alkaline Phosphatase (38-126) U/L Total Protein (6.3-8.2) g/dL Albumin (3.5-5.0) g/dL 05/10/21 05/10/21 05/10/21 Range/Units 20:10 21:00 21:59 WBC (3.8-10.6) k/uL RBC (4.30-5.90) m/uL Hgb (13.0-17.5) gm/dL Hct (39.0-53.0) % RDW (11.5-15.5) % Plt Count (150-450) k/uL Neutrophils # (1.3-7.7) k/uL Sodium (137-145) mmol/L Chloride (98-107) mmol/L BUN (9-20) mg/dL Creatinine (0.66-1.25) mg/dL Glucose (74-99) mg/dL POC Glucose (mg/dL) 467 H 413 H 344 H (75-99) mg/dL Plasma Lactic Acid Caleb (0.7-2.0) mmol/L TIBC (228-460) ug/dL % Saturation (15.00-50.00) Total Bilirubin (0.2-1.3) mg/dL AST (17-59) U/L ALT (4-49) U/L Alkaline Phosphatase (38-126) U/L Total Protein (6.3-8.2) g/dL Albumin (3.5-5.0) g/dL 05/10/21 05/11/21 05/11/21 Range/Units 22:59 00:05 00:58 WBC (3.8-10.6) k/uL RBC (4.30-5.90) m/uL Hgb (13.0-17.5) gm/dL Hct (39.0-53.0) % RDW (11.5-15.5) % Plt Count (150-450) k/uL Neutrophils # (1.3-7.7) k/uL Sodium (137-145) mmol/L Chloride (98-107) mmol/L BUN (9-20) mg/dL Creatinine (0.66-1.25) mg/dL Glucose (74-99) mg/dL POC Glucose (mg/dL) 246 H 167 H 103 H (75-99) mg/dL Plasma Lactic Acid Caleb (0.7-2.0) mmol/L TIBC (228-460) ug/dL % Saturation (15.00-50.00) Total Bilirubin (0.2-1.3) mg/dL AST (17-59) U/L ALT (4-49) U/L Alkaline Phosphatase (38-126) U/L Total Protein (6.3-8.2) g/dL Albumin (3.5-5.0) g/dL 05/11/21 05/11/21 05/11/21 Range/Units 01:58 02:59 04:07 WBC (3.8-10.6) k/uL RBC (4.30-5.90) m/uL Hgb (13.0-17.5) gm/dL Hct (39.0-53.0) % RDW (11.5-15.5) % Plt Count (150-450) k/uL Neutrophils # (1.3-7.7) k/uL Sodium (137-145) mmol/L Chloride (98-107) mmol/L BUN (9-20) mg/dL Creatinine (0.66-1.25) mg/dL Glucose (74-99) mg/dL POC Glucose (mg/dL) 105 H 113 H 154 H (75-99) mg/dL Plasma Lactic Acid Caleb (0.7-2.0) mmol/L TIBC (228-460) ug/dL % Saturation (15.00-50.00) Total Bilirubin (0.2-1.3) mg/dL AST (17-59) U/L ALT (4-49) U/L Alkaline Phosphatase (38-126) U/L Total Protein (6.3-8.2) g/dL Albumin (3.5-5.0) g/dL 05/11/21 05/11/21 05/11/21 Range/Units 04:09 04:09 05:16 WBC 24.0 H (3.8-10.6) k/uL RBC 2.64 L (4.30-5.90) m/uL Hgb 8.4 L (13.0-17.5) gm/dL Hct 25.6 L (39.0-53.0) % RDW 16.0 H (11.5-15.5) % Plt Count 480 H (150-450) k/uL Neutrophils # 21.0 H (1.3-7.7) k/uL Sodium 131 L (137-145) mmol/L Chloride 91 L (98-107) mmol/L BUN 58 H (9-20) mg/dL Creatinine 5.55 H (0.66-1.25) mg/dL Glucose 131 H (74-99) mg/dL POC Glucose (mg/dL) 118 H (75-99) mg/dL Plasma Lactic Acid Caleb (0.7-2.0) mmol/L TIBC (228-460) ug/dL % Saturation (15.00-50.00) Total Bilirubin 4.0 H (0.2-1.3) mg/dL AST 3676 H (17-59) U/L ALT 2203 H (4-49) U/L Alkaline Phosphatase 1305 H (38-126) U/L Total Protein 5.3 L (6.3-8.2) g/dL Albumin 2.8 L (3.5-5.0) g/dL 05/11/21 05/11/21 05/11/21 Range/Units 06:11 07:07 08:32 WBC (3.8-10.6) k/uL RBC (4.30-5.90) m/uL Hgb (13.0-17.5) gm/dL Hct (39.0-53.0) % RDW (11.5-15.5) % Plt Count (150-450) k/uL Neutrophils # (1.3-7.7) k/uL Sodium (137-145) mmol/L Chloride (98-107) mmol/L BUN (9-20) mg/dL Creatinine (0.66-1.25) mg/dL Glucose (74-99) mg/dL POC Glucose (mg/dL) 128 H 138 H 233 H (75-99) mg/dL Plasma Lactic Acid Caleb (0.7-2.0) mmol/L TIBC (228-460) ug/dL % Saturation (15.00-50.00) Total Bilirubin (0.2-1.3) mg/dL AST (17-59) U/L ALT (4-49) U/L Alkaline Phosphatase (38-126) U/L Total Protein (6.3-8.2) g/dL Albumin (3.5-5.0) g/dL 05/11/21 05/11/21 Range/Units 10:05 11:14 WBC (3.8-10.6) k/uL RBC (4.30-5.90) m/uL Hgb (13.0-17.5) gm/dL Hct (39.0-53.0) % RDW (11.5-15.5) % Plt Count (150-450) k/uL Neutrophils # (1.3-7.7) k/uL Sodium (137-145) mmol/L Chloride (98-107) mmol/L BUN (9-20) mg/dL Creatinine (0.66-1.25) mg/dL Glucose (74-99) mg/dL POC Glucose (mg/dL) 231 H 157 H (75-99) mg/dL Plasma Lactic Acid Caleb (0.7-2.0) mmol/L TIBC (228-460) ug/dL % Saturation (15.00-50.00) Total Bilirubin (0.2-1.3) mg/dL AST (17-59) U/L ALT (4-49) U/L Alkaline Phosphatase (38-126) U/L Total Protein (6.3-8.2) g/dL Albumin (3.5-5.0) g/dL Microbiology - Last 24 Hours (Table) 05/10/21 13:05 Blood Culture Gram Stain - Preliminary Blood Blood Culture - Preliminary Staphylococcus species 05/10/21 03:00 Urine Culture - Preliminary Urine,Clean Catch 05/09/21 19:05 Blood Culture - Final Blood
--- NOTE | 2021-05-11 11:29 | P.PN ---
Subjective Progress Note Date: 05/11/21 Principal diagnosis: Hepatitis This is a 51-year-old white male with a past medical history of type 1 diabetes mellitus, end-stage renal disease on hemodialysis, hypertension, and recent back surgery. The patient had back surgery a couple weeks ago in [place] he was then recently admitted to this hospital and was found to have an epidural abscess with staph infection treated with a surgical evacuation by Dr. Lozano. He was started on IV vancomycin and discharged home with IV vancomycin. Patient is unsure if he was on any other antibiotics. He denies any other new medications. He was noted to have elevation in his LFTs. He denies any previous history of liver disease, but does state that he recalls that one time a friend telling him he did look jaundiced. Patient admits to a history of alcohol use where he drank daily for at least 5 years, 32-40 ounces of beer a day and sometimes more. Acute Hepatitis panel negative. Acetaminophen level was less than 10. He had an ultrasound of the abdomen that shows small amount of free fluid. Thickened gallbladder wall suggestive of acute cholecystitis. Gallbladder wall measures 4 mm. No dilated ducts. There are probably some small gallstones. He also went to CT of the abdomen that showed hepatomegaly. Small right pleural effusion with pleural reaction at the lung bases. This is increased compared to exam earlier today. No dilated ducts. Mild subcutaneous edema around the abdomen. He has been afebrile, continues to have abdominal pain and back pain. He is currently on IV Zosyn and IV vancomycin. Infectious disease has recommended a general surgery consult for possible cholecystitis. Today the patient states abdominal pain has improved. He denies any nausea or vomiting. States like he may have a bowel movement today. He denies any recent black stool, blood in his stool, coffee-ground or hematemesis. States he is having increased back pain. He is tolerating his diet. LFTs are gradually trending down. Today WBC 24, hemoglobin 8.4, hematocrit 25, platelet count 480,000. total bilirubin 4.0, AST 3676, ALT 2203, alkaline phosphatase 1305. Full liver serology ordered, pending results other than normal AFP. Iron studies are not consistent with iron deficiency anemia. Objective - Vital Signs Vital signs: Vital Signs Temp 98.0 F 05/11/21 04:00 Pulse 73 05/11/21 07:00 Resp 12 05/11/21 07:00 BP 150/90 05/11/21 07:00 Pulse Ox 97 05/11/21 07:00 Intake & Output 05/10/21 05/11/21 05/11/21 18:59 06:59 18:59 Intake Total 750 740.230 10 Output Total 3010 45 0 Balance -2260 695.230 10 Weight 81 kg Intake: IV 350 110 10 Sodium Chloride 0.9% 1, 350 110 10 000 ml @ 50 mls/hr IV . Q20H [facility] Rx#:[id number] Intake, IV Titration 130.230 Amount DOPamine DRIP 800 mg In 55.381 Water For Injection 1 250ml.bag @ 5 MCG/KG/MIN 7.442 mls/hr IV .Q24H [facility] Rx#:[id number] Insulin Regular 100 unit 74.849 In Sodium Chloride 0.9% 100 ml @ Per Protocol IV .Q0M [facility] Rx#:[id number] Oral 400 500 Output: Urine 10 45 0 Hemodialysis 3000 Other: Voiding Method Indwelling Catheter Indwelling Catheter - Exam General appearance: The patient is alert, oriented, appears in no acute distress. HET: Head is normocephalic and atraumatic. Conjunctiva pink. Sclera anicteric. Neck: Supple without lymphadenopathy. Abdomen: Soft, left mid and lower quadrant tenderness, nondistended with bowel sounds. No guarding or rigidity. Extremities: Normal skin color and turgor. No pedal edema Skin: No rashes, jaundice. Neurological: No focal deficits. Alert and oriented 3. - Labs CBC & Chem 7: 05/11/21 04:09 05/11/21 04:09 Labs: Abnormal Lab Results - Last 24 Hours (Table) 05/10/21 05/10/21 05/10/21 Range/Units 10:24 11:54 17:50 WBC (3.8-10.6) k/uL RBC (4.30-5.90) m/uL Hgb (13.0-17.5) gm/dL Hct (39.0-53.0) % RDW (11.5-15.5) % Plt Count (150-450) k/uL Neutrophils # (1.3-7.7) k/uL Sodium (137-145) mmol/L Chloride (98-107) mmol/L BUN (9-20) mg/dL Creatinine (0.66-1.25) mg/dL Glucose (74-99) mg/dL POC Glucose (mg/dL) 312 H 473 H (75-99) mg/dL Plasma Lactic Acid Caleb 2.6 H* (0.7-2.0) mmol/L Total Bilirubin (0.2-1.3) mg/dL AST (17-59) U/L ALT (4-49) U/L Alkaline Phosphatase (38-126) U/L Total Protein (6.3-8.2) g/dL Albumin (3.5-5.0) g/dL 05/10/21 05/10/21 05/10/21 Range/Units 18:45 19:13 20:10 WBC (3.8-10.6) k/uL RBC (4.30-5.90) m/uL Hgb (13.0-17.5) gm/dL Hct (39.0-53.0) % RDW (11.5-15.5) % Plt Count (150-450) k/uL Neutrophils # (1.3-7.7) k/uL Sodium (137-145) mmol/L Chloride (98-107) mmol/L BUN (9-20) mg/dL Creatinine (0.66-1.25) mg/dL Glucose (74-99) mg/dL POC Glucose (mg/dL) 506 H 500 H 467 H (75-99) mg/dL Plasma Lactic Acid Caleb (0.7-2.0) mmol/L Total Bilirubin (0.2-1.3) mg/dL AST (17-59) U/L ALT (4-49) U/L Alkaline Phosphatase (38-126) U/L Total Protein (6.3-8.2) g/dL Albumin (3.5-5.0) g/dL 05/10/21 05/10/21 05/10/21 Range/Units 21:00 21:59 22:59 WBC (3.8-10.6) k/uL RBC (4.30-5.90) m/uL Hgb (13.0-17.5) gm/dL Hct (39.0-53.0) % RDW (11.5-15.5) % Plt Count (150-450) k/uL Neutrophils # (1.3-7.7) k/uL Sodium (137-145) mmol/L Chloride (98-107) mmol/L BUN (9-20) mg/dL Creatinine (0.66-1.25) mg/dL Glucose (74-99) mg/dL POC Glucose (mg/dL) 413 H 344 H 246 H (75-99) mg/dL Plasma Lactic Acid Caleb (0.7-2.0) mmol/L Total Bilirubin (0.2-1.3) mg/dL AST (17-59) U/L ALT (4-49) U/L Alkaline Phosphatase (38-126) U/L Total Protein (6.3-8.2) g/dL Albumin (3.5-5.0) g/dL 05/11/21 05/11/21 05/11/21 Range/Units 00:05 00:58 01:58 WBC (3.8-10.6) k/uL RBC (4.30-5.90) m/uL Hgb (13.0-17.5) gm/dL Hct (39.0-53.0) % RDW (11.5-15.5) % Plt Count (150-450) k/uL Neutrophils # (1.3-7.7) k/uL Sodium (137-145) mmol/L Chloride (98-107) mmol/L BUN (9-20) mg/dL Creatinine (0.66-1.25) mg/dL Glucose (74-99) mg/dL POC Glucose (mg/dL) 167 H 103 H 105 H (75-99) mg/dL Plasma Lactic Acid Caleb (0.7-2.0) mmol/L Total Bilirubin (0.2-1.3) mg/dL AST (17-59) U/L ALT (4-49) U/L Alkaline Phosphatase (38-126) U/L Total Protein (6.3-8.2) g/dL Albumin (3.5-5.0) g/dL 05/11/21 05/11/21 05/11/21 Range/Units 02:59 04:07 04:09 WBC (3.8-10.6) k/uL RBC (4.30-5.90) m/uL Hgb (13.0-17.5) gm/dL Hct (39.0-53.0) % RDW (11.5-15.5) % Plt Count (150-450) k/uL Neutrophils # (1.3-7.7) k/uL Sodium 131 L (137-145) mmol/L Chloride 91 L (98-107) mmol/L BUN 58 H (9-20) mg/dL Creatinine 5.55 H (0.66-1.25) mg/dL Glucose 131 H (74-99) mg/dL POC Glucose (mg/dL) 113 H 154 H (75-99) mg/dL Plasma Lactic Acid Caleb (0.7-2.0) mmol/L Total Bilirubin 4.0 H (0.2-1.3) mg/dL AST 3676 H (17-59) U/L ALT 2203 H (4-49) U/L Alkaline Phosphatase 1305 H (38-126) U/L Total Protein 5.3 L (6.3-8.2) g/dL Albumin 2.8 L (3.5-5.0) g/dL 05/11/21 05/11/21 05/11/21 Range/Units 04:09 05:16 06:11 WBC 24.0 H (3.8-10.6) k/uL RBC 2.64 L (4.30-5.90) m/uL Hgb 8.4 L (13.0-17.5) gm/dL Hct 25.6 L (39.0-53.0) % RDW 16.0 H (11.5-15.5) % Plt Count 480 H (150-450) k/uL Neutrophils # 21.0 H (1.3-7.7) k/uL Sodium (137-145) mmol/L Chloride (98-107) mmol/L BUN (9-20) mg/dL Creatinine (0.66-1.25) mg/dL Glucose (74-99) mg/dL POC Glucose (mg/dL) 118 H 128 H (75-99) mg/dL Plasma Lactic Acid Caleb (0.7-2.0) mmol/L Total Bilirubin (0.2-1.3) mg/dL AST (17-59) U/L ALT (4-49) U/L Alkaline Phosphatase (38-126) U/L Total Protein (6.3-8.2) g/dL Albumin (3.5-5.0) g/dL 05/11/21 Range/Units 07:07 WBC (3.8-10.6) k/uL RBC (4.30-5.90) m/uL Hgb (13.0-17.5) gm/dL Hct (39.0-53.0) % RDW (11.5-15.5) % Plt Count (150-450) k/uL Neutrophils # (1.3-7.7) k/uL Sodium (137-145) mmol/L Chloride (98-107) mmol/L BUN (9-20) mg/dL Creatinine (0.66-1.25) mg/dL Glucose (74-99) mg/dL POC Glucose (mg/dL) 138 H (75-99) mg/dL Plasma Lactic Acid Caleb (0.7-2.0) mmol/L Total Bilirubin (0.2-1.3) mg/dL AST (17-59) U/L ALT (4-49) U/L Alkaline Phosphatase (38-126) U/L Total Protein (6.3-8.2) g/dL Albumin (3.5-5.0) g/dL Microbiology - Last 24 Hours (Table) 05/10/21 13:05 Blood Culture Gram Stain - Preliminary Blood Blood Culture - Preliminary Staphylococcus species 05/10/21 03:00 Urine Culture - Preliminary Urine,Clean Catch 05/09/21 19:05 Blood Culture - Final Blood Assessment and Plan (1) Acute hepatitis Narrative/Plan: 51-year-old male who recently underwent back surgery in [place] who was recently hot hospitalized here for an epidural abscess staph infection and underwent surgical evacuation by Dr. Lozano. He has a past medical history including type 1 diabetes mellitus, hypertension, chronic renal failure on hemodialysis, chronic anemia and chronic back pain. He presented to [facility] with altered mental status according to his , and outpatient blood work that showed anemia and elevation in his LFTs. He was sent to [facility] for further evaluation. During his previous hospitalization he was started on IV vancomycin and discharged home with that. Patient is unsure if he's started any other new antibiotics. Patient was found to have significant increase in his LFTs. He denies any previous history of known liver disease. He does admit to heavy alcohol use in the past and states he was a daily beer drinker. He denies any previous history of hepatitis. On admission he was found to have leukocytosis, significant elevation in his LFTs with a total bilirubin of 7.1, alkaline phosphatase 1578, AST 2452, ALT 906. He denies any history of statin use. We'll order full liver serology. CT of the abdomen showed hepatomegaly. Small right pleural effusion with pleural reaction at the lung bases. Increased compared to exam earlier today. No dilated ducts. Mild subcutaneous edema around the abdomen. Gallbladder ultrasound showed small amount of free fluid. Thickened gallbladder wall suggestive of acute cholecystitis. Gallbladder wall measures 4 mm. No dilated ducts. There are probably some small gallstones. Possible etiologies include shock liver from recent sepsis other possibilities include medication-induced hepatitis, possibly related to vancomycin with possible underlying liver disease related to history of significant alcohol use. Current Visit: Yes Status: Acute Code(s): B17.9 - ACUTE VIRAL HEPATITIS, UNSPECIFIED SNOMED Code(s): 81902235 (2) Anemia Narrative/Plan: Patient has normochromic, normocytic anemia. Likely anemia of chronic disease. Iron studies are not consistent with an iron deficiency anemia. Current Visit: Yes Status: Acute Code(s): D64.9 - ANEMIA, UNSPECIFIED SN OMED Code(s): 495846119 (3) Chronic kidney failure Current Visit: Yes Status: Acute Code(s): N18.9 - CHRONIC KIDNEY DISEASE, UNSPECIFIED SNOMED Code(s): 44310697 (4) Elevated liver enzymes Current Visit: Yes Status: Acute Code(s): R74.8 - ABNORMAL LEVELS OF OTHER SERUM ENZYMES SNOMED Code(s): 759018785 (5) Altered mental status Current Visit: Yes Status: Acute Code(s): R41.82 - ALTERED MENTAL STATUS, UNSPECIFIED SNOMED Code(s): 538066026 Plan: 1. Continue symptomatic and supportive care 2. Continue to monitor LFTs 3. Full liver serology ordered, pending results 5. Avoid hepatotoxic medications, consider alternate antibiotic for vancomycin if possible 6. Diet as tolerated 7. Continue ICU management 8. CT of the abdomen and abdominal ultrasound reviewed Thank you for allowing us to participate in the care of the patient, the GI service will sign off, gastroenterology will not be available at the hospital this weekend and if further evaluation by gastroenterology is required the patient will need transfer as per the primary team's discretion. Dr. Libby Vogt I agree with the dictator's note, documented as a scribe by Josey Campo.
[2021-05-11 12:15] LABS: Glucose,Whole Blood 126 mg/dL (75-99)
[2021-05-11] MEDS: CALCIUM ACETATE 667 MG TAB PO SCH ×2 (12:16→17:35)
[2021-05-11] MEDS: FOLIC ACID 1 MG TAB PO SCH (12:16)
[2021-05-11] MEDS: MULTIVITAMINS, THERA 1 EACH TAB PO SCH (12:16)
[2021-05-11] MEDS: THIAMINE 100 MG TAB PO SCH (12:16)
[2021-05-11] MEDS ORDERED: LORazepam 2 MG/ML INJ IV STA (12:21)
--- NOTE | 2021-05-11 12:43 | PN ---
PROGRESS NOTE Patient is seen for followup for end-stage renal disease. He was admitted to the hospital with complaints of shortness of breath and back pain. He is status post recent back surgery with I and D of epidural abscess, maintained on antibiotics as well. The patient was significantly hyperkalemic and bradycardic along with fluid overload at the time of admission. He is normally maintained on a Friday, , Friday schedule. He was dialyzed on Friday. We will dialyze him again today. We will plan for about 2-3 L of ultrafiltration. PHYSICAL EXAMINATION: On examination today, blood pressure is 153/88, heart rate of 77 per minute. He is afebrile. EXAMINATION OF THE HEART: S1 and S2. EXAMINATION OF LUNGS: Decreased breath sounds at the bases. LOWER EXTREMITIES: Examination of lower extremities shows edema 2+ bilaterally. SMALL OFFSET PRINTER EXAM: Grossly intact. LABS: Labs show hemoglobin 8.4 from 05/11. Sodium 131, potassium 4.3. ASSESSMENT: 1. End-stage renal disease, on hemodialysis on a Friday, , Friday schedule as outpatient, currently on a Friday, Friday, Friday schedule. The patient will be dialyzed again on Friday and then he can follow up as outpatient for his regular treatment on Friday. 2. Back pain with underlying epidural abscess after laminectomy followed by repeat surgery during his last admission on 04/28/2021; scheduled for another MRI today with plans for possible repeat surgery. 3. Lactic acidosis from hypotension, now improved. 4. Fluid overload, currently improved. 5. Recent Staph epidermidis bacteremia with wound cultures also growing Staph epidermidis from the spinal epidural abscess, status post incision and drainage and laminectomy on 04/28/2021. Repeat blood cultures negative thus far. 6. Severe hyperkalemia causing bradycardia, currently improved post dialysis. 7. Chronic kidney disease mineral bone disorder. Will maintain patient on his home phosphate binders. I believe is not formulary here. The patient's calcium is 8.7. I will add PhosLo. 8. Elevated liver enzymes secondary to hypotension most likely with shock liver, currently improving. PLAN: Hemodialysis today. Increase UF to 2-3 L as tolerated. MMODL / IJN: [id number] /
[2021-05-11 13:11] LABS: Glucose,Whole Blood 159 mg/dL (75-99)
--- NOTE | 2021-05-11 14:34 | P.GSCN ---
History of Present Illness Consult date: 05/11/21 Reason for Consult: Cholecystitis History of present illness: 51-year-old male presents to the hospital with hypotension and bradycardia. Patient thought to be in septic shock. Patient with history of abscess at site of previous back surgery performed in February. He is already went to the operating room during his last admission for incision and drainage. Blood cultures remain positive. Spine surgery is considering taking patient for repeat back exploration pending an MRI tomorrow. Patient's liver enzymes have been markedly elevated but are improving. History of previous alcohol use. Patient denies any known liver disease. CAT scan ultrasound both showed gallbladder wall thickening with gallstones. Patient does have mild right upper quadrant pain but says its improved. Patient tolerating regular diet. Review of Systems The patient denies any acute changes in vision or hearing, no dysphagia or o dynophagia, no chest pain or shortness of breath, no dysuria or hematuria, no headache, no runny nose, no rectal bleeding or melena, no unexplained weight loss Past Medical History Past Medical History: Diabetes Mellitus, Dialysis, Hypertension Additional Past Medical History / Comment(s): 5x weekly dialysis at home History of Any Multi-Drug Resistant Organisms: None Reported Past Surgical History: Back Surgery Additional Past Surgical History / Comment(s): Shoulder surgery x2 wisdom teeth removed Past Anesthesia/Blood Transfusion Reactions: No Reported Reaction Past Psychological History: No Psychological Hx Reported Smoking Status: Never smoker Past Alcohol Use History: None Reported Past Drug Use History: Marijuana Medications and Allergies Home Medications Medication Instructions Recorded Confirmed Type Ascorbic Acid [Vitamin C] 1,000 mg PO DAILY 04/25/21 05/09/21 History Aspirin EC [Ecotrin Low Dose] 81 mg PO DAILY 04/25/21 05/09/21 History Citalopram Hydrobromide [CeleXA] 20 mg PO DAILY 04/25/21 05/09/21 History Cyclobenzaprine [Flexeril] 10 mg PO TID PRN 04/25/21 05/09/21 History Furosemide [Lasix] 40 mg PO DAILY 04/25/21 05/09/21 History Insulin Aspart (For Pump) [NovoLOG 0.01 unit SQ-PUMP CONTINUOUS 04/25/21 05/09/21 History (For Pump)] Labetalol [Trandate] 200 mg PO TID 04/25/21 05/09/21 History NIFEdipine [NIFEdipine ER 30 mg PO HS 04/25/21 05/09/21 History (Osmotic)] NIFEdipine [NIFEdipine ER 60 mg PO BID 04/25/21 05/09/21 History (Osmotic)] Omeprazole 40 mg PO DAILY 04/25/21 05/09/21 History Pramipexole Di-HCl [Mirapex] 0.5 mg PO HS 04/25/21 05/09/21 History Renaplex-D 1 tab PO DAILY 04/25/21 05/09/21 History Velphoro Chew 500mg 1 tab PO QID 04/25/21 05/09/21 History calcitrioL [Rocaltrol] 0.25 mcg PO PRO 04/25/21 05/09/21 History traMADol HCL 50 mg PO Q8H PRN 04/25/21 05/09/21 History HYDROcodone/APAP 10-325MG [[place] 1 tab PO Q6HR PRN #28 tab 05/01/21 05/09/21 Rx 10-325] Potassium Chloride ER [K-Dur 20] 20 meq PO BID 2 Days #4 tab 05/01/21 05/09/21 Rx Sennosides/Docusate Sodium [Senna 1 cap PO DAILY PRN 05/09/21 05/09/21 History Plus 8.6-50 mg Softgel] Allergies Allergy/AdvReac Type Severity Reaction Status Date / Time No Known Allergies Allergy Verified 05/09/21 21:57 Surgical - Exam Vital Signs Temp Pulse Resp BP Pulse Ox 98.9 F 60 16 113/67 100 05/09/21 16:05 05/09/21 16:05 05/09/21 16:05 05/09/21 16:05 05/09/21 16:05 Physical exam: General: Well-developed, well-nourished HEENT: Normocephalic, sclerae mildly icteric Abdomen: Minimal right-sided tenderness, nondistended Extremities: No edema Neuro: Alert and oriented Results - Labs 05/11/21 04:09 05/11/21 04:09 Abnormal Lab Results - Last 24 Hours (Table) 05/10/21 05/10/21 05/10/21 Range/Units 10:24 17:50 18:45 WBC (3.8-10.6) k/uL RBC (4.30-5.90) m/uL Hgb (13.0-17.5) gm/dL Hct (39.0-53.0) % RDW (11.5-15.5) % Plt Count (150-450) k/uL Neutrophils # (1.3-7.7) k/uL Sodium (137-145) mmol/L Chloride (98-107) mmol/L BUN (9-20) mg/dL Creatinine (0.66-1.25) mg/dL Glucose (74-99) mg/dL POC Glucose (mg/dL) 473 H 506 H (75-99) mg/dL TIBC 155 L (228-460) ug/dL % Saturation 110.32 H (15.00-50.00) Total Bilirubin (0.2-1.3) mg/dL AST (17-59) U/L ALT (4-49) U/L Alkaline Phosphatase (38-126) U/L Total Protein (6.3-8.2) g/dL Albumin (3.5-5.0) g/dL 05/10/21 05/10/21 05/10/21 Range/Units 19:13 20:10 21:00 WBC (3.8-10.6) k/uL RBC (4.30-5.90) m/uL Hgb (13.0-17.5) gm/dL Hct (39.0-53.0) % RDW (11.5-15.5) % Plt Count (150-450) k/uL Neutrophils # (1.3-7.7) k/uL Sodium (137-145) mmol/L Chloride (98-107) mmol/L BUN (9-20) mg/dL Creatinine (0.66-1.25) mg/dL Glucose (74-99) mg/dL POC Glucose (mg/dL) 500 H 467 H 413 H (75-99) mg/dL TIBC (228-460) ug/dL % Saturation (15.00-50.00) Total Bilirubin (0.2-1.3) mg/dL AST (17-59) U/L ALT (4-49) U/L Alkaline Phosphatase (38-126) U/L Total Protein (6.3-8.2) g/dL Albumin (3.5-5.0) g/dL 05/10/21 05/10/21 05/11/21 Range/Units 21:59 22:59 00:05 WBC (3.8-10.6) k/uL RBC (4.30-5.90) m/uL Hgb (13.0-17.5) gm/dL Hct (39.0-53.0) % RDW (11.5-15.5) % Plt Count (150-450) k/uL Neutrophils # (1.3-7.7) k/uL Sodium (137-145) mmol/L Chloride (98-107) mmol/L BUN (9-20) mg/dL Creatinine (0.66-1.25) mg/dL Glucose (74-99) mg/dL POC Glucose (mg/dL) 344 H 246 H 167 H (75-99) mg/dL TIBC (228-460) ug/dL % Saturation (15.00-50.00) Total Bilirubin (0.2-1.3) mg/dL AST (17-59) U/L ALT (4-49) U/L Alkaline Phosphatase (38-126) U/L Total Protein (6.3-8.2) g/dL Albumin (3.5-5.0) g/dL 05/11/21 05/11/21 05/11/21 Range/Units 00:58 01:58 02:59 WBC (3.8-10.6) k/uL RBC (4.30-5.90) m/uL Hgb (13.0-17.5) gm/dL Hct (39.0-53.0) % RDW (11.5-15.5) % Plt Count (150-450) k/uL Neutrophils # (1.3-7.7) k/uL Sodium (137-145) mmol/L Chloride (98-107) mmol/L BUN (9-20) mg/dL Creatinine (0.66-1.25) mg/dL Glucose (74-99) mg/dL POC Glucose (mg/dL) 103 H 105 H 113 H (75-99) mg/dL TIBC (228-460) ug/dL % Saturation (15.00-50.00) Total Bilirubin (0.2-1.3) mg/dL AST (17-59) U/L ALT (4-49) U/L Alkaline Phosphatase (38-126) U/L Total Protein (6.3-8.2) g/dL Albumin (3.5-5.0) g/dL 05/11/21 05/11/21 05/11/21 Range/Units 04:07 04:09 04:09 WBC 24.0 H (3.8-10.6) k/uL RBC 2.64 L (4.30-5.90) m/uL Hgb 8.4 L (13.0-17.5) gm/dL Hct 25.6 L (39.0-53.0) % RDW 16.0 H (11.5-15.5) % Plt Count 480 H (150-450) k/uL Neutrophils # 21.0 H (1.3-7.7) k/uL Sodium 131 L (137-145) mmol/L Chloride 91 L (98-107) mmol/L BUN 58 H (9-20) mg/dL Creatinine 5.55 H (0.66-1.25) mg/dL Glucose 131 H (74-99) mg/dL POC Glucose (mg/dL) 154 H (75-99) mg/dL TIBC (228-460) ug/dL % Saturation (15.00-50.00) Total Bilirubin 4.0 H (0.2-1.3) mg/dL AST 3676 H (17-59) U/L ALT 2203 H (4-49) U/L Alkaline Phosphatase 1305 H (38-126) U/L Total Protein 5.3 L (6.3-8.2) g/dL Albumin 2.8 L (3.5-5.0) g/dL 05/11/21 05/11/21 05/11/21 Range/Units 05:16 06:11 07:07 WBC (3.8-10.6) k/uL RBC (4.30-5.90) m/uL Hgb (13.0-17.5) gm/dL Hct (39.0-53.0) % RDW (11.5-15.5) % Plt Count (150-450) k/uL Neutrophils # (1.3-7.7) k/uL Sodium (137-145) mmol/L Chloride (98-107) mmol/L BUN (9-20) mg/dL Creatinine (0.66-1.25) mg/dL Glucose (74-99) mg/dL POC Glucose (mg/dL) 118 H 128 H 138 H (75-99) mg/dL TIBC (228-460) ug/dL % Saturation (15.00-50.00) Total Bilirubin (0.2-1.3) mg/dL AST (17-59) U/L ALT (4-49) U/L Alkaline Phosphatase (38-126) U/L Total Protein (6.3-8.2) g/dL Albumin (3.5-5.0) g/dL 05/11/21 05/11/21 05/11/21 Range/Units 08:32 10:05 11:14 WBC (3.8-10.6) k/uL RBC (4.30-5.90) m/uL Hgb (13.0-17.5) gm/dL Hct (39.0-53.0) % RDW (11.5-15.5) % Plt Count (150-450) k/uL Neutrophils # (1.3-7.7) k/uL Sodium (137-145) mmol/L Chloride (98-107) mmol/L BUN (9-20) mg/dL Creatinine (0.66-1.25) mg/dL Glucose (74-99) mg/dL POC Glucose (mg/dL) 233 H 231 H 157 H (75-99) mg/dL TIBC (228-460) ug/dL % Saturation (15.00-50.00) Total Bilirubin (0.2-1.3) mg/dL AST (17-59) U/L ALT (4-49) U/L Alkaline Phosphatase (38-126) U/L Total Protein (6.3-8.2) g/dL Albumin (3.5-5.0) g/dL 05/11/21 05/11/21 Range/Units 12:13 13:08 WBC (3.8-10.6) k/uL RBC (4.30-5.90) m/uL Hgb (13.0-17.5) gm/dL Hct (39.0-53.0) % RDW (11.5-15.5) % Plt Count (150-450) k/uL Neutrophils # (1.3-7.7) k/uL Sodium (137-145) mmol/L Chloride (98-107) mmol/L BUN (9-20) mg/dL Creatinine (0.66-1.25) mg/dL Glucose (74-99) mg/dL POC Glucose (mg/dL) 126 H 159 H (75-99) mg/dL TIBC (228-460) ug/dL % Saturation (15.00-50.00) Total Bilirubin (0.2-1.3) mg/dL AST (17-59) U/L ALT (4-49) U/L Alkaline Phosphatase (38-126) U/L Total Protein (6.3-8.2) g/dL Albumin (3.5-5.0) g/dL Microbiology - Last 24 Hours (Table) 05/10/21 10:32 Blood Culture - Preliminary Blood No Growth after 24 hours 05/10/21 11:34 Blood Culture - Preliminary Blood No Growth after 24 hours 05/10/21 13:05 Blood Culture Gram Stain - Preliminary Blood Blood Culture - Preliminary Staphylococcus species 05/10/21 03:00 Urine Culture - Preliminary Urine,Clean Catch 05/09/21 19:05 Blood Culture - Final Blood Diabetes panel 05/11/21 Range/Units 04:09 Sodium 131 L (137-145) mmol/L Potassium 4.3 (3.5-5.1) mmol/L Chloride 91 L (98-107) mmol/L Carbon Dioxide 27 (22-30) mmol/L BUN 58 H (9-20) mg/dL Creatinine 5.55 H (0.66-1.25) mg/dL Glucose 131 H (74-99) mg/dL Calcium 8.7 (8.4-10.2) mg/dL AST 3676 H (17-59) U/L ALT 2203 H (4-49) U/L Alkaline Phosphatase 1305 H (38-126) U/L Total Protein 5.3 L (6.3-8.2) g/dL Albumin 2.8 L (3.5-5.0) g/dL Calcium panel 05/11/21 Range/Units 04:09 Calcium 8.7 (8.4-10.2) mg/dL Albumin 2.8 L (3.5-5.0) g/dL Pituitary panel 05/11/21 Range/Units 04:09 Sodium 131 L (137-145) mmol/L Potassium 4.3 (3.5-5.1) mmol/L Chloride 91 L (98-107) mmol/L Carbon Dioxide 27 (22-30) mmol/L BUN 58 H (9-20) mg/dL Creatinine 5.55 H (0.66-1.25) mg/dL Glucose 131 H (74-99) mg/dL Calcium 8.7 (8.4-10.2) mg/dL Adrenal panel 05/11/21 Range/Units 04:09 Sodium 131 L (137-145) mmol/L Potassium 4.3 (3.5-5.1) mmol/L Chloride 91 L (98-107) mmol/L Carbon Dioxide 27 (22-30) mmol/L BUN 58 H (9-20) mg/dL Creatinine 5.55 H (0.66-1.25) mg/dL Glucose 131 H (74-99) mg/dL Calcium 8.7 (8.4-10.2) mg/dL Total Bilirubin 4.0 H (0.2-1.3) mg/dL AST 3676 H (17-59) U/L ALT 2203 H (4-49) U/L Alkaline Phosphatase 1305 H (38-126) U/L Total Protein 5.3 L (6.3-8.2) g/dL Albumin 2.8 L (3.5-5.0) g/dL Assessment and Plan (1) Chronic cholecystitis Narrative/Plan: 51-year-old male presents to the hospital with septic shock. Patient with significant transaminase elevation as a result of low flow. Appearance of gallbladder on CAT scan and ultrasound could be secondary to hepatic injury. Patient has minimal tenderness at this time. Continue broad-spectrum antibiotics. Continue diet as tolerated. We'll follow for now. Current Visit: Yes Status: Acute Code(s): K81.1 - CHRONIC CHOLECYSTITIS SNOMED Code(s): 65805745
[2021-05-11 14:45] LABS: Glucose,Whole Blood 210 mg/dL (75-99)
[2021-05-11 14:48] LABS: Folate, Serum >24.0 ng/mL; Vitamin B12 >4000.0 pg/mL (211-911)
--- NOTE | 2021-05-11 16:09 | PN ---
PROGRESS NOTE DATE OF SERVICE: 05/11/2021 REASON FOR FOLLOWUP: 1. Lower back discitis bacteremia. 2. Cholecystitis. INTERVAL HISTORY: The patient is afebrile. The patient is feeling slightly better. She is breathing comfortably on room air. Denies having any chest pain or cough. Mild discomfort. Nausea but no vomiting. No diarrhea. PHYSICAL EXAMINATION: Blood pressure 135/88 with a pulse of 75, temperature 98. He is 96% on room air. GENERAL DESCRIPTION: General description is a middle-aged male lying in bed in no distress. RESPIRATORY SYSTEM: Unlabored breathing. Decreased breath sounds at the bases. No wheeze. HEART: S1, S2. Regular rate and rhythm. ABDOMEN: Soft. Mildly tender in the right upper quadrant area. EXTREMITIES: No edema of the feet. LABS: Hemoglobin 8.4, white count 24,000, BUN of 58, creatinine 5.55. Liver enzymes are elevated. DIAGNOSTIC IMPRESSION AND PLAN: Patient admitted to hospital with mental status changes in this patient who did have elevated liver enzymes and also abnormal ultrasound suspicious for cholecystitis. General surgery consulted and discussed with the admitting physician. The patient is covered with Zosyn and vancomycin. That will be continued while monitoring clinical course closely. MMODL / IJN: [id number] /
[2021-05-11 16:18] LABS: Glucose,Whole Blood 153 mg/dL (75-99)
[2021-05-11 16:44] LABS: Hemoglobin A1C 6.4 % (4.0-6.0)
--- NOTE | 2021-05-11 16:58 | P.PN ---
Subjective Progress Note Date: 05/11/21 Principal diagnosis: Sepsis, mental status, gram-positive bacteremia 51-year-old male patient came into the emergency department yesterday because of an altered mental status.. The patient has multiple medical problems and comorbidities. The patient type 1 diabetes mellitus and the patient has been on dialysis for the past 1 year undergoing dialysis 3 times a week Friday and Friday. Noted the patient was having complications of back pain and he has undergone previous laminectomy back in February 2021. The patient had subsequent L4-L5 posterior discitis along with an epidural abscess formation for which underwent a decompression laminectomy and antibiotic spacer placement on 05/08/2021. Surgery was done by Dr. Schmitt's an and there were no complications. Postop, the patient was maintained on vancomycin under the cultures were obtained from the abscesses were consistent with staph epidermidis. He was getting vancomycin through dialysis. The patient comes into the hospital yesterday because of an altered mental status, and the same time was found to be hyperkalemic with a potassium level of 7.8. He was bradycardic overnight with a heart rate in the mid 30s and 40s was started on dopamine. He was borderline hypotensive in addition. His lactic acid level was at 8.3. He had evidence of liver dysfunction and his AST and ALT were on the rise. His hemoglobin was 6.7 and the patient was given a unit of packed RBC. The patient had a white cell count of 21. The vancomycin level random was 13.2. As such, emergent dialysis was initiated and the patient subsequently had repeat electrodes that showed improvement in the potassium level and the potassium level dropped from 7.8 to 3.5 with subsequent improvement in his overall hemodynamics and the patient was taken off dopamine. His heart rate currently is in the mid 70s, sinus. Creatinine is down to 2.7. Lactic acid level is down to 2.6. He has developed liver dysfunction/shock liver with a AST of 5651 and ALT of 2107. Bilirubin was as high as 7.1 dropped down to 6.3. Amylase and lipase were within normal limits. Mother the patient was taking Charlotte and Ultram for chronic back pain and his Tylenol level came back negative. No history of any previous chronic hepatitis C and also alcoholism. Mental status completely back to normal for now. Surgical wound site was inspected by Dr. Lozano and based on his evaluation, no signs of any surgical wound infection at this point in time. . CAT scan of the abdomen and pelvis shows some slight have organomegaly and there was no evidence of any acute intra- abdominal abnormalities. There was a small right-sided pleural effusion. Ultrasound the gallbladder showed some gallbladder wall thickening. No Neville signs. No dilatation of the common bile duct. CAT scan of the head was negative for any acute abnormalities per her chest x-ray was clear. Echocardiogram was also completed and the patient is a normal ejection fraction of 55%. There was evidence of mild pulmonary hypertension with a PA pressure of 38.1. Amylase severely dilated. RV is normal size. No other significant valvular abnormalities. No evidence of a pericardial effusion. On 05/11/2001 patient seen in follow-up in the intensive care unit, he is awake and alert, in no acute distress, he is resting comfortably in bed, he is reading comfortably, she is on room air with pulse ox of 97%, hemodynamically he is stable, he is not on any vasopressor support currently, he is in sinus mechanism with a rate of 71 BPM, dopamine drip had been discontinued yesterday, no recurrence of bradycardia, he is on insulin infusion at 5.5 units per hour. His shortness of breath, cough, or phlegm production, today's chest x-ray shows no focal airspace opacity, pleural effusion or pneumothorax. No evidence of coarsened interstitium. Patient is afebrile. Maintains on Zosyn and vancomycin has been added evidence of Staphylococcus species in the blood cultures. Lumbar spine x-ray was completed yesterday showed no acute radiographic process. His spinal incision clean dry and intact without significant drainage. Orthopedic surgery is following, MRI of the spine is ordered and pending for later today, today's labs have been reviewed showing white blood cell count 24, hemoglobin is 8.4, sodium is 131, potassium is 4.3, chloride is 91, BUN is 58, creatinine is 5.5. Patient is having hemodialysis treatment. His LFTs are improving, amylase and lipase were within normal limits, his AFP tumor marker and back at less than 2.5, general surgery has been consulted for possibility of acute cholecystitis. Patient has no nausea or vomiting. Computed tomography scan and ultrasound both showed gallbladder wall thickening with gallstones. Patient is tolerating regular diet, did have some mild right upper quadrant pain which has improved Objective - Vital Signs Vital signs: Vital Signs Temp 98 F 05/11/21 15:35 Pulse 75 05/11/21 15:35 Resp 18 05/11/21 15:35 BP 137/95 05/11/21 15:35 Pulse Ox 99 05/11/21 15:00 Intake & Output 05/10/21 05/11/21 05/11/21 18:59 06:59 18:59 Intake Total 750 740.230 155.193 Output Total 3010 45 3040 Balance -2260 695.230 -2884.807 Weight 81 kg Intake: IV 350 110 110 0.9 40 Sodium Chloride 0.9% 1, 350 110 70 000 ml @ 50 mls/hr IV . Q20H [facility] Rx#:[id number] Intake, IV Titration 130.230 45.193 Amount DOPamine DRIP 800 mg In 55.381 Water For Injection 1 250ml.bag @ 5 MCG/KG/MIN 7.442 mls/hr IV .Q24H [facility] Rx#:[id number] Insulin Regular 100 unit 74.849 45.193 In Sodium Chloride 0.9% 100 ml @ Per Protocol IV .Q0M [facility] Rx#:[id number] Oral 400 500 Output: Urine 10 45 40 Hemodialysis 3000 3000 Other: Voiding Method Indwelling Catheter Indwelling Catheter Urinal - Exam GENERAL EXAM: Alert, very pleasant, 51-year-old white male, resting comfortably in bed, on room air, with a pulse ox of 96% active, comfortable in no apparent distress. HEAD: Normocephalic/atraumatic. EYES: Normal reaction of pupils, equal size. Conjunctiva pink, sclera white. NOSE: Clear with pink turbinates. THROAT: No erythema or exudates. NECK: No masses, no JVD, no thyroid enlargement, no adenopathy. CHEST: No chest wall deformity. Symmetrical expansion. LUNGS: Equal air entry with no crackles, wheeze, rhonchi or dullness. CVS: Regular rate and rhythm, normal S1 and S2, no gallops, no murmurs, no rubs ABDOMEN: Soft, with minimal right-sided tenderness, nondistended No hepatosplenomegaly, normal bowel sounds, no guarding or rigidity. EXTREMITIES: No clubbing, no edema, no cyanosis, 2+ pulses and upper and lower extremities. MUSCULOSKELETAL: Muscle strength and tone normal. SPINE: No scoliosis or deformity. Spine incision is covered with a surgical dressing, not examined. SKIN: No rashes CENTRAL NERVOUS SYSTEM: Alert and oriented -3. No focal deficits, tone is normal in all 4 extremities. PSYCHIATRIC: Alert and oriented -3. Appropriate affect. Intact judgment and insight. - Labs CBC & Chem 7: 05/11/21 04:09 05/11/21 04:09 Labs: Abnormal Lab Results - Last 24 Hours (Table) 05/10/21 05/10/21 05/10/21 Range/Units 10:24 17:50 18:45 WBC (3.8-10.6) k/uL RBC (4.30-5.90) m/uL Hgb (13.0-17.5) gm/dL Hct (39.0-53.0) % RDW (11.5-15.5) % Plt Count (150-450) k/uL Neutrophils # (1.3-7.7) k/uL Sodium (137-145) mmol/L Chloride (98-107) mmol/L BUN (9-20) mg/dL Creatinine (0.66-1.25) mg/dL Glucose (74-99) mg/dL POC Glucose (mg/dL) 473 H 506 H (75-99) mg/dL TIBC 155 L (228-460) ug/dL % Saturation 110.32 H (15.00-50.00) Total Bilirubin (0.2-1.3) mg/dL AST (17-59) U/L ALT (4-49) U/L Alkaline Phosphatase (38-126) U/L Total Protein (6.3-8.2) g/dL Albumin (3.5-5.0) g/dL Vitamin B12 >4000.0 H (211-911) pg/mL 05/10/21 05/10/21 05/10/21 Range/Units 19:13 20:10 21:00 WBC (3.8-10.6) k/uL RBC (4.30-5.90) m/uL Hgb (13.0-17.5) gm/dL Hct (39.0-53.0) % RDW (11.5-15.5) % Plt Count (150-450) k/uL Neutrophils # (1.3-7.7) k/uL Sodium (137-145) mmol/L Chloride (98-107) mmol/L BUN (9-20) mg/dL Creatinine (0.66-1.25) mg/dL Glucose (74-99) mg/dL POC Glucose (mg/dL) 500 H 467 H 413 H (75-99) mg/dL TIBC (228-460) ug/dL % Saturation (15.00-50.00) Total Bilirubin (0.2-1.3) mg/dL AST (17-59) U/L ALT (4-49) U/L Alkaline Phosphatase (38-126) U/L Total Protein (6.3-8.2) g/dL Albumin (3.5-5.0) g/dL Vitamin B12 (211-911) pg/mL 05/10/21 05/10/21 05/11/21 Range/Units 21:59 22:59 00:05 WBC (3.8-10.6) k/uL RBC (4.30-5.90) m/uL Hgb (13.0-17.5) gm/dL Hct (39.0-53.0) % RDW (11.5-15.5) % Plt Count (150-450) k/uL Neutrophils # (1.3-7.7) k/uL Sodium (137-145) mmol/L Chloride (98-107) mmol/L BUN (9-20) mg/dL Creatinine (0.66-1.25) mg/dL Glucose (74-99) mg/dL POC Glucose (mg/dL) 344 H 246 H 167 H (75-99) mg/dL TIBC (228-460) ug/dL % Saturation (15.00-50.00) Total Bilirubin (0.2-1.3) mg/dL AST (17-59) U/L ALT (4-49) U/L Alkaline Phosphatase (38-126) U/L Total Protein (6.3-8.2) g/dL Albumin (3.5-5.0) g/dL Vitamin B12 (211-911) pg/mL 05/11/21 05/11/21 05/11/21 Range/Units 00:58 01:58 02:59 WBC (3.8-10.6) k/uL RBC (4.30-5.90) m/uL Hgb (13.0-17.5) gm/dL Hct (39.0-53.0) % RDW (11.5-15.5) % Plt Count (150-450) k/uL Neutrophils # (1.3-7.7) k/uL Sodium (137-145) mmol/L Chloride (98-107) mmol/L BUN (9-20) mg/dL Creatinine (0.66-1.25) mg/dL Glucose (74-99) mg/dL POC Glucose (mg/dL) 103 H 105 H 113 H (75-99) mg/dL TIBC (228-460) ug/dL % Saturation (15.00-50.00) Total Bilirubin (0.2-1.3) mg/dL AST (17-59) U/L ALT (4-49) U/L Alkaline Phosphatase (38-126) U/L Total Protein (6.3-8.2) g/dL Albumin (3.5-5.0) g/dL Vitamin B12 (211-911) pg/mL 05/11/21 05/11/21 05/11/21 Range/Units 04:07 04:09 04:09 WBC 24.0 H (3.8-10.6) k/uL RBC 2.64 L (4.30-5.90) m/uL Hgb 8.4 L (13.0-17.5) gm/dL Hct 25.6 L (39.0-53.0) % RDW 16.0 H (11.5-15.5) % Plt Count 480 H (150-450) k/uL Neutrophils # 21.0 H (1.3-7.7) k/uL Sodium 131 L (137-145) mmol/L Chloride 91 L (98-107) mmol/L BUN 58 H (9-20) mg/dL Creatinine 5.55 H (0.66-1.25) mg/dL Glucose 131 H (74-99) mg/dL POC Glucose (mg/dL) 154 H (75-99) mg/dL TIBC (228-460) ug/dL % Saturation (15.00-50.00) Total Bilirubin 4.0 H (0.2-1.3) mg/dL AST 3676 H (17-59) U/L ALT 2203 H (4-49) U/L Alkaline Phosphatase 1305 H (38-126) U/L Total Protein 5.3 L (6.3-8.2) g/dL Albumin 2.8 L (3.5-5.0) g/dL Vitamin B12 (211-911) pg/mL 05/11/21 05/11/21 05/11/21 Range/Units 05:16 06:11 07:07 WBC (3.8-10.6) k/uL RBC (4.30-5.90) m/uL Hgb (13.0-17.5) gm/dL Hct (39.0-53.0) % RDW (11.5-15.5) % Plt Count (150-450) k/uL Neutrophils # (1.3-7.7) k/uL Sodium (137-145) mmol/L Chloride (98-107) mmol/L BUN (9-20) mg/dL Creatinine (0.66-1.25) mg/dL Glucose (74-99) mg/dL POC Glucose (mg/dL) 118 H 128 H 138 H (75-99) mg/dL TIBC (228-460) ug/dL % Saturation (15.00-50.00) Total Bilirubin (0.2-1.3) mg/dL AST (17-59) U/L ALT (4-49) U/L Alkaline Phosphatase (38-126) U/L Total Protein (6.3-8.2) g/dL Albumin (3.5-5.0) g/dL Vitamin B12 (211-911) pg/mL 05/11/21 05/11/21 05/11/21 Range/Units 08:32 10:05 11:14 WBC (3.8-10.6) k/uL RBC (4.30-5.90) m/uL Hgb (13.0-17.5) gm/dL Hct (39.0-53.0) % RDW (11.5-15.5) % Plt Count (150-450) k/uL Neutrophils # (1.3-7.7) k/uL Sodium (137-145) mmol/L Chloride (98-107) mmol/L BUN (9-20) mg/dL Creatinine (0.66-1.25) mg/dL Glucose (74-99) mg/dL POC Glucose (mg/dL) 233 H 231 H 157 H (75-99) mg/dL TIBC (228-460) ug/dL % Saturation (15.00-50.00) Total Bilirubin (0.2-1.3) mg/dL AST (17-59) U/L ALT (4-49) U/L Alkaline Phosphatase (38-126) U/L Total Protein (6.3-8.2) g/dL Albumin (3.5-5.0) g/dL Vitamin B12 (211-911) pg/mL 05/11/21 05/11/21 05/11/21 Range/Units 12:13 13:08 14:43 WBC (3.8-10.6) k/uL RBC (4.30-5.90) m/uL Hgb (13.0-17.5) gm/dL Hct (39.0-53.0) % RDW (11.5-15.5) % Plt Count (150-450) k/uL Neutrophils # (1.3-7.7) k/uL Sodium (137-145) mmol/L Chloride (98-107) mmol/L BUN (9-20) mg/dL Creatinine (0.66-1.25) mg/dL Glucose (74-99) mg/dL POC Glucose (mg/dL) 126 H 159 H 210 H (75-99) mg/dL TIBC (228-460) ug/dL % Saturation (15.00-50.00) Total Bilirubin (0.2-1.3) mg/dL AST (17-59) U/L ALT (4-49) U/L Alkaline Phosphatase (38-126) U/L Total Protein (6.3-8.2) g/dL Albumin (3.5-5.0) g/dL Vitamin B12 (211-911) pg/mL 05/11/21 Range/Units 16:17 WBC (3.8-10.6) k/uL RBC (4.30-5.90) m/uL Hgb (13.0-17.5) gm/dL Hct (39.0-53.0) % RDW (11.5-15.5) % Plt Count (150-450) k/uL Neutrophils # (1.3-7.7) k/uL Sodium (137-145) mmol/L Chloride (98-107) mmol/L BUN (9-20) mg/dL Creatinine (0.66-1.25) mg/dL Glucose (74-99) mg/dL POC Glucose (mg/dL) 153 H (75-99) mg/dL TIBC (228-460) ug/dL % Saturation (15.00-50.00) Total Bilirubin (0.2-1.3) mg/dL AST (17-59) U/L ALT (4-49) U/L Alkaline Phosphatase (38-126) U/L Total Protein (6.3-8.2) g/dL Albumin (3.5-5.0) g/dL Vitamin B12 (211-911) pg/mL Microbiology - Last 24 Hours (Table) 05/10/21 03:00 Urine Culture - Final Urine,Clean Catch 05/10/21 10:32 Blood Culture - Preliminary Blood No Growth after 24 hours 05/10/21 11:34 Blood Culture - Preliminary Blood No Growth after 24 hours 05/10/21 13:05 Blood Culture Gram Stain - Preliminary Blood Blood Culture - Preliminary Staphylococcus species 05/09/21 19:05 Blood Culture - Final Blood Assessment and Plan Plan: 1 altered mental status, likely secondary to metabolic derangements with a possibility of an underlying sepsis. Currently under investigation, and a CAT scan of the brain was negative and the patient underwent hemodialysis yesterday and the patient had improvement in the mental status change in the currently is back to his baseline. 2 acute hyperkalemia, recovered 3 acute lactic acidosis, improved 4 gram-positive bacteremia, preliminary blood culture showing Staphylococcus species, patient was initially started on Zosyn, and vancomycin. They just some vancomycin. The source is still under investigation 5 End stage renal disease and currently on hemodialysis 6 L4-L5 posterior discitis with epidural abscess status post decompression laminectomy and antibiotic spacer placement. The patient was infected with staph epidermidis and the patient was receiving vancomycin on outpatient basis with Atrovent the vancomycin level of 13 7 diabetes mellitus type 1 8 diabetic peripheral neuropathy and restless leg syndrome 9 hypertension 10 acute abnormal elevation of the liver function tests, consider shock liver. The patient has elevation of the AST, ALT and alkaline phosphatase. Gallbladder wall is thickened. Nevertheless, there is no Neville signs. Gen. surgery has been consulted, for possibility of acute cholecystitis. 11 bradycardia secondary to hyperkalemia, recovered Plan: Discontinue Zosyn Continue with vancomycin Hemodynamically patient is stable He is recovered from a neurological standpoint, no altered mentation Gen. surgery has been consulted for possibility of acute cholecystitis Liver enzymes are improving Patient continues on broad-spectrum antibiotics Tolerating oral diet MRI of the spine is pending Repeat blood cultures Echocardiogram reviewed without evidence of endocarditis We'll continue closely follow in intensive care unit I performed a history & physical examination of the patient and discussed their management with my nurse practitioner, Gerri Ewing. I reviewed the nurse practitioner's note and agree with the documented findings and plan of care. Lung sounds are positive for diminished breath sounds throughout the lung greene. The findings and the impression was discussed with the patient. I attest to the documentation by the nurse practitioner. Time with Patient: Less than 30
[2021-05-11] MEDS: traMADol 50 MG TAB PO PRN (17:34)
[2021-05-11 18:08] LABS: Glucose,Whole Blood 143 mg/dL (75-99)
[2021-05-11 19:06] LABS: Glucose,Whole Blood 197 mg/dL (75-99)
[2021-05-11] MEDS ORDERED: INSULIN DETEMIR (LEVEMIR) 100 UNIT/ML SYR SQ SCH (21:30)
--- NOTE | 2021-05-11 21:35 | P.PN ---
Progress Note - Text Progress Note Date: 05/11/21 Presenting complaint: Tired Interval history: I took over the care of this patient at about 10 AM today. 51-year-old patient who follows with Dr. Emory Jacob. Patient was recently discharged from the hospital on May 01. 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 Tissue cultures that showed staph epidermidis. Diagnosis epidural abscess/ostiodiscitis. Patient was discharged on 6 weeks of vancomycin to be given with hemodialysis. Patient had surgery done at [place] about 6 weeks prior to the last admission. On April 28 patient underwent I&D of the lumbar spine epidural abscess., By Dr. Lozano, from orthopedics. Patient now presented to the hospital with altered mental status found to have increased LFTs, hemoglobin 6.7,. He was given 1 unit of blood at [facility] in and out of the unit care. May 10: Patient moved to the ICU past midnight. Potassium at 7.5. Emergent hemodialysis was carried out in the night. 3.5 L were removed. Patient also was initially bradycardic in the ER heart rate is back up in the 60s now. Patient has been on insulin pump. Blood cultures are coming back positive for gram negatives bacilli. Patient has left arm fistula. Sitting up in bed. Feeling tired. Blood cultures from yesterday growing gram-positive cocci May 11: ICU: Afebrile. Blood culture growing Staphylococcus species. Orthopedic is considered an MRI. The results could be inconclusive based on recent surgery. Computed tomography scan is suggestive cholecystitis but patient has not abdominal pain. Dr. Orozco had called me from [place] to consult surgery that is being done. Care was discussed with Dr. Siddiqi from critical care. Continue with antibiotics good oral intake Review of systems: Was done for constitutional, cardiovascular, GI, pulmonary. relevant finding as above Active Medications Calcium Acetate (Calcium Acetate 667 Mg Tab) 667 mg PO TID-W/[facility]ALS [facility] Last Admin: 05/11/21 17:35 Dose: 667 mg Documented by: Folic Acid (Folic Acid 1 Mg Tab) 1 mg PO DAILY@1200 [facility] Last Admin: 05/11/21 12:16 Dose: 1 mg Documented by: Heparin Sodium (Porcine) (Heparin Sodium,Porcine/Pf 5,000 Unit/0.5 Ml Syringe) 5,000 unit SQ Q12HR [facility] Last Admin: 05/11/21 09:37 Dose: 5,000 unit Documented by: Hydromorphone HCl (Hydromorphone 0.5 Mg/0.5 Ml Syringe) 0.5 mg IVP Q6HR PRN PRN Reason: Severe Pain Last Admin: 05/11/21 18:59 Dose: 0.5 mg Documented by: Dopamine HCl/Dextrose 800 mg/ (IV Solution) 250 mls @ 7.442 mls/hr IV .Q24H [facility]; Protocol Last Admin: 05/10/21 23:51 Dose: Not Given Documented by: Insulin Human Regular 100 unit (/ Sodium Chloride) 101 mls @ 0 mls/hr IV .Q0M [facility]; Protocol Last Titration: 05/11/21 19:07 Dose: 7 ml/hr, 7 mls/hr Documented by: Miscellaneous Information ([facility]com[facility]) 1 each MISCELLANE DIRECTED PRN; Protocol PRN Reason: Per Protocol Multivitamins (Multivitamins, Thera 1 Each Tab) 1 each PO DAILY@1200 [facility] Last Admin: 05/11/21 12:16 Dose: 1 each Documented by: Naloxone HCl (Naloxone 0.4 Mg/Ml 1 Ml Vial) 0.2 mg IV Q2M PRN PRN Reason: Opioid Reversal Pantoprazole Sodium (Pantoprazole 40 Mg/10 Ml Vial) 40 mg IVP DAILY [facility] Last Admin: 05/11/21 09:37 Dose: 40 mg Documented by: Pramipexole Dihydrochloride (Pramipexole 0.5 Mg Tab) 0.5 mg PO BID [facility] Last Admin: 05/11/21 09:37 Dose: 0.5 mg Documented by: Thiamine HCl (Thiamine 100 Mg Tab) 100 mg PO DAILY@1200 [facility] Last Admin: 05/11/21 12:16 Dose: 100 mg Documented by: Tramadol HCl (Tramadol 50 Mg Tab) 50 mg PO TID PRN PRN Reason: Pain Last Admin: 05/11/21 17:34 Dose: 50 mg Documented by: On examination: VITAL SIGNS: 98, 72, 15, 139/65, 96% on 2 L GENERAL APPEARANCE: . Sitting up in bed, awake. Left upper extremity fistula HEENT: Normal external appearance of nose and ear. Oral cavity normal EYES: Pupils equal. Conjunctiva normal. NECK: JVD not raised. Mass not palpable. RESPIRATORY: Respiratory effort normal. Lungs clear to auscultation. CARDIOVASCULAR: First and second sounds normal. No edema. ABDOMEN: Soft. Liver and spleen not palpable. No tenderness. No mass palpable. PSYCHIATRY: Alert and oriented x3. Mood and affect normal. INVESTIGATIONS, reviewed in the clinical context: May 11: WBC 24 hemoglobin 8.4 platelets 12/28/1929 potassium 4.3. 58 Krishen 5.55 AST 3676, ALT 10/24/2002 alkaline phosphatase 09/24/2004 total bilirubin 4 WBC 21 hemoglobin 8.3 platelets 416 potassium 3.5 BN 23 creatinine 2.7 to AST 5651 ALT 10/23/[address] abdomen and pelvis without contrast: Hepatomegaly. Ultrasound gallbladder: Thickened gallbladder wall/4 mm Assessment and plan: -Acute metabolic encephalopathy. Decrease in sodium from underlying sepsis and from uremic encephalopathy: Improved hemodialysis -Severe hyperkalemia from renal failure Better with hemodialysis -End-stage kidney disease on hemodialysis Follow with nephrology. Hemodialysis -Recent epidural abscess at L4-L5 with ostial discitis. Surgical intervention on April [address] Lozano. Cultures positive for staph epidermidis. For 6 weeks of IV vancomycin -Sepsis with blood cultures positive for Staphylococcus species suspect source to be L4-L5. Questionable cholecystitis Continue with IV vancomycin. Follow with surgery and orthopedics. -Questionable cholecystitis No abdominal symptoms. Consult surgery -Hyponatremia Follow BMP -Metabolic acidosis from renal failure Follow bicarb -Normocytic anemia multifactorial. Including contribution from renal failure Follow H&H -Acute severe ischemic hepatitis from sepsis: Slow to respond IV antibiotics. Follow hemodynamics. GI consulted -Abnormal gallbladder thickened wall on ultrasound with question about acute cholecystitis Car[facility] Filler Gen. surgery. -Hypertension with kidney disease Currently hypotension. Antihypertensives are held. -Restless leg syndrome Mirapex 0.5 mg daily at bedtime -Diabetes mellitus type 2, chronically on insulin. Uncontrolled with hyperglycemia Patient has insulin pump at home. Was on insulin drip. Start the patient on Le vemir 24 units at night. Sliding scale Patient's ICU. On telemetry. Possible MRA per orthopedics. Surgery consulted. On IV vancomycin. Start Levemir 24 units at night today. Discussed with mayur abraham. Total time spent today 45 minutes with over 25 minutes of discussion
[2021-05-11 21:58] LABS: Glucose,Whole Blood 138 mg/dL (75-99)
[2021-05-11 22:02] LABS: Protein, Total 5.3 g/dL (6.2-8.2)
[2021-05-11 22:56] LABS: Ferritin >16500.0 ng/mL (10.0-291.0)
[2021-05-12 00:11] LABS: Glucose,Whole Blood 210 mg/dL (75-99)
[2021-05-12 02:49] LABS: Glucose,Whole Blood 178 mg/dL (75-99)
[2021-05-12 04:06] LABS: Glucose,Whole Blood 172 mg/dL (75-99)
[2021-05-12] MEDS: DOPamine DRIP 800 MG in WATER FOR INJECTION 1 250ML.BAG IV SCH (04:19)
[2021-05-12] MEDS ORDERED: INSULIN REGULAR BOLUS (FROM DRIP BAG) IV PRN (05:31)
[2021-05-12 05:33] LABS: Anisocytosis Slight; Basophils # (A) 0.1 k/uL (0-0.2); Basophils % (A) 1 %; Eosinophils # (A) 0.4 k/uL (0-0.7); Eosinophils % (A) 2 %; HCT 26.2 % (39.0-53.0); HGB 8.2 gm/dL (13.0-17.5); Hypochromasia Slight; Lymphocytes # (A) 1.5 k/uL (1.0-4.8); Lymphocytes % (A) 8 %; MCH 31.4 pg (25.0-35.0); MCHC 31.5 g/dL (31.0-37.0); MCV 99.7 fL (80.0-100.0); Macrocytosis Slight; Mean Platelet Volume 9.4; Monocytes # (A) 0.5 k/uL (0-1.0); Monocytes % (A) 3 %; Neutrophils # (A) 14.6 k/uL (1.3-7.7); Neutrophils % (A) 84 %; Platelet Count 503 k/uL (150-450); RBC 2.63 m/uL (4.30-5.90); WBC 17.4 k/uL (3.8-10.6)
[2021-05-12 06:06] LABS: Calcium 8.8 mg/dL (8.4-10.2); Potassium 4.2 mmol/L (3.5-5.1)
[2021-05-12 06:18] LABS: Glucose,Whole Blood 93 mg/dL (75-99)
[2021-05-12 07:01] LABS: Glucose,Whole Blood 91 mg/dL (75-99)
[2021-05-12] MEDS: CALCIUM ACETATE 667 MG TAB PO SCH ×3 (07:05→16:29)
[2021-05-12 08:12] LABS: Glucose,Whole Blood 229 mg/dL (75-99)
--- NOTE | 2021-05-12 08:55 | P.PN ---
Subjective Progress Note Date: 05/12/21 Principal diagnosis: Sepsis, mental status, gram-positive bacteremia 51-year-old male patient came into the emergency department yesterday because of an altered mental status.. The patient has multiple medical problems and comorbidities. The patient type 1 diabetes mellitus and the patient has been on dialysis for the past 1 year undergoing dialysis 3 times a week Friday and Friday. Noted the patient was having complications of back pain and he has undergone previous laminectomy back in February 2021. The patient had subsequent L4-L5 posterior discitis along with an epidural abscess formation for which underwent a decompression laminectomy and antibiotic spacer placement on 05/08/2021. Surgery was done by Dr. Schmitt's an and there were no complications. Postop, the patient was maintained on vancomycin under the cultures were obtained from the abscesses were consistent with staph epidermidis. He was getting vancomycin through dialysis. The patient comes into the hospital yesterday because of an altered mental status, and the same time was found to be hyperkalemic with a potassium level of 7.8. He was bradycardic overnight with a heart rate in the mid 30s and 40s was started on dopamine. He was borderline hypotensive in addition. His lactic acid level was at 8.3. He had evidence of liver dysfunction and his AST and ALT were on the rise. His hemoglobin was 6.7 and the patient was given a unit of packed RBC. The patient had a white cell count of 21. The vancomycin level random was 13.2. As such, emergent dialysis was initiated and the patient subsequently had repeat electrodes that showed improvement in the potassium level and the potassium level dropped from 7.8 to 3.5 with subsequent improvement in his overall hemodynamics and the patient was taken off dopamine. His heart rate currently is in the mid 70s, sinus. Creatinine is down to 2.7. Lactic acid level is down to 2.6. He has developed liver dysfunction/shock liver with a AST of 5651 and ALT of 2107. Bilirubin was as high as 7.1 dropped down to 6.3. Amylase and lipase were within normal limits. Mother the patient was taking Perry and Ultram for chronic back pain and his Tylenol level came back negative. No history of any previous chronic hepatitis C and also alcoholism. Mental status completely back to normal for now. Surgical wound site was inspected by Dr. Lozano and based on his evaluation, no signs of any surgical wound infection at this point in time. . CAT scan of the abdomen and pelvis shows some slight have organomegaly and there was no evidence of any acute intra- abdominal abnormalities. There was a small right-sided pleural effusion. Ultrasound the gallbladder showed some gallbladder wall thickening. No Neville signs. No dilatation of the common bile duct. CAT scan of the head was negative for any acute abnormalities per her chest x-ray was clear. Echocardiogram was also completed and the patient is a normal ejection fraction of 55%. There was evidence of mild pulmonary hypertension with a PA pressure of 38.1. Amylase severely dilated. RV is normal size. No other significant valvular abnormalities. No evidence of a pericardial effusion. On 05/11/2001 patient seen in follow-up in the intensive care unit, he is awake and alert, in no acute distress, he is resting comfortably in bed, he is reading comfortably, she is on room air with pulse ox of 97%, hemodynamically he is stable, he is not on any vasopressor support currently, he is in sinus mechanism with a rate of 71 BPM, dopamine drip had been discontinued yesterday, no recurrence of bradycardia, he is on insulin infusion at 5.5 units per hour. His shortness of breath, cough, or phlegm production, today's chest x-ray shows no focal airspace opacity, pleural effusion or pneumothorax. No evidence of coarsened interstitium. Patient is afebrile. Maintains on Zosyn and vancomycin has been added evidence of Staphylococcus species in the blood cultures. Lumbar spine x-ray was completed yesterday showed no acute radiographic process. His spinal incision clean dry and intact without significant drainage. Orthopedic surgery is following, MRI of the spine is ordered and pending for later today, today's labs have been reviewed showing white blood cell count 24, hemoglobin is 8.4, sodium is 131, potassium is 4.3, chloride is 91, BUN is 58, creatinine is 5.5. Patient is having hemodialysis treatment. His LFTs are improving, amylase and lipase were within normal limits, his AFP tumor marker and back at less than 2.5, general surgery has been consulted for possibility of acute cholecystitis. Patient has no nausea or vomiting. Computed tomography scan and ultrasound both showed gallbladder wall thickening with gallstones. Patient is tolerating regular diet, did have some mild right upper quadrant pain which has improved On today's evaluation on 05/12/2021, patient is seen in follow-up in the intensive care unit, this morning she is awake and alert, oriented 3, he sitting up in the recliner, breathing comfortably, he is on room air, pulse ox is 96%, his had no fever or chills, hemodynamically his blood pressure is on the elevated side currently at 162/109, he is not on any IV infusions, he is due for his hemodialysis treatment today. This morning his main complaint is some fullness in the feeling of urinary retention. Baldwin catheter has been discontinued since yesterday, early this morning at 4:00 a bladder scan was done and 120 mL of residual urine was noted, patient did pass some urine, currently he states that she feels the feeling of fullness in his bladder again. Lung sounds are clear, no complaints of chest discomfort. He is maintaining stable O2 saturations on room air. There is some mild tenderness in the right upper quadrant with palpation, mild nausea which is for the most part is chronic. On today's labs his white count is trending down and is down to 17.4. HemoGlobin is 8.4. Sodium is 134, potassium is 4.2, chloride is 97, CO2 is 25, BUN is 47, creatinine is 4.39. Yesterday on of his blood culture sets collected on 05/10/2021 came back positive for Staphylococcus species, final culture is pending, other blood culture sets from the same date are negative, patient is currently on vancomycin, yesterday we discontinued the Zosyn. Patient is awake and alert, no altered mentation, he is tolerating a diet, no emesis, he is in sinus mechanism, his had no further episodes of bradycardia, potassium is 4.2 on today's labs. Objective - Vital Signs Vital signs: Vital Signs Temp 98.3 F 05/11/21 16:00 Pulse 75 05/12/21 07:00 Resp 7 L 05/12/21 07:00 BP 166/57 05/12/21 07:00 Pulse Ox 99 05/12/21 07:00 Intake & Output 05/11/21 05/12/21 05/12/21 18:59 06:59 18:59 Intake Total 277.193 242.9 20 Output Total 3040 0 0 Balance -2762.807 242.9 20 Weight 77.9 kg Intake: IV 210 240 20 0.9 140 240 20 Sodium Chloride 0.9% 1, 70 000 ml @ 50 mls/hr IV . Q20H [facility] Rx#:[id number] Intake, IV Titration 67.193 2.9 Amount Insulin Regular 100 unit 67.193 2.9 In Sodium Chloride 0.9% 100 ml @ Per Protocol IV .Q0M [facility] Rx#:[id number] Output: Urine 40 0 0 Hemodialysis 3000 Other: Voiding Method Urinal # Voids 0 # Bowel Movements 1 - Exam GENERAL EXAM: Alert, very pleasant, 51-year-old white male, resting comfortably in bed, on room air, with a pulse ox of 96% active, comfortable in no apparent distress. HEAD: Normocephalic/atraumatic. EYES: Normal reaction of pupils, equal size. Conjunctiva pink, sclera white. NOSE: Clear with pink turbinates. THROAT: No erythema or exudates. NECK: No masses, no JVD, no thyroid enlargement, no adenopathy. CHEST: No chest wall deformity. Symmetrical expansion. LUNGS: Equal air entry with no crackles, wheeze, rhonchi or dullness. CVS: Regular rate and rhythm, normal S1 and S2, no gallops, no murmurs, no rubs ABDOMEN: Soft, with minimal right-sided tenderness, nondistended No hepatosplenomegaly, normal bowel sounds, no guarding or rigidity. EXTREMITIES: No clubbing, no edema, no cyanosis, 2+ pulses and upper and lower extremities. MUSCULOSKELETAL: Muscle strength and tone normal. SPINE: No scoliosis or deformity. Spine incision was examined, the incision is well approximated, with minimal serous drainage at the distal end, no purulent drainage was noted, sutures are still in place, SKIN: No rashes CENTRAL NERVOUS SYSTEM: Alert and oriented -3. No focal deficits, tone is normal in all 4 extremities. PSYCHIATRIC: Alert and oriented -3. Appropriate affect. Intact judgment and insight. - Labs CBC & Chem 7: 05/12/21 03:55 05/12/21 03:55 Labs: Abnormal Lab Results - Last 24 Hours (Table) 05/10/21 05/11/21 05/11/21 Range/Units 10:24 04:09 04:09 WBC (3.8-10.6) k/uL RBC (4.30-5.90) m/uL Hgb (13.0-17.5) gm/dL Hct (39.0-53.0) % RDW (11.5-15.5) % Plt Count (150-450) k/uL Neutrophils # (1.3-7.7) k/uL Sodium (137-145) mmol/L Chloride (98-107) mmol/L BUN (9-20) mg/dL Creatinine (0.66-1.25) mg/dL Glucose (74-99) mg/dL POC Glucose (mg/dL) (75-99) mg/dL Hemoglobin A1c 6.4 H (4.0-6.0) % TIBC 155 L (228-460) ug/dL % Saturation 110.32 H (15.00-50.00) Ferritin >04753.0 H (10.0-291.0) ng/mL Total Protein (PEP) 5.3 L (6.2-8.2) g/dL Vitamin B12 >4000.0 H (211-911) pg/mL 05/11/21 05/11/21 05/11/21 Range/Units 10:05 11:14 12:13 WBC (3.8-10.6) k/uL RBC (4.30-5.90) m/uL Hgb (13.0-17.5) gm/dL Hct (39.0-53.0) % RDW (11.5-15.5) % Plt Count (150-450) k/uL Neutrophils # (1.3-7.7) k/uL Sodium (137-145) mmol/L Chloride (98-107) mmol/L BUN (9-20) mg/dL Creatinine (0.66-1.25) mg/dL Glucose (74-99) mg/dL POC Glucose (mg/dL) 231 H 157 H 126 H (75-99) mg/dL Hemoglobin A1c (4.0-6.0) % TIBC (228-460) ug/dL % Saturation (15.00-50.00) Ferritin (10.0-291.0) ng/mL Total Protein (PEP) (6.2-8.2) g/dL Vitamin B12 (211-911) pg/mL 05/11/21 05/11/21 05/11/21 Range/Units 13:08 14:43 16:17 WBC (3.8-10.6) k/uL RBC (4.30-5.90) m/uL Hgb (13.0-17.5) gm/dL Hct (39.0-53.0) % RDW (11.5-15.5) % Plt Count (150-450) k/uL Neutrophils # (1.3-7.7) k/uL Sodium (137-145) mmol/L Chloride (98-107) mmol/L BUN (9-20) mg/dL Creatinine (0.66-1.25) mg/dL Glucose (74-99) mg/dL POC Glucose (mg/dL) 159 H 210 H 153 H (75-99) mg/dL Hemoglobin A1c (4.0-6.0) % TIBC (228-460) ug/dL % Saturation (15.00-50.00) Ferritin (10.0-291.0) ng/mL Total Protein (PEP) (6.2-8.2) g/dL Vitamin B12 (211-911) pg/mL 05/11/21 05/11/21 05/11/21 Range/Units 18:06 19:05 21:56 WBC (3.8-10.6) k/uL RBC (4.30-5.90) m/uL Hgb (13.0-17.5) gm/dL Hct (39.0-53.0) % RDW (11.5-15.5) % Plt Count (150-450) k/uL Neutrophils # (1.3-7.7) k/uL Sodium (137-145) mmol/L Chloride (98-107) mmol/L BUN (9-20) mg/dL Creatinine (0.66-1.25) mg/dL Glucose (74-99) mg/dL POC Glucose (mg/dL) 143 H 197 H 138 H (75-99) mg/dL Hemoglobin A1c (4.0-6.0) % TIBC (228-460) ug/dL % Saturation (15.00-50.00) Ferritin (10.0-291.0) ng/mL Total Protein (PEP) (6.2-8.2) g/dL Vitamin B12 (211-911) pg/mL 05/12/21 05/12/21 05/12/21 Range/Units 00:10 02:47 03:55 WBC 17.4 H (3.8-10.6) k/uL RBC 2.63 L (4.30-5.90) m/uL Hgb 8.2 L (13.0-17.5) gm/dL Hct 26.2 L (39.0-53.0) % RDW 16.0 H (11.5-15.5) % Plt Count 503 H (150-450) k/uL Neutrophils # 14.6 H (1.3-7.7) k/uL Sodium (137-145) mmol/L Chloride (98-107) mmol/L BUN (9-20) mg/dL Creatinine (0.66-1.25) mg/dL Glucose (74-99) mg/dL POC Glucose (mg/dL) 210 H 178 H (75-99) mg/dL Hemoglobin A1c (4.0-6.0) % TIBC (228-460) ug/dL % Saturation (15.00-50.00) Ferritin (10.0-291.0) ng/mL Total Protein (PEP) (6.2-8.2) g/dL Vitamin B12 (211-911) pg/mL 05/12/21 05/12/21 05/12/21 Range/Units 03:55 04:04 08:11 WBC (3.8-10.6) k/uL RBC (4.30-5.90) m/uL Hgb (13.0-17.5) gm/dL Hct (39.0-53.0) % RDW (11.5-15.5) % Plt Count (150-450) k/uL Neutrophils # (1.3-7.7) k/uL Sodium 134 L (137-145) mmol/L Chloride 97 L (98-107) mmol/L BUN 47 H (9-20) mg/dL Creatinine 4.39 H (0.66-1.25) mg/dL Glucose 150 H (74-99) mg/dL POC Glucose (mg/dL) 172 H 229 H (75-99) mg/dL Hemoglobin A1c (4.0-6.0) % TIBC (228-460) ug/dL % Saturation (15.00-50.00) Ferritin (10.0-291.0) ng/mL Total Protein (PEP) (6.2-8.2) g/dL Vitamin B12 (211-911) pg/mL Microbiology - Last 24 Hours (Table) 05/10/21 03:00 Urine Culture - Final Urine,Clean Catch 05/10/21 10:32 Blood Culture - Preliminary Blood No Growth after 24 hours 05/10/21 11:34 Blood Culture - Preliminary Blood No Growth after 24 hours Assessment and Plan Plan: 1 altered mental status, recovered, [email or web address] secondary to metabolic derangements with a possibility of an underlying sepsis. Currently under investigation, and a CAT scan of the brain was negative and the patient underwent hemodialysis yesterday and the patient had improvement in the mental status change in the currently is back to his baseline. 2 acute hyperkalemia, recovered 3 acute lactic acidosis, improved 4 gram-positive bacteremia, preliminary blood culture showing Staphylococcus species, patient was initially started on Zosyn, and vancomycin. Currently vancomycin. The source is still under investigation 5 End stage renal disease and currently on hemodialysis 6 L4-L5 posterior discitis with epidural abscess status post decompression laminectomy and antibiotic spacer placement. The patient was infected with staph epidermidis and the patient was receiving vancomycin on outpatient basis with vancomycin level of 13 7 diabetes mellitus type 1 8 diabetic peripheral neuropathy and restless leg syndrome 9 hypertension 10 acute abnormal elevation of the liver function tests, consider shock liver. The patient has elevation of the AST, ALT and alkaline phosphatase. Gallbladder wall is thickened. Nevertheless, there is no Neville signs. Gen. surgery has been consulted, for possibility of acute cholecystitis. 11 bradycardia secondary to hyperkalemia, recovered Plan: Repeat blood cultures today Overall clinically patient is stable, white blood cell count is improving, No fever or chillsMRI of the spine is pending today No significant abdominal discomfort, no vomiting, tolerating oral diet Follow-up LFTs improving Continue vancomycin for antibiotic coverage will await final cultures Awaiting hemodialysis today If remains stable may be considered for transfer out of intensive care unit to edical surgical floor later today I performed a history & physical examination of the patient and discussed their management with my nurse practitioner, Gerri Ewing. I reviewed the nurse practitioner's note and agree with the documented findings and plan of care. Lung sounds are positive for diminished breath sounds throughout the lung greene. The findings and the impression was discussed with the patient. I attest to the documentation by the nurse practitioner. Time with Patient: Less than 30
[2021-05-12] MEDS: PANTOPRAZOLE 40 MG/10 ML VIAL IVP SCH (09:21)
[2021-05-12] MEDS: traMADol 50 MG TAB PO PRN (09:21)
[2021-05-12] MEDS: HEPARIN SODIUM,PORCINE/PF 5,000 UNIT/0.5 ML SYRINGE SQ SCH ×2 (09:21→20:26)
[2021-05-12] MEDS: PRAMIPEXOLE 0.5 MG TAB PO SCH ×2 (09:25→20:26)
--- NOTE | 2021-05-12 09:26 | P.PN ---
Subjective Progress Note Date: 05/12/21 Principal diagnosis: Chronic cholecystitis Patient sitting up in the chair. Has not voided since Baldwin catheter removed yesterday. Feels lower abdominal pressure and fullness. Does not make a large volume of urine daily because of his kidney failure. Denies upper abdominal p ain. Liver enzymes pending. Objective - Vital Signs Vital signs: Vital Signs Temp 98.3 F 05/11/21 16:00 Pulse 75 05/12/21 07:00 Resp 7 L 05/12/21 07:00 BP 166/57 05/12/21 07:00 Pulse Ox 99 05/12/21 07:00 Intake & Output 05/11/21 05/12/21 05/12/21 18:59 06:59 18:59 Intake Total 277.193 242.9 20 Output Total 3040 0 0 Balance -2762.807 242.9 20 Weight 77.9 kg Intake: IV 210 240 20 0.9 140 240 20 Sodium Chloride 0.9% 1, 70 000 ml @ 50 mls/hr IV . Q20H [facility] Rx#:[id number] Intake, IV Titration 67.193 2.9 Amount Insulin Regular 100 unit 67.193 2.9 In Sodium Chloride 0.9% 100 ml @ Per Protocol IV .Q0M [facility] Rx#:[id number] Output: Urine 40 0 0 Hemodialysis 3000 Other: Voiding Method Urinal # Voids 0 # Bowel Movements 1 - Exam Abdomen: Soft, mild lower abdominal tenderness, minimal distention - Labs CBC & Chem 7: 05/12/21 03:55 05/12/21 03:55 Labs: Abnormal Lab Results - Last 24 Hours (Table) 05/10/21 05/11/21 05/11/21 Range/Units 10:24 04:09 04:09 WBC (3.8-10.6) k/uL RBC (4.30-5.90) m/uL Hgb (13.0-17.5) gm/dL Hct (39.0-53.0) % RDW (11.5-15.5) % Plt Count (150-450) k/uL Neutrophils # (1.3-7.7) k/uL Sodium (137-145) mmol/L Chloride (98-107) mmol/L BUN (9-20) mg/dL Creatinine (0.66-1.25) mg/dL Glucose (74-99) mg/dL POC Glucose (mg/dL) (75-99) mg/dL Hemoglobin A1c 6.4 H (4.0-6.0) % TIBC 155 L (228-460) ug/dL % Saturation 110.32 H (15.00-50.00) Ferritin >79096.0 H (10.0-291.0) ng/mL Total Protein (PEP) 5.3 L (6.2-8.2) g/dL Vitamin B12 >4000.0 H (211-911) pg/mL 05/11/21 05/11/21 05/11/21 Range/Units 10:05 11:14 12:13 WBC (3.8-10.6) k/uL RBC (4.30-5.90) m/uL Hgb (13.0-17.5) gm/dL Hct (39.0-53.0) % RDW (11.5-15.5) % Plt Count (150-450) k/uL Neutrophils # (1.3-7.7) k/uL Sodium (137-145) mmol/L Chloride (98-107) mmol/L BUN (9-20) mg/dL Creatinine (0.66-1.25) mg/dL Glucose (74-99) mg/dL POC Glucose (mg/dL) 231 H 157 H 126 H (75-99) mg/dL Hemoglobin A1c (4.0-6.0) % TIBC (228-460) ug/dL % Saturation (15.00-50.00) Ferritin (10.0-291.0) ng/mL Total Protein (PEP) (6.2-8.2) g/dL Vitamin B12 (211-911) pg/mL 05/11/21 05/11/21 05/11/21 Range/Units 13:08 14:43 16:17 WBC (3.8-10.6) k/uL RBC (4.30-5.90) m/uL Hgb (13.0-17.5) gm/dL Hct (39.0-53.0) % RDW (11.5-15.5) % Plt Count (150-450) k/uL Neutrophils # (1.3-7.7) k/uL Sodium (137-145) mmol/L Chloride (98-107) mmol/L BUN (9-20) mg/dL Creatinine (0.66-1.25) mg/dL Glucose (74-99) mg/dL POC Glucose (mg/dL) 159 H 210 H 153 H (75-99) mg/dL Hemoglobin A1c (4.0-6.0) % TIBC (228-460) ug/dL % Saturation (15.00-50.00) Ferritin (10.0-291.0) ng/mL Total Protein (PEP) (6.2-8.2) g/dL Vitamin B12 (211-911) pg/mL 05/11/21 05/11/21 05/11/21 Range/Units 18:06 19:05 21:56 WBC (3.8-10.6) k/uL RBC (4.30-5.90) m/uL Hgb (13.0-17.5) gm/dL Hct (39.0-53.0) % RDW (11.5-15.5) % Plt Count (150-450) k/uL Neutrophils # (1.3-7.7) k/uL Sodium (137-145) mmol/L Chloride (98-107) mmol/L BUN (9-20) mg/dL Creatinine (0.66-1.25) mg/dL Glucose (74-99) mg/dL POC Glucose (mg/dL) 143 H 197 H 138 H (75-99) mg/dL Hemoglobin A1c (4.0-6.0) % TIBC (228-460) ug/dL % Saturation (15.00-50.00) Ferritin (10.0-291.0) ng/mL Total Protein (PEP) (6.2-8.2) g/dL Vitamin B12 (211-911) pg/mL 05/12/21 05/12/21 05/12/21 Range/Units 00:10 02:47 03:55 WBC 17.4 H (3.8-10.6) k/uL RBC 2.63 L (4.30-5.90) m/uL Hgb 8.2 L (13.0-17.5) gm/dL Hct 26.2 L (39.0-53.0) % RDW 16.0 H (11.5-15.5) % Plt Count 503 H (150-450) k/uL Neutrophils # 14.6 H (1.3-7.7) k/uL Sodium (137-145) mmol/L Chloride (98-107) mmol/L BUN (9-20) mg/dL Creatinine (0.66-1.25) mg/dL Glucose (74-99) mg/dL POC Glucose (mg/dL) 210 H 178 H (75-99) mg/dL Hemoglobin A1c (4.0-6.0) % TIBC (228-460) ug/dL % Saturation (15.00-50.00) Ferritin (10.0-291.0) ng/mL Total Protein (PEP) (6.2-8.2) g/dL Vitamin B12 (211-911) pg/mL 05/12/21 05/12/21 05/12/21 Range/Units 03:55 04:04 08:11 WBC (3.8-10.6) k/uL RBC (4.30-5.90) m/uL Hgb (13.0-17.5) gm/dL Hct (39.0-53.0) % RDW (11.5-15.5) % Plt Count (150-450) k/uL Neutrophils # (1.3-7.7) k/uL Sodium 134 L (137-145) mmol/L Chloride 97 L (98-107) mmol/L BUN 47 H (9-20) mg/dL Creatinine 4.39 H (0.66-1.25) mg/dL Glucose 150 H (74-99) mg/dL POC Glucose (mg/dL) 172 H 229 H (75-99) mg/dL Hemoglobin A1c (4.0-6.0) % TIBC (228-460) ug/dL % Saturation (15.00-50.00) Ferritin (10.0-291.0) ng/mL Total Protein (PEP) (6.2-8.2) g/dL Vitamin B12 (211-911) pg/mL Microbiology - Last 24 Hours (Table) 05/10/21 03:00 Urine Culture - Final Urine,Clean Catch 05/10/21 10:32 Blood Culture - Preliminary Blood No Growth after 24 hours 05/10/21 11:34 Blood Culture - Preliminary Blood No Growth after 24 hours Assessment and Plan (1) Chronic cholecystitis Narrative/Plan: Await labs from today. Continue diet. Consider Baldwin catheter placement given the patient's complaints. Current Visit: Yes Status: Acute Code(s): K81.1 - CHRONIC CHOLECYSTITIS SNOMED Code(s): 55201314
[2021-05-12] MEDS: INSULIN REGULAR 100 UNIT in SODIUM CHLORIDE 0.9% 100 ML IV SCH (09:27)
--- NOTE | 2021-05-12 10:12 | P.PN ---
Subjective Progress Note Date: 05/12/21 Pt s/e. Remains stable today. Denies any new numbness/tingling, weakness or back symptoms. He states he does have some abdominal fullness. PVR was 124. Pt does not make much urine due to ESRD. States no f/c/sob/cp overnight. has not been up much. Objective - Vital Signs Vital signs: Vital Signs Temp 98.3 F 05/11/21 16:00 Pulse 75 05/12/21 07:00 Resp 7 L 05/12/21 07:00 BP 166/57 05/12/21 07:00 Pulse Ox 99 05/12/21 07:00 Intake & Output 05/11/21 05/12/21 05/12/21 18:59 06:59 18:59 Intake Total 277.193 242.9 20 Output Total 3040 0 0 Balance -2762.807 242.9 20 Weight 77.9 kg Intake: IV 210 240 20 0.9 140 240 20 Sodium Chloride 0.9% 1, 70 000 ml @ 50 mls/hr IV . Q20H [facility] Rx#:[id number] Intake, IV Titration 67.193 2.9 Amount Insulin Regular 100 unit 67.193 2.9 In Sodium Chloride 0.9% 100 ml @ Per Protocol IV .Q0M [facility] Rx#:[id number] Output: Urine 40 0 0 Hemodialysis 3000 Other: Voiding Method Urinal # Voids 0 # Bowel Movements 1 - Exam Exam is stable today, he is up in chair able to move around at will. Still has some general weakness secondary to medical state, no focal deficits. Incision remains the same. PHYSICAL EXAMINATION: Vitals: Stable at this time General: Awake, alert, appropriate for age, in no acute distress. HEENT: No unusual neck masses around region of lateral neck triangle, thyroid, supraclavicular groove. Extremities: Skin warm and dry without no acute lesions, coloration, temperature, skin intact, no tenderness or erythema. Integument: Hairy patches: Absent Dorsal skin dimples: Absent Cafe au lait spots: Absent Surgical incisions: Posterior midline lumbar incision well-healed E Jj ecchymosis or edema Palpation: Please see Pain drawing on Intake sheet for further detail. (Tenderness = T, Nontender = NT, Swelling = S, Ecchymosis = E) Findings on Midline and paraspinal palpation and percussion: Cervical: NT Thoracic: NT Lumbar: mild paraspinal ttp Sacral: NT Special findings: Mild TTP around incision. Incision is healing well. No EEE. No purulence. Lower portion of incision when we pushed extremely hard had some minor serous out put but no purulence and no gross drainage despite efforts to f orce drainage. POSTURAL and MUSCULO-SKELETAL EVALUATION: Neck ROM: [Unrestricted in six directions] Lumbar ROM: [Unrestricted in six directions] Shoulder ROM: Symmetric in abduction, ER/IR Hip ROM: Symmetric in abduction, adduction, ER/IR Knee ROM: Symmetric and intact in Flexion / extension Hands: Normal appearing structure L and R Feet: Normal appearing structure L and R VASCULAR STATUS : Wrist Pulses: [2/4 bilateral radial and ulnar] Pedal Pulses: [2/4 bilateral DP and PT] Color: [Normal] Edema: [None] NEUROLOGIC EXAMINATION: Mental Status: Awake and alert, fully oriented, with normal attention, concentration and memory, and fluent, appropriate speech. Cranial Nerves: I: Olfactory not tested. II: Visual acuity normal, no visual field deficit noted with confrontation. III,IV: Normal pupillary reflexes & intact extraocular movements without nystagmus. V,: Intact symmetrical facial sensation. VII: Intact symmetrical facial motor movement VIII: Hearing intact. IX,X: Intact gag, swallow, & normal voice. XI: Sternocleidomastoid, trapezius function intact. XII: Tongue midline with normal movements. Special Tests: L'hermitte's Sign: Absent Spurling'Sign: Absent Bilateral Cubital percussion test: Absent Bilateral Ree-Tinel sign - Carpal region: Absent Bilateral Straight Leg Raising: Absent Bilateral Motor Exam (0-5/5, N/T) STRENGTH UPPER EXTREMITY Shoulder Abd (Not part of MILLY Motor score): RIGHT [5] LEFT [5] Elbow Flexors: RIGHT [5] LEFT [5] Elbow Extensor: RIGHT [5] LEFT [5] Wrrist Dorsiflexors: RIGHT [5] LEFT [5] Finger Abductor: RIGHT [5] LEFT [5] Senior Business Manager: RIGHT [5] LEFT [5] LOWER EXTREMITY Hip Flexor (Not part of MILLY Motor Score): RIGHT 4+ LEFT 4+ Knee Flexor: RIGHT 4+ LEFT 4+ Knee Extensor: RIGHT 4+. LEFT 4+ Ankle Dorsiflexion: RIGHT 4+ LEFT 4+ Ankle Plantarflexion: RIGHT 4+ LEFT 4+ EHL: RIGHT [5] LEFT 4+ FHL: RIGHT [5] LEFT [5] No focal deficits today. He has good movement and strength and has improved from previous exams. REFLEXES Biecp: RIGHT [2] LEFT [2] Tricep: RIGHT [2] LEFT [2] Brachioradialis: RIGHT [2] LEFT [2] Patellar: RIGHT [2] LEFT [2] Achilles: RIGHT [2] LEFT [2] Pathological Reflexes Correa's: RIGHT [Absent] LEFT [Absent] Babinski: RIGHT [Absent] LEFT [Absent] Clonus: RIGHT [None] LEFT [None] SENSORY Joint Position: [Intact bilaterally] Vibration [Intact bilaterally] Pain and LT sense [Intact C5-T1 and L2-S1] Dermatomal deficit [None] Gait and Functional Evaluation: Ambulatory aids: None Hand and finger dexterity intact bilaterally[]. Disdiadochokinesis examination negative[] bilaterally. - Labs CBC & Chem 7: 05/12/21 03:55 05/12/21 03:55 Labs: Abnormal Lab Results - Last 24 Hours (Table) 05/10/21 05/11/21 05/11/21 Range/Units 10:24 04:09 04:09 WBC (3.8-10.6) k/uL RBC (4.30-5.90) m/uL Hgb (13.0-17.5) gm/dL Hct (39.0-53.0) % RDW (11.5-15.5) % Plt Count (150-450) k/uL Neutrophils # (1.3-7.7) k/uL Sodium (137-145) mmol/L Chloride (98-107) mmol/L BUN (9-20) mg/dL Creatinine (0.66-1.25) mg/dL Glucose (74-99) mg/dL POC Glucose (mg/dL) (75-99) mg/dL Hemoglobin A1c 6.4 H (4.0-6.0) % TIBC 155 L (228-460) ug/dL % Saturation 110.32 H (15.00-50.00) Ferritin >84209.0 H (10.0-291.0) ng/mL Total Protein (PEP) 5.3 L (6.2-8.2) g/dL Vitamin B12 >4000.0 H (211-911) pg/mL 05/11/21 05/11/21 05/11/21 Range/Units 11:14 12:13 13:08 WBC (3.8-10.6) k/uL RBC (4.30-5.90) m/uL Hgb (13.0-17.5) gm/dL Hct (39.0-53.0) % RDW (11.5-15.5) % Plt Count (150-450) k/uL Neutrophils # (1.3-7.7) k/uL Sodium (137-145) mmol/L Chloride (98-107) mmol/L BUN (9-20) mg/dL Creatinine (0.66-1.25) mg/dL Glucose (74-99) mg/dL POC Glucose (mg/dL) 157 H 126 H 159 H (75-99) mg/dL Hemoglobin A1c (4.0-6.0) % TIBC (228-460) ug/dL % Saturation (15.00-50.00) Ferritin (10.0-291.0) ng/mL Total Protein (PEP) (6.2-8.2) g/dL Vitamin B12 (211-911) pg/mL 05/11/21 05/11/21 05/11/21 Range/Units 14:43 16:17 18:06 WBC (3.8-10.6) k/uL RBC (4.30-5.90) m/uL Hgb (13.0-17.5) gm/dL Hct (39.0-53.0) % RDW (11.5-15.5) % Plt Count (150-450) k/uL Neutrophils # (1.3-7.7) k/uL Sodium (137-145) mmol/L Chloride (98-107) mmol/L BUN (9-20) mg/dL Creatinine (0.66-1.25) mg/dL Glucose (74-99) mg/dL POC Glucose (mg/dL) 210 H 153 H 143 H (75-99) mg/dL Hemoglobin A1c (4.0-6.0) % TIBC (228-460) ug/dL % Saturation (15.00-50.00) Ferritin (10.0-291.0) ng/mL Total Protein (PEP) (6.2-8.2) g/dL Vitamin B12 (211-911) pg/mL 05/11/21 05/11/21 05/12/21 Range/Units 19:05 21:56 00:10 WBC (3.8-10.6) k/uL RBC (4.30-5.90) m/uL Hgb (13.0-17.5) gm/dL Hct (39.0-53.0) % RDW (11.5-15.5) % Plt Count (150-450) k/uL Neutrophils # (1.3-7.7) k/uL Sodium (137-145) mmol/L Chloride (98-107) mmol/L BUN (9-20) mg/dL Creatinine (0.66-1.25) mg/dL Glucose (74-99) mg/dL POC Glucose (mg/dL) 197 H 138 H 210 H (75-99) mg/dL Hemoglobin A1c (4.0-6.0) % TIBC (228-460) ug/dL % Saturation (15.00-50.00) Ferritin (10.0-291.0) ng/mL Total Protein (PEP) (6.2-8.2) g/dL Vitamin B12 (211-911) pg/mL 05/12/21 05/12/21 05/12/21 Range/Units 02:47 03:55 03:55 WBC 17.4 H (3.8-10.6) k/uL RBC 2.63 L (4.30-5.90) m/uL Hgb 8.2 L (13.0-17.5) gm/dL Hct 26.2 L (39.0-53.0) % RDW 16.0 H (11.5-15.5) % Plt Count 503 H (150-450) k/uL Neutrophils # 14.6 H (1.3-7.7) k/uL Sodium 134 L (137-145) mmol/L Chloride 97 L (98-107) mmol/L BUN 47 H (9-20) mg/dL Creatinine 4.39 H (0.66-1.25) mg/dL Glucose 150 H (74-99) mg/dL POC Glucose (mg/dL) 178 H (75-99) mg/dL Hemoglobin A1c (4.0-6.0) % TIBC (228-460) ug/dL % Saturation (15.00-50.00) Ferritin (10.0-291.0) ng/mL Total Protein (PEP) (6.2-8.2) g/dL Vitamin B12 (211-911) pg/mL 05/12/21 05/12/21 Range/Units 04:04 08:11 WBC (3.8-10.6) k/uL RBC (4.30-5.90) m/uL Hgb (13.0-17.5) gm/dL Hct (39.0-53.0) % RDW (11.5-15.5) % Plt Count (150-450) k/uL Neutrophils # (1.3-7.7) k/uL Sodium (137-145) mmol/L Chloride (98-107) mmol/L BUN (9-20) mg/dL Creatinine (0.66-1.25) mg/dL Glucose (74-99) mg/dL POC Glucose (mg/dL) 172 H 229 H (75-99) mg/dL Hemoglobin A1c (4.0-6.0) % TIBC (228-460) ug/dL % Saturation (15.00-50.00) Ferritin (10.0-291.0) ng/mL Total Protein (PEP) (6.2-8.2) g/dL Vitamin B12 (211-911) pg/mL Microbiology - Last 24 Hours (Table) 05/10/21 03:00 Urine Culture - Final Urine,Clean Catch 05/10/21 10:32 Blood Culture - Preliminary Blood No Growth after 24 hours 05/10/21 11:34 Blood Culture - Preliminary Blood No Growth after 24 hours Assessment and Plan Assessment: 51 yo male s/p L4-5 osteodiscitis and epidural phlegmon evacuation with fusion and abx spacer placement with hx of staph epi infection SIRS with sepsis ESRD Elevated LFTs Possible cholecystitis Diabetes Complex medical patient Plan: -Appreciate human performance consultant and team management. -Activity: Ambulate QID, OOB all meals, up and about, limit lifting bending twisting to less than 5 lbs. Use walker or cane if needed for stability. -Daily PT/OT, increase ambulation strength and balance. -Pain control: [Adequate at this time] -Meds: [reviewed] -GI ppx: senna, Miralax -DC sesay when up and about, bedside commode if needed -DVT PPX: Mechanical at this time -Hygiene: Daily showers, maintain incision free of bodily fluids or fecal matter -xrays and CT of abd and pelvis reviewed. all hardware in position, no interval changes. No fracture, screw migration or loosening noted. -MRI w/wo contrast of L spine ordered -Encourage IS 10x/hr -Dispo: [Pending] I spoke again with the patient. We will await MRI results which will likey show fluid collections due to post op timeframe. The only way to rule out continued infection in spine is to culture and evacuate. He understood. His clinical condition is improving. WBC decreased since HD yesterday, which makes sense. He has been afebrile the entire stay. LFTs and other labs improving as well. Depending on when MRI completed will put on schedule for tomorrow for I&D with washout lumbar spine. NPO at [place].
[2021-05-12 10:20] LABS: Glucose,Whole Blood 374 mg/dL (75-99)
[2021-05-12 11:01] LABS: Glucose,Whole Blood 375 mg/dL (75-99)
[2021-05-12] MEDS ORDERED: LORazepam 2 MG/ML INJ ONE (11:09)
[2021-05-12 12:55] LABS: Glucose,Whole Blood 333 mg/dL (75-99)
[2021-05-12] MEDS: FOLIC ACID 1 MG TAB PO SCH (14:03)
[2021-05-12] MEDS: THIAMINE 100 MG TAB PO SCH (14:03)
[2021-05-12] MEDS: MULTIVITAMINS, THERA 1 EACH TAB PO SCH (14:03)
--- NOTE | 2021-05-12 14:21 | P.PN ---
Subjective Progress Note Date: 05/12/21 Principal diagnosis: This is a 51-year-old male with ESRD on dialysis Friday. He is also diabetic. He had laminectomy in February 2021, subsequently had L4 5 disci tis with epidural abscess with decompression on 05/08/2021 Currently on antibiotics. Had an MRI this morning He is otherwise arousable, he was sedated for the MRI He was dialyzed yesterday Friday because of possible volume overload. Chest x- ray on 05/11/2021 yesterday was not consistent with heart failure. and will be dialyzed again today on his scheduled currently afebrile Objective - Vital Signs Vital signs: Vital Signs Temp 98.4 F 05/12/21 12:00 Pulse 81 05/12/21 13:00 Resp 28 H 05/12/21 13:00 BP 183/81 05/12/21 13:00 Pulse Ox 97 05/12/21 13:00 Intake & Output 05/11/21 05/12/21 05/12/21 18:59 06:59 18:59 Intake Total 277.193 242.9 161.360 Output Total 3040 0 0 Balance -2762.807 242.9 161.360 Weight 77.9 kg Intake: IV 210 240 120 0.9 140 240 120 Sodium Chloride 0.9% 1, 70 000 ml @ 50 mls/hr IV . Q20H [facility] Rx#:[id number] Intake, IV Titration 67.193 2.9 41.360 Amount Insulin Regular 100 unit 67.193 2.9 In Sodium Chloride 0.9% 100 ml @ Per Protocol IV .Q0M [facility] Rx#:[id number] Insulin Regular 100 unit 41.360 In Sodium Chloride 0.9% 100 ml @ Per Protocol IV .Q0M [facility] Rx#:[id number] Output: Urine 40 0 0 Hemodialysis 3000 Other: Voiding Method Urinal Indwelling Catheter # Voids 0 250 # Bowel Movements 1 on examination he was somewhat somnolent but arousable and was alert and oriented once he was awake HEENT exam no JVP neck exam otherwise unremarkable no facial asymmetry At sounds unremarkable for any murmur rub gallop Abdomen soft nontender Lungs are clear to auscultation good air entry bilaterally. Extremities exam reveals trace edema Neurologically awake alert oriented once she woke up - Labs CBC & Chem 7: 05/12/21 03:55 05/12/21 03:55 Labs: Abnormal Lab Results - Last 24 Hours (Table) 05/10/21 05/11/21 05/11/21 Range/Units 10:24 04:09 04:09 WBC (3.8-10.6) k/uL RBC (4.30-5.90) m/uL Hgb (13.0-17.5) gm/dL Hct (39.0-53.0) % RDW (11.5-15.5) % Plt Count (150-450) k/uL Neutrophils # (1.3-7.7) k/uL Sodium (137-145) mmol/L Chloride (98-107) mmol/L BUN (9-20) mg/dL Creatinine (0.66-1.25) mg/dL Glucose (74-99) mg/dL POC Glucose (mg/dL) (75-99) mg/dL Hemoglobin A1c 6.4 H (4.0-6.0) % Ferritin >36627.0 H (10.0-291.0) ng/mL Total Protein (PEP) 5.3 L (6.2-8.2) g/dL Vitamin B12 >4000.0 H (211-911) pg/mL 05/11/21 05/11/21 05/11/21 Range/Units 14:43 16:17 18:06 WBC (3.8-10.6) k/uL RBC (4.30-5.90) m/uL Hgb (13.0-17.5) gm/dL Hct (39.0-53.0) % RDW (11.5-15.5) % Plt Count (150-450) k/uL Neutrophils # (1.3-7.7) k/uL Sodium (137-145) mmol/L Chloride (98-107) mmol/L BUN (9-20) mg/dL Creatinine (0.66-1.25) mg/dL Glucose (74-99) mg/dL POC Glucose (mg/dL) 210 H 153 H 143 H (75-99) mg/dL Hemoglobin A1c (4.0-6.0) % Ferritin (10.0-291.0) ng/mL Total Protein (PEP) (6.2-8.2) g/dL Vitamin B12 (211-911) pg/mL 05/11/21 05/11/21 05/12/21 Range/Units 19:05 21:56 00:10 WBC (3.8-10.6) k/uL RBC (4.30-5.90) m/uL Hgb (13.0-17.5) gm/dL Hct (39.0-53.0) % RDW (11.5-15.5) % Plt Count (150-450) k/uL Neutrophils # (1.3-7.7) k/uL Sodium (137-145) mmol/L Chloride (98-107) mmol/L BUN (9-20) mg/dL Creatinine (0.66-1.25) mg/dL Glucose (74-99) mg/dL POC Glucose (mg/dL) 197 H 138 H 210 H (75-99) mg/dL Hemoglobin A1c (4.0-6.0) % Ferritin (10.0-291.0) ng/mL Total Protein (PEP) (6.2-8.2) g/dL Vitamin B12 (211-911) pg/mL 05/12/21 05/12/21 05/12/21 Range/Units 02:47 03:55 03:55 WBC 17.4 H (3.8-10.6) k/uL RBC 2.63 L (4.30-5.90) m/uL Hgb 8.2 L (13.0-17.5) gm/dL Hct 26.2 L (39.0-53.0) % RDW 16.0 H (11.5-15.5) % Plt Count 503 H (150-450) k/uL Neutrophils # 14.6 H (1.3-7.7) k/uL Sodium 134 L (137-145) mmol/L Chloride 97 L (98-107) mmol/L BUN 47 H (9-20) mg/dL Creatinine 4.39 H (0.66-1.25) mg/dL Glucose 150 H (74-99) mg/dL POC Glucose (mg/dL) 178 H (75-99) mg/dL Hemoglobin A1c (4.0-6.0) % Ferritin (10.0-291.0) ng/mL Total Protein (PEP) (6.2-8.2) g/dL Vitamin B12 (211-911) pg/mL 05/12/21 05/12/21 05/12/21 Range/Units 04:04 08:11 10:18 WBC (3.8-10.6) k/uL RBC (4.30-5.90) m/uL Hgb (13.0-17.5) gm/dL Hct (39.0-53.0) % RDW (11.5-15.5) % Plt Count (150-450) k/uL Neutrophils # (1.3-7.7) k/uL Sodium (137-145) mmol/L Chloride (98-107) mmol/L BUN (9-20) mg/dL Creatinine (0.66-1.25) mg/dL Glucose (74-99) mg/dL POC Glucose (mg/dL) 172 H 229 H 374 H (75-99) mg/dL Hemoglobin A1c (4.0-6.0) % Ferritin (10.0-291.0) ng/mL Total Protein (PEP) (6.2-8.2) g/dL Vitamin B12 (211-911) pg/mL 05/12/21 05/12/21 Range/Units 11:00 12:53 WBC (3.8-10.6) k/uL RBC (4.30-5.90) m/uL Hgb (13.0-17.5) gm/dL Hct (39.0-53.0) % RDW (11.5-15.5) % Plt Count (150-450) k/uL Neutrophils # (1.3-7.7) k/uL Sodium (137-145) mmol/L Chloride (98-107) mmol/L BUN (9-20) mg/dL Creatinine (0.66-1.25) mg/dL Glucose (74-99) mg/dL POC Glucose (mg/dL) 375 H 333 H (75-99) mg/dL Hemoglobin A1c (4.0-6.0) % Ferritin (10.0-291.0) ng/mL Total Protein (PEP) (6.2-8.2) g/dL Vitamin B12 (211-911) pg/mL Microbiology - Last 24 Hours (Table) 05/10/21 10:32 Blood Culture - Preliminary Blood No Growth after 48 hours 05/10/21 11:34 Blood Culture - Preliminary Blood No Growth after 48 hours 05/10/21 03:00 Urine Culture - Final Urine,Clean Catch Assessment and Plan Assessment: Impression 1. ESRD on dialysis Friday 2. Last dialysis was yesterday and will be dialyzed today again 3. Epidural abscess status post decompression. 4. Staphylococcus bacteremia 05/10/2021 5. Diabetes mellitus, currently on insulin drip 6. Anemia with hemoglobin is 8.2 as secondary to ESRD. Recommendation Maintain dialysis schedule on TTS Maintain antibiotics Monitor labs including CBC calcium phosphorus. Start darbepoetin alpha 60 g subcu every week
--- NOTE | 2021-05-12 14:45 | MR ---
EXAMINATION TYPE: MR lumbar spine wo/w con DATE OF EXAM: 05/12/2021 COMPARISON: CT lumbar spine 04/29/2021 HISTORY: Recent epidural abscess, sepsis. TECHNIQUE: Multiplanar, multisequence images of the lumbar spine were acquired utilizing 7.5 mL intravenous Gada vist gadolinium contrast. Posterior spinal fusion with transpedicular screws and vertical stabilization rods at L4-L5. Artifact of the surgical level assessment. Edema is seen within the spinal soft tissues posterior back at the surgical levels without a rim-enhancing fluid collection. No rim-enhancing fluid collection within t he thecal sac or epidural space. Lumbar segments are intact. No paraspinal masses are identified. Conus medullaris has a normal appe arance and is located at L1. IMPRESSION: Postsurgical changes of posterior spinal fusion at L4-L5 with some edema in the soft tissues of the b ack at the surgical levels. No rim-enhancing fluid collection within the paraspinal soft tissues or e pidural space.
--- NOTE | 2021-05-12 14:59 | PN ---
PROGRESS NOTE DATE OF SERVICE: 05/12/2021 REASON FOR FOLLOWUP: 1. Lumbosacral spine paraspinal abscess and diskitis. 2. Cholecystitis. INTERVAL HISTORY: The patient is afebrile. The patient is currently feeling better, breathing comfortably. Denies any worsening abdominal pain. He was complaining mostly of low abdominal pain that got relieved after he got a Baldwin catheter. No chest pain, shortness of breath or cough. PHYSICAL EXAMINATION: Blood pressure 183/81 with a pulse of 81, temperature 98.4. He is 97% on room air. GENERAL DESCRIPTION: General description is a middle-aged male up in the bed in no distress. RESPIRATORY SYSTEM: Unlabored breathing. Clear to auscultation anteriorly. HEART: S1, S2. Regular rate and rhythm. ABDOMEN: Soft. Mildly tender in the right upper quadrant area. Lumbosacral incision is currently dressed. Minimal drainage at the time of dressing change earlier. LABS: Blood culture with streptococcus species with ID and sensitivities pending. MRI of the lumbar spine is currently pending. DIAGNOSTIC IMPRESSION AND PLAN: Patient with a lumbosacral paraspinal abscess and diskitis, status post drainage. Culture with Staph epi, treated with vancomycin. hospital with mental status changes with a fever and with concern for possible cholecystitis. Surgery has seen the patient, recommending no surgical intervention at this point. Will wait for the MRI to finalize. Continue the vancomycin and Zosyn and continue supportive care. MMODL / IJN: [id number] /
[2021-05-12] MEDS ORDERED: DARBEPOETIN ALFA 60 MCG/0.3 ML SYRINGE SQ SCH (15:00)
[2021-05-12] MEDS ORDERED: VANCOMYCIN 1,500 MG in SODIUM CHLORIDE 0.9% 250 ML IVPB ONE (15:00)
[2021-05-12 15:13] LABS: Glucose,Whole Blood 237 mg/dL (75-99)
[2021-05-12 16:40] LABS: Glucose,Whole Blood 145 mg/dL (75-99)
[2021-05-12 19:20] LABS: Glucose,Whole Blood 110 mg/dL (75-99)
[2021-05-12 19:57] LABS: Glucose,Whole Blood 108 mg/dL (75-99)
--- NOTE | 2021-05-12 20:16 | P.PN ---
Progress Note - Text Progress Note Date: 05/12/21 MRI of the L spine reviewed. There are no masses, fluid collections or rim enhancing fluid collections seen. Fairly typical post surgical changes evident. No compressive lesions noted. L4-5 Hardware in position. Some artifact surrounding making some of the areas hard to identify. No masses seen, no epidural fluid collections noted, no tracking epidural abscess or other lesions noted at this time. Will reassess the pt in the AM and make decision for I&D vs watchful waiting. With pts labs improving and no severe neurological changes, would favor no surgical intervention, however will base on pt clinical symptoms as well as MRI and treatment team input as well as pt wishes. Can always watch clinically and re-book case for Friday if needed. Will follow closely.
[2021-05-12 21:55] LABS: Glucose,Whole Blood 188 mg/dL (75-99)
--- NOTE | 2021-05-12 22:29 | P.PN ---
Progress Note - Text Progress Note Date: 05/12/21 Presenting complaint: Tired Interval history: I took over the care of this patient at about 10 AM today. 51-year-old patient who follows with Dr. Emory Jacob. Patient was recently discharged from the hospital on May 01. 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 Tissue cultures that showed staph epidermidis. Diagnosis epidural abscess/ostiodiscitis. Patient was discharged on 6 weeks of vancomycin to be given with hemodialysis. Patient had surgery done at [place] about 6 weeks prior to the last admission. On April 28 patient underwent I&D of the lumbar spine epidural abscess., By Dr. Loazno, from orthopedics. Patient now presented to the hospital with altered mental status found to have increased LFTs, hemoglobin 6.7,. He was given 1 unit of blood at [facility] in and out of the unit care. May 10: Patient moved to the ICU past midnight. Potassium at 7.5. Emergent hemodialysis was carried out in the night. 3.5 L were removed. Patient also was initially bradycardic in the ER heart rate is back up in the 60s now. Patient has been on insulin pump. Blood cultures are coming back positive for gram negatives bacilli. Patient has left arm fistula. Sitting up in bed. Feeling tired. Blood cultures from yesterday growing gram-positive cocci May 11: ICU: Afebrile. Blood culture growing Staphylococcus species. Orthopedic is considered an MRI. The results could be inconclusive based on recent surgery. Computed tomography scan is suggestive cholecystitis but patient has not abdominal pain. Dr. Orozco had called me from ID to consult surgery that is being done. Care was discussed with Dr. Siddiqi from critical care. Continue with antibiotics good oral intake May 12: ICU: Afebrile. MRI of the lumbar spine done today. Showing postsurgical changes. No obvious new changes. Orthopedic is still contemplating surgery. Patient was uses on insulin pump. Had declined the Lantus last night. Oral intake fair. Review of systems: Was done for constitutional, cardiovascular, GI, pulmonary. relevant finding as above Active Medications Calcium Acetate (Calcium Acetate 667 Mg Tab) 667 mg PO TID-W/MEALS EDENILSON Last Admin: 05/12/21 16:29 Dose: 667 mg Documented by: Darbepoetin Timoteo (Darbepoetin Timoteo 60 Mcg/0.3 Ml Syringe) 60 mcg SQ Q7D [facility] Last Admin: 05/12/21 16:29 Dose: 60 mcg Documented by: Folic Acid (Folic Acid 1 Mg Tab) 1 mg PO DAILY@1200 [facility] Last Admin: 05/12/21 14:03 Dose: 1 mg Documented by: Heparin Sodium (Porcine) (Heparin Sodium,Porcine/Pf 5,000 Unit/0.5 Ml Syringe) 5,000 unit SQ Q12HR [facility] Last Admin: 05/12/21 20:26 Dose: 5,000 unit Documented by: Hydromorphone HCl (Hydromorphone 0.5 Mg/0.5 Ml Syringe) 0.5 mg IVP Q6HR PRN PRN Reason: Severe Pain Last Admin: 05/11/21 18:59 Dose: 0.5 mg Documented by: Insulin Human Regular 100 unit (/ Sodium Chloride) 101 mls @ 0 mls/hr IV .Q0M [facility]; Protocol Last Titration: 05/12/21 22:10 Dose: 7 units/hr, 7.07 mls/hr Documented by: Miscellaneous Information (Vancomycin Iv Per Pharmacy 1 Each Misc) 1 each MISCELLANE DIRECTED PRN; Protocol PRN Reason: Per Protocol Multivitamins (Multivitamins, Thera 1 Each Tab) 1 each PO DAILY@1200 [facility] Last Admin: 05/12/21 14:03 Dose: 1 each Documented by: Naloxone HCl (Naloxone 0.4 Mg/Ml 1 Ml Vial) 0.2 mg IV Q2M PRN PRN Reason: Opioid Reversal Pantoprazole Sodium (Pantoprazole 40 Mg/10 Ml Vial) 40 mg IVP DAILY [facility] Last Admin: 05/12/21 09:21 Dose: 40 mg Documented by: Pramipexole Dihydrochloride (Pramipexole 0.5 Mg Tab) 0.5 mg PO BID [facility] Last Admin: 05/12/21 20:26 Dose: 0.5 mg Documented by: Thiamine HCl (Thiamine 100 Mg Tab) 100 mg PO DAILY@1200 [facility] Last Admin: 05/12/21 14:03 Dose: 100 mg Documented by: Tramadol HCl (Tramadol 50 Mg Tab) 50 mg PO TID PRN PRN Reason: Pain Last Admin: 05/12/21 09:21 Dose: 50 mg Documented by: On examination: VITAL SIGNS: 98.5, 81, 16, 175-84, 98% room air GENERAL APPEARANCE: . Sitting up in bed, awake. Left upper extremity fistula HEENT: Normal external appearance of nose and ear. Oral cavity normal EYES: Pupils equal. Conjunctiva normal. NECK: JVD not raised. Mass not palpable. RESPIRATORY: Respiratory effort normal. Lungs clear to auscultation. CARDIOVASCULAR: First and second sounds normal. No edema. ABDOMEN: Soft. Liver and spleen not palpable. No tenderness. No mass palpable. PSYCHIATRY: Alert and oriented x3. Mood and affect normal. INVESTIGATIONS, reviewed in the clinical context: May 12: WBC 17.4 hemoglobin 8.2 platelets 503 potassium 4.2 BUN 47 creatinine 4.39 Blood culture [May 10]: Staphylococcus species May 11: WBC 24 hemoglobin 8.4 platelets 12/28/1929 potassium 4.3. 58 Krishen 5.55 AST 3676, ALT 10/24/2002 alkaline phosphatase 09/24/2004 total bilirubin 4 WBC 21 hemoglobin 8.3 platelets 416 potassium 3.5 BN 23 creatinine 2.7 to AST 5651 ALT 10/23/[address] abdomen and pelvis without contrast: Hepatomegaly. Ultrasound gallbladder: Thickened gallbladder wall/4 mm Assessment and plan: -Acute metabolic encephalopathy. Decrease in sensorium from underlying sepsis and from uremic encephalopathy: Improved hemodialysis -Severe hyperkalemia from renal failure Better with hemodialysis -End-stage kidney disease on hemodialysis Follow with nephrology. Hemodialysis -Recent epidural abscess at L4-L5 with ostial discitis. Surgical intervention on April [address] Lozano. Cultures positive for staph epidermidis. For 6 weeks of IV vancomycin from last admission. At this point unclear if further surgery would help unknown. Being evaluated by orthopedics -Sepsis with blood cultures positive for Staphylococcus species suspect source to be L4-L5. Questionable cholecystitis Continue with IV vancomycin. Follow with surgery and orthopedics. -Hyponatremia Follow BMP -Metabolic acidosis from renal failure Follow bicarb -Normocytic anemia multifactorial. Including contribution from renal failure Follow H&H -Acute severe ischemic hepatitis from sepsis: Slow to respond IV antibiotics. Follow hemodynamics. GI consulted -Abnormal gallbladder thickened wall on ultrasound with question about acute cholecystitis Gen. surgery. -Hypertension with kidney disease Hypotension resolved. Resume labetalol -Restless leg syndrome Mirapex 0.5 mg daily at bedtime -Diabetes mellitus type 2, chronically on insulin. Uncontrolled with hyperglycemia Patient has insulin pump at home. Was on insulin drip. Patient declined Levemir. Wants to use his insulin pump Patient be started on home dose of labetalol 200 mg 3 times a day. Continue other medication sheet plan. Orthopedics is considering repeat surgery. Rech josé miguel labs in the morning. Discussed with patient.
[2021-05-13 00:20] LABS: Glucose,Whole Blood 146 mg/dL (75-99)
[2021-05-13 00:20] LABS: Glucose,Whole Blood 145 mg/dL (75-99)
[2021-05-13] MEDS: HYDROmorphone 0.5 MG/0.5 ML SYRINGE IVP PRN ×2 (01:57→20:04)
[2021-05-13 02:07] LABS: Glucose,Whole Blood 85 mg/dL (75-99)
[2021-05-13] MEDS: LABETALOL 200 MG TAB PO SCH ×4 (02:16→21:06)
[2021-05-13 04:07] LABS: Glucose,Whole Blood 148 mg/dL (75-99)
[2021-05-13 04:36] LABS: Anisocytosis Slight; Basophils # (A) 0.1 k/uL (0-0.2); Basophils % (A) 0 %; Eosinophils # (A) 0.3 k/uL (0-0.7); Eosinophils % (A) 2 %; HCT 25.7 % (39.0-53.0); HGB 8.5 gm/dL (13.0-17.5); Hypochromasia Moderate; Lymphocytes # (A) 1.1 k/uL (1.0-4.8); Lymphocytes % (A) 7 %; MCV 100.2 fL (80.0-100.0); Macrocytosis Slight; Mean Platelet Volume 9.7; Monocytes # (A) 0.8 k/uL (0-1.0); Monocytes % (A) 5 %; Neutrophils # (A) 12.6 k/uL (1.3-7.7); Neutrophils % (A) 82 %; Platelet Count 463 k/uL (150-450); RBC 2.57 m/uL (4.30-5.90); RDW 16.4 % (11.5-15.5); WBC 15.3 k/uL (3.8-10.6)
[2021-05-13 04:49] LABS: Albumin 2.9 g/dL (3.5-5.0); Calcium 9.1 mg/dL (8.4-10.2); Potassium 4.6 mmol/L (3.5-5.1); Total Bilirubin 4.1 mg/dL (0.2-1.3); Total Protein 5.5 g/dL (6.3-8.2)
[2021-05-13] MEDS: INSULIN REGULAR 100 UNIT in SODIUM CHLORIDE 0.9% 100 ML IV SCH (04:55)
[2021-05-13 06:21] LABS: Glucose,Whole Blood 190 mg/dL (75-99)
[2021-05-13] MEDS: CALCIUM ACETATE 667 MG TAB PO SCH ×3 (07:20→18:30)
--- NOTE | 2021-05-13 08:35 | P.PN ---
Subjective Progress Note Date: 05/13/21 Patient seen and examined this morning. He is doing fairly well is up in his chair has been up and walking to trying legs stronger. Still complains of still some abdominal discomfort. Sesya was replaced he is making some urine at this time. Denies any fevers or chills overnight. Denies any other symptoms at this time. Objective - Vital Signs Vital signs: Vital Signs Temp 98.5 F 05/12/21 21:05 Pulse 85 05/13/21 04:00 Resp 16 05/13/21 04:00 BP 169/69 05/13/21 04:00 Pulse Ox 97 05/13/21 04:00 Intake & Output 05/12/21 05/13/21 05/13/21 18:59 06:59 18:59 Intake Total 571.962 807.278 Output Total 95 2385 Balance 476.962 -1577.722 Weight 78.5 kg Intake: IV 240 240 0.9 240 240 Intake, IV Titration 331.962 27.278 Amount Insulin Regular 100 unit 81.962 27.278 In Sodium Chloride 0.9% 100 ml @ Per Protocol IV .Q0M [facility] Rx#:[id number] Vancomycin 1,500 mg In 250 Sodium Chloride 0.9% 250 ml @ 125 mls/hr IVPB ONCE ONE Rx#:[id number] Oral 240 Hemodialysis 300 Output: Urine 95 85 Hemodialysis 2300 Other: Voiding Method Indwelling Catheter Indwelling Catheter # Voids 250 - Exam Exam continues to remain stable. He still has fairly good strength in his lower extremities he is able to sit to stand without a walker he is able to move around without any issues. His wound is inspected again at the distal aspect there is some minor exudative changes however no purulence no drainage no other discharge noted. PHYSICAL EXAMINATION: Vitals: Stable at this time General: Awake, alert, appropriate for age, in no acute distress. HEENT: No unusual neck masses around region of lateral neck triangle, thyroid, supraclavicular groove. Extremities: Skin warm and dry without no acute lesions, coloration, temperature, skin intact, no tenderness or erythema. Integument: Hairy patches: Absent Dorsal skin dimples: Absent Cafe au lait spots: Absent Surgical incisions: Posterior midline lumbar incision well-healed E Jj ecchymosis or edema Palpation: Please see Pain drawing on Intake sheet for further detail. (Tenderness = T, Nontender = NT, Swelling = S, Ecchymosis = E) Findings on Midline and paraspinal palpation and percussion: Cervical: NT Thoracic: NT Lumbar: mild paraspinal ttp Sacral: NT Special findings: Mild TTP around incision. Incision is healing well. No EEE. No purulence. Lower portion of incision when we pushed extremely hard had some minor serous out put but no purulence and no gross drainage despite efforts to force drainage. POSTURAL and MUSCULO-SKELETAL EVALUATION: Neck ROM: [Unrestricted in six directions] Lumbar ROM: [Unrestricted in six directions] Shoulder ROM: Symmetric in abduction, ER/IR Hip ROM: Symmetric in abduction, adduction, ER/IR Knee ROM: Symmetric and intact in Flexion / extension Hands: Normal appearing structure L and R Feet: Normal appearing structure L and R VASCULAR STATUS : Wrist Pulses: [2/4 bilateral radial and ulnar] Pedal Pulses: [2/4 bilateral DP and PT] Color: [Normal] Edema: [None] NEUROLOGIC EXAMINATION: Mental Status: Awake and alert, fully oriented, with normal attention, concentration and memory, and fluent, appropriate speech. Cranial Nerves: I: Olfactory not tested. II: Visual acuity normal, no visual field deficit noted with confrontation. III,IV: Normal pupillary reflexes & intact extraocular movements without nystagmus. V,: Intact symmetrical facial sensation. VII: Intact symmetrical facial motor movement VIII: Hearing intact. IX,X: Intact gag, swallow, & normal voice. XI: Sternocleidomastoid, trapezius function intact. XII: Tongue midline with normal movements. Special Tests: L'hermitte's Sign: Absent Spurling'Sign: Absent Bilateral Cubital percussion test: Absent Bilateral Ree-Tinel sign - Carpal region: Absent Bilateral Straight Leg Raising: Absent Bilateral Motor Exam (0-5/5, N/T) STRENGTH UPPER EXTREMITY Shoulder Abd (Not part of MILLY Motor score): RIGHT [5] LEFT [5] Elbow Flexors: RIGHT [5] LEFT [5] Elbow Extensor: RIGHT [5] LEFT [5] Wrrist Dorsiflexors: RIGHT [5] LEFT [5] Finger Abductor: RIGHT [5] LEFT [5] Sales Trainer: RIGHT [5] LEFT [5] LOWER EXTREMITY Hip Flexor (Not part of MILLY Motor Score): RIGHT 4+ LEFT 4+ Knee Flexor: RIGHT 4+ LEFT 4+ Knee Extensor: RIGHT 4+. LEFT 4+ Ankle Dorsiflexion: RIGHT 4+ LEFT 4+ Ankle Plantarflexion: RIGHT 4+ LEFT 4+ EHL: RIGHT [5] LEFT 4+ FHL: RIGHT [5] LEFT [5] No focal deficits today. He has good movement and strength and has improved from previous exams. REFLEXES Biecp: RIGHT [2] LEFT [2] Tricep: RIGHT [2] LEFT [2] Brachioradialis: RIGHT [2] LEFT [2] Patellar: RIGHT [2] LEFT [2] Achilles: RIGHT [2] LEFT [2] Pathological Reflexes Correa's: RIGHT [Absent] LEFT [Absent] Babinski: RIGHT [Absent] LEFT [Absent] Clonus: RIGHT [None] LEFT [None] SENSORY Joint Position: [Intact bilaterally] Vibration [Intact bilaterally] Pain and LT sense [Intact C5-T1 and L2-S1] Dermatomal deficit [None] Gait and Functional Evaluation: Ambulatory aids: None Hand and finger dexterity intact bilaterally[]. Disdiadochokinesis examination negative[] bilaterally. - Labs CBC & Chem 7: 05/13/21 04:07 05/13/21 04:07 Labs: Abnormal Lab Results - Last 24 Hours (Table) 05/12/21 05/12/21 05/12/21 Range/Units 10:18 11:00 12:53 WBC (3.8-10.6) k/uL RBC (4.30-5.90) m/uL Hgb (13.0-17.5) gm/dL Hct (39.0-53.0) % MCV (80.0-100.0) fL RDW (11.5-15.5) % Plt Count (150-450) k/uL Neutrophils # (1.3-7.7) k/uL Sodium (137-145) mmol/L Chloride (98-107) mmol/L BUN (9-20) mg/dL Creatinine (0.66-1.25) mg/dL Glucose (74-99) mg/dL POC Glucose (mg/dL) 374 H 375 H 333 H (75-99) mg/dL Total Bilirubin (0.2-1.3) mg/dL AST (17-59) U/L ALT (4-49) U/L Alkaline Phosphatase (38-126) U/L Total Protein (6.3-8.2) g/dL Albumin (3.5-5.0) g/dL 05/12/21 05/12/21 05/12/21 Range/Units 15:12 16:38 19:18 WBC (3.8-10.6) k/uL RBC (4.30-5.90) m/uL Hgb (13.0-17.5) gm/dL Hct (39.0-53.0) % MCV (80.0-100.0) fL RDW (11.5-15.5) % Plt Count (150-450) k/uL Neutrophils # (1.3-7.7) k/uL Sodium (137-145) mmol/L Chloride (98-107) mmol/L BUN (9-20) mg/dL Creatinine (0.66-1.25) mg/dL Glucose (74-99) mg/dL POC Glucose (mg/dL) 237 H 145 H 110 H (75-99) mg/dL Total Bilirubin (0.2-1.3) mg/dL AST (17-59) U/L ALT (4-49) U/L Alkaline Phosphatase (38-126) U/L Total Protein (6.3-8.2) g/dL Albumin (3.5-5.0) g/dL 05/12/21 05/12/21 05/13/21 Range/Units 19:56 21:54 00:08 WBC (3.8-10.6) k/uL RBC (4.30-5.90) m/uL Hgb (13.0-17.5) gm/dL Hct (39.0-53.0) % MCV (80.0-100.0) fL RDW (11.5-15.5) % Plt Count (150-450) k/uL Neutrophils # (1.3-7.7) k/uL Sodium (137-145) mmol/L Chloride (98-107) mmol/L BUN (9-20) mg/dL Creatinine (0.66-1.25) mg/dL Glucose (74-99) mg/dL POC Glucose (mg/dL) 108 H 188 H 145 H (75-99) mg/dL Total Bilirubin (0.2-1.3) mg/dL AST (17-59) U/L ALT (4-49) U/L Alkaline Phosphatase (38-126) U/L Total Protein (6.3-8.2) g/dL Albumin (3.5-5.0) g/dL 05/13/21 05/13/21 05/13/21 Range/Units 00:18 04:05 04:07 WBC 15.3 H (3.8-10.6) k/uL RBC 2.57 L (4.30-5.90) m/uL Hgb 8.5 L (13.0-17.5) gm/dL Hct 25.7 L (39.0-53.0) % MCV 100.2 H (80.0-100.0) fL RDW 16.4 H (11.5-15.5) % Plt Count 463 H (150-450) k/uL Neutrophils # 12.6 H (1.3-7.7) k/uL Sodium (137-145) mmol/L Chloride (98-107) mmol/L BUN (9-20) mg/dL Creatinine (0.66-1.25) mg/dL Glucose (74-99) mg/dL POC Glucose (mg/dL) 146 H 148 H (75-99) mg/dL Total Bilirubin (0.2-1.3) mg/dL AST (17-59) U/L ALT (4-49) U/L Alkaline Phosphatase (38-126) U/L Total Protein (6.3-8.2) g/dL Albumin (3.5-5.0) g/dL 05/13/21 05/13/21 Range/Units 04:07 06:19 WBC (3.8-10.6) k/uL RBC (4.30-5.90) m/uL Hgb (13.0-17.5) gm/dL Hct (39.0-53.0) % MCV (80.0-100.0) fL RDW (11.5-15.5) % Plt Count (150-450) k/uL Neutrophils # (1.3-7.7) k/uL Sodium 132 L (137-145) mmol/L Chloride 97 L (98-107) mmol/L BUN 38 H (9-20) mg/dL Creatinine 3.78 H (0.66-1.25) mg/dL Glucose 140 H (74-99) mg/dL POC Glucose (mg/dL) 190 H (75-99) mg/dL Total Bilirubin 4.1 H (0.2-1.3) mg/dL AST 844 H (17-59) U/L ALT 1335 H (4-49) U/L Alkaline Phosphatase 1353 H (38-126) U/L Total Protein 5.5 L (6.3-8.2) g/dL Albumin 2.9 L (3.5-5.0) g/dL Microbiology - Last 24 Hours (Table) 05/10/21 10:32 Blood Culture - Preliminary Blood No Growth after 48 hours 05/10/21 11:34 Blood Culture - Preliminary Blood No Growth after 48 hours Assessment and Plan Assessment: 51 yo male s/p L4-5 osteodiscitis and epidural phlegmon evacuation with fusion and abx spacer placement with hx of staph epi infection SIRS with sepsis ESRD Elevated LFTs Possible cholecystitis Diabetes Complex medical patient Plan: -Appreciate oracle security consultant and team management. -Activity: Ambulate QID, OOB all meals, up and about, limit lifting bending twisting to less than 5 lbs. Use walker or cane if needed for stability. -Daily PT/OT, increase ambulation strength and balance. -Pain control: [Adequate at this time] -Meds: [reviewed] -GI ppx: senna, Miralax -DC sesay when up and about, bedside commode if needed -DVT PPX: Mechanical at this time -Hygiene: Daily showers, maintain incision free of bodily fluids or fecal matter -xrays and CT of abd and pelvis reviewed. all hardware in position, no interval changes. No fracture, screw migration or loosening noted. -MRI of the lumbar spine is reviewed and demonstrates no rim-enhancing fluid collections however there is a possible fluid correction surrounding the operative bed is difficult to determine whether or not this is effective or otherwise. There is no evidence of epidural abscess there is no evidence of extension. Hardware in good position. -Encourage IS 10x/hr -Dispo: [Pending] Spine Surgery Risk Review Victorino is a 51-year-old male presenting for evaluation of ESRD elevated LFTs sepsis status post L4 5 osteo-discitis evacuation. It was my pleasure to have seen and examined Victorino Palacio. In our visit today we have had a chance to go over subjective complaints, physical examination findings and treatments including the natural course history without intervention and various interventional options. The patients imaging demonstrates postsurgical changes with possible fluid collection. On physical exam, Victorino Palacio demonstrates some continued back pain once more concerning is some of the abdominal discomfort that he has secondary. He was found to have a possible thickening gallbladder however this is a similar abdominal discomfort he had prior to his previous surgery. The wound is somewhat weepy in the inferior portion however there is no purulence noted.. I have explained to the patient that as their condition progresses it will cause further neurological deficits and eventual paralysis. Based on the patients imaging, physical exam, and the rapid progression and disabling nature of their symptoms, at this time I recommend surgery in the form or a: Incision and drainage with irrigation and debridement lumbar spine. I discussed the risk and benefits of this procedure at length with Victorino Palacio and his . The patient and his agreed to considered pursuing the procedure abovementioned. Prior to surgery, she should follow up with her PCP (Cardio, ID, IM etc) for clearance. Questions were invited and answered, and the patient wishes to proceed as outlined below. Currently, I am recommendin. Incision and drainage with irrigation and debridement lumbar spine 2. Follow up with PCP for surgical clearance 3. Review of surgical risks and benefits as well as an educational packet on the proposed surgical procedure. Risks: All surgical procedures come with inherent risks, including those related to positioning, anesthesia, intraoperative findings, and postoperative complications. It is important to understand that surgery does not come with any guarantee of a successful outcome as complications and adverse events are always possible. The patient was given a handout in office today discussing the surgical procedure and risks associated with the intervention, both of which were discussed with the patient. These risks include but are not limited to the following: * Experiencing same, different or even worse symptoms in back, neck, arms, or legs compared to before surgery. * Requiring further surgery or other forms of treatment presently or at some time in the future at same or other levels of the intended spine surgery. * On an extreme but fortunately relatively rare basis severe complication such as blindness, stroke, heart attack, temporary and/or permanent nerve injury, paralysis, coma, or may occur, sometimes without known explanation. * Surgical complications may include but are not limited to risk of infection, fluid accumulation in the surgical dissection site, including a seroma or hematoma, that requires additional surgery, wound drainage, bleeding, new numbness or weakness, vision changes/loss, spinal fluid leakage, non-healing and/or infected incision, headaches, difficulty or inability to swallow, hoarseness, hemopneumothorax, pneumothorax, impotence, retrograde ejaculation, vaginal dryness; injury to nerves, spinal cord, blood vessels, lymphatics or other vital organs (i.e., bowel injury, injury to the great vessels); heterotopic bone formation; complications related to the hardware such as screws, rods, cages including misplaced hardware, device failure, instrumentation at the wrong spine level, hardware fracture/breakage, or hardware loosening; vertebral failure of the spinal column above or below the newly placed hardware; retained surgical instrumentations or devices and the need for further surgery. * Medical risks of the planned spine surgery include but are not limited to generalized Infections to the whole body or local areas outside of the surgical site (sepsis), heart attack, bleeding, anaphylaxis, meningitis, s eizure, epilepsy, hearing loss, burn amaya, laceration of the head or other areas of the body, bruising, hypersensitivity of the skin, bladder over distension; allergic reaction; shoulder injury related to positioning; fat, blood and air clots to other areas of the body like heart, lungs, brain; judy lure of internal organs such as lungs, kidneys, liver and excessive bleeding. If blood transfusions are necessary, note that transfusions may cause intolerance reactions such as anaphylaxis or other complex reactions. * Despite best efforts, the results of spine surgery might not heal in terms of bone, soft tissues such as skin, fascia, ligaments, and joints. Additionally, in order to achieve best possible results, spine surgery may be carried out beyond the initially planned levels and involve decompression, fusion including insertion of hardware at levels other than the original intended are a of surgical interest change some portions of the procedure in order to ensure the best possible outcomes. * With spine surgery and spinal fusion, there are different off label uses of instrumentation (devices, implants and hardware) as well as biological substances (bone morphogenic proteins, demineralized bone matrix) as well as using extra bone from allograft sources (i.e. cadaver bone) or autograft (iliac crest bone, ribs, or the spine itself). The patient has been given information about these practices and their inherent risks and benefits. * [facility] is an educational center that serves as a training facility for neurosurgical and orthopedic spine residents and fellows. Residents are physicians who are completing their surgical intensive training following medical school. They assist in the operating room with direct supervision of the attending surgeons. [place] are surgeons who have completed their training and eligible for board certification. They have opt ed for an elective year of more specialized training in their field. They assist in the operating room under the supervision of the attending surgeons. Physician assistants are medically trained surgical providers who function in the outpatient, inpatient, and operating room setting under the direct supervision of the attending surgeon. * [facility] has multiple operating rooms with single and overlapping rooms running daily. They currently function under the required guidelines as produced by the [facility] Finance Committee with regards to the overlapping rooms and will continue to comply with changes to this policy as they occur. The requirements include and are complied with as follows: (1) the critical portions of the overlapping rooms will not occur at the same time, (2) the attending physician will be physically present during the critical portions of the procedure and immediately available during the entire case, and (3) a back-up attending is designated should the primary attending not be immediately available. The patient has had a chance to review all the listed information, has been given print outs detailing this information, and has had all his/her questions answered to their satisfaction. It was my pleasure to have seen and examined Victorino Palacio. In our visit today we have had a chance to go over my understanding of our patient's current condition, the natural course history without intervention and various interventional options. Questions were invited and answered, and the patient wishes to proceed as outlined above. I have seen and examined the patient for 25 minutes and we have spent more than 50% of the time in repeat and detailed counseling about the patient's condition, its natural course history with out and as much as can be predicted with surgery and re-review of various surgical treatment options. In conclusion, Victorino Palacio and 's requested we proceed with the above suggested surgery and are willing to accept risks and limitations of the suggested surgery as nature of the disease process and our best attempts at treatment for the condition. Thank you again for allowing us to be part of your patient's care. Please don't hesitate to contact me if you have any further questions. Signed and authenticated by: Sebas Jeong [facility] [address] [place] [place] [address] Time with Patient: Greater than 30
[2021-05-13] MEDS ORDERED: DEXTROSE 50% SYRINGE 50 ML IVP ONE (08:45)
[2021-05-13 08:46] LABS: Glucose,Whole Blood 50 mg/dL (75-99)
[2021-05-13 09:09] LABS: Glucose,Whole Blood 126 mg/dL (75-99)
[2021-05-13] MEDS ORDERED: ROCURONIUM 10 MG/ML (5 ML VIAL) IV ONE (09:37)
[2021-05-13] MEDS ORDERED: GLYCOPYRROLATE 0.2 MG/ML 2 ML VIAL ONE (09:37)
[2021-05-13] MEDS ORDERED: LIDOCAINE 1% INJ 10MG/ML (20 ML MDV) ONE (09:37)
[2021-05-13] MEDS ORDERED: fentaNYL (PF) 50 MCG/ML 2 ML AMP ONE (09:37)
[2021-05-13] MEDS ORDERED: NEOSTIGMINE 1 MG/ML 10 ML VIAL ONE (09:37)
[2021-05-13] MEDS ORDERED: PROPOFOL 10 MG/ML 20 ML VIAL IV ONE (09:37)
[2021-05-13] MEDS ORDERED: PHENYLEPHRINE-0.9% NACL SYG 1,000 MCG/10 ML SYRINGE ONE (09:37)
[2021-05-13] MEDS ORDERED: SUCCINYLCHOLINE CHLORIDE 100 MG/5 ML SYR IV ONE (09:37)
[2021-05-13] MEDS ORDERED: ePHEDrine SULFATE/0.9% NACL/PF 50 MG/5 ML SYRINGE IV ONE (09:37)
--- NOTE | 2021-05-13 09:39 | P.PN ---
Subjective Progress Note Date: 05/13/21 On today's evaluation of 2020, the patient is doing well. He is awake and alert. No specific complaints. No fever. No chills. The blood culture is still showing staph species and this is only one blood culture out of 4. The patient was again seen by spine surgery. He'll be taken to the operating room for reevaluation of the wound. No nausea. No vomiting. No abdominal pain. No chest pain. His white cell count is 16.3 with hemoglobin of 8.5. His creatinine is at 3.7 and the patient's potassium level is at 4.6. MRI of the spine was reviewed by the surgeon and there is no vomiting and has been fluid collection and there is questionable possible fluid collection surrounding the operative bed and it was difficult to exclude possibility of anemia underlying infection. No evidence of an epidural abscess and there was no evidence of any extension and the hardware was in good position. As such, the patient will be taken to the operating room for another inspection of the wound itself. He underwent hemodialysis yesterday. Objective - Vital Signs Vital signs: Vital Signs Temp 98.5 F 05/12/21 21:05 Pulse 85 05/13/21 04:00 Resp 16 05/13/21 04:00 BP 169/69 05/13/21 04:00 Pulse Ox 97 05/13/21 04:00 Intake & Output 05/12/21 05/13/21 05/13/21 18:59 06:59 18:59 Intake Total 571.962 807.278 Output Total 95 2385 Balance 476.962 -1577.722 Weight 78.5 kg Intake: IV 240 240 0.9 240 240 Intake, IV Titration 331.962 27.278 Amount Insulin Regular 100 unit 81.962 27.278 In Sodium Chloride 0.9% 100 ml @ Per Protocol IV .Q0M [facility] Rx#:[id number] Vancomycin 1,500 mg In 250 Sodium Chloride 0.9% 250 ml @ 125 mls/hr IVPB ONCE ONE Rx#:[id number] Oral 240 Hemodialysis 300 Output: Urine 95 85 Hemodialysis 2300 Other: Voiding Method Indwelling Catheter Indwelling Catheter # Voids 250 - Exam GENERAL EXAM: Alert, very pleasant, 51-year-old white male, resting comfortably in bed, on room air, with a pulse ox of 96% active, comfortable in no apparent distress. HEAD: Normocephalic/atraumatic. EYES: Normal reaction of pupils, equal size. Conjunctiva pink, sclera white. NOSE: Clear with pink turbinates. THROAT: No erythema or exudates. NECK: No masses, no JVD, no thyroid enlargement, no adenopathy. CHEST: No chest wall deformity. Symmetrical expansion. LUNGS: Equal air entry with no crackles, wheeze, rhonchi or dullness. CVS: Regular rate and rhythm, normal S1 and S2, no gallops, no murmurs, no rubs ABDOMEN: Soft, with minimal right-sided tenderness, nondistended No hepatospl enomegaly, normal bowel sounds, no guarding or rigidity. EXTREMITIES: No clubbing, no edema, no cyanosis, 2+ pulses and upper and lower extremities. MUSCULOSKELETAL: Muscle strength and tone normal. SPINE: No scoliosis or deformity. Spine incision was examined, the incision is well approximated, with minimal serous drainage at the distal end, no purulent drainage was noted, sutures are still in place, SKIN: No rashes CENTRAL NERVOUS SYSTEM: Alert and oriented -3. No focal deficits, tone is n ormal in all 4 extremities. PSYCHIATRIC: Alert and oriented -3. Appropriate affect. Intact judgment and insight. - Labs CBC & Chem 7: 05/13/21 04:07 05/13/21 04:07 Labs: Abnormal Lab Results - Last 24 Hours (Table) 05/12/21 05/12/21 05/12/21 Range/Units 10:18 11:00 12:53 WBC (3.8-10.6) k/uL RBC (4.30-5.90) m/uL Hgb (13.0-17.5) gm/dL Hct (39.0-53.0) % MCV (80.0-100.0) fL RDW (11.5-15.5) % Plt Count (150-450) k/uL Neutrophils # (1.3-7.7) k/uL Sodium (137-145) mmol/L Chloride (98-107) mmol/L BUN (9-20) mg/dL Creatinine (0.66-1.25) mg/dL Glucose (74-99) mg/dL POC Glucose (mg/dL) 374 H 375 H 333 H (75-99) mg/dL Total Bilirubin (0.2-1.3) mg/dL AST (17-59) U/L ALT (4-49) U/L Alkaline Phosphatase (38-126) U/L Total Protein (6.3-8.2) g/dL Albumin (3.5-5.0) g/dL 05/12/21 05/12/21 05/12/21 Range/Units 15:12 16:38 19:18 WBC (3.8-10.6) k/uL RBC (4.30-5.90) m/uL Hgb (13.0-17.5) gm/dL Hct (39.0-53.0) % MCV (80.0-100.0) fL RDW (11.5-15.5) % Plt Count (150-450) k/uL Neutrophils # (1.3-7.7) k/uL Sodium (137-145) mmol/L Chloride (98-107) mmol/L BUN (9-20) mg/dL Creatinine (0.66-1.25) mg/dL Glucose (74-99) mg/dL POC Glucose (mg/dL) 237 H 145 H 110 H (75-99) mg/dL Total Bilirubin (0.2-1.3) mg/dL AST (17-59) U/L ALT (4-49) U/L Alkaline Phosphatase (38-126) U/L Total Protein (6.3-8.2) g/dL Albumin (3.5-5.0) g/dL 05/12/21 05/12/21 05/13/21 Range/Units 19:56 21:54 00:08 WBC (3.8-10.6) k/uL RBC (4.30-5.90) m/uL Hgb (13.0-17.5) gm/dL Hct (39.0-53.0) % MCV (80.0-100.0) fL RDW (11.5-15.5) % Plt Count (150-450) k/uL Neutrophils # (1.3-7.7) k/uL Sodium (137-145) mmol/L Chloride (98-107) mmol/L BUN (9-20) mg/dL Creatinine (0.66-1.25) mg/dL Glucose (74-99) mg/dL POC Glucose (mg/dL) 108 H 188 H 145 H (75-99) mg/dL Total Bilirubin (0.2-1.3) mg/dL AST (17-59) U/L ALT (4-49) U/L Alkaline Phosphatase (38-126) U/L Total Protein (6.3-8.2) g/dL Albumin (3.5-5.0) g/dL 05/13/21 05/13/21 05/13/21 Range/Units 00:18 04:05 04:07 WBC 15.3 H (3.8-10.6) k/uL RBC 2.57 L (4.30-5.90) m/uL Hgb 8.5 L (13.0-17.5) gm/dL Hct 25.7 L (39.0-53.0) % MCV 100.2 H (80.0-100.0) fL RDW 16.4 H (11.5-15.5) % Plt Count 463 H (150-450) k/uL Neutrophils # 12.6 H (1.3-7.7) k/uL Sodium (137-145) mmol/L Chloride (98-107) mmol/L BUN (9-20) mg/dL Creatinine (0.66-1.25) mg/dL Glucose (74-99) mg/dL POC Glucose (mg/dL) 146 H 148 H (75-99) mg/dL Total Bilirubin (0.2-1.3) mg/dL AST (17-59) U/L ALT (4-49) U/L Alkaline Phosphatase (38-126) U/L Total Protein (6.3-8.2) g/dL Albumin (3.5-5.0) g/dL 05/13/21 05/13/21 05/13/21 Range/Units 04:07 06:19 08:44 WBC (3.8-10.6) k/uL RBC (4.30-5.90) m/uL Hgb (13.0-17.5) gm/dL Hct (39.0-53.0) % MCV (80.0-100.0) fL RDW (11.5-15.5) % Plt Count (150-450) k/uL Neutrophils # (1.3-7.7) k/uL Sodium 132 L (137-145) mmol/L Chloride 97 L (98-107) mmol/L BUN 38 H (9-20) mg/dL Creatinine 3.78 H (0.66-1.25) mg/dL Glucose 140 H (74-99) mg/dL POC Glucose (mg/dL) 190 H 50 L (75-99) mg/dL Total Bilirubin 4.1 H (0.2-1.3) mg/dL AST 844 H (17-59) U/L ALT 1335 H (4-49) U/L Alkaline Phosphatase 1353 H (38-126) U/L Total Protein 5.5 L (6.3-8.2) g/dL Albumin 2.9 L (3.5-5.0) g/dL 05/13/21 Range/Units 09:07 WBC (3.8-10.6) k/uL RBC (4.30-5.90) m/uL Hgb (13.0-17.5) gm/dL Hct (39.0-53.0) % MCV (80.0-100.0) fL RDW (11.5-15.5) % Plt Count (150-450) k/uL Neutrophils # (1.3-7.7) k/uL Sodium (137-145) mmol/L Chloride (98-107) mmol/L BUN (9-20) mg/dL Creatinine (0.66-1.25) mg/dL Glucose (74-99) mg/dL POC Glucose (mg/dL) 126 H (75-99) mg/dL Total Bilirubin (0.2-1.3) mg/dL AST (17-59) U/L ALT (4-49) U/L Alkaline Phosphatase (38-126) U/L Total Protein (6.3-8.2) g/dL Albumin (3.5-5.0) g/dL Microbiology - Last 24 Hours (Table) 05/10/21 10:32 Blood Culture - Preliminary Blood No Growth after 48 hours 05/10/21 11:34 Blood Culture - Preliminary Blood No Growth after 48 hours Assessment and Plan Plan: 1 altered mental status, recovered, lik.jenny secondary to metabolic derangements with a possibility of an underlying sepsis , recovered 2 acute hyperkalemia, recovered 3 acute lactic acidosis, improved 4 staph spp., gram-positive bacteremia, preliminary blood culture showing Staphylococcus species, 1/4 bottles and the patient is on vanco, the surgical wound will be reevaluated. MRI of the spine was noted. 5 End stage renal disease and currently on hemodialysis, last hemodialysis was done yesterday 6 L4-L5 posterior discitis with epidural abscess status post decompression laminectomy and antibiotic spacer placement. The patient was infected with staph epidermidis and the patient was receiving vancomycin 7 diabetes mellitus type 1 8 diabetic peripheral neuropathy and restless leg syndrome 9 hypertension 10 acute abnormal elevation of the liver function tests, consider shock liver. The patient has elevation of the AST, ALT and alkaline phosphatase. Gallbladder wall is thickened. Nevertheless, there is no Neville signs. Gen. surgery has been consulted, for possibility of acute cholecystitis. 11 bradycardia secondary to hyperkalemia, recovered Plan: Continue vancomycin Surgical exploration of the spine wound an MRI of the lumbar spine was noted Hemodialysis completed yesterday Overall clinically patient is stable, white blood cell count is improving, No significant abdominal discomfort, no vomiting, tolerating oral diet Follow-up LFTs, improving Continue vancomycin for antibiotic coverage will await final cultures Hemodialysis done yesterday transfer out of intensive care unit to medical surgical floor later today
[2021-05-13] MEDS ORDERED: SODIUM CHLORIDE 0.9% 500 ML 500 ML IV ONE (09:42)
[2021-05-13] MEDS ORDERED: GELATIN SPONGE,ABSORB (LARGE) 1 EACH SPONGE TOPICAL ONE (10:04)
[2021-05-13] MEDS ORDERED: BUPIVACAINE (PF) 0.25% 30 ML VIAL SQ ONE (10:04)
[2021-05-13] MEDS ORDERED: CEFAZOLIN IRRIGATION ONE (12:22)
[2021-05-13] MEDS ORDERED: SODIUM CHLORIDE 0.9% IRRIGATION ONE (12:22)
[2021-05-13] MEDS ORDERED: THROMBIN (BOVINE) 5,000 UNIT VIAL TOPICAL ONE (12:22)
--- NOTE | 2021-05-13 12:36 | XR ---
Fluoroscopy History: HARDWARE REPLACEMENT Fluoroscopy
--- NOTE | 2021-05-13 12:43 | P.PN ---
Progress Note - Text Progress Note Date: 05/13/21 Brief Post Op: Surgeon: Blake Pre op dx; continued infection with fluid accumulation sepsis status post L4-L5 osteo-discitis evacuation decompression Post op dx: Postoperative fluid collection with bilateral L5 pedicle fractures with hardware failure and loosening Procedure: Incision and drainage with irrigation and debridement L4 5. Removal of hardware L5 with re-instrumentation of L5. Removal of cascade cage with 3 instrumentation and replacement of Aroda cage L4 5 Anesthesia: GETA EBL: 1 50 mL Fluids: 2000 UO: 120 Dispo: Stable to PACU Post op Plan: Post operative noncontrasted CT scan Encourage ambulation IS 10x/hr Teds/SCDs Pain control Patient will need LSO to get up and move around Record Drain output
[2021-05-13] MEDS ORDERED: diphenhydrAMINE 50 MG/ML 1 ML VIAL ONE (13:00)
[2021-05-13] MEDS ORDERED: diphenhydrAMINE 50 MG/ML 1 ML VIAL IVP ONE (13:03)
[2021-05-13 13:14] LABS: Glucose,Whole Blood 202 mg/dL (75-99)
[2021-05-13 13:46] LABS: Glucose,Whole Blood 231 mg/dL (75-99)
[2021-05-13] MEDS: FOLIC ACID 1 MG TAB PO SCH (13:46)
[2021-05-13] MEDS: HEPARIN SODIUM,PORCINE/PF 5,000 UNIT/0.5 ML SYRINGE SQ SCH ×2 (13:46→16:05)
[2021-05-13] MEDS: MULTIVITAMINS, THERA 1 EACH TAB PO SCH (13:46)
[2021-05-13] MEDS: THIAMINE 100 MG TAB PO SCH (13:47)
[2021-05-13 14:43] LABS: Glucose,Whole Blood 238 mg/dL (75-99)
[2021-05-13] MEDS: PRAMIPEXOLE 0.5 MG TAB PO SCH ×2 (15:15→21:06)
[2021-05-13] MEDS: CHOLECALCIFEROL 25 MCG (1000 IU) TABLET PO SCH (15:17)
[2021-05-13] MEDS: ASCORBIC ACID 500 MG TAB PO SCH (15:17)
--- NOTE | 2021-05-13 15:39 | P.PN ---
Progress Note - Text Progress Note Date: 05/13/21 Presenting complaint: Tired Interval history: I took over the care of this patient at about 10 AM today. 51-year-old patient who follows with Dr. Emory Jacob. Patient was recently discharged from the hospital on May 01. 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 Tissue cultures that showed staph epidermidis. Diagnosis epidural abscess/ostiodiscitis. Patient was discharged on 6 weeks of vancomycin to be given with hemodialysis. Patient had surgery done at [facility] about 6 weeks prior to the last admission. On April 28 patient underwent I&D of the lumbar spine epidural abscess., By Dr. Lozano, from orthopedics. Patient now presented to the hospital with altered mental status found to have increased LFTs, hemoglobin 6.7,. He was given 1 unit of blood at [place] in and out of the unit care. May 10: Patient moved to the ICU past midnight. Potassium at 7.5. Emergent hemodialysis was carried out in the night. 3.5 L were removed. Patient also was initially bradycardic in the ER heart rate is back up in the 60s now. Patient has been on insulin pump. Blood cultures are coming back positive for gram negatives bacilli. Patient has left arm fistula. Sitting up in bed. Feeling tired. Blood cultures from yesterday growing gram-positive cocci May 11: ICU: Afebrile. Blood culture growing Staphylococcus species. Orthopedic is considered an MRI. The results could be inconclusive based on recent surgery. Computed tomography scan is suggestive cholecystitis but patient has not abdominal pain. Dr. Orozco had called me from ID to consult surgery that is being done. Care was discussed with Dr. Siddiqi from critical care. Continue with antibiotics good oral intake May 12: ICU: Afebrile. MRI of the lumbar spine done today. Showing postsurgical changes. No obvious new changes. Orthopedic is still contemplating surgery. Patient was uses on insulin pump. Had declined the Lantus last night. Oral intake fair. May 13: ICU: Patient was taken down to the OR today per Dr. Lozano. Spinal metal cages found to be dose. Replace. ID was carried out. Postprocedure patient resting in bed. Family at the bedside. Review of systems: Was done for constitutional, cardiovascular, GI, pulmonary. relevant finding as above Active Medications Ascorbic Acid (Ascorbic Acid 500 Mg Tab) 1,000 mg PO DAILY [facility] Last Admin: 05/13/21 15:17 Dose: 1,000 mg Documented by: Calcium Acetate (Calcium Acetate 667 Mg Tab) 667 mg PO TID-W/MEALS [facility] Last Admin: 05/13/21 13:47 Dose: Not Given Documented by: Cholecalciferol (Cholecalciferol 25 Mcg (1000 Iu) Tablet) 125 mcg PO DAILY [facility] Last Admin: 05/13/21 15:17 Dose: 125 mcg Documented by: Darbepoetin Timoteo (Darbepoetin Timoteo 60 Mcg/0.3 Ml Syringe) 60 mcg SQ Q7D [facility] Last Admin: 05/12/21 16:29 Dose: 60 mcg Documented by: Folic Acid (Folic Acid 1 Mg Tab) 1 mg PO DAILY@1200 [facility] Last Admin: 05/13/21 13:46 Dose: Not Given Documented by: Heparin Sodium (Porcine) (Heparin Sodium,Porcine/Pf 5,000 Unit/0.5 Ml Syringe) 5,000 unit SQ Q12HR [facility] Last Admin: 05/13/21 13:46 Dose: Not Given Documented by: Hydromorphone HCl (Hydromorphone 0.5 Mg/0.5 Ml Syringe) 0.5 mg IVP Q6HR PRN PRN Reason: Severe Pain Last Admin: 05/13/21 01:57 Dose: 0.5 mg Documented by: Insulin Human Regular 100 unit (/ Sodium Chloride) 101 mls @ 0 mls/hr IV .Q0M [facility]; Protocol Last Titration: 05/13/21 13:48 Dose: 9 units/hr, 9.09 mls/hr Documented by: Daptomycin 500 mg/ Sodium (Chloride) 50 mls @ 100 mls/hr IVPB Q48H [facility]; Protocol Labetalol HCl (Labetalol 200 Mg Tab) 200 mg PO TID [facility] Last Admin: 05/13/21 15:15 Dose: 200 mg Documented by: Multivitamins (Multivitamins, Thera 1 Each Tab) 1 each PO DAILY@1200 [facility] Last Admin: 05/13/21 13:46 Dose: Not Given Documented by: Naloxone HCl (Naloxone 0.4 Mg/Ml 1 Ml Vial) 0.2 mg IV Q2M PRN PRN Reason: Opioid Reversal Pantoprazole Sodium (Pantoprazole 40 Mg Tablet) [facility] Pramipexole Dihydrochloride (Pramipexole 0.5 Mg Tab) 0.5 mg PO BID [facility] Last Admin: 05/13/21 15:15 Dose: 0.5 mg Documented by: Thiamine HCl (Thiamine 100 Mg Tab) 100 mg PO DAILY@1200 [facility] Last Admin: 05/13/21 13:47 Dose: Not Given Documented by: Tramadol HCl (Tramadol 50 Mg Tab) 50 mg PO TID PRN PRN Reason: Pain Last Admin: 05/12/21 09:21 Dose: 50 mg Documented by: On examination: VITAL SIGNS: 98.1, 73, 18, 153/72, 100% room air GENERAL APPEARANCE: . Laying in bed, sleepy. Left upper extremity fistula HEENT: Normal external appearance of nose and ear. Oral cavity normal EYES: Pupils equal. Conjunctiva normal. NECK: JVD not raised. Mass not palpable. RESPIRATORY: Respiratory effort normal. Lungs clear to auscultation. CARDIOVASCULAR: First and second sounds normal. No edema. ABDOMEN: Soft. Liver and spleen not palpable. No tenderness. No mass palpable. PSYCHIATRY: Not assessed, patient sleepy INVESTIGATIONS, reviewed in the clinical context: May 13: WBC 15.3 hemoglobin 8.5 platelets 463 potassium 4.6 creatinine 3.78 May 12: WBC 17.4 hemoglobin 8.2 platelets 503 potassium 4.2 BUN 47 creatinine 4.39 Blood culture [May 10]: Staphylococcus species May 11: WBC 24 hemoglobin 8.4 platelets 12/28/1929 potassium 4.3. 58 Krishen 5.55 AST 3676, ALT 10/24/2002 alkaline phosphatase 09/24/2004 total bilirubin 4 WBC 21 hemoglobin 8.3 platelets 416 potassium 3.5 BN 23 creatinine 2.7 to AST 5651 ALT 10/23/[address] abdomen and pelvis without contrast: Hepatomegaly. Ultrasound gallbladder: Thickened gallbladder wall/4 mm Assessment and plan: -Acute metabolic encephalopathy. Decrease in sensorium from underlying sepsis and from uremic encephalopathy: Improved hemodialysis -Severe hyperkalemia from renal failure Better with hemodialysis -End-stage kidney disease on hemodialysis Follow with nephrology. Hemodialysis -Recent epidural abscess at L4-L5 with ostial discitis. Surgical intervention on April [address] Lozano. Cultures positive for staph epidermidis. For 6 weeks of IV vancomycin from last admission. May 13: Spinal hardware replaced. Repeat ID with washout carried out. -Sepsis with blood cultures positive for Staphylococcus species suspect source to be L4-L5. Questionable cholecystitis Continue with IV vancomycin. Follow with surgery and orthopedics. -Hyponatremia Follow BMP -Metabolic acidosis from renal failure Follow bicarb -Normocytic anemia multifactorial. Including contribution from renal failure Follow H&H -Acute severe ischemic hepatitis from sepsis: Slow to respond IV antibiotics. Follow hemodynamics. GI consulted -Abnormal gallbladder thickened wall on ultrasound with question about acute cholecystitis Gen. surgery. -Hypertension with kidney disease Hypotension resolved. Resume labetalol -Restless leg syndrome Mirapex 0.5 mg daily at bedtime -Diabetes mellitus type 2, chronically on insulin. Uncontrolled with hyperglycemia Patient has insulin pump at home. Was on insulin drip. Patient declined Levemir. Wants to use his insulin pump Continue current medication treatment plan. Antibiotics. Follow-up with multiple consultants. Patient status post back surgery today.
[2021-05-13 15:55] LABS: Ceruloplasmin 39.6 mg/dL (20.0-60.0)
[2021-05-13] MEDS ORDERED: VANCOMYCIN 1,500 MG in SODIUM CHLORIDE 0.9% 250 ML IVPB ONE (16:00)
[2021-05-13 16:04] LABS: Glucose,Whole Blood 193 mg/dL (75-99)
[2021-05-13 16:56] LABS: Glucose,Whole Blood 142 mg/dL (75-99)
--- NOTE | 2021-05-13 17:04 | PN ---
PROGRESS NOTE DATE OF SERVICE: 05/13/2021 REASON FOR FOLLOWUP: Lumbar paraspinal abscess and osteo diskitis. INTERVAL HISTORY: The patient was taken to the OR this morning. The patient is status post I and D with irrigation, debridement, L4-5, removal of the hardware with re-instrumentation. The patient tolerated the procedure, currently complaining of some itching to the lower back area. No nausea, no vomiting. No chest pain, shortness of breath or cough. PHYSICAL EXAMINATION: Blood pressure 153/72 with a pulse of 73, temperature 98.1. He is 100% on room air. GENERAL DESCRIPTION: General description is a middle-aged male lying in bed in no distress. RESPIRATORY SYSTEM: Unlabored breathing. Clear to auscultation anteriorly. HEART: S1, S2. Regular rate and rhythm. ABDOMEN: Soft. No tenderness. LABS: Hemoglobin is 8.4, white count 15.3, BUN of 38, creatinine 3.78. Vancomycin level is 18.9. DIAGNOSTIC IMPRESSION AND PLAN: Patient with a lumbar paraspinal abscess, status post debridement with evidence of bacteremia despite being on vancomycin, possibly concerning for vancomycin failure. Antibiotic will be switched over to daptomycin 8 mg/kg q. hours after each dialysis and his monitor clinical course closely. Family at the bedside. Questions were answered. MMODL / IJN: [id number] /
[2021-05-13 18:27] LABS: Glucose,Whole Blood 118 mg/dL (75-99)
--- NOTE | 2021-05-13 19:09 | CT ---
EXAMINATION TYPE: CT lumbar spine wo con DATE OF EXAM: 05/13/2021 5:24 PM COMPARISON: MRI lumbar spine 05/12/2021 and lumbar spine radiograph same day. HISTORY: post-op lumbar sx CT DLP: 986 mGycm Automated exposure control for dose reduction was used. TECHNIQUE: Unenhanced CT of the lumbar spine was performed. Bone and soft tissue window settings are submitted as well as coronal and sagittal reconstructions. FINDINGS: Surgical changes consistent with posterior lumbar fusion of L4-L5 with paired fixation rods and trans pedicular screws and intervertebral disc spacer. Total laminectomies performed at L4 and L5. No evide nce of immediate hardware failure. Surgical drain is present within the midline of the laminectomy bed. Small amount of subcutaneous sof t tissue air posteriorly is present from recent surgery. No psoas hematoma. Mild degenerative changes of the proximal thoracolumbar spine without spinal canal stenosis or neural foraminal narrowing. IMPRESSION: 1. Posterior lumbar fusion L4-5 with intervertebral disc spacer and total laminectomies. No evidence of hardware failure. 2. Surgical drain within the laminectomy bed.
[2021-05-13 20:00] LABS: Glucose,Whole Blood 158 mg/dL (75-99)
[2021-05-13] MEDS: DAPTOmycin 500 MG in SODIUM CHLORIDE 0.9% 50 ML IVPB SCH (21:05)
[2021-05-13 21:58] LABS: Glucose,Whole Blood 156 mg/dL (75-99)
[2021-05-14 00:22] LABS: Glucose,Whole Blood 87 mg/dL (75-99)
[2021-05-14 02:24] LABS: Glucose,Whole Blood 140 mg/dL (75-99)
[2021-05-14] MEDS: HYDROmorphone 0.5 MG/0.5 ML SYRINGE IVP PRN ×3 (02:51→18:53)
[2021-05-14 04:35] LABS: Glucose,Whole Blood 179 mg/dL (75-99)
[2021-05-14 05:49] LABS: Glucose,Whole Blood 156 mg/dL (75-99)
[2021-05-14] MEDS: CALCIUM ACETATE 667 MG TAB PO SCH ×3 (07:03→17:10)
[2021-05-14] MEDS: PANTOPRAZOLE 40 MG TABLET PO SCH (07:03)
--- NOTE | 2021-05-14 08:12 | P.PN ---
Subjective Progress Note Date: 05/14/21 Pt s/e this AM. Doing well. Pain controlled, feels some burning in incision. Denies any new neurological symptoms. States his legs feel good and there is no pain. Denies any groin or perineal numbness/tingling. States no f/c/sob/cp overnight. Objective - Vital Signs Vital signs: Vital Signs Temp 98.5 F 05/14/21 04:00 Pulse 80 05/14/21 04:00 Resp 10 L 05/14/21 04:00 BP 177/71 05/14/21 04:00 Pulse Ox 97 05/14/21 04:00 Intake & Output 05/13/21 05/14/21 05/14/21 18:59 06:59 18:59 Intake Total 2603.537 114.442 Output Total 270 115 Balance 2333.537 -0.558 Weight 77.8 kg Intake: IV 2301 90 0.9 2000 90 Intake, IV Titration 302.537 24.442 Amount Insulin Regular 100 unit 52.537 24.442 In Sodium Chloride 0.9% 100 ml @ Per Protocol IV .Q0M [facility] Rx#:[id number] Vancomycin 1,500 mg In 250 Sodium Chloride 0.9% 250 ml @ 125 mls/hr IVPB ONCE ONE Rx#:[id number] Output: Drainage 60 40 Back 60 40 Urine 60 75 Estimated Blood Loss 150 Other: Voiding Method Indwelling Catheter Indwelling Catheter - Exam Exam repeated and noted below PHYSICAL EXAMINATION: Vitals: Stable at this time General: Awake, alert, appropriate for age, in no acute distress. HEENT: No unusual neck masses around region of lateral neck triangle, thyroid, supraclavicular groove. Extremities: Skin warm and dry without no acute lesions, coloration, temperature, skin intact, no tenderness or erythema. Integument: Hairy patches: Absent Dorsal skin dimples: Absent Cafe au lait spots: Absent Surgical incisions: Posterior midline lumbar incision well-healed E Jj ecchymosis or edema Palpation: Please see Pain drawing on Intake sheet for further detail. (Tenderness = T, Nontender = NT, Swelling = S, Ecchymosis = E) Findings on Midline and paraspinal palpation and percussion: Cervical: NT Thoracic: NT Lumbar: mild paraspinal ttp Sacral: NT Special findings: TTP around incision. No drainage. Dressing is CDI. Drain in place 40 cc out. No EEE. POSTURAL and MUSCULO-SKELETAL EVALUATION: Neck ROM: [Unrestricted in six directions] Lumbar ROM: [Unrestricted in six directions] Shoulder ROM: Symmetric in abduction, ER/IR Hip ROM: Symmetric in abduction, adduction, ER/IR Knee ROM: Symmetric and intact in Flexion / extension Hands: Normal appearing structure L and R Feet: Normal appearing structure L and R VASCULAR STATUS : Wrist Pulses: [2/4 bilateral radial and ulnar] Pedal Pulses: [2/4 bilateral DP and PT] Color: [Normal] Edema: [None] NEUROLOGIC EXAMINATION: Mental Status: Awake and alert, fully oriented, with normal attention, concentration and memory, and fluent, appropriate speech. Cranial Nerves: I: Olfactory not tested. II: Visual acuity normal, no visual field deficit noted with confrontation. III,IV: Normal pupillary reflexes & intact extraocular movements without nystagmus. V,: Intact symmetrical facial sensation. VII: Intact symmetrical facial motor movement VIII: Hearing intact. IX,X: Intact gag, swallow, & normal voice. XI: Sternocleidomastoid, trapezius function intact. XII: Tongue midline with normal movements. Special Tests: L'hermitte's Sign: Absent Spurling'Sign: Absent Bilateral Cubital percussion test: Absent Bilateral Ree-Tinel sign - Carpal region: Absent Bilateral Straight Leg Raising: Absent Bilateral Motor Exam (0-5/5, N/T) STRENGTH UPPER EXTREMITY Shoulder Abd (Not part of MILLY Motor score): RIGHT [5] LEFT [5] Elbow Flexors: RIGHT [5] LEFT [5] Elbow Extensor: RIGHT [5] LEFT [5] Wrrist Dorsiflexors: RIGHT [5] LEFT [5] Finger Abductor: RIGHT [5] LEFT [5] Systems Admin: RIGHT [5] LEFT [5] LOWER EXTREMITY Hip Flexor (Not part of MILLY Motor Score): RIGHT 4+ LEFT 4+ Knee Flexor: RIGHT 4+ LEFT 4+ Knee Extensor: RIGHT 4+. LEFT 4+ Ankle Dorsiflexion: RIGHT 4+ LEFT 4+ Ankle Plantarflexion: RIGHT 4+ LEFT 4+ EHL: RIGHT [5] LEFT 4+ FHL: RIGHT [5] LEFT [5] No focal deficits today. He has good movement and strength and has improved from previous exams. REFLEXES Biecp: RIGHT [2] LEFT [2] Tricep: RIGHT [2] LEFT [2] Brachioradialis: RIGHT [2] LEFT [2] Patellar: RIGHT [2] LEFT [2] Achilles: RIGHT [2] LEFT [2] Pathological Reflexes Correa's: RIGHT [Absent] LEFT [Absent] Babinski: RIGHT [Absent] LEFT [Absent] Clonus: RIGHT [None] LEFT [None] SENSORY Joint Position: [Intact bilaterally] Vibration [Intact bilaterally] Pain and LT sense [Intact C5-T1 and L2-S1] Dermatomal deficit [None] Gait and Functional Evaluation: Ambulatory aids: None Hand and finger dexterity intact bilaterally[]. Disdiadochokinesis examination negative[] bilaterally. - Labs CBC & Chem 7: 05/13/21 04:07 05/13/21 04:07 Labs: Abnormal Lab Results - Last 24 Hours (Table) 05/11/21 05/13/21 05/13/21 Range/Units 04:09 04:07 08:44 ESR (0-15) mm/hr POC Glucose (mg/dL) 50 L (75-99) mg/dL C-Reactive Protein (<1.0) mg/dL Xoawu-3-Tuknbegrcah 325.0 H (99.0-242.0) mg/dL Procalcitonin 10.21 H (0.02-0.09) ng/mL 05/13/21 05/13/21 05/13/21 Range/Units 09:07 13:13 13:44 ESR (0-15) mm/hr POC Glucose (mg/dL) 126 H 202 H 231 H (75-99) mg/dL C-Reactive Protein (<1.0) mg/dL Wouyp-9-Axaxanfalmm (99.0-242.0) mg/dL Procalcitonin (0.02-0.09) ng/mL 05/13/21 05/13/21 05/13/21 Range/Units 14:41 16:03 16:56 ESR (0-15) mm/hr POC Glucose (mg/dL) 238 H 193 H 142 H (75-99) mg/dL C-Reactive Protein (<1.0) mg/dL Enled-9-Quylmnlirhy (99.0-242.0) mg/dL Procalcitonin (0.02-0.09) ng/mL 05/13/21 05/13/21 05/13/21 Range/Units 18:25 19:59 21:57 ESR (0-15) mm/hr POC Glucose (mg/dL) 118 H 158 H 156 H (75-99) mg/dL C-Reactive Protein (<1.0) mg/dL Sccwv-7-Yncxrjnwmil (99.0-242.0) mg/dL Procalcitonin (0.02-0.09) ng/mL 05/14/21 05/14/21 05/14/21 Range/Units 02:22 03:34 03:34 ESR 86 H (0-15) mm/hr POC Glucose (mg/dL) 140 H (75-99) mg/dL C-Reactive Protein 6.1 H (<1.0) mg/dL Dasgp-0-Rqytormvfqk (99.0-242.0) mg/dL Procalcitonin (0.02-0.09) ng/mL 05/14/21 05/14/21 Range/Units 04:34 05:48 ESR (0-15) mm/hr POC Glucose (mg/dL) 179 H 156 H (75-99) mg/dL C-Reactive Protein (<1.0) mg/dL Qxfyl-6-Juakplckepw (99.0-242.0) mg/dL Procalcitonin (0.02-0.09) ng/mL Microbiology - Last 24 Hours (Table) 05/10/21 13:05 Blood Culture Gram Stain - Final Blood Blood Culture - Final Coagulase Negative Staph 05/13/21 10:20 Wound Culture - Preliminary Back 05/13/21 10:20 Anaerobic Culture - Preliminary Back 05/13/21 10:20 Anaerobic Culture - Preliminary Back 05/13/21 10:20 Fungal Culture - Preliminary Back 05/13/21 10:20 Wound Culture - Preliminary Back 05/13/21 10:20 Fungal Culture - Preliminary Back 05/12/21 13:18 Blood Culture Gram Stain - Preliminary Blood 05/12/21 13:13 Blood Culture - Preliminary Blood No Growth after 24 hours 05/10/21 10:32 Blood Culture - Preliminary Blood No Growth after 72 hours 05/10/21 11:34 Blood Culture - Preliminary Blood No Growth after 72 hours 05/12/21 13:18 Blood Culture - Final Blood Assessment and Plan Assessment: 51 yo male s/p 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 POD1 revision L4-5 decompression fusion with irrigation and debridement. ESRD Elevated LFTs Possible cholecystitis Diabetes Complex medical patient Plan: -Appreciate media consultant outside sales and team management. -Activity: Ambulate QID, OOB all meals, up and about, limit lifting bending twisting to less than 5 lbs. Use walker or cane if needed for stability. -Daily PT/OT, increase ambulation strength and balance. -LSO brace at all times when seated standing or up and about not needed for sleeping -Pain control: Adequate at this time -Meds: reviewed -GI ppx: senna, Miralax -DC sesay when up and about, bedside commode if needed -DVT PPX: OK to restart Heparin tonight -Hygiene: Shower today. Maintain dressing clean and dry. Meticulous cleaning after BMs away from incision site -Drains: Maintain for now. Record output -Encourage IS 10x/hr -Computed tomography scan is reviewed hardware in good position and holding cage in good position and holding good decompression noted. -Dispo: Pending
[2021-05-14 08:21] LABS: Glucose,Whole Blood 126 mg/dL (75-99)
[2021-05-14] MEDS: ASCORBIC ACID 500 MG TAB PO SCH (08:36)
[2021-05-14] MEDS: PRAMIPEXOLE 0.5 MG TAB PO SCH ×2 (08:36→21:57)
[2021-05-14] MEDS: HEPARIN SODIUM,PORCINE/PF 5,000 UNIT/0.5 ML SYRINGE SQ SCH ×2 (08:36→21:57)
[2021-05-14] MEDS: CHOLECALCIFEROL 25 MCG (1000 IU) TABLET PO SCH (08:36)
[2021-05-14] MEDS: LABETALOL 200 MG TAB PO SCH ×3 (08:37→21:57)
[2021-05-14] MEDS: traMADol 50 MG TAB PO PRN ×2 (08:38→15:29)
[2021-05-14] MEDS ORDERED: hydrALAZINE HCL 20 MG/ML 1 ML VIAL IVP PRN (08:52)
--- NOTE | 2021-05-14 08:53 | P.PN ---
Subjective Patient is seen in follow-up for end-stage renal disease. Currently resting in bed. On room air. No pain. Vital signs are stable. General: The patient appeared well nourished and normally developed. HEENT: Head exam is unremarkable. Neck is without jugular venous distension. LUNGS: Breath sounds decreased. HEART: Rate and Rhythm are regular. ABDOMEN: Soft, no distention. EXTREMITITES: No edema. Objective - Vital Signs Vital signs: Vital Signs Temp 98.5 F 05/14/21 04:00 Pulse 80 05/14/21 04:00 Resp 10 L 05/14/21 04:00 BP 177/71 05/14/21 04:00 Pulse Ox 97 05/14/21 04:00 Intake & Output 05/13/21 05/14/21 05/14/21 18:59 06:59 18:59 Intake Total 2603.537 114.442 15.781 Output Total 270 115 Balance 2333.537 -0.558 15.781 Weight 77.8 kg Intake: IV 2301 90 0.9 2000 90 Intake, IV Titration 302.537 24.442 15.781 Amount Insulin Regular 100 unit 52.537 24.442 15.781 In Sodium Chloride 0.9% 100 ml @ Per Protocol IV .Q0M [facility] Rx#:[id number] Vancomycin 1,500 mg In 250 Sodium Chloride 0.9% 250 ml @ 125 mls/hr IVPB ONCE ONE Rx#:[id number] Output: Drainage 60 40 Back 60 40 Urine 60 75 Estimated Blood Loss 150 Other: Voiding Method Indwelling Catheter Indwelling Catheter - Labs CBC & Chem 7: 05/13/21 04:07 05/13/21 04:07 Labs: Abnormal Lab Results - Last 24 Hours (Table) 05/11/21 05/13/21 05/13/21 Range/Units 04:09 04:07 09:07 ESR (0-15) mm/hr POC Glucose (mg/dL) 126 H (75-99) mg/dL C-Reactive Protein (<1.0) mg/dL Sfery-9-Jfqqtfdjwbq 325.0 H (99.0-242.0) mg/dL Procalcitonin 10.21 H (0.02-0.09) ng/mL 05/13/21 05/13/21 05/13/21 Range/Units 13:13 13:44 14:41 ESR (0-15) mm/hr POC Glucose (mg/dL) 202 H 231 H 238 H (75-99) mg/dL C-Reactive Protein (<1.0) mg/dL Ybcsb-8-Eeowoynkmll (99.0-242.0) mg/dL Procalcitonin (0.02-0.09) ng/mL 05/13/21 05/13/21 05/13/21 Range/Units 16:03 16:56 18:25 ESR (0-15) mm/hr POC Glucose (mg/dL) 193 H 142 H 118 H (75-99) mg/dL C-Reactive Protein (<1.0) mg/dL Pacel-6-Sgyauhbpejc (99.0-242.0) mg/dL Procalcitonin (0.02-0.09) ng/mL 05/13/21 05/13/21 05/14/21 Range/Units 19:59 21:57 02:22 ESR (0-15) mm/hr POC Glucose (mg/dL) 158 H 156 H 140 H (75-99) mg/dL C-Reactive Protein (<1.0) mg/dL Rxgar-2-Zuvopzysjqh (99.0-242.0) mg/dL Procalcitonin (0.02-0.09) ng/mL 05/14/21 05/14/21 05/14/21 Range/Units 03:34 03:34 04:34 ESR 86 H (0-15) mm/hr POC Glucose (mg/dL) 179 H (75-99) mg/dL C-Reactive Protein 6.1 H (<1.0) mg/dL Gfmcg-4-Yffuxqmvpew (99.0-242.0) mg/dL Procalcitonin (0.02-0.09) ng/mL 05/14/21 05/14/21 Range/Units 05:48 08:20 ESR (0-15) mm/hr POC Glucose (mg/dL) 156 H 126 H (75-99) mg/dL C-Reactive Protein (<1.0) mg/dL Ulkgu-7-Lhhwacrzswu (99.0-242.0) mg/dL Procalcitonin (0.02-0.09) ng/mL Microbiology - Last 24 Hours (Table) 05/13/21 10:20 Gram Stain - Preliminary Back Wound Culture - Preliminary 05/13/21 10:20 Gram Stain - Preliminary Back Wound Culture - Preliminary 05/10/21 13:05 Blood Culture Gram Stain - Final Blood Blood Culture - Final Coagulase Negative Staph 05/13/21 10:20 Anaerobic Culture - Preliminary Back 05/13/21 10:20 Anaerobic Culture - Preliminary Back 05/13/21 10:20 Fungal Culture - Preliminary Back 05/13/21 10:20 Fungal Culture - Preliminary Back 05/12/21 13:18 Blood Culture Gram Stain - Preliminary Blood 05/12/21 13:13 Blood Culture - Preliminary Blood No Growth after 24 hours 05/10/21 10:32 Blood Culture - Preliminary Blood No Growth after 72 hours 05/10/21 11:34 Blood Culture - Preliminary Blood No Growth after 72 hours 05/12/21 13:18 Blood Culture - Final Blood Assessment and Plan Plan: Assessment: 1. End-stage renal disease maintained on hemodialysis on Friday schedule. 2. 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 On antibiotics per infectious disease. 3. Chronic any disease mineral bone disease maintained on PhosLo. 4. Anemia of chronic kidney disease maintained on Aranesp. 5. Diabetes mellitus. 6. Hypertension with chronic kidney disease. Plan: Hemodialysis tomorrow. Add hydralazine 10 mg IV every 4-6 hours as needed for systolic blood pressure greater than 160.
[2021-05-14] MEDS: INSULIN REGULAR 100 UNIT in SODIUM CHLORIDE 0.9% 100 ML IV SCH (10:16)
[2021-05-14 10:17] LABS: Glucose,Whole Blood 215 mg/dL (75-99)
--- NOTE | 2021-05-14 10:19 | P.PN ---
Subjective Progress Note Date: 05/14/21 On today's evaluation of 2020, the patient remains in intensive care unit. He is awake and alert on room air oxygen. Noted the patient was taken to the operating room yesterday and the patient underwent an aspiration of the surgical wound. He was found that the patient had hardware failure and L5 pedicle fracture on the right with cage loosening. Based on that, the patient underwent revision, L4-L5 decompression fusion and irrigation and debridement. Cultures from the blood was consistent with coagulase-negative staph and the final culture are still pending. Cultures were also taken from the surgical wound. He has a ALIZA drain to the site. Vancomycin was discontinued and the patient was placed on daptomycin. Note that the patient's initial blood culture on 05/10/2021 was positive for coagulase-negative staph. Subsequent blood culture from 05/13/2021 was again positive with gram-positive cocci counts clusters on that, the patient underwent a surgical evaluation and the patient was placed on daptomycin. Hemodynamically stable. White cell count today is pending. His echo from yesterday was improving down to 15.3. Sed rate was up to 86. Liver function tests continued. No nausea no vomiting. No diarrhea. No anterior Objective - Vital Signs Vital signs: Vital Signs Temp 98.5 F 05/14/21 04:00 Pulse 80 05/14/21 04:00 Resp 10 L 05/14/21 04:00 BP 177/71 05/14/21 04:00 Pulse Ox 97 05/14/21 04:00 Intake & Output 05/13/21 05/14/21 05/14/21 18:59 06:59 18:59 Intake Total 2603.537 114.442 15.781 Output Total 270 115 Balance 2333.537 -0.558 15.781 Weight 77.8 kg Intake: IV 2301 90 0.9 2000 90 Intake, IV Titration 302.537 24.442 15.781 Amount Insulin Regular 100 unit 52.537 24.442 15.781 In Sodium Chloride 0.9% 100 ml @ Per Protocol IV .Q0M [facility] Rx#:[id number] Vancomycin 1,500 mg In 250 Sodium Chloride 0.9% 250 ml @ 125 mls/hr IVPB ONCE ONE Rx#:[id number] Output: Drainage 60 40 Back 60 40 Urine 60 75 Estimated Blood Loss 150 Other: Voiding Method Indwelling Catheter Indwelling Catheter - Exam GENERAL EXAM: Alert, very pleasant, 51-year-old white male, resting comfortably in bed, on room air, with a pulse ox of 96% active, comfortable in no apparent distress. HEAD: Normocephalic/atraumatic. EYES: Normal reaction of pupils, equal size. Conjunctiva pink, sclera white. NOSE: Clear with pink turbinates. THROAT: No erythema or exudates. NECK: No masses, no JVD, no thyroid enlargement, no adenopathy. CHEST: No chest wall deformity. Symmetrical expansion. LUNGS: Equal air entry with no crackles, wheeze, rhonchi or dullness. CVS: Regular rate and rhythm, normal S1 and S2, no gallops, no murmurs, no rubs ABDOMEN: Soft, with minimal right-sided tenderness, nondistended No hepatosplenomegaly, normal bowel sounds, no guarding or rigidity. EXTREMITIES: No clubbing, no edema, no cyanosis, 2+ pulses and upper and lower extremities. MUSCULOSKELETAL: Muscle strength and tone normal. SPINE: No scoliosis or deformity. Spine incision was examined, the incision is well approximated, with minimal serous drainage at the distal end, no purulent drainage was noted, sutures are still in place, ALIZA drain is in place. Output is serosanguineous/bloody. SKIN: No rashes CENTRAL NERVOUS SYSTEM: Alert and oriented -3. No focal deficits, tone is normal in all 4 extremities. PSYCHIATRIC: Alert and oriented -3. Appropriate affect. Intact judgment and insight. - Labs CBC & Chem 7: 05/13/21 04:07 05/13/21 04:07 Labs: Abnormal Lab Results - Last 24 Hours (Table) 05/13/21 05/13/21 05/13/21 Range/Units 04:07 13:13 13:44 ESR (0-15) mm/hr POC Glucose (mg/dL) 202 H 231 H (75-99) mg/dL C-Reactive Protein (<1.0) mg/dL Procalcitonin 10.21 H (0.02-0.09) ng/mL 05/13/21 05/13/21 05/13/21 Range/Units 14:41 16:03 16:56 ESR (0-15) mm/hr POC Glucose (mg/dL) 238 H 193 H 142 H (75-99) mg/dL C-Reactive Protein (<1.0) mg/dL Procalcitonin (0.02-0.09) ng/mL 05/13/21 05/13/21 05/13/21 Range/Units 18:25 19:59 21:57 ESR (0-15) mm/hr POC Glucose (mg/dL) 118 H 158 H 156 H (75-99) mg/dL C-Reactive Protein (<1.0) mg/dL Procalcitonin (0.02-0.09) ng/mL 05/14/21 05/14/21 05/14/21 Range/Units 02:22 03:34 03:34 ESR 86 H (0-15) mm/hr POC Glucose (mg/dL) 140 H (75-99) mg/dL C-Reactive Protein 6.1 H (<1.0) mg/dL Procalcitonin (0.02-0.09) ng/mL 05/14/21 05/14/21 05/14/21 Range/Units 04:34 05:48 08:20 ESR (0-15) mm/hr POC Glucose (mg/dL) 179 H 156 H 126 H (75-99) mg/dL C-Reactive Protein (<1.0) mg/dL Procalcitonin (0.02-0.09) ng/mL Microbiology - Last 24 Hours (Table) 05/13/21 10:20 Gram Stain - Preliminary Back Wound Culture - Preliminary 05/13/21 10:20 Gram Stain - Preliminary Back Wound Culture - Preliminary 05/10/21 13:05 Blood Culture Gram Stain - Final Blood Blood Culture - Final Coagulase Negative Staph 05/13/21 10:20 Anaerobic Culture - Preliminary Back 05/13/21 10:20 Anaerobic Culture - Preliminary Back 05/13/21 10:20 Fungal Culture - Preliminary Back 05/13/21 10:20 Fungal Culture - Preliminary Back 05/12/21 13:18 Blood Culture Gram Stain - Preliminary Blood 05/12/21 13:13 Blood Culture - Preliminary Blood No Growth after 24 hours 05/10/21 10:32 Blood Culture - Preliminary Blood No Growth after 72 hours 05/10/21 11:34 Blood Culture - Preliminary Blood No Growth after 72 hours 05/12/21 13:18 Blood Culture - Final Blood Assessment and Plan Plan: 1 altered mental status, recovered, secondary to metabolic derangements with a possibility of an underlying sepsis , recovered 2 acute hyperkalemia, recovered 3 acute lactic acidosis, improved 4 ischemia, positive blood cultures on 05/10/2021 and 05/13/2021 and the sukhjinder ent is currently on daptomycin. Revision of the surgical wound was done. There was failure of hardware and the patient underwent another L4-L5 laminectomy fusion with replacement of hardware and drainage and irrigation. Cultures from the wound are still pending for now. The patient is currently on daptomycin. 5 End stage renal disease and currently on hemodialysis, last hemodialysis was done yesterday 6 L4-L5 posterior discitis with epidural abscess status post decompression laminectomy and antibiotic spacer placement. The patient has subsequent L5 pedicle fracture with right cage loosening and hardware failure. Patient underwent a revision L4-L5 decompression fusion and irrigation. Patient is postop day #1. 7 diabetes mellitus type 1 8 diabetic peripheral neuropathy and restless leg syndrome 9 hypertension 10 acute abnormal elevation of the liver function tests, consider shock liver. The patient has elevation of the AST, ALT and alkaline phosphatase. Gallbladder wall is thickened. Nevertheless, there is no Neville signs. Gen. surgery has been consulted, for possibility of acute cholecystitis. 11 bradycardia secondary to hyperkalemia, recovered Plan: Continue Dapto Hemodialysis per nephrology Overall clinically patient is stable No significant abdominal discomfort, no vomiting, tolerating oral diet Follow-up LFTs, improving transfer out of intensive care unit to medical surgical floor later today
[2021-05-14 10:45] LABS: Albumin 2.6 g/dL (3.5-5.0); Potassium 4.6 mmol/L (3.5-5.1); Total Bilirubin 4.1 mg/dL (0.2-1.3); Total Protein 5.2 g/dL (6.3-8.2)
[2021-05-14 11:15] LABS: Glucose,Whole Blood 214 mg/dL (75-99)
[2021-05-14 11:25] LABS: Anisocytosis Slight; Basophils # (A) 0.1 k/uL (0-0.2); Basophils % (A) 0 %; Eosinophils # (A) 0.3 k/uL (0-0.7); Eosinophils % (A) 2 %; HCT 25.3 % (39.0-53.0); HGB 7.8 gm/dL (13.0-17.5); Hypochromasia Moderate; Lymphocytes # (A) 1.1 k/uL (1.0-4.8); Lymphocytes % (A) 7 %; MCH 31.9 pg (25.0-35.0); MCV 103.1 fL (80.0-100.0); Macrocytosis Moderate; Mean Platelet Volume 12.2; Monocytes # (A) 0.7 k/uL (0-1.0); Monocytes % (A) 5 %; Neutrophils # (A) 11.9 k/uL (1.3-7.7); Neutrophils % (A) 82 %; Platelet Count 414 k/uL (150-450); RBC 2.45 m/uL (4.30-5.90); RDW 17.5 % (11.5-15.5); WBC 14.5 k/uL (3.8-10.6)
--- NOTE | 2021-05-14 11:38 | P.PN ---
<Iliana Medina - Last Filed: 05/14/21 11:29> Subjective Progress Note Date: 05/14/21 CHIEF COMPLAINT: Chronic cholecystitis HISTORY OF PRESENT ILLNESS: Patient sitting up in bed. He is complaining of lower abdominal pain and right testicular discomfort. He had fully catheter placed for urinary retention. He denies any right upper quadrant abdominal pain. He is tolerating diet. Denies any nausea or vomiting. Afebrile. WBC 14.5 hemoglobin 7.8 total bilirubin 4.1 AST 386 ALT 1037 alk phos 1067. LFTs are trending downwards PHYSICAL EXAM: VITAL SIGNS: Reviewed. GENERAL: Well-developed in no acute distress. HEENT: No sclera icterus. Extraocular movements grossly intact. Moist buccal mucosa. Head is atraumatic, normocephalic. ABDOMEN: Soft. Nondistended. Lower abdominal tenderness with palpation NEUROLOGIC: Alert and oriented. Cranial nerves II through XII grossly intact. ASSESSMENT: 1. Chronic cholecystitis 2. Elevated LFTs trending down. Possibly due to shocked liver and sepsis. PLAN: -No surgical intervention planned. Patient has no pain in the right upper quadrant and is tolerating diet. -Continue carb consistent diet -Surgical service will sign off. Please call with any questions or concerns. [facility] Technician note has been reviewed by physician. Signing provider agrees with the documented findings, assessment, and plan of care. Objective - Vital Signs Vital signs: Vital Signs Temp 98.5 F 05/14/21 04:00 Pulse 80 05/14/21 04:00 Resp 10 L 05/14/21 04:00 BP 177/71 05/14/21 04:00 Pulse Ox 97 05/14/21 04:00 Intake & Output 05/13/21 05/14/21 05/14/21 18:59 06:59 18:59 Intake Total 2603.537 114.442 21.639 Output Total 270 115 Balance 2333.537 -0.558 21.639 Weight 77.8 kg Intake: IV 2301 90 0.9 2000 90 Intake, IV Titration 302.537 24.442 21.639 Amount Insulin Regular 100 unit 52.537 24.442 21.639 In Sodium Chloride 0.9% 100 ml @ Per Protocol IV .[facility]0M [facility] Rx#:[id number] Vancomycin 1,500 mg In 250 Sodium Chloride 0.9% 250 ml @ 125 mls/hr IVPB ONCE ONE Rx#:[id number] Output: Drainage 60 40 Back 60 40 Urine 60 75 Estimated Blood Loss 150 Other: Voiding Method Indwelling Catheter Indwelling Catheter - Labs CBC & Chem 7: 05/14/21 03:34 05/14/21 03:34 Labs: Abnormal Lab Results - Last 24 Hours (Table) 05/13/21 05/13/21 05/13/21 Range/Units 04:07 13:13 13:44 WBC (3.8-10.6) k/uL RBC (4.30-5.90) m/uL Hgb (13.0-17.5) gm/dL Hct (39.0-53.0) % MCV (80.0-100.0) fL RDW (11.5-15.5) % ESR (0-15) mm/hr Sodium (137-145) mmol/L Carbon Dioxide (22-30) mmol/L BUN (9-20) mg/dL Creatinine (0.66-1.25) mg/dL Glucose (74-99) mg/dL POC Glucose (mg/dL) 202 H 231 H (75-99) mg/dL Total Bilirubin (0.2-1.3) mg/dL AST (17-59) U/L ALT (4-49) U/L Alkaline Phosphatase (38-126) U/L C-Reactive Protein (<1.0) mg/dL Total Protein (6.3-8.2) g/dL Albumin (3.5-5.0) g/dL Procalcitonin 10.21 H (0.02-0.09) ng/mL 05/13/21 05/13/21 05/13/21 Range/Units 14:41 16:03 16:56 WBC (3.8-10.6) k/uL RBC (4.30-5.90) m/uL Hgb (13.0-17.5) gm/dL Hct (39.0-53.0) % MCV (80.0-100.0) fL RDW (11.5-15.5) % ESR (0-15) mm/hr Sodium (137-145) mmol/L Carbon Dioxide (22-30) mmol/L BUN (9-20) mg/dL Creatinine (0.66-1.25) mg/dL Glucose (74-99) mg/dL POC Glucose (mg/dL) 238 H 193 H 142 H (75-99) mg/dL Total Bilirubin (0.2-1.3) mg/dL AST (17-59) U/L ALT (4-49) U/L Alkaline Phosphatase (38-126) U/L C-Reactive Protein (<1.0) mg/dL Total Protein (6.3-8.2) g/dL Albumin (3.5-5.0) g/dL Procalcitonin (0.02-0.09) ng/mL 05/13/21 05/13/21 05/13/21 Range/Units 18:25 19:59 21:57 WBC (3.8-10.6) k/uL RBC (4.30-5.90) m/uL Hgb (13.0-17.5) gm/dL Hct (39.0-53.0) % MCV (80.0-100.0) fL RDW (11.5-15.5) % ESR (0-15) mm/hr Sodium (137-145) mmol/L Carbon Dioxide (22-30) mmol/L BUN (9-20) mg/dL Creatinine (0.66-1.25) mg/dL Glucose (74-99) mg/dL POC Glucose (mg/dL) 118 H 158 H 156 H (75-99) mg/dL Total Bilirubin (0.2-1.3) mg/dL AST (17-59) U/L ALT (4-49) U/L Alkaline Phosphatase (38-126) U/L C-Reactive Protein (<1.0) mg/dL Total Protein (6.3-8.2) g/dL Albumin (3.5-5.0) g/dL Procalcitonin (0.02-0.09) ng/mL 05/14/21 05/14/21 05/14/21 Range/Units 02:22 03:34 03:34 WBC (3.8-10.6) k/uL RBC (4.30-5.90) m/uL Hgb (13.0-17.5) gm/dL Hct (39.0-53.0) % MCV (80.0-100.0) fL RDW (11.5-15.5) % ESR 86 H (0-15) mm/hr Sodium (137-145) mmol/L Carbon Dioxide (22-30) mmol/L BUN (9-20) mg/dL Creatinine (0.66-1.25) mg/dL Glucose (74-99) mg/dL POC Glucose (mg/dL) 140 H (75-99) mg/dL Total Bilirubin (0.2-1.3) mg/dL AST (17-59) U/L ALT (4-49) U/L Alkaline Phosphatase (38-126) U/L C-Reactive Protein 6.1 H (<1.0) mg/dL Total Protein (6.3-8.2) g/dL Albumin (3.5-5.0) g/dL Procalcitonin (0.02-0.09) ng/mL 05/14/21 05/14/21 05/14/21 Range/Units 03:34 03:34 04:34 WBC 14.5 H (3.8-10.6) k/uL RBC 2.45 L (4.30-5.90) m/uL Hgb 7.8 L (13.0-17.5) gm/dL Hct 25.3 L (39.0-53.0) % MCV 103.1 H (80.0-100.0) fL RDW 17.5 H (11.5-15.5) % ESR (0-15) mm/hr Sodium 131 L (137-145) mmol/L Carbon Dioxide 20 L (22-30) mmol/L BUN 55 H (9-20) mg/dL Creatinine 5.54 H (0.66-1.25) mg/dL Glucose 149 H (74-99) mg/dL POC Glucose (mg/dL) 179 H (75-99) mg/dL Total Bilirubin 4.1 H (0.2-1.3) mg/dL AST 386 H (17-59) U/L ALT 1037 H (4-49) U/L Alkaline Phosphatase 1067 H (38-126) U/L C-Reactive Protein (<1.0) mg/dL Total Protein 5.2 L (6.3-8.2) g/dL Albumin 2.6 L (3.5-5.0) g/dL Procalcitonin (0.02-0.09) ng/mL 05/14/21 05/14/21 05/14/21 Range/Units 05:48 08:20 10:14 WBC (3.8-10.6) k/uL RBC (4.30-5.90) m/uL Hgb (13.0-17.5) gm/dL Hct (39.0-53.0) % MCV (80.0-100.0) fL RDW (11.5-15.5) % ESR (0-15) mm/hr Sodium (137-145) mmol/L Carbon Dioxide (22-30) mmol/L BUN (9-20) mg/dL Creatinine (0.66-1.25) mg/dL Glucose (74-99) mg/dL POC Glucose (mg/dL) 156 H 126 H 215 H (75-99) mg/dL Total Bilirubin (0.2-1.3) mg/dL AST (17-59) U/L ALT (4-49) U/L Alkaline Phosphatase (38-126) U/L C-Reactive Protein (<1.0) mg/dL Total Protein (6.3-8.2) g/dL Albumin (3.5-5.0) g/dL Procalcitonin (0.02-0.09) ng/mL 05/14/21 Range/Units 11:13 WBC (3.8-10.6) k/uL RBC (4.30-5.90) m/uL Hgb (13.0-17.5) gm/dL Hct (39.0-53.0) % MCV (80.0-100.0) fL RDW (11.5-15.5) % ESR (0-15) mm/hr Sodium (137-145) mmol/L Carbon Dioxide (22-30) mmol/L BUN (9-20) mg/dL Creatinine (0.66-1.25) mg/dL Glucose (74-99) mg/dL POC Glucose (mg/dL) 214 H (75-99) mg/dL Total Bilirubin (0.2-1.3) mg/dL AST (17-59) U/L ALT (4-49) U/L Alkaline Phosphatase (38-126) U/L C-Reactive Protein (<1.0) mg/dL Total Protein (6.3-8.2) g/dL Albumin (3.5-5.0) g/dL Procalcitonin (0.02-0.09) ng/mL Microbiology - Last 24 Hours (Table) 05/13/21 10:20 Gram Stain - Preliminary Back Wound Culture - Preliminary 05/13/21 10:20 Gram Stain - Preliminary Back Wound Culture - Preliminary 05/10/21 13:05 Blood Culture Gram Stain - Final Blood Blood Culture - Final Coagulase Negative Staph 05/13/21 10:20 Anaerobic Culture - Preliminary Back 05/13/21 10:20 Anaerobic Culture - Preliminary Back 05/13/21 10:20 Fungal Culture - Preliminary Back 05/13/21 10:20 Fungal Culture - Preliminary Back 05/12/21 13:18 Blood Culture Gram Stain - Preliminary Blood 05/12/21 13:13 Blood Culture - Preliminary Blood No Growth after 24 hours 05/10/21 10:32 Blood Culture - Preliminary Blood No Growth after 72 hours 05/10/21 11:34 Blood Culture - Preliminary Blood No Growth after 72 hours 05/12/21 13:18 Blood Culture - Final Blood <Fer Barboza - Last Filed: 05/14/21 11:56> Subjective As above. Patient's doing better today. Denies abdominal pain. Labs improving. No plans for surgical intervention on the gallbladder at this time. We'll sign off. Call if needed. Objective - Vital Signs Vital signs: Vital Signs Temp 98.5 F 05/14/21 04:00 Pulse 80 05/14/21 04:00 Resp 10 L 05/14/21 04:00 BP 177/71 05/14/21 04:00 Pulse Ox 97 05/14/21 04:00 Intake & Output 05/13/21 05/14/21 05/14/21 18:59 06:59 18:59 Intake Total 2603.537 114.442 601.639 Output Total 270 115 100 Balance 2333.537 -0.558 501.639 Weight 77.8 kg Intake: IV 2301 90 80 0.9 2000 90 80 Intake, IV Titration 302.537 24.442 21.639 Amount Insulin Regular 100 unit 52.537 24.442 21.639 In Sodium Chloride 0.9% 100 ml @ Per Protocol IV .Q0M [facility] Rx#:[id number] Vancomycin 1,500 mg In 250 Sodium Chloride 0.9% 250 ml @ 125 mls/hr IVPB ONCE ONE Rx#:[id number] Oral 500 Output: Drainage 60 40 Back 60 40 Urine 60 75 100 Estimated Blood Loss 150 Other: Voiding Method Indwelling Catheter Indwelling Catheter Indwelling Catheter - Labs CBC & Chem 7: 05/14/21 03:34 05/14/21 03:34 Labs: Abnormal Lab Results - Last 24 Hours (Table) 05/13/21 05/13/21 05/13/21 Range/Units 04:07 13:13 13:44 WBC (3.8-10.6) k/uL RBC (4.30-5.90) m/uL Hgb (13.0-17.5) gm/dL Hct (39.0-53.0) % MCV (80.0-100.0) fL RDW (11.5-15.5) % ESR (0-15) mm/hr Sodium (137-145) mmol/L Carbon Dioxide (22-30) mmol/L BUN (9-20) mg/dL Creatinine (0.66-1.25) mg/dL Glucose (74-99) mg/dL POC Glucose (mg/dL) 202 H 231 H (75-99) mg/dL Total Bilirubin (0.2-1.3) mg/dL AST (17-59) U/L ALT (4-49) U/L Alkaline Phosphatase (38-126) U/L C-Reactive Protein (<1.0) mg/dL Total Protein (6.3-8.2) g/dL Albumin (3.5-5.0) g/dL Procalcitonin 10.21 H (0.02-0.09) ng/mL 05/13/21 05/13/21 05/13/21 Range/Units 14:41 16:03 16:56 WBC (3.8-10.6) k/uL RBC (4.30-5.90) m/uL Hgb (13.0-17.5) gm/dL Hct (39.0-53.0) % MCV (80.0-100.0) fL RDW (11.5-15.5) % ESR (0-15) mm/hr Sodium (137-145) mmol/L Carbon Dioxide (22-30) mmol/L BUN (9-20) mg/dL Creatinine (0.66-1.25) mg/dL Glucose (74-99) mg/dL POC Glucose (mg/dL) 238 H 193 H 142 H (75-99) mg/dL Total Bilirubin (0.2-1.3) mg/dL AST (17-59) U/L ALT (4-49) U/L Alkaline Phosphatase (38-126) U/L C-Reactive Protein (<1.0) mg/dL Total Protein (6.3-8.2) g/dL Albumin (3.5-5.0) g/dL Procalcitonin (0.02-0.09) ng/mL 05/13/21 05/13/21 05/13/21 Range/Units 18:25 19:59 21:57 WBC (3.8-10.6) k/uL RBC (4.30-5.90) m/uL Hgb (13.0-17.5) gm/dL Hct (39.0-53.0) % MCV (80.0-100.0) fL RDW (11.5-15.5) % ESR (0-15) mm/hr Sodium (137-145) mmol/L Carbon Dioxide (22-30) mmol/L BUN (9-20) mg/dL Creatinine (0.66-1.25) mg/dL Glucose (74-99) mg/dL POC Glucose (mg/dL) 118 H 158 H 156 H (75-99) mg/dL Total Bilirubin (0.2-1.3) mg/dL AST (17-59) U/L ALT (4-49) U/L Alkaline Phosphatase (38-126) U/L C-Reactive Protein (<1.0) mg/dL Total Protein (6.3-8.2) g/dL Albumin (3.5-5.0) g/dL Procalcitonin (0.02-0.09) ng/mL 05/14/21 05/14/21 05/14/21 Range/Units 02:22 03:34 03:34 WBC (3.8-10.6) k/uL RBC (4.30-5.90) m/uL Hgb (13.0-17.5) gm/dL Hct (39.0-53.0) % MCV (80.0-100.0) fL RDW (11.5-15.5) % ESR 86 H (0-15) mm/hr Sodium (137-145) mmol/L Carbon Dioxide (22-30) mmol/L BUN (9-20) mg/dL Creatinine (0.66-1.25) mg/dL Glucose (74-99) mg/dL POC Glucose (mg/dL) 140 H (75-99) mg/dL Total Bilirubin (0.2-1.3) mg/dL AST (17-59) U/L ALT (4-49) U/L Alkaline Phosphatase (38-126) U/L C-Reactive Protein 6.1 H (<1.0) mg/dL Total Protein (6.3-8.2) g/dL Albumin (3.5-5.0) g/dL Procalcitonin (0.02-0.09) ng/mL 05/14/21 05/14/21 05/14/21 Range/Units 03:34 03:34 04:34 WBC 14.5 H (3.8-10.6) k/uL RBC 2.45 L (4.30-5.90) m/uL Hgb 7.8 L (13.0-17.5) gm/dL Hct 25.3 L (39.0-53.0) % MCV 103.1 H (80.0-100.0) fL RDW 17.5 H (11.5-15.5) % ESR (0-15) mm/hr Sodium 131 L (137-145) mmol/L Carbon Dioxide 20 L (22-30) mmol/L BUN 55 H (9-20) mg/dL Creatinine 5.54 H (0.66-1.25) mg/dL Glucose 149 H (74-99) mg/dL POC Glucose (mg/dL) 179 H (75-99) mg/dL Total Bilirubin 4.1 H (0.2-1.3) mg/dL AST 386 H (17-59) U/L ALT 1037 H (4-49) U/L Alkaline Phosphatase 1067 H (38-126) U/L C-Reactive Protein (<1.0) mg/dL Total Protein 5.2 L (6.3-8.2) g/dL Albumin 2.6 L (3.5-5.0) g/dL Procalcitonin (0.02-0.09) ng/mL 05/14/21 05/14/21 05/14/21 Range/Units 05:48 08:20 10:14 WBC (3.8-10.6) k/uL RBC (4.30-5.90) m/uL Hgb (13.0-17.5) gm/dL Hct (39.0-53.0) % MCV (80.0-100.0) fL RDW (11.5-15.5) % ESR (0-15) mm/hr Sodium (137-145) mmol/L Carbon Dioxide (22-30) mmol/L BUN (9-20) mg/dL Creatinine (0.66-1.25) mg/dL Glucose (74-99) mg/dL POC Glucose (mg/dL) 156 H 126 H 215 H (75-99) mg/dL Total Bilirubin (0.2-1.3) mg/dL AST (17-59) U/L ALT (4-49) U/L Alkaline Phosphatase (38-126) U/L C-Reactive Protein (<1.0) mg/dL Total Protein (6.3-8.2) g/dL Albumin (3.5-5.0) g/dL Procalcitonin (0.02-0.09) ng/mL 05/14/21 Range/Units 11:13 WBC (3.8-10.6) k/uL RBC (4.30-5.90) m/uL Hgb (13.0-17.5) gm/dL Hct (39.0-53.0) % MCV (80.0-100.0) fL RDW (11.5-15.5) % ESR (0-15) mm/hr Sodium (137-145) mmol/L Carbon Dioxide (22-30) mmol/L BUN (9-20) mg/dL Creatinine (0.66-1.25) mg/dL Glucose (74-99) mg/dL POC Glucose (mg/dL) 214 H (75-99) mg/dL Total Bilirubin (0.2-1.3) mg/dL AST (17-59) U/L ALT (4-49) U/L Alkaline Phosphatase (38-126) U/L C-Reactive Protein (<1.0) mg/dL Total Protein (6.3-8.2) g/dL Albumin (3.5-5.0) g/dL Procalcitonin (0.02-0.09) ng/mL Microbiology - Last 24 Hours (Table) 05/13/21 10:20 Gram Stain - Preliminary Back Wound Culture - Preliminary 05/13/21 10:20 Gram Stain - Preliminary Back Wound Culture - Preliminary 05/10/21 13:05 Blood Culture Gram Stain - Final Blood Blood Culture - Final Coagulase Negative Staph 05/13/21 10:20 Anaerobic Culture - Preliminary Back 05/13/21 10:20 Anaerobic Culture - Preliminary Back 05/13/21 10:20 Fungal Culture - Preliminary Back 05/13/21 10:20 Fungal Culture - Preliminary Back 05/12/21 13:18 Blood Culture Gram Stain - Preliminary Blood 05/12/21 13:13 Blood Culture - Preliminary Blood No Growth after 24 hours 05/10/21 10:32 Blood Culture - Preliminary Blood No Growth after 72 hours 05/10/21 11:34 Blood Culture - Preliminary Blood No Growth after 72 hours 05/12/21 13:18 Blood Culture - Final Blood Assessment and Plan (1) Chronic cholecystitis Current Visit: Yes Status: Acute Code(s): K81.1 - CHRONIC CHOLECYSTITIS SNOMED Code(s): 64711481
[2021-05-14 11:57] LABS: Glucose,Whole Blood 223 mg/dL (75-99)
[2021-05-14] MEDS: MULTIVITAMINS, THERA 1 EACH TAB PO SCH (12:13)
[2021-05-14] MEDS: FOLIC ACID 1 MG TAB PO SCH (12:13)
[2021-05-14] MEDS: THIAMINE 100 MG TAB PO SCH (12:15)
[2021-05-14 12:40] LABS: Albumin 2.72 g/dL (3.80-4.90); Gamma Globulin 0.75 g/dL (0.70-1.50)
--- NOTE | 2021-05-14 12:46 | P.PN ---
Subjective Progress Note Date: 05/14/21 Principal diagnosis: Hepatitis This is a 51-year-old white male with a past medical history of type 1 diabetes mellitus, end-stage renal disease on hemodialysis, hypertension, and recent back surgery. The patient had back surgery a couple weeks ago in [place] he was then recently admitted to this hospital and was found to have an epidural abscess with staph infection treated with a surgical evacuation by Dr. Lozano. He was started on IV vancomycin and discharged home with IV vancomycin. Patient is unsure if he was on any other antibiotics. He denies any other new medications. He was noted to have elevation in his LFTs. He denies any previous history of liver disease, but does state that he recalls that one time a friend telling him he did look jaundiced. Patient admits to a history of alcohol use where he drank daily for at least 5 years, 32-40 ounces of beer a day and sometimes more. Acute Hepatitis panel negative. Acetaminophen level was less than 10. He had an ultrasound of the abdomen that shows small amount of free fluid. Thickened gallbladder wall suggestive of acute cholecystitis. Gallbladder wall measures 4 mm. No dilated ducts. There are probably some small gallstones. He also went to CT of the abdomen that showed hepatomegaly. Small right pleural effusion with pleural reaction at the lung bases. This is increased compared to exam earlier today. No dilated ducts. Mild subcutaneous edema around the abdomen. The patient was seen and examined today, he denies any nausea or vomiting, abdominal pain, still having some back pain. He underwent surgery yesterday with Dr. Lozano. Cultures are pending. Liver enzymes are trending down. Objective - Vital Signs Vital signs: Vital Signs Temp 98.5 F 05/14/21 04:00 Pulse 80 05/14/21 04:00 Resp 10 L 05/14/21 04:00 BP 177/71 05/14/21 04:00 Pulse Ox 97 05/14/21 04:00 Intake & Output 05/13/21 05/14/21 05/14/21 18:59 06:59 18:59 Intake Total 2603.537 114.442 15.781 Output Total 270 115 Balance 2333.537 -0.558 15.781 Weight 77.8 kg Intake: IV 2301 90 0.9 2000 90 Intake, IV Titration 302.537 24.442 15.781 Amount Insulin Regular 100 unit 52.537 24.442 15.781 In Sodium Chloride 0.9% 100 ml @ Per Protocol IV .[facility]0M [facility] Rx#:[id number] Vancomycin 1,500 mg In 250 Sodium Chloride 0.9% 250 ml @ 125 mls/hr IVPB ONCE ONE Rx#:[id number] Output: Drainage 60 40 Back 60 40 Urine 60 75 Estimated Blood Loss 150 Other: Voiding Method Indwelling Catheter Indwelling Catheter - Exam General appearance: The patient is alert, oriented, appears in no acute distress. HET: Head is normocephalic and atraumatic. Conjunctiva pink. Sclera icteric. Neck: Supple without lymphadenopathy. Abdomen: Soft, nontender, nondistended with bowel sounds. No guarding or rigidity. Extremities: Normal skin color and turgor. No pedal edema Skin: No rashes, jaundice. Neurological: No focal deficits. Alert and oriented 3. - Labs CBC & Chem 7: 05/14/21 03:34 05/14/21 03:34 Labs: Abnormal Lab Results - Last 24 Hours (Table) 05/11/21 05/13/21 05/13/21 Range/Units 04:09 04:07 13:13 ESR (0-15) mm/hr POC Glucose (mg/dL) 202 H (75-99) mg/dL C-Reactive Protein (<1.0) mg/dL Zbgni-4-Bnnlnkyxyps 325.0 H (99.0-242.0) mg/dL Procalcitonin 10.21 H (0.02-0.09) ng/mL 05/13/21 05/13/21 05/13/21 Range/Units 13:44 14:41 16:03 ESR (0-15) mm/hr POC Glucose (mg/dL) 231 H 238 H 193 H (75-99) mg/dL C-Reactive Protein (<1.0) mg/dL Bdzrv-4-Iodwsburgwb (99.0-242.0) mg/dL Procalcitonin (0.02-0.09) ng/mL 05/13/21 05/13/21 05/13/21 Range/Units 16:56 18:25 19:59 ESR (0-15) mm/hr POC Glucose (mg/dL) 142 H 118 H 158 H (75-99) mg/dL C-Reactive Protein (<1.0) mg/dL Zibew-6-Kntclhqedox (99.0-242.0) mg/dL Procalcitonin (0.02-0.09) ng/mL 05/13/21 05/14/21 05/14/21 Range/Units 21:57 02:22 03:34 ESR 86 H (0-15) mm/hr POC Glucose (mg/dL) 156 H 140 H (75-99) mg/dL C-Reactive Protein (<1.0) mg/dL Hrbtu-6-Chphrgjhrtz (99.0-242.0) mg/dL Procalcitonin (0.02-0.09) ng/mL 05/14/21 05/14/21 05/14/21 Range/Units 03:34 04:34 05:48 ESR (0-15) mm/hr POC Glucose (mg/dL) 179 H 156 H (75-99) mg/dL C-Reactive Protein 6.1 H (<1.0) mg/dL Ldvyu-4-Ocweofotmph (99.0-242.0) mg/dL Procalcitonin (0.02-0.09) ng/mL 05/14/21 Range/Units 08:20 ESR (0-15) mm/hr POC Glucose (mg/dL) 126 H (75-99) mg/dL C-Reactive Protein (<1.0) mg/dL Zvffx-6-Fuigpyuafpb (99.0-242.0) mg/dL Procalcitonin (0.02-0.09) ng/mL Microbiology - Last 24 Hours (Table) 05/13/21 10:20 Gram Stain - Preliminary Back Wound Culture - Preliminary 05/13/21 10:20 Gram Stain - Preliminary Back Wound Culture - Preliminary 05/10/21 13:05 Blood Culture Gram Stain - Final Blood Blood Culture - Final Coagulase Negative Staph 05/13/21 10:20 Anaerobic Culture - Preliminary Back 05/13/21 10:20 Anaerobic Culture - Preliminary Back 05/13/21 10:20 Fungal Culture - Preliminary Back 05/13/21 10:20 Fungal Culture - Preliminary Back 05/12/21 13:18 Blood Culture Gram Stain - Preliminary Blood 05/12/21 13:13 Blood Culture - Preliminary Blood No Growth after 24 hours 05/10/21 10:32 Blood Culture - Preliminary Blood No Growth after 72 hours 05/10/21 11:34 Blood Culture - Preliminary Blood No Growth after 72 hours 05/12/21 13:18 Blood Culture - Final Blood Assessment and Plan (1) Acute hepatitis Narrative/Plan: 51-year-old male who recently underwent back surgery in [place] who was recently hot hospitalized here for an epidural abscess staph infection and underwent surgical evacuation by Dr. Lozano. He has a past medical history including type 1 diabetes mellitus, hypertension, chronic renal failure on hemodialysis, chronic anemia and chronic back pain. He presented to [facility] with altered mental status according to his , and outpatient blood work that showed anemia and elevation in his LFTs. He was sent to [facility] for further evaluation. During his previous hospitalization he was started on IV vancomycin and discharged home with that. Patient is unsure if he's started any other new antibiotics. Patient was found to have significant increase in his LFTs. He denies any previous history of known liver disease. He does admit to heavy alcohol use in the past and states he was a daily beer drinker. He denies any previous history of hepatitis. On admission he was found to have leukocytosis, significant elevation in his LFTs with a total bilirubin of 7.1, alkaline phosphatase 1578, AST 2452, ALT 906. He denies any history of statin use. We'll order full liver serology. CT of the abdomen showed hepatomegaly. Small right pleural effusion with pleural reaction at the lung bases. Increased compared to exam earlier today. No dilated ducts. Mild subcutaneous edema around the abdomen. Gallbladder ultrasound showed small amount of free fluid. Thickened gallbladder wall suggestive of acute cholecystitis. Gallbladder wall measures 4 mm. No dilated ducts. There are probably some small gallstones. Possible etiologies include shock liver from recent sepsis other possibilities include medication-induced hepatitis, possibly related to vancomycin with possible underlying liver disease related to history of significant alcohol use. Current Visit: Yes Status: Acute Code(s): B17.9 - ACUTE VIRAL HEPATITIS, UNSPECIFIED SNOMED Code(s): 10638209 (2) Anemia Narrative/Plan: Patient has normochromic, normocytic anemia. Likely anemia of chronic disease. Iron studies are not consistent with an iron deficiency anemia. Current Visit: Yes Status: Acute Code(s): D64.9 - ANEMIA, UNSPECIFIED SNOMED Code(s): 646857907 (3) Chronic kidney failure Current Visit: Yes Status: Acute Code(s): N18.9 - CHRONIC KIDNEY DISEASE, UNSPECIFIED SNOMED Code(s): 01957534 (4) Elevated liver enzymes Current Visit: Yes Status: Acute Code(s): R74.8 - ABNORMAL LEVELS OF OTHER SERUM ENZYMES SNOMED Code(s): 488629430 (5) Altered mental status Current Visit: Yes Status: Acute Code(s): R41.82 - ALTERED MENTAL STATUS, UNSPECIFIED SNOMED Code(s): 154295320 Plan: 1. Continue symptomatic and supportive care 2. Continue to monitor daily LFTs 3. Full liver serology ordered, negative. 5. Avoid hepatotoxic medications 6. Diet as tolerated 7. Thank you for this consultation, we will continue to follow Dr. Libby Vogt I agree with the dictator's note, documented as a scribe by Josey Campo.
[2021-05-14 13:25] LABS: Poikilocytosis (M) Present; Polychromasia Present
[2021-05-14 13:48] LABS: Glucose,Whole Blood 226 mg/dL (75-99)
--- NOTE | 2021-05-14 13:55 | PN ---
PROGRESS NOTE DATE OF SERVICE: 05/14/2021 REASON FOR FOLLOWUP: Lumbosacral paraspinal abscess and bacteremia. INTERVAL HISTORY: The patient is currently afebrile. The patient is breathing comfortably. The patient denies having any chest pain or shortness of breath or cough. No abdominal pain or worsening pain to the lumbosacral spine area. PHYSICAL EXAMINATION: Blood pressure 177/71 with a pulse of 80, temperature 98.5. He is 97% on room air. GENERAL DESCRIPTION: General description is a middle-aged male up in the bed in no distress. RESPIRATORY SYSTEM: Unlabored breathing. Clear to auscultation anteriorly. HEART: S1, S2. Regular rate and rhythm. ABDOMEN: Soft. No tenderness. LABS: Repeat cultures are currently pending. DIAGNOSTIC IMPRESSION AND PLAN: Patient with a lumbosacral spinal abscess, status post drainage, with surgery and removal of some of the hardware and I and D. The patient is covered with daptomycin; to continue for now while monitoring clinical course closely. His multiple questions were answered in layman's term. MMODL / IJN: [id number] /
--- NOTE | 2021-05-14 14:30 | OP ---
OPERATIVE REPORT DATE OF SERVICE: 05/13/2021. PREOPERATIVE DIAGNOSES: 1. Continued infection with post operative seroma 2. sepsis status post L4-5 osteo diskitis evacuation, decompression. POSTOPERATIVE DIAGNOSES: 1. Postoperative fluid collection. 2. Bilateral L5 pedicle fractures with hardware failure and loosening. 3. Cage loosening with continued osteomyelitis diskitis. 4. s/p L4-5 osteo diskitis evacuation and decompression fusion PROCEDURE: 1. Incision and drainage with irrigation and debridement of lumbar spine L4-5. 2. Removal of hardware L5 with re- instrumentation of L5. 3. Removal of cascade cage with re- instrumentation and replacement of interbody cage. 4. Revision L4-5 fusion. IMPLANTS: Exchange 6.5 mm screws in L5 for 7.5 x 45 screws with the removal of a 10 mm cascading cage implantation of a 14 mm cascading cage Vesuvius DBM graft. ANESTHESIA: General endotracheal. EBL: 150 mL FLUIDS: 2000 mL URINE OUTPUT: 120. DISPOSITION: Stable to postoperative care unit. INDICATIONS FOR PROCEDURE: This is a 51-year-old male who presented to the emergency department on 05/09/2021, with complaints of mental status changes. He does have a significant history for diabetes which is uncontrolled. He is on hemodialysis for end-stage renal disease. He underwent on April 23 decompression fusion for a L4-5 osteo diskitis after an infection that started from his original surgery which was done in February of 2021. He was maintained on antibiotics outpatient. He was getting his antibiotics with hemodialysis. The patient's family states that he normally does hemodialysis about four times a week. However, he was not doing this. He was found to have extremely elevated LFTs. He was sepsis with lactic acidosis. He was seen and evaluated upon his arrival. His incision was healing fairly well except for the bottom portion which had some minor serosanguineous drainage. He did have somewhat of a palpable swelling in his back, however, no overt fluctuance. CT scans were done as well as the MRI. The patient complained of some back pain. He states about a week ago he was trying to get up and he felt a pop in his back and he had increased pain in his back from this. He states no other injury to the area at this time. He states his legs seem to be somewhat weaker. However, he is able to use them and he seems to feel like it is more from laying around instead of his back. He has no pain down his legs at this time. No groin pain, perineal numbness or tingling for anything of this nature. We did evaluate him fairly extensively once his lab values normalized a little bit more. He was able to have MRI of his lumbar spine which did show no rim enhancing fluid collections. However, the postoperative changes and some fluid collections in this area. The CT scan of the abdomen and pelvis did not demonstrate any real hardware failure at this time. However, this was further evaluated intraoperatively. We discussed at length different treatment options for him. It seems as though with the sepsis and the return to the ER that he is not either getting the dosage of vancomycin that he needs. However, his troughs were appropriate or the vancomycin is not functioning for him at this time. Discussed at length with the different treatment team members as well as Infectious Disease and we all felt that at this time it was likely better to investigate to evacuate any fluid collections. We washed the wound and further treat this. The patient was in agreement with this plan. We planned an incision and drainage with irrigation debridement of lumbar spine. The patient was seen preoperatively all preop protocols followed. The patient was seen by Department of Anesthesia, deemed fit for surgery, site was marked. Consent was obtained and confirmed, and the patient was willing to proceed with the procedure. We discussed the risks and benefits again of surgery as outlined in the risk review. OPERATIVE REPORT: The patient was transferred to the operative suite by the department of anesthesia and then he was drifted off to sleep by Department of Anesthesia. General endotracheal intubation was performed. Once adequate anesthesia had been obtained and confirmation of ventilation, the patient was placed prone on a Dajuan Dwight frame very carefully. His arms were placed in the up and out position 90/90 and were well padded. We paid special attention to all bony areas as well as the chest, axilla, wrists, hips, thighs, knees, ankles, and genitalia, which were all well padded. A Baldwin was placed through the table and secured. Once a good position we confirmed again lines as well as ventilatory status and patient was stable. The patient's lumbar spine was then prepped. The stitches were removed prior to prep and alcohol was used to prep the back and then stitches were removed. There was a small area inferiorly as noted before. However, there was some serosanguineous drainage. Preoperative briefing was performed. The patient's lumbar spine was then prepped and draped in normal sterile fashion. We then performed a time-out. All parties in agreement with the procedure to be performed. A skin incision was then made over the previously made incision with a sharp blade. We then excised the portions of the incision proximally and distally, which had some exudative changes and poor healing to allow for a fresh edges to heal. We then dissected down to the lumbosacral fascia which was identified. We removed all sutures from this area. Once we invaded the fascia, a large amount of fluid was evacuated. This was postoperative fluid mostly with no real signs of infection, however, it was cultured. Once it was removed from this area, the hardware was visualized as well as the dura. We irrigated this area out with 3 L of antibiotic solution to allow for better visualization. We used a curettes to scrape bone of any soft tissue in this area that may have been continued infective. We used a rongeur as well to remove this. 2-0 up-biting curette was then used to remove further tissue and healing tissue as well as some of the overlying graft tissue. Upon investigation, there was a large hematoma that had built up around the L5 pedicle on the left and into the foramina of L4- 5. This was somewhat concerning and so we investigated further. Upon investigation, we noted that the cement spacer as well as the cage had become loose and so we removed the crosslink as well as the rods to investigate the hardware further. L4 screws bilaterally were stable. However, L5 screws bilaterally were both loose and had actually broken out laterally. These were probed. There was still good pedicle medially and there was still access points, which could be used and so it was decided at this point secondary to the loosening of this that it needs to be revised to provide stability in the area. We replaced under AP and lateral fluoroscopy the L5 screws. We used a pedicle finder first to access the pedicle and trajectory taking fluoroscopic images to confirm. The probe was then used to feel and there is no medial violation and there was good lateral wall due to the size of the pedicles. We then replaced the screws in this area up sizing the screws to 7.5 screws and attempting to obtain bicortical fixation at L5. We did this on the right side and the left side secondary to the screws being loose. Then on the right side secondary to the lateral wall pedicle fracture. We then, once these were upsized, tested the screws and they were stable. We then investigated the cage and the cage was loose in this area including the cement. The cement was impacted forward to allow for stability and continued antibiotic evacuation of the area. The cage was atraumatically removed and we decided to upsize the case under lateral fluoroscopy. We used sizers to obtain a new sized and selected a 14 cascading cage. We thoroughly irrigated the disk space out with 6 L of antibiotic saline solution followed by a L of normal sterile saline. We then placed deep within the wound DBM as well as DBM within the cage. We then placed the cage atraumatically through the right-sided transforaminal approach, which had been used previously. The cage was then impacted forward under lateral fluoroscopy and was stable. Once this was performed, we were able to replace the rods and set screws and the crosslink and these were new implants that were selected and replaced. We then thoroughly irrigated the wound once again with antibiotic solution followed by normal sterile saline. In all, 20 L of fluid was run through the wound at a high flow low pressure rate. Once this was completed, we turned our attention to any further debridement and we debrided any soft tissue, muscle, bone that appeared to be needing debridement in the area which was either necrotic or presumed infected. We then closed the wound in a layered fashion starting with the lumbosacral fascia. This was closed 1st with 0 PDS in a simple fashion followed by a running unidirectional strata fix and this was a watertight closure. Prior to this, we placed 2 g of vancomycin deep within the wound and we did place a deep drain. The drain was then hooked up once the fascia was closed and there was good suction. We then closed the deep subcu tissue with 0 PDS. The superficial subcu tissue with 2-0 PDS. We then freshened the wound edges and closed the skin with 2-0 nylon in a horizontal mattress fashion. The wound edges approximated very well. The wound was then cleaned with alcohol and dressed sterilely with a sterile Optifoam dressing. The drain was sewn in place with 2-0 nylon and dressed with a drain sponge and Tegaderm. The patient was then transferred off the Dajuan table to his hospital bed atraumatically and awakened by the Department of Anesthesia, having tolerated the procedure very well with no complications. He was transferred to the postoperative care unit in stable condition. STEF / DANI: [id number] / MTDVero
[2021-05-14 16:43] LABS: Glucose,Whole Blood 118 mg/dL (75-99)
[2021-05-14 18:44] LABS: Glucose,Whole Blood 137 mg/dL (75-99)
[2021-05-14 20:06] LABS: Glucose,Whole Blood 124 mg/dL (75-99)
[2021-05-14 21:10] LABS: Glucose,Whole Blood 153 mg/dL (75-99)
[2021-05-14 22:08] LABS: Glucose,Whole Blood 184 mg/dL (75-99)
[2021-05-14 23:08] LABS: Glucose,Whole Blood 192 mg/dL (75-99)
[2021-05-15 00:06] LABS: Glucose,Whole Blood 189 mg/dL (75-99)
[2021-05-15] MEDS ORDERED: CALCIUM CARBONATE 500 MG CHEWABLE PO PRN (00:16)
[2021-05-15 01:37] LABS: Glucose,Whole Blood 164 mg/dL (75-99)
--- NOTE | 2021-05-15 02:13 | P.PN ---
Subjective Progress Note Date: 05/14/21 Mr. Palacio is a 51-year-old male with a past medical history of type 2 diabetes mellitus, CKD on hemodialysis, hypertension admitted to the hospital for altered mental status changes. Events as per chronological order- ugust 19: Patient moved to the ICU past midnight. Potassium at 7.5. Emergent hemodialysis was carried out in the night. 3.5 L were removed. Patient also was initially bradycardic in the ER heart rate is back up in the 60s now. Patient has been on insulin pump. Blood cultures are coming back positive for gram negatives bacilli. Patient has left arm fistula. Sitting up in bed. Feeling tired. Blood cultures from yesterday growing gram-positive cocci May 11: ICU: Afebrile. Blood culture growing Staphylococcus species. Orthopedic is considered an MRI. The results could be inconclusive based on recent surgery. Computed tomography scan is suggestive cholecystitis but patient has not abdominal pain. Dr. Orozco had called me from ID to consult surgery that is being done. Care was discussed with Dr. Siddiqi from critical care. Continue with antibiotics good oral intake May 12: ICU: Afebrile. MRI of the lumbar spine done today. Showing postsurgical changes. No obvious new changes. Orthopedic is still contemplating surgery. Patient was uses on insulin pump. Had declined the Lantus last night. Oral intake fair. May 13: ICU: Patient was taken down to the OR today per Dr. Lozano-POD1 revision L4-5 decompression fusion with irrigation and debridement. On 05/14/2021 -patient is seen and examined at the bedside. He is comfortably lying in bed appears to be in no acute distress. States that his pain is 6 per 10 in his lower back. Patient denies having any fevers chills or rigors no chest pain or palpitations. Patient denies having any loss of bladder or bowel control. No new tingling or numbness in his lower extremities. On reviewing the patient's vitals temperature 98.3, heart rate 76, respiratory rate 18, blood pressure 135/74, saturating at 94% on room air. Reviewing patient's labs white count of 14.5, hemoglobin 7.8, platelets 414. Sodium 131, potassium 4.6, chloride 98, bicarb 20, BUN 50, creatinine 5.5. Active Medications Ascorbic Acid (Ascorbic Acid 500 Mg Tab) 1,000 mg PO DAILY [facility] Last Admin: 05/14/21 08:36 Dose: 1,000 mg Documented by: Calcium Acetate (Calcium Acetate 667 Mg Tab) 667 mg PO TID-W/MEALS [facility] Last Admin: 05/14/21 17:10 Dose: 667 mg Documented by: Calcium Carbonate/Glycine (Calcium Carbonate 500 Mg Chewable) 1,000 mg PO TID P RN PRN Reason: Heartburn Last Admin: 05/15/21 01:36 Dose: 1,000 mg Documented by: Cholecalciferol (Cholecalciferol 25 Mcg (1000 Iu) Tablet) 125 mcg PO DAILY [facility] Last Admin: 05/14/21 08:36 Dose: 125 mcg Documented by: Darbepoetin Timoteo (Darbepoetin Timoteo 60 Mcg/0.3 Ml Syringe) 60 mcg SQ Q7D [facility] Last Admin: 05/12/21 16:29 Dose: 60 mcg Documented by: Folic Acid (Folic Acid 1 Mg Tab) 1 mg PO DAILY@1200 [facility] Last Admin: 05/14/21 12:13 Dose: 1 mg Documented by: Heparin Sodium (Porcine) (Heparin Sodium,Porcine/Pf 5,000 Unit/0.5 Ml Syringe) 5,000 unit SQ Q12HR [facility] Last Admin: 05/14/21 21:57 Dose: 5,000 unit Documented by: Hydralazine HCl (Hydralazine Hcl 20 Mg/Ml 1 Ml Vial) 10 mg IVP Q4HR PRN PRN Reason: Blood Pressure - High Hydromorphone HCl (Hydromorphone 0.5 Mg/0.5 Ml Syringe) 0.5 mg IVP Q6HR PRN PRN Reason: Severe Pain Last Admin: 05/14/21 18:53 Dose: 0.5 mg Documented by: Insulin Human Regular 100 unit (/ Sodium Chloride) 101 mls @ 0 mls/hr IV .Q0M [facility]; Protocol Last Titration: 05/15/21 01:37 Dose: 5 units/hr, 5.05 mls/hr Documented by: Daptomycin 500 mg/ Sodium (Chloride) 50 mls @ 100 mls/hr IVPB Q48H [facility]; Protocol Last Admin: 05/13/21 21:05 Dose: 100 mls/hr Documented by: Labetalol HCl (Labetalol 200 Mg Tab) 200 mg PO TID [facility] Last Admin: 05/14/21 21:57 Dose: 200 mg Documented by: Multivitamins (Multivitamins, Thera 1 Each Tab) 1 each PO DAILY@1200 [facility] Last Admin: 05/14/21 12:13 Dose: 1 each Documented by: Naloxone HCl (Naloxone 0.4 Mg/Ml 1 Ml Vial) 0.2 mg IV Q2M PRN PRN Reason: Opioid Reversal Pantoprazole Sodium (Pantoprazole 40 Mg Tablet) 40 mg PO AC-BRKFST [facility] Last Admin: 05/14/21 07:03 Dose: 40 mg Documented by: Pramipexole Dihydrochloride (Pramipexole 0.5 Mg Tab) 0.5 mg PO BID [facility] Last Admin: 05/14/21 21:57 Dose: 0.5 mg Documented by: Thiamine HCl (Thiamine 100 Mg Tab) 100 mg PO DAILY@1200 [facility] Last Admin: 05/14/21 12:15 Dose: 100 mg Documented by: Tramadol HCl (Tramadol 50 Mg Tab) 50 mg PO TID PRN PRN Reason: Pain Last Admin: 05/14/21 15:29 Dose: 50 mg Documented by: Objective - Vital Signs Vital signs: Vital Signs Temp 98.2 F 05/14/21 16:00 Pulse 76 05/14/21 16:00 Resp 13 05/14/21 16:00 BP 148/54 05/14/21 16:00 Pulse Ox 95 05/14/21 16:00 Intake & Output 05/14/21 05/14/21 05/15/21 06:59 18:59 06:59 Intake Total 114.442 729.328 Output Total 115 310 Balance -0.558 419.328 Weight 77.8 kg Intake: IV 90 160 0.9 90 160 Intake, IV Titration 24.442 69.328 Amount Insulin Regular 100 unit 24.442 69.328 In Sodium Chloride 0.9% 100 ml @ Per Protocol IV .Q0M [facility] Rx#:[id number] Oral 500 Output: Drainage 40 60 Back 40 60 Urine 75 250 Other: Voiding Method Indwelling Catheter Indwelling Catheter - Exam GENERAL APPEARANCE: . Laying in bed, sleepy. Left upper extremity fistula HEENT: Normal external appearance of nose and ear. Oral cavity normal EYES: Pupils equal. Conjunctiva normal. NECK: JVD not raised. No palpable masses RESPIRATORY: Respiratory effort normal. Lungs clear to auscultation. CARDIOVASCULAR: First and second sounds normal. No edema. ABDOMEN: Soft. Liver and spleen not palpable. No tenderness. No mass palpable. PSYCHIATRY: Not assessed, patient sleepy [employer]: AAOX 3, No focal deficits - Labs CBC & Chem 7: 05/14/21 03:34 05/14/21 03:34 Labs: Abnormal Lab Results - Last 24 Hours (Table) 05/11/21 05/13/21 05/13/21 Range/Units 04:09 19:59 21:57 WBC (3.8-10.6) k/uL RBC (4.30-5.90) m/uL Hgb (13.0-17.5) gm/dL Hct (39.0-53.0) % MCV (80.0-100.0) fL RDW (11.5-15.5) % Neutrophils # (1.3-7.7) k/uL ESR (0-15) mm/hr Sodium (137-145) mmol/L Carbon Dioxide (22-30) mmol/L BUN (9-20) mg/dL Creatinine (0.66-1.25) mg/dL Glucose (74-99) mg/dL POC Glucose (mg/dL) 158 H 156 H (75-99) mg/dL Total Bilirubin (0.2-1.3) mg/dL AST (17-59) U/L ALT (4-49) U/L Alkaline Phosphatase (38-126) U/L C-Reactive Protein (<1.0) mg/dL Total Protein (6.3-8.2) g/dL Albumin (3.5-5.0) g/dL Albumin (PEP) 2.72 L (3.80-4.90) g/dL Izhao-3-Jeroafcee 0.50 H (0.10-0.40) g/dL Beta Globulins 0.46 L (0.60-1.30) g/dL 05/14/21 05/14/21 05/14/21 Range/Units 02:22 03:34 03:34 WBC (3.8-10.6) k/uL RBC (4.30-5.90) m/uL Hgb (13.0-17.5) gm/dL Hct (39.0-53.0) % MCV (80.0-100.0) fL RDW (11.5-15.5) % Neutrophils # (1.3-7.7) k/uL ESR 86 H (0-15) mm/hr Sodium (137-145) mmol/L Carbon Dioxide (22-30) mmol/L BUN (9-20) mg/dL Creatinine (0.66-1.25) mg/dL Glucose (74-99) mg/dL POC Glucose (mg/dL) 140 H (75-99) mg/dL Total Bilirubin (0.2-1.3) mg/dL AST (17-59) U/L ALT (4-49) U/L Alkaline Phosphatase (38-126) U/L C-Reactive Protein 6.1 H (<1.0) mg/dL Total Protein (6.3-8.2) g/dL Albumin (3.5-5.0) g/dL Albumin (PEP) (3.80-4.90) g/dL Wjuxa-4-Sbqxqdmci (0.10-0.40) g/dL Beta Globulins (0.60-1.30) g/dL 05/14/21 05/14/21 05/14/21 Range/Units 03:34 03:34 04:34 WBC 14.5 H (3.8-10.6) k/uL RBC 2.45 L (4.30-5.90) m/uL Hgb 7.8 L (13.0-17.5) gm/dL Hct 25.3 L (39.0-53.0) % MCV 103.1 H (80.0-100.0) fL RDW 17.5 H (11.5-15.5) % Neutrophils # 11.9 H (1.3-7.7) k/uL ESR (0-15) mm/hr Sodium 131 L (137-145) mmol/L Carbon Dioxide 20 L (22-30) mmol/L BUN 55 H (9-20) mg/dL Creatinine 5.54 H (0.66-1.25) mg/dL Glucose 149 H (74-99) mg/dL POC Glucose (mg/dL) 179 H (75-99) mg/dL Total Bilirubin 4.1 H (0.2-1.3) mg/dL AST 386 H (17-59) U/L ALT 1037 H (4-49) U/L Alkaline Phosphatase 1067 H (38-126) U/L C-Reactive Protein (<1.0) mg/dL Total Protein 5.2 L (6.3-8.2) g/dL Albumin 2.6 L (3.5-5.0) g/dL Albumin (PEP) (3.80-4.90) g/dL Hcboe-4-Usyncuraq (0.10-0.40) g/dL Beta Globulins (0.60-1.30) g/dL 05/14/21 05/14/21 05/14/21 Range/Units 05:48 08:20 10:14 WBC (3.8-10.6) k/uL RBC (4.30-5.90) m/uL Hgb (13.0-17.5) gm/dL Hct (39.0-53.0) % MCV (80.0-100.0) fL RDW (11.5-15.5) % Neutrophils # (1.3-7.7) k/uL ESR (0-15) mm/hr Sodium (137-145) mmol/L Carbon Dioxide (22-30) mmol/L BUN (9-20) mg/dL Creatinine (0.66-1.25) mg/dL Glucose (74-99) mg/dL POC Glucose (mg/dL) 156 H 126 H 215 H (75-99) mg/dL Total Bilirubin (0.2-1.3) mg/dL AST (17-59) U/L ALT (4-49) U/L Alkaline Phosphatase (38-126) U/L C-Reactive Protein (<1.0) mg/dL Total Protein (6.3-8.2) g/dL Albumin (3.5-5.0) g/dL Albumin (PEP) (3.80-4.90) g/dL Slcxh-3-Sspsgmhga (0.10-0.40) g/dL Beta Globulins (0.60-1.30) g/dL 05/14/21 05/14/21 05/14/21 Range/Units 11:13 11:56 13:47 WBC (3.8-10.6) k/uL RBC (4.30-5.90) m/uL Hgb (13.0-17.5) gm/dL Hct (39.0-53.0) % MCV (80.0-100.0) fL RDW (11.5-15.5) % Neutrophils # (1.3-7.7) k/uL ESR (0-15) mm/hr Sodium (137-145) mmol/L Carbon Dioxide (22-30) mmol/L BUN (9-20) mg/dL Creatinine (0.66-1.25) mg/dL Glucose (74-99) mg/dL POC Glucose (mg/dL) 214 H 223 H 226 H (75-99) mg/dL Total Bilirubin (0.2-1.3) mg/dL AST (17-59) U/L ALT (4-49) U/L Alkaline Phosphatase (38-126) U/L C-Reactive Protein (<1.0) mg/dL Total Protein (6.3-8.2) g/dL Albumin (3.5-5.0) g/dL Albumin (PEP) (3.80-4.90) g/dL Afkhz-4-Temctudet (0.10-0.40) g/dL Beta Globulins (0.60-1.30) g/dL 05/14/21 05/14/21 Range/Units 16:41 18:43 WBC (3.8-10.6) k/uL RBC (4.30-5.90) m/uL Hgb (13.0-17.5) gm/dL Hct (39.0-53.0) % MCV (80.0-100.0) fL RDW (11.5-15.5) % Neutrophils # (1.3-7.7) k/uL ESR (0-15) mm/hr Sodium (137-145) mmol/L Carbon Dioxide (22-30) mmol/L BUN (9-20) mg/dL Creatinine (0.66-1.25) mg/dL Glucose (74-99) mg/dL POC Glucose (mg/dL) 118 H 137 H (75-99) mg/dL Total Bilirubin (0.2-1.3) mg/dL AST (17-59) U/L ALT (4-49) U/L Alkaline Phosphatase (38-126) U/L C-Reactive Protein (<1.0) mg/dL Total Protein (6.3-8.2) g/dL Albumin (3.5-5.0) g/dL Albumin (PEP) (3.80-4.90) g/dL Ahmrg-0-Arwjptofk (0.10-0.40) g/dL Beta Globulins (0.60-1.30) g/dL Microbiology - Last 24 Hours (Table) 05/12/21 13:13 Blood Culture - Preliminary Blood No Growth after 48 hours 05/10/21 10:32 Blood Culture - Preliminary Blood No Growth after 96 hours 05/10/21 11:34 Blood Culture - Preliminary Blood No Growth after 96 hours 05/12/21 13:18 Blood Culture Gram Stain - Preliminary Blood Blood Culture - Preliminary Coagulase Negative Staph 05/13/21 10:20 Gram Stain - Preliminary Back Wound Culture - Preliminary 05/13/21 10:20 Gram Stain - Preliminary Back Wound Culture - Preliminary 05/10/21 13:05 Blood Culture Gram Stain - Final Blood Blood Culture - Final Coagulase Negative Staph 05/13/21 10:20 Anaerobic Culture - Preliminary Back 05/13/21 10:20 Anaerobic Culture - Preliminary Back 05/13/21 10:20 Fungal Culture - Preliminary Back 05/13/21 10:20 Fungal Culture - Preliminary Back Assessment and Plan Assessment: ASSESSMENT Revision L4-L5 decompression fusion and irrigation postop day 1 History of L for-L5 posterior discitis with epidural abscess status post decom pression laminectomy and antibiotic spacer placement Encephalopathy secondary to the above, recovered Hyperkalemia ESRD on hemodialysis -No disabilities Restless leg syndrome Peripheral neuropathy Hypertension Transaminitis PLAN: Patient to be continued on daptomycin for the abscess. His hyperkalemia resolved with initiation of dialysis, nephrology on board for dialysis. We will repeat a.m. labs. General surgery on board for abnormal gallbladder wall thickening on ultrasound with questionable acute cholecystitis. We will continue to monitor the patient's blood sugars and blood pressure levels closely. Patient to be continued on the current medication regimen. Overall prognosis is guarded due to chronic multiple medical conditions. Further recommendations depending on the progress of the patient
[2021-05-15 03:26] LABS: Glucose,Whole Blood 145 mg/dL (75-99)
[2021-05-15 05:22] LABS: Anisocytosis Slight; Basophils % (A) 0 %; Eosinophils # (A) 0.3 k/uL (0-0.7); Eosinophils % (A) 3 %; HCT 25.4 % (39.0-53.0); HGB 8.1 gm/dL (13.0-17.5); Hypochromasia Moderate; Lymphocytes % (A) 8 %; MCH 32.5 pg (25.0-35.0); MCHC 31.8 g/dL (31.0-37.0); MCV 102.1 fL (80.0-100.0); Macrocytosis Moderate; Mean Platelet Volume 9.5; Monocytes # (A) 0.6 k/uL (0-1.0); Monocytes % (A) 5 %; Neutrophils # (A) 9.8 k/uL (1.3-7.7); Neutrophils % (A) 81 %; Platelet Count 391 k/uL (150-450); RBC 2.49 m/uL (4.30-5.90); RDW 18.7 % (11.5-15.5); WBC 12.1 k/uL (3.8-10.6)
[2021-05-15 05:37] LABS: Albumin 2.8 g/dL (3.5-5.0); Calcium 9.2 mg/dL (8.4-10.2); Potassium 4.7 mmol/L (3.5-5.1); Total Bilirubin 3.5 mg/dL (0.2-1.3); Total Protein 5.7 g/dL (6.3-8.2)
[2021-05-15 05:51] LABS: Glucose,Whole Blood 101 mg/dL (75-99)
[2021-05-15] MEDS: CALCIUM ACETATE 667 MG TAB PO SCH ×2 (07:09→11:03)
[2021-05-15] MEDS: PANTOPRAZOLE 40 MG TABLET PO SCH (07:09)
[2021-05-15 08:45] LABS: Glucose,Whole Blood 257 mg/dL (75-99)
[2021-05-15] MEDS: INSULIN REGULAR 100 UNIT in SODIUM CHLORIDE 0.9% 100 ML IV SCH (08:56)
[2021-05-15] MEDS: ASCORBIC ACID 500 MG TAB PO SCH (08:57)
[2021-05-15] MEDS: CHOLECALCIFEROL 25 MCG (1000 IU) TABLET PO SCH (08:57)
[2021-05-15] MEDS: traMADol 50 MG TAB PO PRN (08:58)
[2021-05-15] MEDS: HEPARIN SODIUM,PORCINE/PF 5,000 UNIT/0.5 ML SYRINGE SQ SCH (08:58)
[2021-05-15] MEDS: LABETALOL 200 MG TAB PO SCH ×2 (08:58→16:08)
[2021-05-15] MEDS: PRAMIPEXOLE 0.5 MG TAB PO SCH (08:58)
--- NOTE | 2021-05-15 08:59 | P.PN ---
Subjective Patient is seen in follow-up for end-stage renal disease. Currently resting in bed. On room air. No pain. Scheduled for dialysis today. Vital signs are stable. General: The patient appeared well nourished and normally developed. HEENT: Head exam is unremarkable. Neck is without jugular venous distension. LUNGS: Breath sounds decreased. HEART: Rate and Rhythm are regular. ABDOMEN: Soft, no distention. EXTREMITITES: 1+ edema. Objective - Vital Signs Vital signs: Vital Signs Temp 98.4 F 05/15/21 08:00 Pulse 80 05/15/21 08:00 Resp 15 05/15/21 08:00 BP 161/70 05/15/21 08:00 Pulse Ox 95 05/15/21 08:08 Intake & Output 05/14/21 05/15/21 05/15/21 18:59 06:59 18:59 Intake Total 729.328 91.469 0 Output Total 310 100 Balance 419.328 -8.531 0 Weight 79.8 kg Intake: IV 160 0.9 160 Intake, IV Titration 69.328 41.469 0 Amount Insulin Regular 100 unit 69.328 41.469 0 In Sodium Chloride 0.9% 100 ml @ Per Protocol IV .Q0M [facility] Rx#:[id number] Oral 500 50 Output: Drainage 60 Back 60 Urine 250 100 Other: Voiding Method Indwelling Catheter Indwelling Catheter # Voids 1 - Labs CBC & Chem 7: 05/15/21 04:41 05/15/21 04:41 Labs: Abnormal Lab Results - Last 24 Hours (Table) 05/11/21 05/14/21 05/14/21 Range/Units 04:09 03:34 03:34 WBC 14.5 H (3.8-10.6) k/uL RBC 2.45 L (4.30-5.90) m/uL Hgb 7.8 L (13.0-17.5) gm/dL Hct 25.3 L (39.0-53.0) % MCV 103.1 H (80.0-100.0) fL RDW 17.5 H (11.5-15.5) % Neutrophils # 11.9 H (1.3-7.7) k/uL Sodium 131 L (137-145) mmol/L Chloride (98-107) mmol/L Carbon Dioxide 20 L (22-30) mmol/L BUN 55 H (9-20) mg/dL Creatinine 5.54 H (0.66-1.25) mg/dL Glucose 149 H (74-99) mg/dL POC Glucose (mg/dL) (75-99) mg/dL Total Bilirubin 4.1 H (0.2-1.3) mg/dL AST 386 H (17-59) U/L ALT 1037 H (4-49) U/L Alkaline Phosphatase 1067 H (38-126) U/L Total Protein 5.2 L (6.3-8.2) g/dL Albumin 2.6 L (3.5-5.0) g/dL Albumin (PEP) 2.72 L (3.80-4.90) g/dL Veinb-6-Cwiyaogvi 0.50 H (0.10-0.40) g/dL Beta Globulins 0.46 L (0.60-1.30) g/dL 05/14/21 05/14/21 05/14/21 Range/Units 10:14 11:13 11:56 WBC (3.8-10.6) k/uL RBC (4.30-5.90) m/uL Hgb (13.0-17.5) gm/dL Hct (39.0-53.0) % MCV (80.0-100.0) fL RDW (11.5-15.5) % Neutrophils # (1.3-7.7) k/uL Sodium (137-145) mmol/L Chloride (98-107) mmol/L Carbon Dioxide (22-30) mmol/L BUN (9-20) mg/dL Creatinine (0.66-1.25) mg/dL Glucose (74-99) mg/dL POC Glucose (mg/dL) 215 H 214 H 223 H (75-99) mg/dL Total Bilirubin (0.2-1.3) mg/dL AST (17-59) U/L ALT (4-49) U/L Alkaline Phosphatase (38-126) U/L Total Protein (6.3-8.2) g/dL Albumin (3.5-5.0) g/dL Albumin (PEP) (3.80-4.90) g/dL Zlbjy-4-Tkxaeroms (0.10-0.40) g/dL Beta Globulins (0.60-1.30) g/dL 05/14/21 05/14/21 05/14/21 Range/Units 13:47 16:41 18:43 WBC (3.8-10.6) k/uL RBC (4.30-5.90) m/uL Hgb (13.0-17.5) gm/dL Hct (39.0-53.0) % MCV (80.0-100.0) fL RDW (11.5-15.5) % Neutrophils # (1.3-7.7) k/uL Sodium (137-145) mmol/L Chloride (98-107) mmol/L Carbon Dioxide (22-30) mmol/L BUN (9-20) mg/dL Creatinine (0.66-1.25) mg/dL Glucose (74-99) mg/dL POC Glucose (mg/dL) 226 H 118 H 137 H (75-99) mg/dL Total Bilirubin (0.2-1.3) mg/dL AST (17-59) U/L ALT (4-49) U/L Alkaline Phosphatase (38-126) U/L Total Protein (6.3-8.2) g/dL Albumin (3.5-5.0) g/dL Albumin (PEP) (3.80-4.90) g/dL Xcybj-3-Ygwexjpfi (0.10-0.40) g/dL Beta Globulins (0.60-1.30) g/dL 05/14/21 05/14/21 05/14/21 Range/Units 20:05 21:09 22:01 WBC (3.8-10.6) k/uL RBC (4.30-5.90) m/uL Hgb (13.0-17.5) gm/dL Hct (39.0-53.0) % MCV (80.0-100.0) fL RDW (11.5-15.5) % Neutrophils # (1.3-7.7) k/uL Sodium (137-145) mmol/L Chloride (98-107) mmol/L Carbon Dioxide (22-30) mmol/L BUN (9-20) mg/dL Creatinine (0.66-1.25) mg/dL Glucose (74-99) mg/dL POC Glucose (mg/dL) 124 H 153 H 184 H (75-99) mg/dL Total Bilirubin (0.2-1.3) mg/dL AST (17-59) U/L ALT (4-49) U/L Alkaline Phosphatase (38-126) U/L Total Protein (6.3-8.2) g/dL Albumin (3.5-5.0) g/dL Albumin (PEP) (3.80-4.90) g/dL Efdgo-8-Bkxjcunun (0.10-0.40) g/dL Beta Globulins (0.60-1.30) g/dL 05/14/21 05/15/21 05/15/21 Range/Units 23:07 00:05 01:35 WBC (3.8-10.6) k/uL RBC (4.30-5.90) m/uL Hgb (13.0-17.5) gm/dL Hct (39.0-53.0) % MCV (80.0-100.0) fL RDW (11.5-15.5) % Neutrophils # (1.3-7.7) k/uL Sodium (137-145) mmol/L Chloride (98-107) mmol/L Carbon Dioxide (22-30) mmol/L BUN (9-20) mg/dL Creatinine (0.66-1.25) mg/dL Glucose (74-99) mg/dL POC Glucose (mg/dL) 192 H 189 H 164 H (75-99) mg/dL Total Bilirubin (0.2-1.3) mg/dL AST (17-59) U/L ALT (4-49) U/L Alkaline Phosphatase (38-126) U/L Total Protein (6.3-8.2) g/dL Albumin (3.5-5.0) g/dL Albumin (PEP) (3.80-4.90) g/dL Zqzdg-0-Nvfllkzdx (0.10-0.40) g/dL Beta Globulins (0.60-1.30) g/dL 05/15/21 05/15/21 05/15/21 Range/Units 03:25 04:41 04:41 WBC 12.1 H (3.8-10.6) k/uL RBC 2.49 L (4.30-5.90) m/uL Hgb 8.1 L (13.0-17.5) gm/dL Hct 25.4 L (39.0-53.0) % MCV 102.1 H (80.0-100.0) fL RDW 18.7 H (11.5-15.5) % Neutrophils # 9.8 H (1.3-7.7) k/uL Sodium 129 L (137-145) mmol/L Chloride 96 L (98-107) mmol/L Carbon Dioxide 20 L (22-30) mmol/L BUN 74 H (9-20) mg/dL Creatinine 6.83 H (0.66-1.25) mg/dL Glucose 105 H (74-99) mg/dL POC Glucose (mg/dL) 145 H (75-99) mg/dL Total Bilirubin 3.5 H (0.2-1.3) mg/dL AST 180 H (17-59) U/L ALT 716 H (4-49) U/L Alkaline Phosphatase 1094 H (38-126) U/L Total Protein 5.7 L (6.3-8.2) g/dL Albumin 2.8 L (3.5-5.0) g/dL Albumin (PEP) (3.80-4.90) g/dL Dgztb-1-Bmyivkzua (0.10-0.40) g/dL Beta Globulins (0.60-1.30) g/dL 05/15/21 05/15/21 Range/Units 05:49 08:40 WBC (3.8-10.6) k/uL RBC (4.30-5.90) m/uL Hgb (13.0-17.5) gm/dL Hct (39.0-53.0) % MCV (80.0-100.0) fL RDW (11.5-15.5) % Neutrophils # (1.3-7.7) k/uL Sodium (137-145) mmol/L Chloride (98-107) mmol/L Carbon Dioxide (22-30) mmol/L BUN (9-20) mg/dL Creatinine (0.66-1.25) mg/dL Glucose (74-99) mg/dL POC Glucose (mg/dL) 101 H 257 H (75-99) mg/dL Total Bilirubin (0.2-1.3) mg/dL AST (17-59) U/L ALT (4-49) U/L Alkaline Phosphatase (38-126) U/L Total Protein (6.3-8.2) g/dL Albumin (3.5-5.0) g/dL Albumin (PEP) (3.80-4.90) g/dL Acsel-1-Jxutiyeer (0.10-0.40) g/dL Beta Globulins (0.60-1.30) g/dL Microbiology - Last 24 Hours (Table) 05/14/21 03:34 Blood Culture - Preliminary Blood No Growth after 24 hours 05/13/21 10:20 Gram Stain - Preliminary Back Wound Culture - Preliminary 05/13/21 10:20 Gram Stain - Preliminary Back Wound Culture - Preliminary 05/12/21 13:13 Blood Culture - Preliminary Blood No Growth after 48 hours 05/10/21 10:32 Blood Culture - Preliminary Blood No Growth after 96 hours 05/10/21 11:34 Blood Culture - Preliminary Blood No Growth after 96 hours 05/12/21 13:18 Blood Culture Gram Stain - Preliminary Blood Blood Culture - Preliminary Coagulase Negative Staph 05/10/21 13:05 Blood Culture Gram Stain - Final Blood Blood Culture - Final Coagulase Negative Staph Assessment and Plan Plan: Assessment: 1. End-stage renal disease maintained on hemodialysis on Friday schedule. 2. 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 On antibiotics per infectious disease. 3. Chronic kidney disease mineral bone disease maintained on PhosLo. 4. Anemia of chronic kidney disease maintained on Aranesp. 5. Diabetes mellitus. 6. Hypertension with chronic kidney disease. Plan: Hemodialysis today. Resume nifedipine.
[2021-05-15 10:08] LABS: Glucose,Whole Blood 263 mg/dL (75-99)
[2021-05-15] MEDS: MULTIVITAMINS, THERA 1 EACH TAB PO SCH (11:03)
[2021-05-15] MEDS: FOLIC ACID 1 MG TAB PO SCH (11:03)
[2021-05-15] MEDS: THIAMINE 100 MG TAB PO SCH (11:03)
[2021-05-15] MEDS: HYDROmorphone 0.5 MG/0.5 ML SYRINGE IVP PRN (11:04)
[2021-05-15 12:07] VITALS: PULSE 76
[2021-05-15 12:21] LABS: Glucose,Whole Blood 140 mg/dL (75-99)
--- NOTE | 2021-05-15 12:33 | P.PN ---
Subjective Progress Note Date: 05/15/21 05/15/2021, the patient is undergoing dialysis this morning. He is doing well. He remains hemodynamically stable. He remains on IV daptomycin. Afebrile. The patient underwent a revision of the wound as the patient was found to have heart failure and L5 pedicle fracture on the right with cage loosening. Underwent another L4-L5 decompression fusion and the wound was irrigated and debrided. The ALIZA drain will be taken off today. Cultures are still pending for now. Meanwhile the blood cultures earlier showed cardiomegaly is negative staph and the patient remains on daptomycin for now. No altered mentation. White cell count is at 4.0 with hemoglobin 8.1. Creatinine today is at 6.8. ALT is down to 716 and AST is down to 180. Rest of the electrolytes are all within normal limits. No other complaints otherwise for now. No headaches. No altered mentation. He remains weak. Has not ambulated yet. Objective - Vital Signs Vital signs: Vital Signs Temp 98.1 F 05/15/21 12:00 Pulse 76 05/15/21 12:00 Resp 13 05/15/21 12:00 BP 170/76 05/15/21 12:00 Pulse Ox 98 05/15/21 12:00 Intake & Output 05/14/21 05/15/21 05/15/21 18:59 06:59 18:59 Intake Total 729.328 91.469 553.052 Output Total 787 281 1051 Balance 419.328 -8.531 -1986.948 Weight 79.8 kg Intake: IV 160 20 0.9 160 20 Intake, IV Titration 69.328 41.469 33.052 Amount Insulin Regular 100 unit 69.328 41.469 33.052 In Sodium Chloride 0.9% 100 ml @ Per Protocol IV .Q0M [facility] Rx#:[id number] Oral 500 50 500 Output: Drainage 60 40 Back 60 40 Urine 250 100 0 Hemodialysis 2500 Other: Voiding Method Indwelling Catheter Indwelling Catheter Urinal # Voids 1 # Bowel Movements 1 - Exam GENERAL EXAM: Alert, very pleasant, 51-year-old white male, resting comfortably in bed, on room air, with a pulse ox of 96% active, comfortable in no apparent distress. HEAD: Normocephalic/atraumatic. EYES: Normal reaction of pupils, equal size. Conjunctiva pink, sclera white. NOSE: Clear with pink turbinates. THROAT: No erythema or exudates. NECK: No masses, no JVD, no thyroid enlargement, no adenopathy. CHEST: No chest wall deformity. Symmetrical expansion. LUNGS: Equal air entry with no crackles, wheeze, rhonchi or dullness. CVS: Regular rate and rhythm, normal S1 and S2, no gallops, no murmurs, no rubs ABDOMEN: Soft, with minimal right-sided tenderness, nondistended No hepatosplenomegaly, normal bowel sounds, no guarding or rigidity. EXTREMITIES: No clubbing, no edema, no cyanosis, 2+ pulses and upper and lower extremities. MUSCULOSKELETAL: Muscle strength and tone normal. SPINE: No scoliosis or deformity. Spine incision was examined, the incision is well approximated, with minimal serous drainage at the distal end, no purulent drainage was noted, sutures are still in place, ALIZA drain is in place. Output is serosanguineous/bloody. SKIN: No rashes CENTRAL NERVOUS SYSTEM: Alert and oriented -3. No focal deficits, tone is normal in all 4 extremities. PSYCHIATRIC: Alert and oriented -3. Appropriate affect. Intact judgment and insight. - Labs CBC & Chem 7: 05/15/21 04:41 05/15/21 04:41 Labs: Abnormal Lab Results - Last 24 Hours (Table) 05/11/21 05/14/21 05/14/21 Range/Units 04:09 03:34 13:47 WBC (3.8-10.6) k/uL RBC (4.30-5.90) m/uL Hgb (13.0-17.5) gm/dL Hct (39.0-53.0) % MCV (80.0-100.0) fL RDW (11.5-15.5) % Neutrophils # 11.9 H (1.3-7.7) k/uL Sodium (137-145) mmol/L Chloride (98-107) mmol/L Carbon Dioxide (22-30) mmol/L BUN (9-20) mg/dL Creatinine (0.66-1.25) mg/dL Glucose (74-99) mg/dL POC Glucose (mg/dL) 226 H (75-99) mg/dL Total Bilirubin (0.2-1.3) mg/dL AST (17-59) U/L ALT (4-49) U/L Alkaline Phosphatase (38-126) U/L Total Protein (6.3-8.2) g/dL Albumin (3.5-5.0) g/dL Albumin (PEP) 2.72 L (3.80-4.90) g/dL Lacpu-2-Utppzortx 0.50 H (0.10-0.40) g/dL Beta Globulins 0.46 L (0.60-1.30) g/dL 05/14/21 05/14/21 05/14/21 Range/Units 16:41 18:43 20:05 WBC (3.8-10.6) k/uL RBC (4.30-5.90) m/uL Hgb (13.0-17.5) gm/dL Hct (39.0-53.0) % MCV (80.0-100.0) fL RDW (11.5-15.5) % Neutrophils # (1.3-7.7) k/uL Sodium (137-145) mmol/L Chloride (98-107) mmol/L Carbon Dioxide (22-30) mmol/L BUN (9-20) mg/dL Creatinine (0.66-1.25) mg/dL Glucose (74-99) mg/dL POC Glucose (mg/dL) 118 H 137 H 124 H (75-99) mg/dL Total Bilirubin (0.2-1.3) mg/dL AST (17-59) U/L ALT (4-49) U/L Alkaline Phosphatase (38-126) U/L Total Protein (6.3-8.2) g/dL Albumin (3.5-5.0) g/dL Albumin (PEP) (3.80-4.90) g/dL Qfshm-8-Iusddkhkw (0.10-0.40) g/dL Beta Globulins (0.60-1.30) g/dL 05/14/21 05/14/21 05/14/21 Range/Units 21:09 22:01 23:07 WBC (3.8-10.6) k/uL RBC (4.30-5.90) m/uL Hgb (13.0-17.5) gm/dL Hct (39.0-53.0) % MCV (80.0-100.0) fL RDW (11.5-15.5) % Neutrophils # (1.3-7.7) k/uL Sodium (137-145) mmol/L Chloride (98-107) mmol/L Carbon Dioxide (22-30) mmol/L BUN (9-20) mg/dL Creatinine (0.66-1.25) mg/dL Glucose (74-99) mg/dL POC Glucose (mg/dL) 153 H 184 H 192 H (75-99) mg/dL Total Bilirubin (0.2-1.3) mg/dL AST (17-59) U/L ALT (4-49) U/L Alkaline Phosphatase (38-126) U/L Total Protein (6.3-8.2) g/dL Albumin (3.5-5.0) g/dL Albumin (PEP) (3.80-4.90) g/dL Wlkmg-8-Aqppwlhvm (0.10-0.40) g/dL Beta Globulins (0.60-1.30) g/dL 05/15/21 05/15/21 05/15/21 Range/Units 00:05 01:35 03:25 WBC (3.8-10.6) k/uL RBC (4.30-5.90) m/uL Hgb (13.0-17.5) gm/dL Hct (39.0-53.0) % MCV (80.0-100.0) fL RDW (11.5-15.5) % Neutrophils # (1.3-7.7) k/uL Sodium (137-145) mmol/L Chloride (98-107) mmol/L Carbon Dioxide (22-30) mmol/L BUN (9-20) mg/dL Creatinine (0.66-1.25) mg/dL Glucose (74-99) mg/dL POC Glucose (mg/dL) 189 H 164 H 145 H (75-99) mg/dL Total Bilirubin (0.2-1.3) mg/dL AST (17-59) U/L ALT (4-49) U/L Alkaline Phosphatase (38-126) U/L Total Protein (6.3-8.2) g/dL Albumin (3.5-5.0) g/dL Albumin (PEP) (3.80-4.90) g/dL Ccquj-1-Tideqqdcv (0.10-0.40) g/dL Beta Globulins (0.60-1.30) g/dL 05/15/21 05/15/21 05/15/21 Range/Units 04:41 04:41 05:49 WBC 12.1 H (3.8-10.6) k/uL RBC 2.49 L (4.30-5.90) m/uL Hgb 8.1 L (13.0-17.5) gm/dL Hct 25.4 L (39.0-53.0) % MCV 102.1 H (80.0-100.0) fL RDW 18.7 H (11.5-15.5) % Neutrophils # 9.8 H (1.3-7.7) k/uL Sodium 129 L (137-145) mmol/L Chloride 96 L (98-107) mmol/L Carbon Dioxide 20 L (22-30) mmol/L BUN 74 H (9-20) mg/dL Creatinine 6.83 H (0.66-1.25) mg/dL Glucose 105 H (74-99) mg/dL POC Glucose (mg/dL) 101 H (75-99) mg/dL Total Bilirubin 3.5 H (0.2-1.3) mg/dL AST 180 H (17-59) U/L ALT 716 H (4-49) U/L Alkaline Phosphatase 1094 H (38-126) U/L Total Protein 5.7 L (6.3-8.2) g/dL Albumin 2.8 L (3.5-5.0) g/dL Albumin (PEP) (3.80-4.90) g/dL Glwzr-9-Jqubqbfda (0.10-0.40) g/dL Beta Globulins (0.60-1.30) g/dL 05/15/21 05/15/21 05/15/21 Range/Units 08:40 10:05 12:08 WBC (3.8-10.6) k/uL RBC (4.30-5.90) m/uL Hgb (13.0-17.5) gm/dL Hct (39.0-53.0) % MCV (80.0-100.0) fL RDW (11.5-15.5) % Neutrophils # (1.3-7.7) k/uL Sodium (137-145) mmol/L Chloride (98-107) mmol/L Carbon Dioxide (22-30) mmol/L BUN (9-20) mg/dL Creatinine (0.66-1.25) mg/dL Glucose (74-99) mg/dL POC Glucose (mg/dL) 257 H 263 H 140 H (75-99) mg/dL Total Bilirubin (0.2-1.3) mg/dL AST (17-59) U/L ALT (4-49) U/L Alkaline Phosphatase (38-126) U/L Total Protein (6.3-8.2) g/dL Albumin (3.5-5.0) g/dL Albumin (PEP) (3.80-4.90) g/dL Ygqjm-7-Rlclqpktv (0.10-0.40) g/dL Beta Globulins (0.60-1.30) g/dL Microbiology - Last 24 Hours (Table) 05/14/21 03:34 Blood Culture - Preliminary Blood No Growth after 24 hours 05/13/21 10:20 Gram Stain - Preliminary Back Wound Culture - Preliminary 05/13/21 10:20 Gram Stain - Preliminary Back Wound Culture - Preliminary 05/12/21 13:13 Blood Culture - Preliminary Blood No Growth after 48 hours 05/10/21 10:32 Blood Culture - Preliminary Blood No Growth after 96 hours 05/10/21 11:34 Blood Culture - Preliminary Blood No Growth after 96 hours 05/12/21 13:18 Blood Culture Gram Stain - Preliminary Blood Blood Culture - Preliminary Coagulase Negative Staph Assessment and Plan Plan: 1 altered mental status, recovered, secondary to metabolic derangements with a possibility of an underlying sepsis , recovered 2 acute hyperkalemia, recovered 3 acute lactic acidosis, improved 4 sepsis with coagulase-negative staph and the patient had positive blood cultures on 05/10/2021 and 05/13/2021 and the patient is currently on daptomycin. Revision of the surgical wound was done. There was failure of hardware and the patient underwent another L4-L5 laminectomy fusion with replacement of hardware and drainage and irrigation. Cultures from the wound are still pending for now. The patient is currently on daptomycin. 5 End stage renal disease and currently on hemodialysis, last hemodialysis was done yesterday 6 L4-L5 posterior discitis with epidural abscess status post decompression laminectomy and antibiotic spacer placement. The patient has subsequent L5 pedicle fracture with right cage loosening and hardware failure. Patient underwent a revision L4-L5 decompression fusion and irrigation. Patient is postop day #2 7 diabetes mellitus type 1 8 diabetic peripheral neuropathy and restless leg syndrome 9 hypertension 10 acute abnormal elevation of the liver function tests, consider shock liver. The patient has elevation of the AST, ALT and alkaline phosphatase. Gallbladder wall is thickened. Nevertheless, there is no Neville signs. Gen. surgery has been consulted, for possibility of acute cholecystitis. 11 bradycardia secondary to hyperkalemia, recovered Plan: Continue Dapto 500 mg every 48 hours Hemodialysis per nephrology, the patient is undergoing hemodialysis this morning Overall clinically patient is stable No significant abdominal discomfort, no vomiting, tolerating oral diet Follow-up LFTs, improving ALIZA drain will be removed today Asked the patient to bring his insulin pump from home and were replaced a insulin drip with an insulin pump Heparin subcu 5000 units every 12 hours for DVT prophylaxis transfer out of intensive care unit to medical surgical floor later today
--- NOTE | 2021-05-15 13:24 | P.PN ---
Subjective Progress Note Date: 05/15/21 Principal diagnosis: Hepatitis This is a 51-year-old white male with a past medical history of type 1 diabetes mellitus, end-stage renal disease on hemodialysis, hypertension, and recent back surgery. The patient had back surgery a couple weeks ago in [place] he was then recently admitted to this hospital and was found to have an epidural abscess with staph infection treated with a surgical evacuation by Dr. Lozano. He was started on IV vancomycin and discharged home with IV vancomycin. Patient is unsure if he was on any other antibiotics. He denies any other new medications. He was noted to have elevation in his LFTs. He denies any previous history of liver disease, but does state that he recalls that one time a friend telling him he did look jaundiced. Patient admits to a history of alcohol use where he drank daily for at least 5 years, 32-40 ounces of beer a day and sometimes more. Acute Hepatitis panel negative. Acetaminophen level was less than 10. He had an ultrasound of the abdomen that shows small amount of free fluid. Thickened gallbladder wall suggestive of acute cholecystitis. Gallbladder wall measures 4 mm. No dilated ducts. There are probably some small gallstones. He also went to CT of the abdomen that showed hepatomegaly. Small right pleural effusion with pleural reaction at the lung bases. This is increased compared to exam earlier today. No dilated ducts. Mild subcutaneous edema around the abdomen. The patient was seen and examined today, he denies any nausea or vomiting, abdominal pain, still having some back pain. He remains on daptomycin. Liver enzymes continued to trend down. He is undergoing hemodialysis today. Plan is for possible discharge either later today or tomorrow. Objective - Vital Signs Vital signs: Vital Signs Temp 98.4 F 05/15/21 08:00 Pulse 80 05/15/21 08:00 Resp 15 05/15/21 08:00 BP 161/70 05/15/21 08:00 Pulse Ox 95 05/15/21 08:08 Intake & Output 05/14/21 05/15/21 05/15/21 18:59 06:59 18:59 Intake Total 729.328 91.469 531.312 Output Total 736 652 4456 Balance 419.328 -8.531 -2008.688 Weight 79.8 kg Intake: IV 160 20 0.9 160 20 Intake, IV Titration 69.328 41.469 11.312 Amount Insulin Regular 100 unit 69.328 41.469 11.312 In Sodium Chloride 0.9% 100 ml @ Per Protocol IV .Q0M [facility] Rx#:[id number] Oral 500 50 500 Output: Drainage 60 40 Back 60 40 Urine 250 100 0 Hemodialysis 2500 Other: Voiding Method Indwelling Catheter Indwelling Catheter # Voids 1 - Exam General appearance: The patient is alert, oriented, appears in no acute distress. HET: Head is normocephalic and atraumatic. Conjunctiva pink. Sclera icteric. Neck: Supple without lymphadenopathy. Abdomen: Soft, nontender, nondistended with bowel sounds. No guarding or rigidity. Extremities: Normal skin color and turgor. No pedal edema Skin: No rashes, jaundice. Neurological: No focal deficits. Alert and oriented 3. - Labs CBC & Chem 7: 05/15/21 04:41 05/15/21 04:41 Labs: Abnormal Lab Results - Last 24 Hours (Table) 05/11/21 05/14/21 05/14/21 Range/Units 04:09 03:34 03:34 WBC 14.5 H (3.8-10.6) k/uL RBC 2.45 L (4.30-5.90) m/uL Hgb 7.8 L (13.0-17.5) gm/dL Hct 25.3 L (39.0-53.0) % MCV 103.1 H (80.0-100.0) fL RDW 17.5 H (11.5-15.5) % Neutrophils # 11.9 H (1.3-7.7) k/uL Sodium 131 L (137-145) mmol/L Chloride (98-107) mmol/L Carbon Dioxide 20 L (22-30) mmol/L BUN 55 H (9-20) mg/dL Creatinine 5.54 H (0.66-1.25) mg/dL Glucose 149 H (74-99) mg/dL POC Glucose (mg/dL) (75-99) mg/dL Total Bilirubin 4.1 H (0.2-1.3) mg/dL AST 386 H (17-59) U/L ALT 1037 H (4-49) U/L Alkaline Phosphatase 1067 H (38-126) U/L Total Protein 5.2 L (6.3-8.2) g/dL Albumin 2.6 L (3.5-5.0) g/dL Albumin (PEP) 2.72 L (3.80-4.90) g/dL Xqwto-2-Ziliwoqmq 0.50 H (0.10-0.40) g/dL Beta Globulins 0.46 L (0.60-1.30) g/dL 05/14/21 05/14/21 05/14/21 Range/Units 11:13 11:56 13:47 WBC (3.8-10.6) k/uL RBC (4.30-5.90) m/uL Hgb (13.0-17.5) gm/dL Hct (39.0-53.0) % MCV (80.0-100.0) fL RDW (11.5-15.5) % Neutrophils # (1.3-7.7) k/uL Sodium (137-145) mmol/L Chloride (98-107) mmol/L Carbon Dioxide (22-30) mmol/L BUN (9-20) mg/dL Creatinine (0.66-1.25) mg/dL Glucose (74-99) mg/dL POC Glucose (mg/dL) 214 H 223 H 226 H (75-99) mg/dL Total Bilirubin (0.2-1.3) mg/dL AST (17-59) U/L ALT (4-49) U/L Alkaline Phosphatase (38-126) U/L Total Protein (6.3-8.2) g/dL Albumin (3.5-5.0) g/dL Albumin (PEP) (3.80-4.90) g/dL Kwvzi-5-Jjqtyqvit (0.10-0.40) g/dL Beta Globulins (0.60-1.30) g/dL 05/14/21 05/14/21 05/14/21 Range/Units 16:41 18:43 20:05 WBC (3.8-10.6) k/uL RBC (4.30-5.90) m/uL Hgb (13.0-17.5) gm/dL Hct (39.0-53.0) % MCV (80.0-100.0) fL RDW (11.5-15.5) % Neutrophils # (1.3-7.7) k/uL Sodium (137-145) mmol/L Chloride (98-107) mmol/L Carbon Dioxide (22-30) mmol/L BUN (9-20) mg/dL Creatinine (0.66-1.25) mg/dL Glucose (74-99) mg/dL POC Glucose (mg/dL) 118 H 137 H 124 H (75-99) mg/dL Total Bilirubin (0.2-1.3) mg/dL AST (17-59) U/L ALT (4-49) U/L Alkaline Phosphatase (38-126) U/L Total Protein (6.3-8.2) g/dL Albumin (3.5-5.0) g/dL Albumin (PEP) (3.80-4.90) g/dL Vtpfe-4-Tayokqndk (0.10-0.40) g/dL Beta Globulins (0.60-1.30) g/dL 05/14/21 05/14/21 05/14/21 Range/Units 21:09 22:01 23:07 WBC (3.8-10.6) k/uL RBC (4.30-5.90) m/uL Hgb (13.0-17.5) gm/dL Hct (39.0-53.0) % MCV (80.0-100.0) fL RDW (11.5-15.5) % Neutrophils # (1.3-7.7) k/uL Sodium (137-145) mmol/L Chloride (98-107) mmol/L Carbon Dioxide (22-30) mmol/L BUN (9-20) mg/dL Creatinine (0.66-1.25) mg/dL Glucose (74-99) mg/dL POC Glucose (mg/dL) 153 H 184 H 192 H (75-99) mg/dL Total Bilirubin (0.2-1.3) mg/dL AST (17-59) U/L ALT (4-49) U/L Alkaline Phosphatase (38-126) U/L Total Protein (6.3-8.2) g/dL Albumin (3.5-5.0) g/dL Albumin (PEP) (3.80-4.90) g/dL Pynms-0-Dfjxbhhqj (0.10-0.40) g/dL Beta Globulins (0.60-1.30) g/dL 05/15/21 05/15/21 05/15/21 Range/Units 00:05 01:35 03:25 WBC (3.8-10.6) k/uL RBC (4.30-5.90) m/uL Hgb (13.0-17.5) gm/dL Hct (39.0-53.0) % MCV (80.0-100.0) fL RDW (11.5-15.5) % Neutrophils # (1.3-7.7) k/uL Sodium (137-145) mmol/L Chloride (98-107) mmol/L Carbon Dioxide (22-30) mmol/L BUN (9-20) mg/dL Creatinine (0.66-1.25) mg/dL Glucose (74-99) mg/dL POC Glucose (mg/dL) 189 H 164 H 145 H (75-99) mg/dL Total Bilirubin (0.2-1.3) mg/dL AST (17-59) U/L ALT (4-49) U/L Alkaline Phosphatase (38-126) U/L Total Protein (6.3-8.2) g/dL Albumin (3.5-5.0) g/dL Albumin (PEP) (3.80-4.90) g/dL Kfoor-9-Wiwyhawaw (0.10-0.40) g/dL Beta Globulins (0.60-1.30) g/dL 05/15/21 05/15/21 05/15/21 Range/Units 04:41 04:41 05:49 WBC 12.1 H (3.8-10.6) k/uL RBC 2.49 L (4.30-5.90) m/uL Hgb 8.1 L (13.0-17.5) gm/dL Hct 25.4 L (39.0-53.0) % MCV 102.1 H (80.0-100.0) fL RDW 18.7 H (11.5-15.5) % Neutrophils # 9.8 H (1.3-7.7) k/uL Sodium 129 L (137-145) mmol/L Chloride 96 L (98-107) mmol/L Carbon Dioxide 20 L (22-30) mmol/L BUN 74 H (9-20) mg/dL Creatinine 6.83 H (0.66-1.25) mg/dL Glucose 105 H (74-99) mg/dL POC Glucose (mg/dL) 101 H (75-99) mg/dL Total Bilirubin 3.5 H (0.2-1.3) mg/dL AST 180 H (17-59) U/L ALT 716 H (4-49) U/L Alkaline Phosphatase 1094 H (38-126) U/L Total Protein 5.7 L (6.3-8.2) g/dL Albumin 2.8 L (3.5-5.0) g/dL Albumin (PEP) (3.80-4.90) g/dL Werqa-3-Cxclgxvgs (0.10-0.40) g/dL Beta Globulins (0.60-1.30) g/dL 05/15/21 05/15/21 Range/Units 08:40 10:05 WBC (3.8-10.6) k/uL RBC (4.30-5.90) m/uL Hgb (13.0-17.5) gm/dL Hct (39.0-53.0) % MCV (80.0-100.0) fL RDW (11.5-15.5) % Neutrophils # (1.3-7.7) k/uL Sodium (137-145) mmol/L Chloride (98-107) mmol/L Carbon Dioxide (22-30) mmol/L BUN (9-20) mg/dL Creatinine (0.66-1.25) mg/dL Glucose (74-99) mg/dL POC Glucose (mg/dL) 257 H 263 H (75-99) mg/dL Total Bilirubin (0.2-1.3) mg/dL AST (17-59) U/L ALT (4-49) U/L Alkaline Phosphatase (38-126) U/L Total Protein (6.3-8.2) g/dL Albumin (3.5-5.0) g/dL Albumin (PEP) (3.80-4.90) g/dL Dpqhe-2-Wxpjtzdoe (0.10-0.40) g/dL Beta Globulins (0.60-1.30) g/dL Microbiology - Last 24 Hours (Table) 05/14/21 03:34 Blood Culture - Preliminary Blood No Growth after 24 hours 05/13/21 10:20 Gram Stain - Preliminary Back Wound Culture - Preliminary 05/13/21 10:20 Gram Stain - Preliminary Back Wound Culture - Preliminary 05/12/21 13:13 Blood Culture - Preliminary Blood No Growth after 48 hours 05/10/21 10:32 Blood Culture - Preliminary Blood No Growth after 96 hours 05/10/21 11:34 Blood Culture - Preliminary Blood No Growth after 96 hours 05/12/21 13:18 Blood Culture Gram Stain - Preliminary Blood Blood Culture - Preliminary Coagulase Negative Staph 05/10/21 13:05 Blood Culture Gram Stain - Final Blood Blood Culture - Final Coagulase Negative Staph Assessment and Plan (1) Acute hepatitis Narrative/Plan: 51-year-old male who recently underwent back surgery in [place] who was recently hot hospitalized here for an epidural abscess staph infection and underwent surgical evacuation by Dr. Lozano. He has a past medical history including type 1 diabetes mellitus, hypertension, chronic renal failure on hemodialysis, chronic anemia and chronic back pain. He presented to [facility] with altered mental status according to his , and outpatient blood work that showed anemia and elevation in his LFTs. He was sent to [facility] for further evaluation. During his previous hospitalization he was started on IV vancomycin and discharged home with that. Patient is unsure if he's started any other new antibiotics. Patient was found to have significant increase in his LFTs. He denies any previous history of known liver disease. He does admit to heavy alcohol use in the past and states he was a daily beer drinker. He denies any previous history of hepatitis. On admission he was found to have leukocytosis, significant elevation in his LFTs with a total bilirubin of 7.1, alkaline phosphatase 1578, AST 2452, ALT 906. He denies any history of statin use. We'll order full liver serology. CT of the abdomen showed hepatomegaly. Small right pleural effusion with pleural reaction at the lung bases. Increased compared to exam earlier today. No dilated ducts. Mild subcutaneous edema around the abdomen. Gallbladder ultrasound showed small amount of free fluid. Thickened gallbladder wall suggestive of acute cholecystitis. Gallbladder wall measures 4 mm. No dilated ducts. There are probably some small gallstones. Possible etiologies include shock liver from recent sepsis other possibilities include medication-induced hepatitis, possibly related to vancomycin with poss ible underlying liver disease related to history of significant alcohol use. Current Visit: Yes Status: Acute Code(s): B17.9 - ACUTE VIRAL HEPATITIS, UNSPECIFIED SNOMED Code(s): 20533811 (2) Anemia Narrative/Plan: Patient has normochromic, normocytic anemia. Likely anemia of chronic disease. Iron studies are not consistent with an iron deficiency anemia. Current Visit: Yes Status: Acute Code(s): D64.9 - ANEMIA, UNSPECIFIED SNOMED Code(s): 234434066 (3) Chronic kidney failure Current Visit: Yes Status: Acute Code(s): N18.9 - CHRONIC KIDNEY DISEASE, UNSPECIFIED SNOMED Code(s): 10982040 (4) Elevated liver enzymes Current Visit: Yes Status: Acute Code(s): R74.8 - ABNORMAL LEVELS OF OTHER SERUM ENZYMES SNOMED Code(s): 593626122 (5) Altered mental status Current Visit: Yes Status: Acute Code(s): R41.82 - ALTERED MENTAL STATUS, UNSPECIFIED SNOMED Code(s): 813453133 Plan: 1. Continue symptomatic and supportive care 2. Continue to monitor daily LFTs 3. Full liver serology ordered, negative. 5. Avoid hepatotoxic medications 6. Diet as tolerated 7. The patient is cleared for discharge from gastroenterology with outpatient follow-up in 2 weeks Thank you for this consultation, we will continue to follow. Dr. Libby Vogt I agree with the dictator's note, documented as a scribe by Josey Campo.
[2021-05-15] MEDS: PANTOPRAZOLE 40 MG/10 ML VIAL IVP SCH (13:53)
[2021-05-15] MEDS: INSULIN ASPART (NovoLOG) 100 UNIT/ML VIAL SQ SCH (13:54)
[2021-05-15 14:16] LABS: Glucose,Whole Blood 229 mg/dL (75-99)
--- NOTE | 2021-05-15 15:37 | P.PN ---
Subjective Progress Note Date: 05/15/21 Patient seen and examined this morning is doing well no other issues at this time. He states he is probably ready to go home. He got his brace he has been wearing it when he seated and up and about. He complains of no pain in his lower extremities no bowel or bladder issues no peroneal numbness or tingling no fevers chills shortness of breath or chest pain at this time. Objective - Vital Signs Vital signs: Vital Signs Temp 98.1 F 05/15/21 12:00 Pulse 76 05/15/21 12:00 Resp 13 05/15/21 12:00 BP 170/76 05/15/21 12:00 Pulse Ox 98 05/15/21 12:00 Intake & Output 05/14/21 05/15/21 05/15/21 18:59 06:59 18:59 Intake Total 729.328 91.469 1053.052 Output Total 402 050 2836 Balance 419.328 -8.531 -1486.948 Weight 79.8 kg Intake: IV 160 20 0.9 160 20 Intake, IV Titration 69.328 41.469 33.052 Amount Insulin Regular 100 unit 69.328 41.469 33.052 In Sodium Chloride 0.9% 100 ml @ Per Protocol IV .Q0M [facility] Rx#:[id number] Oral 921 82 1300 Output: Drainage 60 40 Back 60 40 Urine 250 100 0 Hemodialysis 2500 Other: Voiding Method Indwelling Catheter Indwelling Catheter Urinal # Voids 1 # Bowel Movements 1 - Exam Exam repeated today is stable. Dressing is clean dry and intact drain has 25 mL in it overnight. 125 mL since surgery 2 days ago. Drain will be removed today. PHYSICAL EXAMINATION: Vitals: Stable at this time General: Awake, alert, appropriate for age, in no acute distress. HEENT: No unusual neck masses around region of lateral neck triangle, thyroid, supraclavicular groove. Extremities: Skin warm and dry without no acute lesions, coloration, temperature, skin intact, no tenderness or erythema. Integument: Hairy patches: Absent Dorsal skin dimples: Absent Cafe au lait spots: Absent Surgical incisions: Posterior midline lumbar incision well-healed E Jj ecchymosis or edema Palpation: Please see Pain drawing on Intake sheet for further detail. (Tenderness = T, Nontender = NT, Swelling = S, Ecchymosis = E) Findings on Midline and paraspinal palpation and percussion: Cervical: NT Thoracic: NT Lumbar: mild paraspinal ttp Sacral: NT Special findings: TTP around incision. No drainage. Dressing is CDI. Drain in place 40 cc out. No EEE. POSTURAL and MUSCULO-SKELETAL EVALUATION: Neck ROM: [Unrestricted in six directions] Lumbar ROM: [Unrestricted in six directions] Shoulder ROM: Symmetric in abduction, ER/IR Hip ROM: Symmetric in abduction, adduction, ER/IR Knee ROM: Symmetric and intact in Flexion / extension Hands: Normal appearing structure L and R Feet: Normal appearing structure L and R VASCULAR STATUS : Wrist Pulses: [2/4 bilateral radial and ulnar] Pedal Pulses: [2/4 bilateral DP and PT] Color: [Normal] Edema: [None] NEUROLOGIC EXAMINATION: Mental Status: Awake and alert, fully oriented, with normal attention, concentration and memory, and fluent, appropriate speech. Cranial Nerves: I: Olfactory not tested. II: Visual acuity normal, no visual field deficit noted with confrontation. III,IV: Normal pupillary reflexes & intact extraocular movements without nystagmus. V,: Intact symmetrical facial sensation. VII: Intact symmetrical facial motor movement VIII: Hearing intact. IX,X: Intact gag, swallow, & normal voice. XI: Sternocleidomastoid, trapezius function intact. XII: Tongue midline with normal movements. Special Tests: L'hermitte's Sign: Absent Spurling'Sign: Absent Bilateral Cubital percussion test: Absent Bilateral Ree-Tinel sign - Carpal region: Absent Bilateral Straight Leg Raising: Absent Bilateral Motor Exam (0-5/5, N/T) STRENGTH UPPER EXTREMITY Shoulder Abd (Not part of MILLY Motor score): RIGHT [5] LEFT [5] Elbow Flexors: RIGHT [5] LEFT [5] Elbow Extensor: RIGHT [5] LEFT [5] Wrrist Dorsiflexors: RIGHT [5] LEFT [5] Finger Abductor: RIGHT [5] LEFT [5] Rn Advanced: RIGHT [5] LEFT [5] LOWER EXTREMITY Hip Flexor (Not part of MILLY Motor Score): RIGHT 4+ LEFT 4+ Knee Flexor: RIGHT 4+ LEFT 4+ Knee Extensor: RIGHT 4+. LEFT 4+ Ankle Dorsiflexion: RIGHT 4+ LEFT 4+ Ankle Plantarflexion: RIGHT 4+ LEFT 4+ EHL: RIGHT [5] LEFT 4+ FHL: RIGHT [5] LEFT [5] No focal deficits today. He has good movement and strength and has improved from previous exams. REFLEXES Biecp: RIGHT [2] LEFT [2] Tricep: RIGHT [2] LEFT [2] Brachioradialis: RIGHT [2] LEFT [2] Patellar: RIGHT [2] LEFT [2] Achilles: RIGHT [2] LEFT [2] Pathological Reflexes Correa's: RIGHT [Absent] LEFT [Absent] Babinski: RIGHT [Absent] LEFT [Absent] Clonus: RIGHT [None] LEFT [None] SENSORY Joint Position: [Intact bilaterally] Vibration [Intact bilaterally] Pain and LT sense [Intact C5-T1 and L2-S1] Dermatomal deficit [None] Gait and Functional Evaluation: Ambulatory aids: None Hand and finger dexterity intact bilaterally[]. Disdiadochokinesis examination negative[] bilaterally. - Labs CBC & Chem 7: 05/15/21 04:41 05/15/21 04:41 Labs: Abnormal Lab Results - Last 24 Hours (Table) 05/14/21 05/14/21 05/14/21 Range/Units 16:41 18:43 20:05 WBC (3.8-10.6) k/uL RBC (4.30-5.90) m/uL Hgb (13.0-17.5) gm/dL Hct (39.0-53.0) % MCV (80.0-100.0) fL RDW (11.5-15.5) % Neutrophils # (1.3-7.7) k/uL Sodium (137-145) mmol/L Chloride (98-107) mmol/L Carbon Dioxide (22-30) mmol/L BUN (9-20) mg/dL Creatinine (0.66-1.25) mg/dL Glucose (74-99) mg/dL POC Glucose (mg/dL) 118 H 137 H 124 H (75-99) mg/dL Total Bilirubin (0.2-1.3) mg/dL AST (17-59) U/L ALT (4-49) U/L Alkaline Phosphatase (38-126) U/L Total Protein (6.3-8.2) g/dL Albumin (3.5-5.0) g/dL 05/14/21 05/14/21 05/14/21 Range/Units 21:09 22:01 23:07 WBC (3.8-10.6) k/uL RBC (4.30-5.90) m/uL Hgb (13.0-17.5) gm/dL Hct (39.0-53.0) % MCV (80.0-100.0) fL RDW (11.5-15.5) % Neutrophils # (1.3-7.7) k/uL Sodium (137-145) mmol/L Chloride (98-107) mmol/L Carbon Dioxide (22-30) mmol/L BUN (9-20) mg/dL Creatinine (0.66-1.25) mg/dL Glucose (74-99) mg/dL POC Glucose (mg/dL) 153 H 184 H 192 H (75-99) mg/dL Total Bilirubin (0.2-1.3) mg/dL AST (17-59) U/L ALT (4-49) U/L Alkaline Phosphatase (38-126) U/L Total Protein (6.3-8.2) g/dL Albumin (3.5-5.0) g/dL 05/15/21 05/15/21 05/15/21 Range/Units 00:05 01:35 03:25 WBC (3.8-10.6) k/uL RBC (4.30-5.90) m/uL Hgb (13.0-17.5) gm/dL Hct (39.0-53.0) % MCV (80.0-100.0) fL RDW (11.5-15.5) % Neutrophils # (1.3-7.7) k/uL Sodium (137-145) mmol/L Chloride (98-107) mmol/L Carbon Dioxide (22-30) mmol/L BUN (9-20) mg/dL Creatinine (0.66-1.25) mg/dL Glucose (74-99) mg/dL POC Glucose (mg/dL) 189 H 164 H 145 H (75-99) mg/dL Total Bilirubin (0.2-1.3) mg/dL AST (17-59) U/L ALT (4-49) U/L Alkaline Phosphatase (38-126) U/L Total Protein (6.3-8.2) g/dL Albumin (3.5-5.0) g/dL 05/15/21 05/15/21 05/15/21 Range/Units 04:41 04:41 05:49 WBC 12.1 H (3.8-10.6) k/uL RBC 2.49 L (4.30-5.90) m/uL Hgb 8.1 L (13.0-17.5) gm/dL Hct 25.4 L (39.0-53.0) % MCV 102.1 H (80.0-100.0) fL RDW 18.7 H (11.5-15.5) % Neutrophils # 9.8 H (1.3-7.7) k/uL Sodium 129 L (137-145) mmol/L Chloride 96 L (98-107) mmol/L Carbon Dioxide 20 L (22-30) mmol/L BUN 74 H (9-20) mg/dL Creatinine 6.83 H (0.66-1.25) mg/dL Glucose 105 H (74-99) mg/dL POC Glucose (mg/dL) 101 H (75-99) mg/dL Total Bilirubin 3.5 H (0.2-1.3) mg/dL AST 180 H (17-59) U/L ALT 716 H (4-49) U/L Alkaline Phosphatase 1094 H (38-126) U/L Total Protein 5.7 L (6.3-8.2) g/dL Albumin 2.8 L (3.5-5.0) g/dL 05/15/21 05/15/21 05/15/21 Range/Units 08:40 10:05 12:08 WBC (3.8-10.6) k/uL RBC (4.30-5.90) m/uL Hgb (13.0-17.5) gm/dL Hct (39.0-53.0) % MCV (80.0-100.0) fL RDW (11.5-15.5) % Neutrophils # (1.3-7.7) k/uL Sodium (137-145) mmol/L Chloride (98-107) mmol/L Carbon Dioxide (22-30) mmol/L BUN (9-20) mg/dL Creatinine (0.66-1.25) mg/dL Glucose (74-99) mg/dL POC Glucose (mg/dL) 257 H 263 H 140 H (75-99) mg/dL Total Bilirubin (0.2-1.3) mg/dL AST (17-59) U/L ALT (4-49) U/L Alkaline Phosphatase (38-126) U/L Total Protein (6.3-8.2) g/dL Albumin (3.5-5.0) g/dL 05/15/21 Range/Units 14:13 WBC (3.8-10.6) k/uL RBC (4.30-5.90) m/uL Hgb (13.0-17.5) gm/dL Hct (39.0-53.0) % MCV (80.0-100.0) fL RDW (11.5-15.5) % Neutrophils # (1.3-7.7) k/uL Sodium (137-145) mmol/L Chloride (98-107) mmol/L Carbon Dioxide (22-30) mmol/L BUN (9-20) mg/dL Creatinine (0.66-1.25) mg/dL Glucose (74-99) mg/dL POC Glucose (mg/dL) 229 H (75-99) mg/dL Total Bilirubin (0.2-1.3) mg/dL AST (17-59) U/L ALT (4-49) U/L Alkaline Phosphatase (38-126) U/L Total Protein (6.3-8.2) g/dL Albumin (3.5-5.0) g/dL Microbiology - Last 24 Hours (Table) 05/12/21 13:13 Blood Culture - Preliminary Blood No Growth after 72 hours 05/10/21 10:32 Blood Culture - Preliminary Blood No Growth after 120 hours 05/10/21 11:34 Blood Culture - Preliminary Blood No Growth after 120 hours 05/14/21 03:34 Blood Culture - Preliminary Blood No Growth after 24 hours 05/13/21 10:20 Gram Stain - Preliminary Back Wound Culture - Preliminary 05/13/21 10:20 Gram Stain - Preliminary Back Wound Culture - Preliminary 05/12/21 13:18 Blood Culture Gram Stain - Preliminary Blood Blood Culture - Preliminary Coagulase Negative Staph Assessment and Plan Assessment: 51 yo male s/p 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 POD2 revision L4-5 decompression fusion with irrigation and debridement. ESRD Elevated LFTs Possible cholecystitis Diabetes Complex medical patient Plan: -Appreciate business travel consultant and team management. -Activity: Ambulate QID, OOB all meals, up and about, limit lifting bending twisting to less than 5 lbs. Use walker or cane if needed for stability. -Daily PT/OT, increase ambulation strength and balance. -LSO brace at all times when seated standing or up and about not needed for sleeping -Pain control: Adequate at this time -Meds: reviewed -GI ppx: senna, Miralax -DC sesay when up and about, bedside commode if needed -DVT PPX: OK to restart Heparin tonight -Hygiene: Shower today. Maintain dressing clean and dry. Meticulous cleaning after BMs away from incision site -Drains: DC drain today -Encourage IS 10x/hr -Dispo: Orthopedic stable for discharge Follow-up in 2 weeks
[2021-05-15 16:07] VITALS: BP 167/75; RESP 12; TEMP 98
[2021-05-15] MEDS: DAPTOmycin 500 MG in SODIUM CHLORIDE 0.9% 50 ML IVPB SCH (16:08)
--- NOTE | 2021-05-15 16:13 | PN ---
PROGRESS NOTE DATE OF SERVICE: 05/15/2021 REASON FOR FOLLOWUP: Staphylococcal bacteremia secondary to lumbosacral spinal abscess. INTERVAL HISTORY: The patient is afebrile. He is breathing comfortably. Lumbosacral pain slightly decreased. No chest pain, shortness of breath or cough. No abdominal pain or diarrhea. PHYSICAL EXAMINATION: Blood pressure is 172/76, pulse of 76, temperature 98.1. He is 98% on room air. GENERAL DESCRIPTION: General description is a middle-aged male lying in bed in no distress. RESPIRATORY SYSTEM: Unlabored breathing. Clear to auscultation anteriorly. HEART: S1, S2. Regular rate and rhythm. ABDOMEN: Soft. No tenderness. LABS: Hemoglobin is 8.9, white count 12.1, BUN of , creatinine 6.83. Blood culture from yesterday so far negative. DIAGNOSTIC IMPRESSION AND PLAN: Patient with Staphylococcus epidermidis lumbar paraspinal abscess, status post drainage with redo surgery this admission. Currently on daptomycin. He will need long-term antibiotic therapy and close outpatient followup. Continue supportive care. Family at the bedside. Questions were answered. MMODL / IJN: [id number] /
--- NOTE | 2021-05-16 00:52 | P.DS ---
Providers Date of admission: 05/09/21 21:34 Attending physician: Martín Novak Consults: 05/09/21 19:00 Consult Physician Routine Consulting Provider: Lanie Saab Consult Reason/Comments: sepsis Do you want consulting provider notified?: Yes 05/09/21 19:01 Consult Physician Routine Consulting Provider: Sebas Lozano Consult Reason/Comments: recent surgery Do you want consulting provider notified?: Yes 05/09/21 19:06 Consult Physician Routine Consulting Provider: Elisha Vogt Consult Reason/Comments: hepatitis Do you want consulting provider notified?: Yes 05/09/21 20:51 Consult Physician Routine Consulting Provider: Fauzia Garcia Consult Reason/Comments: Chronic kidney failure, hyperkalemia Do you want consulting provider notified?: Yes 05/10/21 02:30 Consult Physician Routine Consulting Provider: [facility] Consult Reason/Comments: Bradycardia Do you want consulting provider notified?: Already Contacted 05/10/21 02:32 Consult Physician Routine Consulting Provider: Tyson Siddiqi Consult Reason/Comments: ICU Managment Do you want consulting provider notified?: Already Contacted 05/10/21 14:42 Consult Physician Routine Consulting Provider: Fer Barboza Consult Reason/Comments: Possible acute cholecystitis Do you want consulting provider notified?: Yes 05/11/21 13:10 Consult Physician Routine Consulting Provider: Fer Barboza Consult Reason/Comments: poss to Do you want consulting provider notified?: Yes Primary care physician: Emory Jacob Hospital Course: Diagnoses: Revision L4-L5 decompression fusion and irrigation postop day 2 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 He was monitored in the ICU today fully awake and oriented, he was denied any specific symptoms, no chest pain or dyspnea, no change in urine or bowel habits. No fever He has chronic mild hyponatremia and his sodium on discharge is stable at 129 and he has elevated liver enzymes which is improving and has been evaluated by G I team and admitted him for discharge with close outpatient follow-up in one week, patient informed with this recommendation and he agrees to call and make an appointment with Dr. Vogt from GI service. His been evaluated by infectious disease team and discovered with daptomycin renal dose with hemodialysis for his spine infection and discitis, hardware was removed by orthopedic team. Patient is walking with no difficulty and he declined evaluation by physical therapy or going to rehab. Both services infectious disease and Dr. Saldaña The patient for discharge, patient was instructed to follow up as an outpatient and he agrees. Other than that patient wasn't insulin pump but was held because of battery issue on admission and his has to recommended new 1, he was on insulin drip but today he placed it back and his sugar has been controlled N1 100s, patient states he has a glucometer and he can monitor his sugar 4 times a day, this was explained to him extensively with recommendation to completely ED if his glucose less than 70 or more than 400 and he agrees Patient is on nifedipine 60 mg here in the hospital, his blood pressure slightly elevated so he'll be discharged on his home dose of nifedipine 60 mg twice a day. Also labetalol. Patient states that he has this prescription at home As a stated patient was cleared for discharge by all consultants including cellophane casting machine repairer, infectious disease team, electrical high tension tester, orthopedic team, pulmonary/critical care team Problems and management plan were discussed with the patient and he verbalized understanding and acceptance Patient was found stable and can be discharged home however he needs follow-up as an outpatient. Patient was instructed to follow up with PCP Dr. Jacob within one week and patient agrees with the appointments made for him on 05/[address] saab ID team appointment on 05/22, patient also was instructed to follow up with cellophane casting machine repairer Dr. Garcia in one week, Dr. Sin ALVARADO in 1-[address] Lozano in 1-2 weeks and he agrees to call and make his own appointments Physical exam Gen: patient is a AAOx3, no distress CVS: S1-S2, RRR, no murmur Lungs: B/L CTA, no wheezing Abdomen: soft, no distention, no tenderness, positive bowel sounds Extremity: no leg edema or induration Time spent more than 35 minutes Plan - Discharge Summary New Discharge Prescriptions: New Folic Acid 1 mg PO DAILY@1200 #30 tab Thiamine [Vitamin B-1] 100 mg PO DAILY@1200 #15 tab Calcium Acetate [PhosLo] 667 mg PO TID-W/MEALS #90 tab Cholecalciferol [Vitamin D3 (25 Mcg = 1000 Iu)] 125 mcg PO DAILY #20 tablet Continue traMADol HCL 50 mg PO Q8H PRN PRN Reason: Pain Renaplex-D 1 tab PO DAILY Pramipexole Di-HCl [Mirapex] 0.5 mg PO HS Omeprazole 40 mg PO DAILY Labetalol [Trandate] 200 mg PO TID Aspirin EC [Ecotrin Low Dose] 81 mg PO DAILY Ascorbic Acid [Vitamin C] 1,000 mg PO DAILY calcitrioL [Rocaltrol] 0.25 mcg PO PRO Citalopram Hydrobromide [CeleXA] 20 mg PO DAILY Velphoro Chew 500mg 1 tab PO QID Sennosides/Docusate Sodium [Senna Plus 8.6-50 mg Softgel] 1 cap PO DAILY PRN PRN Reason: Constipation Insulin Aspart (For Pump) [NovoLOG (For Pump)] 0.01 unit SQ-PUMP CONTINUOUS NIFEdipine [NIFEdipine ER (Osmotic)] 60 mg PO BID Cyclobenzaprine [Flexeril] 10 mg PO TID PRN PRN Reason: Muscle Spasm Discontinued Furosemide [Lasix] 40 mg PO DAILY Potassium Chloride ER [K-Dur 20] 20 meq PO BID 2 Days #4 tab NIFEdipine [NIFEdipine ER (Osmotic)] 30 mg PO HS HYDROcodone/APAP 10-325MG [[place] 10-325] 1 tab PO Q6HR PRN #28 tab PRN Reason: Pain Discharge Medication List Ascorbic Acid [Vitamin C] 1,000 mg PO DAILY 04/25/21 [History] Aspirin EC [Ecotrin Low Dose] 81 mg PO DAILY 04/25/21 [History] Citalopram Hydrobromide [CeleXA] 20 mg PO DAILY 04/25/21 [History] Cyclobenzaprine [Flexeril] 10 mg PO TID PRN 04/25/21 [History] Insulin Aspart (For Pump) [NovoLOG (For Pump)] 0.01 unit SQ-PUMP CONTINUOUS 04/25/21 [History] Labetalol [Trandate] 200 mg PO TID 04/25/21 [History] NIFEdipine [NIFEdipine ER (Osmotic)] 60 mg PO BID 04/25/21 [History] Omeprazole 40 mg PO DAILY 04/25/21 [History] Pramipexole Di-HCl [Mirapex] 0.5 mg PO HS 04/25/21 [History] Renaplex-D 1 tab PO DAILY 04/25/21 [History] Velphoro Chew 500mg 1 tab PO QID 04/25/21 [History] calcitrioL [Rocaltrol] 0.25 mcg PO PRO 04/25/21 [History] traMADol HCL 50 mg PO Q8H PRN 04/25/21 [History] Sennosides/Docusate Sodium [Senna Plus 8.6-50 mg Softgel] 1 cap PO DAILY PRN 05/09/21 [History] Calcium Acetate [PhosLo] 667 mg PO TID-W/MEALS #90 tab 05/15/21 [Rx] Cholecalciferol [Vitamin D3 (25 Mcg = 1000 Iu)] 125 mcg PO DAILY #20 tablet 05/15/21 [Rx] Folic Acid 1 mg PO DAILY@1200 #30 tab 05/15/21 [Rx] Thiamine [Vitamin B-1] 100 mg PO DAILY@1200 #15 tab 05/15/21 [Rx] Follow up Appointment(s)/Referral(s): Matilde Corcoran SN [Student Nurse] - 1 Week Fauzia Garcia MD [STAFF PHYSICIAN] - 1 Week [facility] - As Needed Elisha Vogt MD [STAFF PHYSICIAN] - 2 Weeks (electrical high tension tester , we recommend to check your liver enzymes in 1-2week) Emory Jcaob MD [Primary Care Provider] - 05/16/21 2:15 pm (To see Gavin Camara) [facility], [REFERRING] - As Needed Sebas Lozano DO [Doctor of Osteopathic Medicine] - 2 Weeks (orthopedic ) Lanie Saab MD [STAFF PHYSICIAN] - 05/22/21 3:30 pm (infectious disease ) Patient Instructions/Handouts: Anterior Posterior Spinal Fusion (DC), Sepsis (GEN) Activity/Diet/Wound Care/Special Instructions: Resume hemodialysis at [facility] on 05/17/21 at 07:15 a.m. You will receive your IV antibiotics with your dialysis - IV antibiotic per infectious disease - Daptomycin 500mg at then end of each dialysis x 6 weeks. renal diet activity is restricted till you see your doctor Spine Discharge and Recovery Instructions Date of Surgery: 05/13/2021 Diagnosis: Hardware failure with postoperative fluid collection concerning for continued abscess L4-L5 Procedure: Revision fusion L4 5 with decompression and fluid evacuation irrigation and debridement Medications: See list All medication refills should be obtained through your primary care doctor or your clinic spine surgeon. Please discuss prescription refills at your follow up appointment. Do not call the hospital for medication refills. Dressing: Leave your dressing in place for a total of 3 days post operatively. Then you may remove your dressing and leave open to air. Keep the area clean and if not able to keep area clean, then cover with sterile gauze and tape. Wear brace at all times when up and about seated or walking may remove for sleeping and showering only Showering: You may shower 3 days after your procedure allowing soap and water to run over incision. Do not scrub. Do not soak. Blot dry. Follow up: Please confirm a follow up appointment with your surgeon 2 weeks post operatively. Please make an appointment to follow up with your PCP in 1-2 weeks after surg smita for evaluation 3 phase, 3-week plan POST OP WEEKS 1-3 1. Lifting/carrying/pushing/pulling limited to less than 5 pounds. 2. Do not sit for longer than 15 minutes at one time. Get up and walk around. Prolonged sitting is NOT advised. If you lay down, see if you can tolerate laying down on you front (belly side) 3. Walk for periods of 15 minutes = 1 mile but no longer; do it multiple times times each day. 4.Ice your low back after activity. POST OP WEEKS 3-6 1. Lifting limited to less than 20 pounds. 2. Do not sit for longer than 30 minutes at a time. Frequently change positions. Use a sit-to stand workstation or take frequent breaks from sitting if you have returned to work. 3. Walk for 30 minutes each day. If possible, do these three or more times a day POST OP WEEKS 6+ At your 6-week appointment we will give you a physical therapy referral to focus on a core stabilization and strengthening program. You should also work on leg & buttock strengthening, hamstring & quadriceps stretching, and continue a low impact aerobic activity program such as swimming, walking, or riding a stationary bicycle. During the initial 6 weeks after your surgery, you are at the highest risk of re-injuring your spine. You should generally avoid BLTs (bending, lifting and twisting combination motions) and follow the above guidelines to reduce the chance of reinjury. You can anticipate post op appointments in our office at approximately 3 weeks and 6 weeks after your surgery. INCISION CARE: If your incision is not draining you do NOT need to cover it with a dressing. Keep your incision clean, dry and intact. In most cases, we apply skin glue, doug or sutures to the incision at the time of surgery. This will be like a crust or have the appearance of a scab and will fall off in time on its own. The stitches or doug need to be removed at 3 weeks post op appointment. You may begin to shower 3 days after surgery (this allows the glue to l[place] well). However, please avoid scrubbing the incision site or peeling off any of the skin glue. This will ensure optimal healing of your incision. Also, during this time avoid soaking the incision area in water - this includes swimming pools, hot tubs or baths. No ointments, lotions or oils on the incision until your surgeon allows. Leave doug, sutures or glue in place. Neurological dysfunction that comes on suddenly can also be a sign of a stroke. Below some common symptoms of a stroke are listed: B - balance difficulty such as sudden onset walking or leaning to one side - NEW E - eye problem such as sudden double vision or trouble seeing on one side - NEW F - Facial weakness or numbness on one side - NEW A - Arm or leg weakness or numbness on one side - NEW S - Slurred speech or difficulty with word finding - NEW T - Time is BRAIN! Call 911 as soon as you recognize these symptoms Diet: Consume a regular diet rich in vegetables and lean protein such as chicken or fish. You should consume in a ratio of approximately 20% fats|40% carbohydrates|40%protein. Vegetables, sweet potatoes, brown rice or quinoa are examples of good carbohydrates. Chips, white bread, cookies and sweets/sugar are examples of bad carbohydrates. Limit your bad carbs, go wild with good carbs. "Life's Simple 7" Guidelines as per [place] [employer] These will help you reclaim your life after surgery and wirer helper in your recovery, keeping in mind your restrictions. (1) Get Active. Physical activity can help people lose weight, control high blood pressure and cholesterol, feel emotionally better, and sleep better. (2) Control Cholesterol. Avoid a diet high in saturated fat, trans fat, & cholesterol. Limit whole milk & cream, ice cream, butter, egg yolks, processed meats (like sausage and hot dogs), and fatty meats. Choose healthy foods that are low in saturated fat, trans fat and cholesterol which include: Fruits and vegetables, fiber rich grain products (like whole grain pasta and brown rice), lean meat such as chicken, fish, nuts, seeds, and legumes. (3) Eat Better. Eat small portions. Shop at the grocery with a list and do not stray from it. Tips for a healthy diet include: Limit sodium intake to less than 1500mg daily, avoid prepackaged, processed, and fast foods, choose a diet rich in fruits, vegetables, and whole grain, high fiber foods, and limit saturated & cholesterol in your diet. (4) Manage Blood Pressure. If you have high blood pressure, you should have a cuff at home so that you can check your blood pressure regularly. Be sure you have a good cuff. An arm one is generally better than a wrist one. Bring the cuff to a doctor's appointment to validate that the measurements that your cuff are taking are accurate. Take your blood pressure twice daily when you are sitting down and relaxing. Record the numbers in a log and bring this log with you to your doctors' appointments. (5) Lose Weight if your BMI is above 25. A healthy BMI is between 19-25. To calculate Your BMI, you may use a Standard BMI Calculator on the NIH BMI website: <www.nhlbi.nih.gov/guidelines/obesity/BMI/bmicalc.htm>. Weigh oneself daily. If you are overweight, set a goal to lose weight. A pound a week loss if needed is a good target. (6) Reduce Blood Sugar. Limit foods and liquids with "added sugars." (Added sugars include sucrose, fructose, glucose, maltose, dextrose, high fructose corn syrup, corn syrup, concentrated fruit juice and honey). (7) Stop Smoking. If you smoke, quitting smoking is one of the best things that you can do for your health. Smoking increases your risk of heart attack, stroke, and peripheral vascular disease, which is a build-up of plaque in your arteries. Please discard all the cigarettes and lighters in your house. Have a plan for what you will do when you have the urge to smoke. Direct and second- hand smoke shortens your life as well as the lives of your family, friends and others around you. For your health and the health of those around you, please consider quitting! Proper Bending Body Mechanics: Maintain a wide stance with one foot slightly in front of the other. Keep your back straight. Bend utilizing the strength in your hips and knees. Do not bend at the waist. Maintain the lifted object at your waist-level close to your body. Avoid lifting weight that causes immediately pain or pain anywhere in the body afterwards. Smoking/Nicotine If there was ever one thing that you could do to increase your overall health, decrease your risk of cardiovascular problems by about 39% the second you make the choice, it is to STOP SMOKING. Your body's most instant gratification is the second you stop smoking. We have all heard the studies, read the articles but it is true, smoking is extremely bad for your overall health, and moreover it is detrimental to your bone health. Nicotine, IN ANY FORM, kills bone cells, prevents your body from healing fractures, and significantly prolongs healing after surgery. In spine surgery specifically, it increases your risk of not healing your bones to create a fusion and increases your risk of having a revision surgery due to this up to 60%. I know it is hard. I know it feels impossible. But there are ways. Take control of your life. We are here to help you through it. And when you are ready, ask us and we can direct you to help if you desire. Use the START Plan to Quit Smoking (please visit the Helpguide.org website listed below for more information): S = Set a quit date. Choose a date within the next 2 weeks, so you have enough time to prepare without losing your motivation to quit. If you mainly smoke at work, quit on the weekend, so you have a few days to adjust to the change. T = Tell family, friends, and co-workers that you plan to quit. Let your friends and family in on your plan to quit smoking and tell them you need their support and encouragement to stop. Look for a quit josi who wants to stop smoking as well. You can help each other get through the rough times. A = Anticipate and plan for the challenges you'll face while quitting. Most people who begin smoking again do so within the first 3 months. You can help yourself make it through by preparing ahead for common challenges, such as nicotine withdrawal and cigarette cravings. R = Remove cigarettes and other tobacco products from your home, car, and work. Throw away all your cigarettes (no emergency pack!), lighters, ashtrays, and matches. Wash your clothes and freshen up anything that smells like smoke. Shampoo your car, clean your drapes and carpet, and steam your furniture. T = Talk to your doctor about getting help to quit. Your doctor can prescribe medication to help with withdrawal and suggest other alternatives. If you can't see a doctor, you can get many products over the counter at your local pharmacy or grocery store, including the nicotine patch, nicotine lozenges, and nicotine gum. Resources for Quitting Smoking: <https://www.[place].gov/documents/[facility]/Quit_Tobacco_Resources_for_patients_313 480_7.pdf> Supplementation: Take recommended dosages of Vitamin D and Calcium to help fortify your bones and help them to heal. See your health maintenance packet for dosages and recommended levels. DVT/VTE prophylaxis: You will be given compression stockings from the hospital. Wear these daily for the first two weeks after surgery. You may take them off at night. You may be prescribed a medication to help thin your blood. Take this as directed. If you are not prescribed this medication, early and frequent ambulation has been shown to be the best prophylaxis to deep vein thrombosis and sequelae related to this event. Discharge Disposition: HOME SELF-CARE
== END 2021-05-15 16:59 | disposition home or self-care (01) | DRG 856 ==
LOC: EC 16:04 → 3SCARD 21:34 → 2SICU 05-10 00:57
PROVIDERS: ADMIT Hospitalist; ATTEND Hospitalist
PROC: 0SG00AJ Fusion of Lumbar Vertebral Joint with Interbody Fusion Device, Posterior Approach, Anterior Column, Open Approach (ICD-10-PCS; principal; 2021-05-14)
PROC: 0SP004Z Removal of Internal Fixation Device from Lumbar Vertebral Joint, Open Approach (ICD-10-PCS; 2021-05-14)
PROC: 0J970ZZ Drainage of Back Subcutaneous Tissue and Fascia, Open Approach (ICD-10-PCS; 2021-05-14)
PROC: 0SP00AZ Removal of Interbody Fusion Device from Lumbar Vertebral Joint, Open Approach (ICD-10-PCS; 2021-05-14)
DX: T81.44XA Sepsis following a procedure, initial encounter (principal); A41.2 Sepsis due to unspecified staphylococcus; N18.6 End stage renal disease; K72.00 Acute and subacute hepatic failure without coma; G93.41 Metabolic encephalopathy; G06.1 Intraspinal abscess and granuloma; R65.21 Severe sepsis with septic shock; B17.9 Acute viral hepatitis, unspecified; E87.2 Acidosis; E87.1 Hypo-osmolality and hyponatremia; I13.2 Hypertensive heart and chronic kidney disease with heart failure and with stage 5 chronic kidney disease, or end stage renal disease; K80.10 Calculus of gallbladder with chronic cholecystitis without obstruction; G97.63 Postprocedural seroma of a nervous system organ or structure following a nervous system procedure; T84.226A Displacement of internal fixation device of vertebrae, initial encounter; K80.00 Calculus of gallbladder with acute cholecystitis without obstruction; E87.0 Hyperosmolality and hypernatremia; M86.9 Osteomyelitis, unspecified; D64.9 Anemia, unspecified; E10.22 Type 1 diabetes mellitus with diabetic chronic kidney disease; Z99.2 Dependence on renal dialysis; E87.5 Hyperkalemia; I49.3 Ventricular premature depolarization; Z87.891 Personal history of nicotine dependence; D63.1 Anemia in chronic kidney disease; G25.81 Restless legs syndrome; R00.1 Bradycardia, unspecified; M54.9 Dorsalgia, unspecified; M46.40 Discitis, unspecified, site unspecified; Z96.41 Presence of insulin pump (external) (internal); E10.42 Type 1 diabetes mellitus with diabetic polyneuropathy; I50.9 Heart failure, unspecified; Z79.82 Long term (current) use of aspirin; Z79.4 Long term (current) use of insulin; N50.819 Testicular pain, unspecified; Y83.8 Other surgical procedures as the cause of abnormal reaction of the patient, or of later complication, without mention of misadventure at the time of the procedure; I27.20 Pulmonary hypertension, unspecified; E10.69 Type 1 diabetes mellitus with other specified complication; M89.8X9 Other specified disorders of bone, unspecified site; Z79.899 Other long term (current) drug therapy
CPT/HCPCS: 36415; 70450; 71045; 72100; 72131; 72158; 74176; 76705; 80048; 80053; 80074; 80143; 80202; 82103; 82105; 82140; 82150; 82390; 82607; 82728; 82746; 82805; 83036; 83516; 83540; 83550; 83605; 83690; 83735; 84145; 84165; 85025; 85610; 85652; 85730; 86038; 86140; 87040; 87070; 87075; 87086; 87102; 87205; 90935; 93306; 94660; 94760; 99285